=== PATIENT | female | born 1950 | race African-American/Black ===

== ENCOUNTER → 2017-12-17 | Day surgery (SDC) | payer MEDICARE, OTHER ==
[~2017-12-17] MED LIST: FAMOTIDINE20 MG PO; HYDRALAZINE HCL25 MG PO; LINZESS PO; LOSARTAN POTAS100 MG PO; METFORMIN HCL500 MG PO; MIDAZOLAM HCL 2 MG/2 ML VIAL ONE; PLAVIX75 MG PO; PROPOFOL IV EMULSION 10 MG/ML 50 ML VIAL ONE; SERTRALINE HCL100 MG PO; TIZANIDINE HCL4 MG PO; TRAZODONE HCL50 MG PO
[2017-12-17 07:51] LABS: BASOPHILS % 0.6 % (0.0-1.0); EOSINOPHILS # (AUTO) 0.2 (0.0-0.4); EOSINOPHILS % 3.2 % (0.0-6.0); HEMATOCRIT 37.9 % (34.2-44.1); HEMOGLOBIN 11.6 g/dL (12.0-16.0); LYMPHOCYTES # (AUTO) 2.7 (1.0-3.2); LYMPHOCYTES % 43.4 % (18.0-39.1); MEAN CORPUSCULAR HGB CONC 30.6 g/dL (31-35); MEAN CORPUSCULAR VOLUME 94.8 fL (81-99); MONOCYTES # (AUTO) 0.5 (0.2-0.8); MONOCYTES % 8.5 % (4.4-11.3); NEUTROPHILS # (AUTO) 2.7 (2.1-6.9); NEUTROPHILS % 43.7 % (38.7-80.0); PLATELET COUNT 212 x10e3/uL (140-360); RED CELL DISTRIBUTION WIDTH 13.4 % (11.7-14.4)
== END | disposition home or self-care (01) ==
LOC: OR 06:54
PROVIDERS: ATTEND Internal Medicine Gastroenterology
DX: K29.70 Gastritis, unspecified, without bleeding (principal); K21.9 Gastro-esophageal reflux disease without esophagitis; K31.89 Other diseases of stomach and duodenum; K44.9 Diaphragmatic hernia without obstruction or gangrene; E66.9 Obesity, unspecified; E11.9 Type 2 diabetes mellitus without complications; I10 Essential (primary) hypertension; M19.90 Unspecified osteoarthritis, unspecified site; F32.9 Major depressive disorder, single episode, unspecified; F41.9 Anxiety disorder, unspecified; Z79.02 Long term (current) use of antithrombotics/antiplatelets
CPT/HCPCS: 36415; 43235; 82948; 85025; 93005; J2250

== ENCOUNTER → 2018-10-07 | Day surgery (SDC) | payer MEDICARE, OTHER ==
[2018-10-04 14:37] LABS: BASOPHILS % 0.7 % (0.0-1.0); EOSINOPHILS # (AUTO) 0.2 (0.0-0.4); EOSINOPHILS % 2.8 % (0.0-6.0); HEMATOCRIT 35.8 % (34.2-44.1); LYMPHOCYTES # (AUTO) 3.3 (1.0-3.2); LYMPHOCYTES % 53.8 % (18.0-39.1); MEAN CORPUSCULAR HEMOGLOBIN 29.3 pg (28-32); MEAN CORPUSCULAR HGB CONC 30.7 g/dL (31-35); MEAN CORPUSCULAR VOLUME 95.5 fL (81-99); MONOCYTES # (AUTO) 0.6 (0.2-0.8); MONOCYTES % 10.4 % (4.4-11.3); NEUTROPHILS # (AUTO) 1.9 (2.1-6.9); NEUTROPHILS % 32.1 % (38.7-80.0); PLATELET COUNT 193 x10e3/uL (140-360); RED BLOOD COUNT 3.75 x10e6/uL (3.6-5.1); RED CELL DISTRIBUTION WIDTH 13.1 % (11.7-14.4)
[~2018-10-07] MED LIST changes: +ADVAIR 100-501 EACH; +AMLODIPINE BESY10 MG PO; +ATORVASTATIN CA10 MG PO; +ATROVENT HFA12.9 GM; +COMBIVENT RESPIM4 GM IH; +FENTANYL CITRATE/PF 100MCG/2 ML INJ ONE; +FISH OIL 1,0001 EAC2; +LIDOCAINE HCL 2% LOCAL INJ 5 ML SDV VIAL INJ ONE; -MIDAZOLAM HCL 2 MG/2 ML VIAL ONE; +NORCO 10-325 T1 EACH; +VITAMIN B12
--- OUTSIDE RECORDS SUMMARY | 2018-10-07 06:26 | XMS REPORT | Clinical Summary ---
Author Author [facility] Organization [facility] Address Unknown Phone Unavailable Care Team Providers Care Filler Picker Name Role Phone Adelaida Castro MD PCP Allergies Active Allergy Reactions Severity Noted Date Comments Aspirin, Buffered 09/08/2018 Current Medications Prescription Sig. Disp. Refills Start End Date Status Date lidocaine (LIDODERM) 5 % Place 1 patch on the skin 30 patch 0 09/08/20 10/08/20 Active daily for 30 days. Remove 18 18 & Discard patch within 12 hours or as directed by magnesium citrate Take 1 Bottle (296 mL 296 mL 0 09/08/20 09/08/20 solution total) by mouth once for 18 18 1 dose. Active Problems Not on file Encounters Date Type Specialty Care Team Description 09/08/2018 Emergency Emergency Medicine Clive Rodgers MD Acute right- sided low back pain with right-sided sciatica (Primary Dx); Constipation, unspecified constipation type; Flank pain after 10/06/2017 Social History Tobacco Use Types Packs/Day Years Used Date Never Smoker Alcohol Use Drinks/Week oz/Week Comments No Sex Assigned at Date Recorded Not on file Last Filed Vital Signs Vital Sign Reading Time Taken Blood Pressure 139/76 09/08/2018 9:00 PM CDT Pulse 75 09/08/2018 9:00 PM CDT Temperature 37 C (98.6 F) 09/08/2018 9:00 PM CDT Respiratory Rate 16 09/08/2018 9:00 PM CDT Oxygen Saturation 99% 09/08/2018 9:00 PM CDT Inhaled Oxygen - - Concentration Weight 63.5 kg (140 lb) 09/08/2018 5:49 PM CDT Height - - Body Mass Index - - Plan of Treatment Health Maintenance Due Date Last Done Comments BREAST CANCER SCREENING 1999 COLON CANCER SCREENING 1999 SHINGRIX VACCINE (#1) 1999 ZOSTER VACCINE 2009 PNEUMOCOCCAL 2014 POLYSACCHARIDE VACCINE AGE 65 AND OVER PNEUMOCOCCAL-13 2014 INFLUENZA VACCINE 06/30/2018 Procedures Procedure Name Priority Date/Time Associated Diagnosis Comments XR LUMBAR SPINE COMPLETE STAT 09/08/2018 Results for this 4+ VW 8:20 PM CDT procedure are in the results section. CT RENAL STONE PROTOCOL STAT 09/08/2018 Results for this 6:33 PM CDT procedure are in the results section. ESTIMATED GFR STAT 09/08/2018 Results for this 6:30 PM CDT procedure are in the results section. LIPASE LEVEL STAT 09/08/2018 Results for this 6:30 PM CDT procedure are in the results section. COMPREHENSIVE METABOLIC STAT 09/08/2018 Results for this PANEL 6:30 PM CDT procedure are in the results section. URINALYSIS SCREEN AND STAT 09/08/2018 Results for this MICROSCOPY, WITH REFLEX 6:30 PM CDT procedure are in the TO CULTURE results section. PARTIAL THROMBOPLASTIN STAT 09/08/2018 Results for this TIME (PTT) 6:30 PM CDT procedure are in the results section. PROTHROMBIN TIME WITH INR STAT 09/08/2018 Results for this 6:30 PM CDT procedure are in the results section. HC COMPLETE BLD COUNT STAT 09/08/2018 Results for this W/AUTO DIFF 6:30 PM CDT procedure are in the results section. after 10/06/2017 Results * XR Lumbar Spine Complete 4+ Vw (09/08/2018 8:20 PM) Narrative Performed At EXAMINATION: XR LUMBAR SPINE COMPLETE 4VW [facility] CLINICAL HISTORY: Back [id number] conservative txpersistent sx COMPARISON:None IMPRESSION: Vertebral body heights appear maintained without evidence of fracture. Mild right convex lumbar scoliosis with Brown angle measuring 14 degrees from the superior endplate of L2 to the inferior endplate of L4. Mild leftward rotatory component. Moderate to marked intervertebral disc space and at L1-L2, L2-L3, L5-S1, and the left aspect of L3-L4. Mild to moderate multilevel anterior osteophyte formation. Multilevel moderate to marked facet hypertrophy which appears more pronounced on the left in the mid and lower lumbar spine. No spondylolysis identified. Vascular calcifications. Surgical clips in the region of the gastroesophageal junction. [id number] Procedure Note Hm Interface, Radiology Results Incoming - 09/08/2018 8:37 PM CDT EXAMINATION: XR LUMBAR SPINE COMPLETE 4 VW CLINICAL HISTORY: Back pain 6wks conservative tx persistent sx COMPARISON: None IMPRESSION: Vertebral body heights appear maintained without evidence of fracture. Mild right convex lumbar scoliosis with Brown angle measuring 14 degrees from the superior endplate of L2 to the inferior endplate of L4. Mild leftward rotatory component. Moderate to marked intervertebral disc space and at L1-L2, L2-L3, L5-S1, and the left aspect of L3-L4. Mild to moderate multilevel anterior osteophyte formation. Multilevel moderate to marked facet hypertrophy which appears more pronounced on the left in the mid and lower lumbar spine. No spondylolysis identified. Vascular calcifications. Surgical clips in the region of the gastroesophageal junction. [id number] Performing Organization Address City/State/Zipcode Phone Number [facility] [address] [place] [address] * CT Renal Stone Protocol (09/08/2018 6:33 PM) Narrative Performed At EXAMINATION:CT RENAL STONE PROTOCOL [facility] CLINICAL HISTORY:Flank painrecurrent stone disease suspected COMPARISON:None. TECHNIQUE:CT of the abdomen and pelvis without intravenous contrast. Absence of contrast decreases sensitivity for detection of focal lesions and vascular pathology. All CT scan performed using radiation dose reduction techniques. Technical factors are evaluated and adjusted to ensure appropriate moderation of exposure. Automated dose management technology is applied to adjust the radiation dose to minimize expose whileachieving a diagnostic quality image. FINDINGS: LUNG BASES: The lung bases are clear. HEPATOBILIARY:Limited evaluation of the liver is unremarkable. No intrahepatic biliary dilatation is seen. GALLBLADDER: No gallstones are seen. No wall thickening or pericholecystic fluid collection is identified. SPLEEN: Limited nonenhanced evaluation of the spleen is unremarkable.No splenomegaly. PANCREAS: Limited nonenhanced evaluation of the pancreas is unremarkable.No ductal dilation. ADRENALS: The adrenal glands are unremarkable. No adrenal nodules. KIDNEYS:No renal calculus or hydronephrosis is seen. Limited nonenhanced evaluation of the kidneys otherwise unremarkable. PERITONEUM/RETROPERITONEUM: No mesenteric or retroperitoneal pathologic adenopathy is seen. GI TRACT:The small bowel is normal in caliber. Moderate retained fecal debris is interbody colon. The colon is otherwise unremarkable. No wall thickening is identified. There is no evidence of inflammatory process. The appendix not seen. No right low quadrant inflammation is present. . Multiple surgical clips are noted at the gastroesophageal junction. The stomach is unremarkable.. BONES: Moderate multilevel degenerative changes are noted. VASCULATURE: Moderate atherosclerotic disease is seen of the abdominal aorta. PELVIS: BLADDER: The urinary bladder is unremarkable. GENITALIA: The uterus is not seen, suggestive of surgically absent. FLUID: None. IMPRESSION: No CT evidence of renal calculus or obstructive the uropathy. Moderate constipation. No CT evidence of colitis or bowel obstruction. Unremarkable exam otherwise. [id number] Procedure Note Hm Interface, Radiology Results Incoming - 09/08/2018 6:43 PM CDT EXAMINATION: CT RENAL STONE PROTOCOL CLINICAL HISTORY: Flank pain recurrent stone disease suspected COMPARISON: None. TECHNIQUE: CT of the abdomen and pelvis without intravenous contrast. Absence of contrast decreases sensitivity for detection of focal lesions and vascular pathology. All CT scan performed using radiation dose reduction techniques. Technical factors are evaluated and adjusted to ensure appropriate moderation of exposure. Automated dose management technology is applied to adjust the radiation dose to minimize expose while achieving a diagnostic quality image. FINDINGS: LUNG BASES: The lung bases are clear. HEPATOBILIARY: Limited evaluation of the liver is unremarkable. No intrahepatic biliary dilatation is seen. GALLBLADDER: No gallstones are seen. No wall thickening or pericholecystic fluid collection is identified. SPLEEN: Limited nonenhanced evaluation of the spleen is unremarkable. No splenomegaly. PANCREAS: Limited nonenhanced evaluation of the pancreas is unremarkable. No ductal dilation. ADRENALS: The adrenal glands are unremarkable. No adrenal nodules. KIDNEYS: No renal calculus or hydronephrosis is seen. Limited nonenhanced evaluation of the kidneys otherwise unremarkable. PERITONEUM/RETROPERITONEUM: No mesenteric or retroperitoneal pathologic adenopathy is seen. GI TRACT: The small bowel is normal in caliber. Moderate retained fecal debris is interbody colon. The colon is otherwise unremarkable. No wall thickening is identified. There is no evidence of inflammatory process. The appendix not seen. No right low quadrant inflammation is present. . Multiple surgical clips are noted at the gastroesophageal junction. The stomach is unremarkable.. BONES: Moderate multilevel degenerative changes are noted. VASCULATURE: Moderate atherosclerotic disease is seen of the abdominal aorta. PELVIS: BLADDER: The urinary bladder is unremarkable. GENITALIA: The uterus is not seen, suggestive of surgically absent. FLUID: None. IMPRESSION: No CT evidence of renal calculus or obstructive the uropathy. Moderate constipation. No CT evidence of colitis or bowel obstruction. Unremarkable exam otherwise. [id number] Performing Organization Address City/State/Zipcode Phone Number [facility] [address] [place] [address] * Urinalysis screen and microscopy, with reflex to culture (09/08/2018 6:30 PM) Specimen site Clean catch [facility] DEPARTMENT OF PATHOLOGY AND GENOMIC MEDICINE Color, UA Straw [facility] DEPARTMENT OF PATHOLOGY AND GENOMIC MEDICINE Appearance, UA Clear [facility] DEPARTMENT OF PATHOLOGY AND GENOMIC MEDICINE Specific gravity, UA 1.008 1.001 - 1.035 [facility] DEPARTMENT OF PATHOLOGY AND GENOMIC MEDICINE pH, UA 7.0 5.0 - 8.5 [facility] DEPARTMENT OF PATHOLOGY AND GENOMIC MEDICINE Protein, UA Negative Negative [facility] DEPARTMENT OF PATHOLOGY AND GENOMIC MEDICINE Glucose, UA Negative Negative [facility] DEPARTMENT OF PATHOLOGY AND GENOMIC MEDICINE Ketones, UA Negative Negative [facility] DEPARTMENT OF PATHOLOGY AND GENOMIC MEDICINE Bilirubin, UA Negative Negative [facility] DEPARTMENT OF PATHOLOGY AND GENOMIC MEDICINE Blood, UA Negative Negative [facility] DEPARTMENT OF PATHOLOGY AND GENOMIC MEDICINE Nitrite, UA Negative Negative [facility] DEPARTMENT OF PATHOLOGY AND GENOMIC MEDICINE Urobilinogen, UA Negative <2.0 [facility] DEPARTMENT OF PATHOLOGY AND GENOMIC MEDICINE Leukocyte esterase, UA Negative Negative [facility] DEPARTMENT OF PATHOLOGY AND GENOMIC MEDICINE Epithelial cells, UA Few /HPF [facility] DEPARTMENT OF PATHOLOGY AND GENOMIC MEDICINE WBC, UA 0-5 0 - 4 /HPF [facility] DEPARTMENT OF PATHOLOGY AND GENOMIC MEDICINE RBC, UA 0-5 0 - 5 /HPF [facility] DEPARTMENT OF PATHOLOGY AND GENOMIC MEDICINE Bacteria, UA Trace None seen [facility] DEPARTMENT OF PATHOLOGY AND GENOMIC MEDICINE Yeast, UA None seen [facility] DEPARTMENT OF PATHOLOGY AND GENOMIC MEDICINE Yeast with pseudohyphae, None seen [facility] DEPARTMENT OF PATHOLOGY AND GENOMIC MEDICINE Specimen Urine Performing Organization Address City/[facility]/Zipcode Phone Number [place] [address] [place] [address] PATHOLOGY AND GENOMIC MEDICINE * Estimated GFR (09/08/2018 6:30 PM) Estimated GFR >=90 mL/min/1.73 m2 [facility] DEPARTMENT OF Comment: PATHOLOGY AND [employer] GENOMIC MEDICINE rpretation G1 >=90 Normal or high G2 60-89Mildly decreased [id number] Mildly to moderately decreased [id number] Moderately to severely decreased G4 15-29Severely decreased G5 <15Kidney failure The eGFR was calculated using the Chronic Kidney Disease Epidemiology Collaboration (CKD-EPI) equation. Interpretation is based on recommendations of the National Kidney Foundation-Kidney Disease Outcomes Quality Initiative (NKF-KDOQI) published in 2014. Specimen Plasma specimen Performing Organization Address [facility] Phone Number [address] [place] [address] PATHOLOGY AND [place] [facility] * Partial thromboplastin time, activated (09/08/2018 6:30 PM) PTT 30.6 23.0 - 36.0 sec [facility] DEPARTMENT OF Comment: PATHOLOGY AND PTT therapeutic range for GENOMIC [facility] unfractionated heparin is 61.0-112.0 seconds which corresponds to Anti-Xa 0.3-0.7 U/ml. Specimen Blood Performing Organization Address [facility] Phone Number [address] [place] [address] PATHOLOGY AND [place] [facility] * Prothrombin time with INR (09/08/2018 6:30 PM) Prothrombin time 12.1 12.0 - 15.0 sec [facility] DEPARTMENT OF PATHOLOGY AND [place] MEDICINE INR 0.9 [facility] DEPARTMENT OF Comment: PATHOLOGY AND The International Normalized GENOMIC MEDICINE Ratio (INR) is a therapeutic monitoring tool for patients who are stable on oral anticoagulant therapy. An INR of 2.0-3.0 is suggested for deep vein thrombosis/pulmonary embolism. Specimen Blood Performing Organization Address [facility] Phone Number [address] [place] [address] PATHOLOGY AND [place] [facility] * CBC with platelet and differential (09/08/2018 6:30 PM) WBC 8.01 4.50 - 11.00 k/uL [facility] DEPARTMENT OF PATHOLOGY AND GENOMIC MEDICINE RBC 3.95 (L) 4.20 - 5.50 m/uL [facility] DEPARTMENT OF PATHOLOGY AND GENOMIC MEDICINE HGB 11.6 (L) 12.0 - 16.0 g/dL [facility] DEPARTMENT OF PATHOLOGY AND GENOMIC MEDICINE HCT 36.9 (L) 37.0 - 47.0 % [facility] DEPARTMENT OF PATHOLOGY AND GENOMIC MEDICINE MCV 93.4 82.0 - 100.0 fL [facility] DEPARTMENT OF PATHOLOGY AND GENOMIC MEDICINE MCH 29.4 27.0 - 34.0 pg [facility] DEPARTMENT OF PATHOLOGY AND GENOMIC MEDICINE MCHC 31.4 31.0 - 37.0 g/dL [facility] DEPARTMENT OF PATHOLOGY AND GENOMIC MEDICINE RDW - SD 45.8 37.0 - 55.0 fL [facility] DEPARTMENT OF PATHOLOGY AND GENOMIC MEDICINE MPV 11.0 8.8 - 13.2 fL [facility] DEPARTMENT OF PATHOLOGY AND GENOMIC MEDICINE Platelet count 204 150 - 400 k/uL [facility] DEPARTMENT OF PATHOLOGY AND GENOMIC MEDICINE Nucleated RBC 0.00 /100 WBC [facility] DEPARTMENT OF PATHOLOGY AND GENOMIC MEDICINE Neutrophils 39.0 39.0 - 69.0 % [facility] DEPARTMENT OF PATHOLOGY AND GENOMIC MEDICINE Lymphocytes 50.6 (H) 25.0 - 45.0 % [facility] DEPARTMENT OF PATHOLOGY AND GENOMIC MEDICINE Monocytes 7.6 0.0 - 10.0 % [facility] DEPARTMENT OF PATHOLOGY AND GENOMIC MEDICINE Eosinophils 1.9 0.0 - 5.0 % [facility] DEPARTMENT OF PATHOLOGY AND GENOMIC MEDICINE Basophils 0.4 0.0 - 1.0 % [facility] DEPARTMENT OF PATHOLOGY AND GENOMIC MEDICINE Specimen Blood Performing Organization Address City/[facility] Phone Number [address] [place] [address] PATHOLOGY [facility] * Lipase level (09/08/2018 6:30 PM) Lipase 18 13 - 60 U/L [facility] DEPARTMENT OF PATHOLOGY AND GENOMIC MEDICINE Specimen Plasma specimen Performing Organization Address City/[facility]/Zipcode Phone Number [address] [place] [address] PATHOLOGY [facility] * Comprehensive metabolic panel (09/08/2018 6:30 PM) Sodium 138 135 - 148 mEq/L [facility] DEPARTMENT OF PATHOLOGY AND GENOMIC MEDICINE Potassium 4.0 3.5 - 5.0 mEq/L [facility] DEPARTMENT OF PATHOLOGY AND GENOMIC MEDICINE Chloride 103 98 - 112 mEq/L [facility] DEPARTMENT OF PATHOLOGY AND GENOMIC MEDICINE CO2 24 24 - 31 mEq/L [facility] DEPARTMENT OF PATHOLOGY AND GENOMIC MEDICINE Anion gap 11@ANIO 7 - 15 mEq/L [facility] DEPARTMENT OF PATHOLOGY AND GENOMIC MEDICINE BUN 21 8 - 23 mg/dL [facility] DEPARTMENT OF PATHOLOGY AND GENOMIC MEDICINE Creatinine 0.70 0.50 - 0.90 mg/dL [facility] DEPARTMENT OF PATHOLOGY AND GENOMIC MEDICINE Glucose 81 65 - 99 mg/dL [facility] DEPARTMENT OF PATHOLOGY AND GENOMIC MEDICINE Calcium 9.5 8.8 - 10.2 mg/dL [facility] DEPARTMENT OF PATHOLOGY AND GENOMIC MEDICINE Protein 7.6 6.3 - 8.3 g/dL [facility] DEPARTMENT OF Comment: PATHOLOGY AND [place] GENOMIC MEDICINE 4.6-7.0 g/dL 1 week 4.4-7.6 g/dL 7 months-1year 5.1-7.3 g/dL 1-2 years5.6-7 .5 g/dL >3 years6.0-8 .0 g/dL 18-150 6.3-8.3 g/dL Albumin 4.2 3.5 - 5.0 g/dL [facility] DEPARTMENT OF PATHOLOGY AND GENOMIC MEDICINE A/G ratio 1.2 0.7 - 3.8 [facility] DEPARTMENT OF PATHOLOGY AND GENOMIC MEDICINE Alkaline phosphatase 69 35 - 104 U/L [facility] DEPARTMENT OF PATHOLOGY AND GENOMIC MEDICINE AST 21 10 - 35 U/L [facility] DEPARTMENT OF PATHOLOGY AND GENOMIC MEDICINE ALT 17 5 - 50 U/L [facility] DEPARTMENT OF PATHOLOGY AND GENOMIC MEDICINE Total bilirubin 0.3 0.0 - 1.2 mg/dL [facility] DEPARTMENT OF PATHOLOGY AND GENOMIC MEDICINE Specimen Plasma specimen Performing Organization Address City/State/Zipcode Phone Number [facility] [address] [place] [address] PATHOLOGY AND GENOMIC MEDICINE after 10/06/2017 Insurance Payer Benefit Subscriber ID Type Phone Address Plan / Group [facility] MEDICARE [facility] DUAL xxxxxxxxx O COMPLETE MCR
--- OUTSIDE RECORDS SUMMARY | 2018-10-07 06:26 | XMS REPORT | Clinical Summary ---
Author Author [facility] Organization [facility] Address Unknown Phone Unavailable Care Team Providers Care Building Mechanic Name Role Phone Elo Dacosta PCP Allergies Active Allergy Reactions Severity Noted Date Comments Aspirin Other 03/29/2018 Stomach ulcers Current Medications Prescription Sig. Disp. Refills Start End Date Status Date ATROVENT HFA IN None Entered Active CLINDAMYCIN 300 MG CAP take 1 capsule (300 mg) Active by oral route every 6 hours TRIAMCINOLONE ACETONIDE apply a thin film to the 30 gm 0 03/07/20 Active 0.1 % affected skin areas 2 10 OINTMENTIndications: times per day for 1 week Contact dermatitis albuterol (PROVENTIL HFA) Inhale 2 Puffs by mouth 4 20.1 g 0 10/18/20 Active 90 mcg/actuation times daily as needed for 15 inhalerIndications: Wheezing. Asthma, unspecified asthma severity, uncomplicated budesonide-formoterol Inhale 2 Puffs by mouth 2 30.6 g 0 10/18/20 Active (SYMBICORT) 160-4.5 times daily. 15 mcg/actuation inhalerIndications: Pulmonary emphysema, unspecified emphysema type losartan (COZAAR) 25 mg Take 100 mg by mouth Active tablet daily . tiZANidine (ZANAFLEX) 4 Take 4 mg by mouth 3 Active mg tablet times daily. metoclopramide (REGLAN) Take 10 mg by mouth 2 Active 10 mg tablet times daily. linaclotide (LINZESS) 290 Take 290 mcg by mouth Active mcg cap daily. amLODIPine (NORVASC) 10 Take 1 tablet by mouth 90 tablet 3 03/29/20 Active mg tabletIndications: daily For hypertension. 18 Essential hypertension hydrALAZINE (APRESOLINE) Take 1 tablet by mouth 3 270 tablet 3 03/29/20 Active 25 mg tabletIndications: times daily For 18 Essential hypertension hypertension. clopidogrel (PLAVIX) 75 Take 1 tablet by mouth 90 tablet 3 03/29/20 Active mg tabletIndications: daily For circulation. 18 Essential hypertension metFORMIN (GLUCOPHAGE) Take 1 tablet by mouth 2 180 tablet 3 03/29/20 Active 500 mg tabletIndications: times daily (with meals) 18 Type 2 diabetes mellitus For diabetes. with other specified complication, without long-term current use of insulin losartan (COZAAR) 100 mg Take 1 tablet by mouth 90 tablet 3 03/29/20 Active tabletIndications: daily For hypertension. 18 Essential hypertension fluticasone (FLONASE) 50 Use 2 Sprays in each 16 g 3 03/29/20 Active mcg/actuation nasal nostril daily For nasal 18 sprayIndications: congestion as needed. Allergic rhinitis, unspecified seasonality, unspecified trigger ipratropium-albuterol Inhale 2 Puffs by mouth 4 2 Inhaler 6 03/29/20 Active (COMBIVENT RESPIMAT) times daily. 18 20-100 mcg/actuation MistIndications: Pulmonary emphysema, unspecified emphysema type, Uncomplicated asthma, unspecified asthma severity, unspecified whether persistent gabapentin (NEURONTIN) Take 1 capsule by mouth 3 90 capsule 1 05/11/20 Active 100 mg times daily For pain in 18 capsuleIndications: feet. Numbness and tingling omeprazole (PRILOSEC) 20 TAKE ONE CAPSULE BY MOUTH 90 capsule 0 05/18/20 Active mg delayed release DAILY FOR ACID REFLUX 18 capsuleIndications: Gastroesophageal reflux disease, esophagitis presence not specified atorvastatin (LIPITOR) 10 Take 1 tablet by mouth at 90 tablet 0 05/28/20 Active mg tabletIndications: bedtime nightly For 18 Pure hypercholesterolemia cholesterol. sertraline (ZOLOFT) 100 Take 2 tablets by mouth 180 tablet 1 05/28/20 Active mg tabletIndications: daily. 18 Anxiety disorder, unspecified type traZODone (DESYREL) 100 Take 1.5 to 2 tabs by 180 tablet 1 05/28/20 Active mg tabletIndications: mouth at bedtime as 18 Insomnia, unspecified needed for insomnia.. type enalapril (VASOTEC) 10 mg Take 1 tablet by mouth 30 tablet 0 10/18/20 03/29/20 Discontin tabletIndications: daily. 15 18 ued Essential hypertension metFORMIN (GLUCOPHAGE) Take 1 tablet by mouth 2 60 tablet 0 10/18/20 03/29/20 Discontin 500 mg tabletIndications: times daily (with meals). 15 18 ued Type 2 diabetes mellitus with other specified complication atorvastatin (LIPITOR) 10 Take 10 mg by mouth at 03/29/20 Discontin mg tablet bedtime nightly. 18 ued clopidogrel (PLAVIX) 75 Take 75 mg by mouth 03/29/20 Discontin mg tablet daily. 18 ued traZODone (DESYREL) 100 Take 1/2 to 1 full tab by 90 tablet 1 03/23/20 11/17/20 Discontin mg tabletIndications: mouth at bedtime as 17 17 ued Insomnia, unspecified needed for insomnia.. HYDROcodone-acetaminophen Take 1 tablet by mouth 05/11/20 Discontin (NORCO) 10-325 mg tablet every 6 hours as needed. 18 ued sertraline (ZOLOFT) 100 Take 2 tablets by mouth 180 tablet 1 05/01/20 11/17/20 Discontin mg tabletIndications: daily. 17 17 ued Anxiety disorder, unspecified type, Mood disorder mirtazapine (REMERON) 7.5 Take 1 tablet by mouth at 30 tablet 3 05/01/20 11/17/20 Discontin mg tabletIndications: bedtime nightly. 17 17 ued Anxiety disorder, unspecified type sertraline (ZOLOFT) 100 Take 2 tablets by mouth 180 tablet 1 11/17/20 03/05/20 Discontin mg tabletIndications: daily. 17 18 ued Anxiety disorder, unspecified type, Mood disorder traZODone (DESYREL) 100 Take 1/2 to 1 full tab by 90 tablet 1 11/17/20 03/05/20 Discontin mg tabletIndications: mouth at bedtime as 17 18 ued Insomnia, unspecified needed for insomnia.. type sertraline (ZOLOFT) 100 Take 2 tablets by mouth 180 tablet 1 03/05/20 05/28/20 Discontin mg tabletIndications: daily. 18 18 ued Anxiety disorder, unspecified type traZODone (DESYREL) 100 Take 1/2 to 1 full tab by 90 tablet 1 03/05/20 05/28/20 Discontin mg tabletIndications: mouth at bedtime as 18 18 ued Insomnia, unspecified needed for insomnia.. type losartan (COZAAR) 100 mg Take 100 mg by mouth 03/29/20 Discontin tablet daily. 18 ued omeprazole (PRILOSEC) 20 Take 20 mg by mouth 05/11/20 Discontin mg delayed release daily. 18 ued capsule amLODIPine (NORVASC) 10 Take 10 mg by mouth 03/29/20 Discontin mg tablet daily. 18 ued hydrALAZINE (APRESOLINE) Take 25 mg by mouth 3 03/29/20 Discontin 25 mg tablet times daily. 18 ued tropicamide (MYDRIACYL) Instill 1 Drop in each 15 mL 0 03/29/20 09/25/20 0.5 % ophthalmic eye daily as needed for 18 18 solutionIndications: Type up to 1 dose (for poor 2 diabetes mellitus with retina scan image). other specified complication, without long-term current use of insulin amLODIPine (NORVASC) 10 Take 1 tablet by mouth 90 tablet 3 03/29/20 03/29/20 Discontin mg tabletIndications: daily For hypertension. 18 18 ued Essential hypertension hydrALAZINE (APRESOLINE) Take 1 tablet by mouth 3 270 tablet 3 03/29/20 03/29/20 Discontin 25 mg tabletIndications: times daily For 18 18 ued Essential hypertension hypertension. clopidogrel (PLAVIX) 75 Take 1 tablet by mouth 90 tablet 3 03/29/20 03/29/20 Discontin mg tabletIndications: daily For circulation. 18 18 ued Essential hypertension metFORMIN (GLUCOPHAGE) Take 1 tablet by mouth 2 180 tablet 3 03/29/20 03/29/20 Discontin 500 mg tabletIndications: times daily (with meals) 18 18 ued Type 2 diabetes mellitus For diabetes. with other specified complication, without long-term current use of insulin losartan (COZAAR) 100 mg Take 1 tablet by mouth 90 tablet 3 03/29/20 03/29/20 Discontin tabletIndications: daily For hypertension. 18 18 ued Essential hypertension fluticasone (FLONASE) 50 Use 2 Sprays in each 16 g 3 03/29/20 03/29/20 Discontin mcg/actuation nasal nostril daily For nasal 18 18 ued sprayIndications: congestion as needed. Allergic rhinitis, unspecified seasonality, unspecified trigger ipratropium-albuterol Inhale 2 Puffs by mouth 4 2 Inhaler 6 03/29/20 03/29/20 Discontin (COMBIVENT RESPIMAT) times daily. 18 18 ued 20-100 mcg/actuation MistIndications: Pulmonary emphysema, unspecified emphysema type, Uncomplicated asthma, unspecified asthma severity, unspecified whether persistent omeprazole (PRILOSEC) 20 Take 1 capsule by mouth 90 capsule 0 05/11/20 05/18/20 Discontin mg delayed release daily For acid reflux. 18 18 ued capsuleIndications: Gastroesophageal reflux disease, esophagitis presence not specified traZODone (DESYREL) 100 Take 1/2 to 1 full tab by 90 tablet 1 05/28/20 05/28/20 Discontin mg tabletIndications: mouth at bedtime as 18 18 ued Insomnia, unspecified needed for insomnia.. type Active Problems Problem Noted Date Memory disorder 05/11/2018 Numbness and tingling 05/11/2018 Abnormal hepatitis serology 03/31/2018 Dysphagia 03/29/2018 Skull lesion 03/29/2018 Back pain 03/29/2018 Anxiety disorder 2016 Mood disorder 2016 Essential hypertension 10/18/2015 Diabetes mellitus 10/18/2015 Asthma 10/18/2015 Emphysema/COPD 10/18/2015 COPD (chronic obstructive pulmonary disease) Hypercholesteremia Peptic ulcer disease Hepatitis Abnormal CXR 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 B virus Encounters Date Type Specialty Care Team Description 09/22/2018 Telephone Social Work Leonel Anaya RN Pre-clinic Chart Review; Durable Medical Equipment (Quad cane ) 05/28/2018 Office Visit Psychiatry Richard Lehman MD Anxiety disorder, unspecified type; Insomnia, unspecified type 05/28/2018 Orders Only Family Practice Toña Lemon MD Pure hypercholesterolemia (Primary Dx) 05/28/2018 Telephone Family Practice Cherry Bland RN Information Only 05/18/2018 Hospital Toña Lemon MD Encounter 05/18/2018 Refill Family Practice Toña Lemon MD Gastroesophageal reflux disease, esophagitis presence not specified 05/12/2018 Orders Only Family Practice Toña Lemon MD Numbness and tingling 05/11/2018 Office Visit Family Practice Toña Lemon MD Type 2 diabetes mellitus with other specified complication, without long-term current use of insulin (Primary Dx); Essential hypertension; Uncomplicated asthma, unspecified asthma severity, unspecified whether persistent; Pulmonary emphysema, unspecified emphysema type; Abnormal CXR; 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 B virus; Memory disorder; Numbness and tingling; Gastroesophageal reflux disease, esophagitis presence not specified 05/11/2018 Orders Only [facility] Toña Coffman MD Memory disorder; Numbness and tingling 05/11/2018 Clinical Case Social Work Erin Krause Mgmanish 04/21/2018 Telephone Mary Jane Torres RN Other 04/20/2018 Telephone [facility] Practice Cherry Bland, RN Information Only 04/07/2018 Office Visit [facility] Toña Lemon MD Type 2 diabetes mellitus with other specified complication, without long-term current use of insulin (Primary Dx); Essential hypertension; Pulmonary emphysema, unspecified emphysema type; Uncomplicated asthma, unspecified asthma severity, unspecified whether persistent; Abnormal hepatitis serology; Brain lesion; Anxiety disorder, unspecified type; Mood disorder; 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 B virus 04/07/2018 Orders Only [facility] Toña Coffman MD Anxiety disorder, unspecified type; Mood disorder 04/02/2018 Refill Psychiatry Richard Lehman MD Insomnia, unspecified type 03/31/2018 Orders Only [facility] Toña Coffman MD Abnormal hepatitis serology (Primary Dx) 03/30/2018 Ancillary Radiology Toña Lemon MD Essential hypertension; Procedure Skull lesion 03/30/2018 Orders Only [facility] Toña Coffman MD Abnormal CXR (Primary Dx); Pulmonary emphysema, unspecified emphysema type; Healthcare maintenance 03/29/2018 Office Visit [facility] Toña Coffman MD Healthcare maintenance (Primary Dx); Essential hypertension; Type 2 diabetes mellitus with other specified complication, without long-term current use of insulin; Pulmonary emphysema, unspecified emphysema type; Uncomplicated asthma, unspecified asthma severity, unspecified whether persistent; Dysphagia, unspecified type; Skull lesion; Back pain, unspecified back location, unspecified back pain laterality, unspecified chronicity 03/29/2018 Orders Only [facility] Toña Coffman MD Type 2 diabetes mellitus with other specified complication, without long-term current use of insulin 03/29/2018 Orders Only Family Practice Cherry Bland RN Essential hypertension 03/05/2018 Office Visit Psychiatry Richard Lehman MD Anxiety disorder, unspecified type; Insomnia, unspecified type 02/05/2018 Telephone Psychiatry Richard Lehman MD Appointment Related Questions (dr lehman called in and I had to reschedule) 11/17/2017 Office Visit Psychiatry Richard Lehman MD Anxiety disorder, unspecified type; Mood disorder; Insomnia, unspecified type after 10/06/2017 Immunizations Name Dates Previously Given Next Due Hepatitis B 04/07/2018 Pediatric/Adolescent/Adul t Influenza Vaccine 07/31/2015 PNEUMOCOCCAL 23-VALPS 04/07/2018 VACCINE 25 MCG/0.5 ML INJECTION PPV 23 Pneumococcal 07/31/2015 Polysaccaride TDap (Tetanus Toxoid, 04/07/2018 Reduced Diphtheria Toxoid And Acellular Pertussis, Absorbed) Family History Medical History Relation Name Comments Cancer Brother Cirrhosis Brother Diabetes Brother Asthma Daughter Unknown Fam Hx Father Heart Mother Unknown Fam Hx Paternal Grandfather Unknown Fam Hx Paternal Grandmother Cancer Sister Relation Name Status Comments Brother Brother Alive Daughter Alive Daughter Alive Father Other Maternal Grandfather Maternal Grandmother Mother Paternal Grandfather Other Paternal Grandmother Other Sister Sister Alive Sister Alive Son Alive Son Alive Son Alive Social History Tobacco Use Types Packs/Day Years Used Date Never Smoker Smokeless Tobacco: Never Used Tobacco Cessation: Counseling Given: Yes Alcohol Use Drinks/Week oz/Week Comments No 0 Standard 0.0 drinks or equivalent Sex Assigned at Date Recorded Not on file Last Filed Vital Signs Vital Sign Reading Time Taken Blood Pressure 120/76 05/28/2018 3:31 PM CDT Pulse 75 05/28/2018 3:31 PM CDT Temperature 37.3 C (99.2 F) 05/28/2018 3:31 PM CDT Respiratory Rate 18 05/28/2018 3:31 PM CDT Oxygen Saturation - - Inhaled Oxygen - - Concentration Weight 71.7 kg (158 lb) 05/28/2018 3:31 PM CDT Height 167.6 cm (5' 6") 05/28/2018 3:31 PM CDT Body Mass Index 25.5 05/28/2018 3:31 PM CDT Plan of Treatment Date Type Specialty Care Team Description 10/26/2018 Office Visit Psychiatry Richard Lehman MD [address] [place] [address] Health Maintenance Due Date Last Done Comments Breast Cancer Scrn 04/24/2018 04/24/2017 (Previously completed - (Yearly) External), 04/30/2015 DM Foot Exam (Yearly) 03/29/2019 03/29/2018 Colorectal Cancer Scrn 03/30/2019 03/30/2018 Annual (FIT/FOBT) Age 50 to 75 DM HGBA1C (Yearly) 03/30/2019 03/30/2018, 10/18/2015 DM Retinal Exam (Yearly) 05/11/2019 05/11/2018, 04/30/2015 IMM Pneumococcal Age 64 Completed 04/07/2018, 07/31/2015 (Previously and Up completed - External) Procedures Procedure Name Priority Date/Time Associated Diagnosis Comments PULMONARY - 6 MINUTE WALK Routine 05/18/2018 EXERCISE TEST - COMPLEX 1:58 PM CDT PULMONARY FUNCTION TEST Routine 05/18/2018 1:19 PM CDT OPHTHALMOLOGY RETINAL Routine 05/11/2018 Type 2 diabetes mellitus Results for this SCAN 1:36 PM CDT with other specified procedure are in the complication, without results section. long-term current use of insulin AFP, TUMOR MARKER Routine 04/06/2018 Abnormal hepatitis Results for this 4:18 PM CDT serology procedure are in the results section. PT/INR/PTT Routine 04/06/2018 Abnormal hepatitis Results for this 4:18 PM CDT serology procedure are in the results section. HEPATITIS B SURFACE AB Routine 04/06/2018 Abnormal hepatitis Results for this 4:18 PM CDT serology procedure are in the results section. HCV RNA QUANT, PCR Routine 04/06/2018 Abnormal hepatitis Results for this 4:18 PM CDT serology procedure are in the results section. HEP A VIRUS AB IGG Routine 04/06/2018 Abnormal hepatitis Results for this 4:18 PM CDT serology procedure are in the results section. XRAY SKULL LESS THAN 4 Routine 03/30/2018 Skull lesion Results for this VIEWS 10:28 AM CDT procedure are in the results section. XRAY CHEST 2 VIEWS Routine 03/30/2018 Essential hypertension Results for this 10:28 AM CDT procedure are in the results section. OCCULT BLOOD ICT Routine 03/30/2018 Healthcare maintenance Results for this 9:46 AM CDT procedure are in the results section. H. PYLORI STOOL AG Routine 03/30/2018 Healthcare maintenance Results for this 9:46 AM CDT procedure are in the results section. VIT D, 25-HYDROXY Routine 03/30/2018 Healthcare maintenance Results for this 9:40 AM CDT procedure are in the results section. URINE CULTURE Routine 03/30/2018 Healthcare maintenance Results for this 9:40 AM CDT procedure are in the results section. MICROALBUM, URINE Routine 03/30/2018 Healthcare maintenance Results for this 9:40 AM CDT Type 2 diabetes mellitus procedure are in the with other specified results section. complication, without long-term current use of insulin HEMOGLOBIN A1C Routine 03/30/2018 Healthcare maintenance Results for this 9:40 AM CDT Type 2 diabetes mellitus procedure are in the with other specified results section. complication, without long-term current use of insulin CBC/DIFF Routine 03/30/2018 Healthcare maintenance Results for this 9:40 AM CDT procedure are in the results section. BASIC METABOLIC PANEL Routine 03/30/2018 Healthcare maintenance Results for this 9:40 AM CDT Type 2 diabetes mellitus procedure are in the with other specified results section. complication, without long-term current use of insulin LIPID PROFILE Routine 03/30/2018 Healthcare maintenance Results for this 9:40 AM CDT procedure are in the results section. LIVER PROFILE Routine 03/30/2018 Healthcare maintenance Results for this 9:40 AM CDT procedure are in the results section. TSH Routine 03/30/2018 Healthcare maintenance Results for this 9:40 AM CDT procedure are in the results section. UA CHEMISTRIES Routine 03/30/2018 Healthcare maintenance Results for this 9:40 AM CDT procedure are in the results section. HEPATITIS PANEL Routine 03/30/2018 Healthcare maintenance Results for this 9:40 AM CDT procedure are in the results section. HIV-1/HIV-2 Routine 03/30/2018 Healthcare maintenance Results for this DIAGNOSTIC/SYMPTOMATIC 9:40 AM CDT procedure are in the results section. 12 LEAD EKG Routine 03/29/2018 Essential hypertension Results for this 1:30 PM CDT procedure are in the results section. DIABETIC FOOT EXAM Routine 03/29/2018 Type 2 diabetes mellitus Results for this 1:29 PM CDT with other specified procedure are in the complication, without results section. long-term current use of insulin NONINVASV OXYGEN Routine 03/29/2018 Pulmonary emphysema, SATUR;SINGLE 1:27 PM CDT unspecified emphysema type after 10/06/2017 Results * PULMONARY - 6 MINUTE WALK EXERCISE TEST - COMPLEX (05/18/2018 1:58 PM) Performing Organization Address [facility] Phone Number SMS * PULMONARY FUNCTION TEST (05/18/2018 1:19 PM) Performing Organization Address [facility] Phone Number SMS * OPHTHALMOLOGY RETINAL SCAN (05/11/2018 1:36 PM) RETINAL SCAN-FINAL RESULT NORMAL IRIS Right Diabetic None IRIS Retinopathy Right Macular Edema None IRIS Right Other Suspected None IRIS Conditions Right Image Quality Gradeable Image IRIS Left Diabetic Retinopathy None IRIS Left Macular Edema None IRIS Left Other Suspected None IRIS Conditions Left Image Quality Gradeable Image IRIS Narrative Performed At Retinal Study Result for DIOGENES PARNELL PATSY, a 67 y/o, F (: [id number], ) presented to [facility] on 05-11-2018 for a retinal imaging study of the left and right eyes. Based on the findings of the study, the following is recommended for DIOGENES PARNELL Normal Scan: Please advise the patient to return for another scan in 1 year. Interpreting Provider's Comments:No comments provided Right Eye Findings: Normal Result.Negative for Diabetic Retinopathy. Left Eye Findings: Normal Result.Negative for Diabetic Retinopathy. This result was electronically signed by Frank Juan MD, , Taxonomy: [id number] on 05-11-2018 06:36:59 [facility] time. NOTE:Any pathology noted on this diabetic retinal evaluation should be confirmed by an appropriate ophthalmic examination. Performing Organization Address [facility] Phone Number IRIS * HEPATITIS B SURFACE AB (04/06/2018 4:18 PM) HBsAb Negative NEG BT OUTPATIENT DRAW 2 HBsAb Concentration <0.01 BT OUTPATIENT DRAW 2 Negative: <8.00 mIU/mL Grayzone: > or=8.00 mIU/mL to <12.00 mIU/mL Positive: > or=12.00 mIU/mL Specimen Blood Performing Organization Address [facility] Phone Number MISYS BT OUTPATIENT DRAW 2 * HEP A VIRUS AB IGG (04/06/2018 4:18 PM) Hep A Vir Ab IgG Positive (A) NEG BT OUTPATIENT DRAW 2 Performing Organization Address [facility] Phone Number RENATA BT OUTPATIENT DRAW 2 * AFP, TUMOR MARKER (04/06/2018 4:18 PM) AFP Tumor Mrk 4.7 <9.0 ng/mL BT MAIN-STATION 1 Specimen Blood Performing Organization Address [facility] Phone Number RENATA BT MAIN-STATION 1 * HCV RNA QUANT, PCR (04/06/2018 4:18 PM) HCV RNA QUANT, PCR Not detected IU/mL BT MOLECULAR Comment: PATHOLOGY This test utilizes FDA cleared EILEEN AmpliPrep/EILEEN TaqMan HCV test, v2.0 from [employer] which allows detection of viral loads between 15 copies/mL and 100,000,000 of plasma. When the result is less than 15 copies/mL of HCV RNA is obtained, the test will be reported as less than 15 copies/mL. EILEEN AmpliPrep/EILEEN TaqMan HCV test, v2.0 is NOT intended for use as a screening test for the presence of HCV RNA in blood or as a diagnostic test to confirm the presence of HCV infection. This test is intended for use as an aid in the management of patients with HCV infection. Specimen Blood Performing Organization Address [facility] Phone Number RENATA MOLECULAR PATHOLOGY * PT/INR/PTT (04/06/2018 4:18 PM) PT 12.4 11.8 - 15.0 Seconds BT MAIN-STATION 3 INR 0.9 BT MAIN-STATION 3 SUGGESTED THERAPEUTIC RANGES: INR 2.0-3.0 for MODERATE INTENSITY ANTICOAGULATION INR 2.5-3.5 for HIGH INTENSITY ANTICOAGULATION PTT 33.3 23.6 - 36.4 Seconds BT MAIN-STATION 3 Specimen Blood Performing Organization Address [facility] Phone Number RENATA BT MAIN-STATION 3 * XRAY CHEST 2 VIEWS (03/30/2018 10:28 AM) Impressions Performed At IMPRESSION: SMS 1.Minimal bronchial wall thickening which can be seen in the setting of reactive airway disease or viral processes. 2.Minimal nodular opacity left lung base, not seen previous study. Findings may represent focal area of pneumonitis. Radiographic follow-up 4 weeks. 3.Mild prominence pulmonary trunk, which can be seen in the setting of pulmonary hypertension. Dictated By: Luzma Voss MD, 03/30/2018 1:38 PM I have reviewed the study and agree with the findings in this report. Signed By: Chepe Macario MD, 03/30/2018 1:43 PM Narrative Performed At EXAM: XRAY CHEST 2 VIEWS [facility] DATE: 03/30/2018 10:29 AM INDICATION: htn/ asthma COMPARISON: Chest radiograph 10/23/2015 9:07 AM FINDINGS: Devices, Lines, and Tubes: None. Heart and Mediastinum: No cardiomegaly. Pulmonary trunk prominent. Lungs and Pleura: Trace peribronchial cuffing. Minimal nodular opacity left lung base. Bones and Soft Tissues: Stable surgical clips overlying the mid hemiabdomen. Status post cervical spine plate and screw fixation. Procedure Note Interface, Rad/Mammog In - 03/30/2018 1:48 PM CDT EXAM: XRAY CHEST 2 VIEWS DATE: 03/30/2018 10:29 AM INDICATION: htn/ asthma COMPARISON: Chest radiograph 10/23/2015 9:07 AM FINDINGS: Devices, Lines, and Tubes: None. Heart and Mediastinum: No cardiomegaly. Pulmonary trunk prominent. Lungs and Pleura: Trace peribronchial cuffing. Minimal nodular opacity left lung base. Bones and Soft Tissues: Stable surgical clips overlying the mid hemiabdomen. Status post cervical spine plate and screw fixation. IMPRESSION IMPRESSION: 1. Minimal bronchial wall thickening which can be seen in the setting of reactive airway disease or viral processes. 2. Minimal nodular opacity left lung base, not seen previous study. Findings may represent focal area of pneumonitis. Radiographic follow-up 4 weeks. 3. Mild prominence pulmonary trunk, which can be seen in the setting of pulmonary hypertension. Dictated By: Luzma Voss MD, 03/30/2018 1:38 PM I have reviewed the study and agree with the findings in this report. Signed By: Chepe Macario MD, 03/30/2018 1:43 PM Performing Organization Address City/State/Zipcode Phone Number SMS * XRAY SKULL LESS THAN 4 VIEWS (03/30/2018 10:28 AM) Impressions Performed At IMPRESSION: SMS No acute osseous lesion. Signed By: Aron Magallon MD, 03/30/2018 10:42 AM Narrative Performed At Skull 4 views SMS HISTORY:hx of lesion in skull COMPARISON: None DISCUSSION: No fracture or malalignment. No aggressive lesion in the skull. The visualized soft tissues appear unremarkable. Procedure Note Interface, Rad/Mammog In - 03/30/2018 10:47 AM CDT Skull 4 views HISTORY: hx of lesion in skull COMPARISON: None DISCUSSION: No fracture or malalignment. No aggressive lesion in the skull. The visualized soft tissues appear unremarkable. IMPRESSION IMPRESSION: No acute osseous lesion. Signed By: Aron Magallon MD, 03/30/2018 10:42 AM Performing Organization Address City/[facility] Phone Number SMS * OCCULT BLOOD ICT (03/30/2018 9:46 AM) Occult Blood ICT Negative NEG [facility] Specimen Stool Performing Organization Address [facility] Phone Number [facility] * H. PYLORI STOOL AG (03/30/2018 9:46 AM) H pylori Ag Stool Negative LABORATORY Reference range: Negative [facility] [employer] Specimen Stool Performing Organization Address [facility] Phone Number [employer] [facility] [address] [place] [address] [facility] 145 * VIT D, 25-HYDROXY (03/30/2018 9:40 AM) Vit D, 25-Hydroxy 54.8 30 - 100 ng/mL [facility] Comment: IMMUNOLOGY Vitamin D deficiency has been defined by the [place] of Medicine and Endocrine Society guideline as a level of serum 25-OH Vitamin D less than 20 ng/mL. The Endocrine Society further defines Vitamin D insufficiency as a level between 21 and 29 ng/mL and sufficiency as a level between 30 and 100 ng/mL. Performing Organization Address City/[facility] Phone Number [employer] [facility] IMMUNOLOGY * MICROALBUM, URINE (03/30/2018 9:40 AM) Microalbum, Random 3.2 0.0 - 29.0 mg/dL BT [facility] 3 Creatinine, Ur 75.2 20 - 320 mg/dL BT [facility] 3 Urine Microalbumin 42.6 (H) 0 - 29 mg/g UCR [facility] 3 Comment: To minimize intra-individual variation, analysis of three random urine samples collected over the course of a week is recommended. Performing Organization Address City/State/[facility] Phone Number [facility] 3 * HEMOGLOBIN A1C (03/30/2018 9:40 AM) Hemoglobin A1c 5.7 4.3 - 6.1 % [facility] IMMUNOLOGY Est Average Gluc 116.9 mg/dL [facility] IMMUNOLOGY Specimen Blood Performing Organization Address [facility] Phone Number [facility] IMMUNOLOGY * TSH (03/30/2018 9:40 AM) TSH 0.71 0.45 - 5.33 uIU/mL [facility] 4 Specimen Blood Performing Organization Address [facility] Phone Number [facility] 4 * UA CHEMISTRIES (03/30/2018 9:40 AM) Color Yellow [facility] 3 Clarity Cloudy [facility] 3 Spec [place] 1.017 1.001 - 1.035 BT [facility] 3 pH 7.0 5 - 8 BT [facility] 3 Protein Negative NEG BT [facility] 3 Glucose Negative NEG BT [facility] 3 Ketone Negative NEG BT [facility] 3 Bilirubin Negative NEG BT [facility] 3 Nitrate Negative NEG BT [facility] 3 Urobilinogen <1.0 0.2 - 1.0 EU/dL BT [facility] 3 Leukocyte Negative NEG BT [facility] 3 Blood Negative NEG [facility] 3 Epithelial Cell <1 /HPF BT [facility] 3 Specimen Urine Performing Organization Address [facility] Phone Number [facility] BT [facility] 3 * LIVER PROFILE (03/30/2018 9:40 AM) T Protein 7.5 6.0 - 8.3 g/dL BT [facility] 4 Albumin 4.7 3.7 - 5.3 g/dL BT [facility] 4 T Bilirubin 0.5 0.2 - 1.2 mg/dL BT [facility] 4 Alk Phos 95 34 - 104 U/L BT [facility] 4 AST 18 13 - 39 U/L BT [facility] 4 ALT 15 7 - 52 U/L BT [facility] 4 D Bilirubin 0.1 0.0 - 0.2 mg/dL BT [facility] 4 Specimen Blood Performing Organization Address [facility] Phone Number [facility] BT [facility]IN[facility] 4 * LIPID PROFILE (03/30/2018 9:40 AM) Cholesterol 191 mg/dL BT [facility] 4 Comment: REFERENCE RANGE: Desirable: <200 mg/dL Borderline: 200-240 mg/dL High Risk: >240 mg/dL Triglyceride 60 <150 mg/dL BT [facility] 4 Comment: REFERENCE RANGE: Normal: <150 mg/dL Borderline High: 150-199 mg/dL High: 200-499 mg/dL Very High: >tf=818 mg/dL HDL 76 mg/dL BT [facility] 4 Comment: Increased CHD risk: <40 mg/dL Decreased CHD risk: >60 mg/dL LDL 103 mg/dL BT [facility] 4 Comment: REFERENCE RANGE: Optimal: <100 mg/dL Near Optimal: 100-129 mg/dL Borderline High: 130-159 mg/dL High: 160-189 mg/dL Very High: >wm=456 mg/dL Specimen Blood Performing Organization Address [facility] Phone Number [employer] BT [facility] 4 * HIV-1/HIV-2 DIAGNOSTIC/SYMPTOMATIC (03/30/2018 9:40 AM) HIV-1/HIV-2 Negative NEG BT [facility] 3 Specimen Blood Performing Organization Address [facility] Phone Number [employer] BT [facility] 3 * HEPATITIS PANEL (03/30/2018 9:40 AM) HCV IgG Positive (A) NEG BT [facility] 3 HBsAg Negative NEG BT [facility]IN[facility] 3 HAV, IgM Negative NEG BT [facility] 3 HBcAb, IgM Negative NEG BT [facility] 3 Specimen Blood Performing Organization Address [facility] Phone Number [employer] BT [facility]IN[facility] 3 * URINE CULTURE (03/30/2018 9:40 AM) Spec Description Urine [facility] Order Comments None [facility] Culture Skin marie organisms present, BT MICROBIOLOGY suggests contamination; please recollect Report Status Final 04/01/2018 BT MICROBIOLOGY Specimen Urine - URINE Performing Organization Address [facility] Phone Number [employer] [facility] BT MICROBIOLOGY * CBC/DIFF (03/30/2018 9:40 AM) WBC 4.9 4.5 - 11.0 K/uL BT [facility] 2 RBC 4.20 4.20 - 5.40 M/uL BT [facility] 2 Hemoglobin 12.2 12.0 - 16.0 g/dL BT [facility] 2 Hematocrit 39.4 37.0 - 47.0 % BT [facility] 2 MCV 94 (H) 82 - 92 fL BT [facility] 2 MCH 29.0 27.0 - 32.0 pg BT [facility] 2 MCHC 31.0 (L) 32.0 - 36.0 g/dL BT [facility] 2 RDW 46.0 36.4 - 46.3 fL BT [facility] 2 Platelet 184 150 - 400 K/uL BT [facility] 2 Mean Platelet Volume 12.5 (H) 9.4 - 12.4 fL BT [facility] 2 Percent NRBC 0.0 BT [facility] 2 Absolute NRBC 0.00 BT [facility] 2 Neutrophil 46.2 34.0 - 70.0 % BT [facility] 2 Lymphocyte 41.7 20.0 - 50.0 % BT [facility] 2 Monocyte 8.3 5.0 - 12.0 % BT [facility] 2 Eosinophil 2.8 0.7 - 5.0 % BT [facility] 2 Basophil 0.8 0.1 - 1.2 % BT [facility] 2 Pct Immat Gran 0.2 0.0 - 0.5 BT [facility]IN[facility] 2 Neutrophil, Abs 2.28 1.56 - 6.13 K/uL BT [facility]IN[facility] 2 Lymphocyte, Abs 2.06 1.18 - 3.74 K/uL BT [facility]IN[facility] 2 Monocyte, Abs 0.41 (H) 0.24 - 0.36 K/uL BT [facility]IN-[facility] 2 Eosinophil, Abs 0.14 0.04 - 0.36 K/uL BT [facility]IN[facility]STATION 2 Basophil, Abs 0.04 0.01 - 0.08 K/uL BT [facility] 2 Absol Immat Gran 0.01 0.00 - 0.03 K/uL BT [facility] 2 Specimen Blood Performing Organization Address City/State/Zipcode Phone Number [facility] 2 * BASIC METABOLIC PANEL (03/30/2018 9:40 AM) CO2 28 21 - 31 mmol/L BT [facility] 4 Chloride 102 98 - 107 mmol/L BT [facility] 4 Potassium 4.1 3.5 - 5.1 mmol/L BT [facility] 4 Sodium 140 136 - 145 mmol/L BT [facility] 4 Glucose 105 70 - 110 mg/dL BT [facility] 4 Urea Nitrogen 15 7 - 25 mg/dL BT [facility] 4 Creatinine 0.70 0.6 - 1.2 mg/dL BT [facility] 4 Anion Gap 10 BT [facility] 4 Calcium 9.3 8.6 - 10.3 mg/dL BT [facility] 4 GFR, Estimated >60 mL/min/1.73 m2 BT [facility] 4 GFR, Estim, Afr-Am >60 mL/min/1.73 m2 BT [facility] 4 Specimen Blood Performing Organization Address [facility] Phone Number [facility] BT [facility] 4 * 12 LEAD EKG (03/29/2018 1:30 PM) 12 LEAD EKG FOR [facility] Test Date:2018-03-29 Pat Name: DIOGENES PARNELL Department: Room: Gender: F 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 Requested By: Order Number: Victorina brady MD: Geovany Carrillo Measurements Intervals [place] Rate: 75 P:-10 [place]: 145 QRS: 86 QRSD: 80 T:127 QT: 381 QTc:428 Interpretive Statements SINUS RHYTHM Electronically Signed On 03-29-18 15:45:35 CDT by Geovany Carrillo Performing Organization Address [facility] Phone Number SMS * DIABETIC FOOT EXAM (03/29/2018 1:29 PM) Narrative Performed At Toña Lemon MD 03/29/20181:54 PM Diabetic Foot Exam was performed at 03/29/2018 1:29 PM.Right foot sensation is normal, right foot pulses are normal, right foot appearance is normal.Left foot sensation is normal,left foot pulses are normal, left foot appearance is normal. after 10/06/2017
--- OUTSIDE RECORDS SUMMARY | 2018-10-07 06:27 | XMS REPORT | Continuity of Care Document ---
Author Author [facility] Interface Address Unknown Phone Unavailable Problems Problem Status Onset Date Classification Date Reported Comments Source Memory disorder Active 05/11/2018 Problem 08/25/2018 [facility] Numbness and tingling Active 05/11/2018 Problem 08/25/2018 [facility] Abnormal hepatitis serology Active 03/31/2018 Problem 08/25/2018 [facility] Dysphagia Active 03/29/2018 Problem 08/25/2018 [facility] Skull lesion Active 03/29/2018 Problem 08/25/2018 [facility] Back pain Active 03/29/2018 Problem 08/25/2018 [facility] R13.10 DYSPHAGIA, UNSPECIFIED Active 10/14/2017 [facility] R04.2 - HEMOPTYSIS Active 07/03/2017 [facility] Anxiety disorder Active 2016 Problem 08/25/2018 [facility] Mood disorder Active 2016 Problem 08/25/2018 [facility] Essential hypertension Active 10/18/2015 Problem 08/25/2018 [facility] Diabetes mellitus Active 10/18/2015 Problem 08/25/2018 [facility] Active 10/18/2015 Problem 08/25/2018 [facility] Emphysema/COPD Active 10/18/2015 Problem 08/25/2018 [facility] BACK PAIN Active 11/06/2013 [facility] SHOULDER PAIN Active 12/29/2012 [facility] COPD Active Problem 08/25/2018 [facility] Hypercholesteremia Active Problem 08/25/2018 [facility] Peptic ulcer disease Active Problem 08/25/2018 [facility] Hepatitis Active Problem 08/25/2018 [facility] Abnormal CXR Active Problem 08/25/2018 [facility] 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 B virus Active Problem 08/25/2018 [facility] Anxiety Resolved Problem 12/31/2012 [facility] Bipolar Resolved Problem 12/31/2012 [facility] Depression Resolved Problem 12/31/2012 [facility] Diabetes mellitus Active Problem 12/31/2012 [facility] Hypertension Active Problem 12/31/2012 [facility] Anxiety Resolved Problem 10/19/2017 [facility] [place] Bipolar Resolved Problem 10/19/2017 [facility] Depression [facility]olved [facility] 10/19[facility]2017 [facility] Esophagitis [facility]olved Problem 10/19/2017 [facility] Gastric peptic ulcer Resolved Problem 10/19/2017 [facility] Hypertension Active Problem 10/19/2017 [facility] Diverticulitis Resolved Problem 11/08/2013 [facility] DYSPHAGIA, UNSPECIFIED Active [facility] UNSP FB IN RESP TRACT, PART UNSP CAUSING Active [facility] Medications Medication Details Route Status Patient Instructions Ordering Provider Order Date Source Atorvastatin 10 Mg Tablet Lipitor 10 Mg Tablet Take 1 tablet by mouth at bedtime nightly For cholesterol. Oral Active 05/28/2018 [facility] Sertraline 100 Mg Tablet Zoloft 100 Mg Tablet Take 2 tablets by mouth daily. Oral Active 05/28/2018 [facility] Trazodone 100 Mg Tablet Take 1/2 to 1 full tab by mouth at bedtime as needed for insomnia.. Inactive 05/28/2018 [facility] Omeprazole 20 Mg Capsule,Delayed Release TAKE ONE CAPSULE BY MOUTH DAILY FOR ACID REFLUX Active 05/18/2018 [facility] Hydrocodone 10 Mg-Acetaminophen 325 Mg Tablet Take 1 tablet by mouth every 6 hours as needed. Oral No Longer Active 05/11/2018 [facility] Omeprazole 20 Mg Capsule,Delayed Release Take 20 mg by mouth daily. Oral No Longer Active 05/11/2018 [facility] Gabapentin 100 Mg Capsule Neurontin 100 Mg Capsule Take 1 capsule by mouth 3 times daily For pain in feet. Oral Active 05/11/2018 [facility] Atorvastatin 10 Mg Tablet Take 10 mg by mouth at bedtime nightly. Oral No Longer Active 03/29/2018 [facility] Clopidogrel 75 Mg Tablet Plavix 75 Mg Tablet Take 75 mg by mouth daily. Oral No Longer Active 03/29/2018 [facility] Losartan 100 Mg Tablet Take 100 mg by mouth daily. Oral No Longer Active 03/29/2018 [facility] Amlodipine 10 Mg Tablet Norvasc 10 Mg Tablet Take 10 mg by mouth daily. Oral No Longer Active 03/29/2018 [facility] Hydralazine 25 Mg Tablet Take 25 mg by mouth 3 times daily. Oral No Longer Active 03/29/2018 [facility] Tropicamide 0.5 % Eye Drops Instill 1 Drop in each eye daily as needed for up to 1 dose (for poor retina scan image). Active 03/29/2018 [facility] Metformin 500 Mg Tablet Glucophage 500 Mg Tablet Take 1 tablet by mouth 2 times daily (with meals) For diabetes. Oral Inactive 03/29/2018 [facility] Losartan 100 Mg Tablet Cozaar 100 Mg Tablet Take 1 tablet by mouth daily For hypertension. Oral Inactive 03/29/2018 [facility] Fluticasone 50 McG/Actuation Nasal [place],Suspension Use 2 Sprays in each nostril daily For nasal congestion as needed. Inactive 03/29/2018 [facility] Combivent Respimat 20 McG-100 McG/Actuation Solution For Inhalation Inhale 2 Puffs by mouth 4 times daily. Inhalation Inactive 03/29/2018 [facility] Sertraline 100 Mg Tablet Zoloft 100 Mg Tablet Take 2 tablets by mouth daily. Oral No Longer Active 03/05/2018 [facility] Trazodone 100 Mg Tablet Take 1/2 to 1 full tab by mouth at bedtime as needed for insomnia.. No Longer Active 03/05/2018 [facility] Sertraline 100 Mg Tablet Zoloft 100 Mg Tablet Take 2 tablets by mouth daily. Oral No Longer Active 11/17/2017 [facility] Trazodone 100 Mg Tablet Take 1/2 to 1 full tab by mouth at bedtime as needed for insomnia.. No Longer Active 11/17/2017 [facility] Sertraline 100 Mg Tablet Zoloft 100 Mg Tablet Take 2 tablets by mouth daily. Oral No Longer Active 05/01/2017 [facility] Mirtazapine 7.5 Mg Tablet Take 1 tablet by mouth at bedtime nightly. Oral No Longer Active 05/01/2017 [facility] Trazodone 100 Mg Tablet Take 1/2 to 1 full tab by mouth at bedtime as needed for insomnia.. No Longer Active 03/23/2017 [facility] Enalapril Maleate 10 Mg Tablet Vasotec 10 Mg Tablet Take 1 tablet by mouth daily. Oral No Longer Active 10/18/2015 [facility] Metformin 500 Mg Tablet Glucophage 500 Mg Tablet Take 1 tablet by mouth 2 times daily (with meals). Oral No Longer Active 10/18/2015 [facility] Albuterol Sulfate Hfa 90 McG/Actuation Aerosol Inhaler Proventil Hfa 90 McG/Actuation Aerosol Inhaler Inhale 2 Puffs by mouth 4 times daily as needed for Wheezing. Inhalation Active 10/18/2015 [facility] Symbicort 160 McG-4.5 McG/Actuation Hfa Aerosol Inhaler Inhale 2 Puffs by mouth 2 times daily. Inhalation Active 10/18/2015 [facility] ondansetron 4 mg, Route: IVP, Drug form: INJ, ONCE, Dosing Weight 90.909, kg, Priority: STAT, Start date: 11/06/13 17:05:00, Stop date: 11/06/13 17:05:00 Inactive [place] 11/06/2013 [facility] morphine Sulfate 4 mg, Route: IVP, Drug form: INJ, ONCE, Dosing Weight 90.909, kg, Priority: STAT, Start date: 11/06/13 17:05:00, Stop date: 11/06/13 17:05:00 Inactive [place] 11/06/2013 [facility] Celebrex 400 mg oral capsule 400 mg=1 cap, PO, Daily, # 60 cap, 0 Refill(s) Active [place] 11/06/2013 [facility] Vicodin ES 7.5 mg-300 mg oral tablet 1 tab, PO, Q6H, # 24 tab, 0 Refill(s) Active [place] 11/06/2013 [facility] ketorolac 30 mg, 1 mL, Route: IVP, Drug form: INJ, ONCE, Dosing Weight 90.909, kg, Priority: STAT, Start date: 11/06/13 14:35:00, Stop date: 11/06/13 14:35:00(Same as:Toradol) IV bolus must be given >15 seconds. Give IM administration slowly and deeply into the muscle. Not for use > 4 days Inactive [place] 11/06/2013 [facility] Colace 100 mg oral capsule 100 mg, 1 cap, PO, BID, PRN, 20 cap, Constipation, Substitution Allowed, CAP PO Active [place] 12/30/2012 [facility] [place] 10/325 oral tablet 1 tab, PO, Q6H, PRN, 24 tab, for pain, Substitution Allowed, Maintenance PO Active [place] 12/30/2012 [facility] Toradol 30 mg/mL injectable solution 60 mg, Route: IM, ONCE, Dosing Weight 85.909, kg, Start date: 12/30/12 2:01:00, Stop date: 12/30/12 2:01:00 IM No Longer Active [place] 12/30/2012 [facility] Zofran ODT 4 mg, Route: PO, Drug form: TABDIS, ONCE, Dosing Weight 85.909, kg, Priority: STAT, Start date: 12/29/12 23:09:00, Stop date: 12/29/12 23:09:00 PO No Longer Active [place] 12/30/2012 [facility] morphine Sulfate 4 mg, Route: IM, ONCE, Dosing Weight 85.909, kg, Priority: STAT, Start date: 12/29/12 23:09:00, Stop date: 12/29/12 23:09:00 IM No Longer Active [place] 12/30/2012 [facility] Triamcinolone Acetonide 0.1 % Topical Ointment apply a thin film to the affected skin areas 2 times per day for 1 week Topical Active 03/07/2010 [facility] ATROVENT HFA IN None Entered Inhalation Active [facility] Clindamycin Hcl 300 Mg Capsule take 1 capsule (300 mg) by oral route every 6 hours Oral Active [facility] Losartan 25 Mg Tablet Take 100 mg by mouth daily . Oral Active [facility] Tizanidine 4 Mg Tablet Take 4 mg by mouth 3 times daily. Oral Active [facility] Metoclopramide 10 Mg Tablet Take 10 mg by mouth 2 times daily. Oral Active [facility] Linzess 290 McG Capsule Take 290 mcg by mouth daily. Oral Active [facility] Allergies, Adverse Reactions, Alerts Substance Category Reaction Severity Reaction type Status Date Reported Comments Source Aspirin Other Propensity to adverse reactions to drug Active 03/29/2018 [facility] Immunizations Immunization Date Given Site Status Last Updated Comments Source TDap (Tetanus Toxoid, Reduced Diphtheria Toxoid And Acellular Pertussis, Absorbed) 04/07/2018 [facility] PNEUMOCOCCAL 23-VALPS VACCINE 25 MCG/0.5 ML INJECTION 04/07/2018 completed [facility] Hepatitis B Pediatric/Adolescent/Adult 04/07/2018 completed [facility] Influenza Vaccine 07/31/2015 [facility] PPV 23 Pneumococcal Polysaccaride 07/31/2015 [facility] Results Order Name Results Value Reference Range Date Interpretation Comments Source OPHTHALMOLOGY RETINAL SCAN RETINAL SCAN-FINAL RESULT NORMAL 05/11/2018 [facility] OPHTHALMOLOGY RETINAL SCAN Right Diabetic Retinopathy None 05/11/2018 [facility] OPHTHALMOLOGY RETINAL SCAN Right Macular Edema None 05/11/2018 [facility] OPHTHALMOLOGY RETINAL SCAN Right Other Suspected Conditions None 05/11/2018 [facility] OPHTHALMOLOGY RETINAL SCAN Right Image Quality Gradeable Image 05/11/2018 [facility] OPHTHALMOLOGY RETINAL SCAN Left Diabetic Retinopathy None 05/11/2018 [facility] OPHTHALMOLOGY RETINAL SCAN Left Macular Edema None 05/11/2018 [facility] OPHTHALMOLOGY RETINAL SCAN Left Other Suspected Conditions None 05/11/2018 [facility] OPHTHALMOLOGY RETINAL SCAN Left Image Quality Gradeable Image 05/11/2018 [facility] OPHTHALMOLOGY RETINAL SCAN <p>Retinal Study Result for DIOGENES PARNELL</p><p> </p><p>DIOGENES PARNELL a 67 y/o, F (: 1950, )</p><p>presented to [facility] on 05-11-2018 for a retinal imaging study of the left and right eyes.</p><p> </p><p>Based on the findings of the study, the following is recommended for DIOGENES PARNELL</p><p>Normal Scan: Please advise the patient to return for another scan in 1 year.</p><p> </p><p>Interpreting Provider's Comments:No comments provided</p><p> </p><p>Right Eye Findings:</p><p>Normal Result.Negative for Diabetic Retinopathy.</p><p> </p><p>Left Eye Findings:</p><p>Normal Result.Negative for Diabetic Retinopathy.</p><p> </p><p> </p><p>This result was electronically signed by Frakn Juan MD, , Taxonomy: [id number] on 05-11-2018 06:36:59 [facility] time.</p><p> </p><p>NOTE:Any pathology noted on this diabetic retinal evaluation should be confirmed by an appropriate ophthalmic examination.</p> Retinal Study Result for DIOGENES PARNELL PATSY, a 67 y/o, F (: 1950, ) presented to [facility] on 05-11-2018 for a retinal imaging study [...] signed by Frank Juan MD, , Taxonomy: [id number] on 05-11-2018 06:36:59 [facility] time. NOTE:Any pathology noted on this diabetic retinal evaluation should be confirmed by an appropriate ophthalmic examination. 05/11/2018 [facility] HCV RNA QUANT, PCR HCV RNA QUANT, PCR Not detected IU/mL 04/08/2018 This test utilizes FDA cleared EILEEN AmpliPrep/EILEEN TaqMan HCV test, v2.0 from [employer] which allows detection of viral loads between [...] the management of patients with HCV infection. [facility] AFP, TUMOR MARKER AFP Tumor Mrk 4.7 ng/mL <9.0 04/07/2018 [facility] HEP A VIRUS AB IGG Hep A Vir Ab IgG Positive NEG 04/07/2018 [facility] HEP A VIRUS AB IGG Lab Interpretation Abnormal 04/07/2018 [facility] HEPATITIS B SURFACE AB HBsAb Negative NEG 04/07/2018 [facility] HEPATITIS B SURFACE AB HBsAb Concentration <0.01
Negative: <8.00 mIU/mL
Grayzone: > or=8.00 mIU/mL to <12.00 mIU/mL
Positive: > or=12.00 mIU/mL
04/07/2018 [facility] PT/INR/PTT PT 12.4 11.8 - 15.0 04/07/2018 [facility] PT/INR/PTT INR 0.9 SUGGESTED THERAPEUTIC RANGES: INR 2.0-3.0 for MODERATE INTENSITY ANTICOAGULATION INR 2.5-3.5 for HIGH INTENSITY ANTICOAGULATION 04/07/2018 [facility] PT/INR/PTT PTT 33.3 23.6 - 36.4 04/07/2018 [facility] H. PYLORI STOOL AG H pylori Ag Stool Negative Reference range: Negative 04/03/2018 [facility] HEPATITIS PANEL HCV IgG Positive NEG 03/31/2018 [facility] HEPATITIS PANEL HBsAg Negative NEG 03/31/2018 [facility] HEPATITIS PANEL HAV, IgM Negative NEG 03/31/2018 [facility] HEPATITIS PANEL HBcAb, IgM Negative NEG 03/31/2018 [facility] HEPATITIS PANEL Lab Interpretation Abnormal 03/31/2018 [facility] HIV-1/HIV-2 DIAGNOSTIC/SYMPTOMATIC HIV-1/HIV-2 Negative NEG 03/31/2018 [facility] VIT D, 25-HYDROXY Vit D, 25-Hydroxy 54.8 ng/mL 30 - 100 03/31/2018 Vitamin D deficiency has been defined by the [place] [employer] and [employer] guideline as a level of serum 25-OH Vitamin D less than 20 ng/mL. The Endocrine Society further defines Vitamin D insufficiency as a level between 21 and 29 ng/mL and sufficiency as a level between 30 and 100 ng/mL. [facility] TSH TSH 0.71 0.45 - 5.33 03/31/2018 [facility] HEMOGLOBIN A1C Hemoglobin A1c 5.7 % 4.3 - 6.1 03/31/2018 [facility] HEMOGLOBIN A1C Est Average Gluc 116.9 mg/dL 03/31/2018 [facility] BASIC METABOLIC PANEL CO2 28 mmol/L 21 - 31 03/31/2018 [facility] BASIC METABOLIC PANEL Chloride 102 mmol/L 98 - 107 03/31/2018 [facility] BASIC METABOLIC PANEL Potassium 4.1 mmol/L 3.5 - 5.1 03/31/2018 [facility] BASIC METABOLIC PANEL Sodium 140 mmol/L 136 - 145 03/31/2018 [facility] BASIC METABOLIC PANEL Glucose 105 mg/dL 70 - 110 03/31/2018 [facility] BASIC METABOLIC PANEL Urea Nitrogen 15 mg/dL 7 - 25 03/31/2018 [facility] BASIC METABOLIC PANEL Creatinine 0.70 mg/dL 0.6 - 1.2 03/31/2018 [facility] BASIC METABOLIC PANEL Anion Gap 10 03/31/2018 [facility] BASIC METABOLIC PANEL Calcium 9.3 mg/dL 8.6 - 10.3 03/31/2018 [facility] BASIC METABOLIC PANEL GFR, Estimated >60 mL/min/1.73 m2 03/31/2018 [facility] BASIC METABOLIC PANEL GFR, Estim, Afr-Am >60 mL/min/1.73 m2 03/31/2018 [facility] LIPID PROFILE Cholesterol 191 mg/dL 03/31/2018 REFERENCE RANGE: Desirable: <200 mg/dL Borderline: 200-240 mg/dL High Risk: >240 mg/dL [facility] LIPID PROFILE Triglyceride 60 mg/dL <150 03/31/2018 REFERENCE RANGE: Normal: <150 mg/dL Borderline High: 150-199 mg/dL High: 200-499 mg/dL Very High: >uw=560 mg/dL [facility] LIPID PROFILE HDL 76 mg/dL 03/31/2018 Increased CHD risk: <40 mg/dL Decreased CHD risk: >60 mg/dL [facility] LIPID PROFILE LDL 103 mg/dL 03/31/2018 REFERENCE RANGE: Optimal: <100 mg/dL Near Optimal: 100-129 mg/dL Borderline High: 130-159 mg/dL High: 160-189 mg/dL Very High: >wc=981 mg/dL [facility] LIVER PROFILE T Protein 7.5 g/dL 6 - 8.3 03/31/2018 [facility] LIVER PROFILE Albumin 4.7 g/dL 3.7 - 5.3 03/31/2018 [facility] LIVER PROFILE T Bilirubin 0.5 mg/dL 0.2 - 1.2 03/31/2018 [facility] LIVER PROFILE Alk Phos 95 U/L 34 - 104 03/31/2018 [facility] LIVER PROFILE AST 18 U/L 13 - 39 03/31/2018 [facility] LIVER PROFILE ALT 15 U/L 7 - 52 03/31/2018 [facility] LIVER PROFILE D Bilirubin 0.1 mg/dL 0 - 0.2 03/31/2018 [facility] CBC/DIFF WBC 4.9 K/uL 4.5 - 11 03/31/2018 [facility] CBC/DIFF RBC 4.20 4.20 - 5.40 03/31/2018 [facility] CBC/DIFF Hemoglobin 12.2 g/dL 12 - 16 03/31/2018 [facility] CBC/DIFF Hematocrit 39.4 % 37 - 47 03/31/2018 [facility] CBC/DIFF MCV 94 fL 82 - 92 03/31/2018 [facility] CBC/DIFF MCH 29.0 pg 27 - 32 03/31/2018 [facility] CBC/DIFF MCHC 31.0 g/dL 32 - 36 03/31/2018 [facility] CBC/DIFF RDW 46.0 fL 36.4 - 46.3 03/31/2018 [facility] CBC/DIFF Platelet 184 K/uL 150 - 400 03/31/2018 [facility] CBC/DIFF Mean Platelet Volume 12.5 fL 9.4 - 12.4 03/31/2018 [facility] CBC/DIFF Percent NRBC 0.0 03/31/2018 [facility] CBC/DIFF Absolute NRBC 0.00 03/31/2018 [facility] CBC/DIFF Neutrophil 46.2 % 34 - 70 03/31/2018 [facility] CBC/DIFF Lymphocyte 41.7 % 20 - 50 03/31/2018 [facility] CBC/DIFF Monocyte 8.3 % 5 - 12 03/31/2018 [facility] CBC/DIFF Eosinophil 2.8 % 0.7 - 5 03/31/2018 [facility] CBC/DIFF Basophil 0.8 % 0.1 - 1.2 03/31/2018 [facility] CBC/DIFF Pct Immat Gran 0.2 0.0 - 0.5 03/31/2018 [facility] CBC/DIFF Neutrophil, Abs 2.28 K/uL 1.56 - 6.13 03/31/2018 [facility] CBC/DIFF Lymphocyte, Abs 2.06 K/uL 1.18 - 3.74 03/31/2018 [facility] CBC/DIFF Monocyte, Abs 0.41 K/uL 0.24 - 0.36 03/31/2018 [facility] CBC/DIFF Eosinophil, Abs 0.14 K/uL 0.04 - 0.36 03/31/2018 [facility] CBC/DIFF Basophil, Abs 0.04 K/uL 0.01 - 0.08 03/31/2018 [facility] CBC/DIFF Absol Immat Gran 0.01 K/uL 0 - 0.03 03/31/2018 [facility] CBC/DIFF Lab Interpretation Abnormal 03/31/2018 [facility] MICROALBUM, URINE Microalbum, Random 3.2 mg/dL 0 - 29 03/30/2018 [facility] MICROALBUM, URINE Creatinine, Ur 75.2 mg/dL 20 - 320 03/30/2018 [facility] MICROALBUM, URINE Urine Microalbumin 42.6 0 - 29 03/30/2018 To minimize intra-individual variation, analysis of three random urine samples collected over the course of a week is recommended. [facility] MICROALBUM, URINE Lab Interpretation Abnormal 03/30/2018 [facility] UA CHEMISTRIES Color Yellow 03/30/2018 [facility] UA CHEMISTRIES Clarity Cloudy 03/30/2018 [facility] UA CHEMISTRIES Spec [place] 1.017 1.001 - 1.035 03/30/2018 [facility] UA CHEMISTRIES pH 7.0 5 - 8 03/30/2018 [facility] UA CHEMISTRIES Protein Negative NEG 03/30/2018 [facility] UA CHEMISTRIES Glucose Negative NEG 03/30/2018 [facility] UA CHEMISTRIES Ketone Negative NEG 03/30/2018 [facility] UA CHEMISTRIES Bilirubin Negative NEG 03/30/2018 [facility] UA CHEMISTRIES Nitrate Negative NEG 03/30/2018 [facility] UA CHEMISTRIES Urobilinogen <1.0 0.2 - 1 03/30/2018 [facility] UA CHEMISTRIES Leukocyte Negative NEG 03/30/2018 [facility] UA CHEMISTRIES Blood Negative NEG 03/30/2018 [facility] UA CHEMISTRIES Epithelial Cell <1 /HPF 03/30/2018 [facility] OCCULT BLOOD ICT Occult Blood ICT Negative NEG 03/30/2018 [facility] XRAY CHEST 2 VIEWS <p>IMPRESSION: </p><p>1.Minimal bronchial wall thickening which can be seen in the setting</p><p>of reactive airway disease or viral processes.</p><p>2.Minimal nodular opacity left lung base, not seen previous study.</p><p>Findings may represent focal area of pneumonitis. Radiographic follow-up</p><p>4 weeks.</p><p> </p><p>3.Mild prominence pulmonary trunk, which can be seen in the setting of</p><p>pulmonary hypertension.</p><p> </p><p>Dictated By: Luzma Voss MD, 03/30/2018 1:38 PM</p><p> </p><p>I have reviewed the study and agree with the findings in this report.</p><p> </p><p>Signed By: Chepe Macario MD, 03/30/2018 1:43 PM</p><p> </p> IMPRESSION: 1.Minimal bronchial wall thickening which can be [...] By: Chepe Macario MD, 03/30/2018 1:43 PM 03/30/2018 [facility] XRAY CHEST 2 VIEWS <p>EXAM: XRAY CHEST 2 VIEWS</p><p> </p><p>DATE: 03/30/2018 10:29 AM</p><p> </p><p>INDICATION: htn/ asthma</p><p> </p><p>COMPAR ADILENE: Chest radiograph 10/23/2015 9:07 AM</p><p> </p><p>FINDINGS: </p><p> </p><p>Devices, Lines, and Tubes: None.</p><p> </p><p>Heart and Mediastinum: No cardiomegaly. Pulmonary trunk prominent.</p><p> </p><p>Lungs and Pleura: Trace peribronchial cuffing. Minimal nodular opacity</p><p>left lung base.</p><p> </p><p>Bones and Soft Tissues: Stable surgical clips overlying the mid</p><p>hemiabdomen. Status post cervical spine plate and screw fixation. </p><p> </p> EXAM: XRAY CHEST 2 VIEWS DATE: 03/30/2018 10:29 AM INDICATION: htn/ asthma COMPARISON: Chest radiograph 10/23/2015 9:07 AM FINDINGS: Devices, Lines, and Tubes: None. Heart and Mediastinum: No cardiomegaly. Pulmonary trunk prominent. Lungs and Pleura: Trace peribronchial cuffing. Minimal nodular opacity left lung base. Bones and Soft Tissues: Stable surgical clips overlying the mid hemiabdomen. Status post cervical spine plate and screw fixation. 03/30/2018 [facility] XRAY CHEST 2 VIEWS <p styleCode="header">Interface, Rad/Mammog In - 03/30/2018 1:48 PM CDT</p><p><span>EXAM: XRAY CHEST 2 VIEWS</span>

<span>DATE: 03/30/2018 10:29 AM</span>

<span>INDICATION: htn/ asthma</span>

<span>COMPARISON: Chest radiograph 10/23/2015 9:07 AM</span>

<span>FINDINGS: </span>

<span>Devices, Lines, and Tubes: None.</span>

<span>Heart and Mediastinum: No cardiomegaly. Pulmonary trunk prominent.</span>

<span>Lungs and Pleura: Trace peribronchial cuffing. Minimal nodular opacity</span>
<span>left lung base.</span>

<span>Bones and Soft Tissues: Stable surgical clips overlying the mid</span>
<span>hemiabdomen. Status post cervical spine plate and screw fixation. < /span>

<span>IMPRESSION</span>
<span>IMPRESSION: </span>
<span>1. Minimal bronchial wall thickening which can be seen in the setting</span>
<span>of reactive airway disease or viral processes.</span>
<span>2. Minimal nodular opacity left lung base, not seen previous study.</span>
<span>Findings may represent focal area of pneumonitis. Radiographic follow-up</span>
<span>4 weeks.</span>

<span>3. Mild prominence pulmonary trunk, which can be seen in the setting of</span>
<span>pulmonary hypertension.</span>

<span>Dictated By: Luzma Voss MD, 03/30/2018 1:38 PM</span>

<span>I have reviewed the study and agree with the findings in this report.</span>

<span>Signed By: Chepe Macario MD, 03/30/2018 1:43 PM</span>
</p> Interface, Rad/Mammog In - 03/30/2018 1:48 PM [...] By: Chepe Macario MD, 03/30/2018 1:43 PM 03/30/2018 [facility] XRAY CHEST 2 VIEWS IMPRESSION: 1.Minimal bronchial wall thickening which can be [...] By: Chepe Macario MD, 03/30/2018 1:43 PM EXAM: XRAY CHEST 2 VIEWS DATE: 03/30/2018 10:29 AM INDICATION: htn/ asthma COMPARISON: Chest radiograph 10/23/2015 9:07 AM FINDINGS: Devices, Lines, and Tubes: None. Heart and Mediastinum: No cardiomegaly. Pulmonary trunk prominent. Lungs and Pleura: Trace peribronchial cuffing. Minimal nodular opacity left lung base. Bones and Soft Tissues: Stable surgical clips overlying the mid hemiabdomen. Status post cervical spine plate and screw fixation. Interface, Rad/Mammog In - 03/30/2018 1:48 PM [...] By: Chepe Macario MD, 03/30/2018 1:43 PM 03/30/2018 [employer] XRAY SKULL LESS THAN 4 VIEWS <p>IMPRESSION: </p><p>No acute osseous lesion.</p><p> </p><p>Signed By: Aron Magallon MD, 03/30/2018 10:42 AM</p><p> </p> IMPRESSION: No acute osseous lesion. Signed By: Aron Magallon MD, 03/30/2018 10:42 AM 03/30/2018 [employer] XRAY SKULL LESS THAN 4 VIEWS <p>Skull 4 views </p><p> </p><p>HISTORY:hx of lesion in skull </p><p> </p><p>COMPARISON: None</p><p> </p><p>DISCUSSION:</ p><p>No fracture or malalignment.</p><p>No aggressive lesion in the skull.</p><p>The visualized soft tissues appear unremarkable.</p><p> </p><p> </p> Skull 4 views HISTORY:hx of lesion in skull COMPARISON: None DISCUSSION: No fracture or malalignment. No aggressive lesion in the skull. The visualized soft tissues appear unremarkable. 03/30/2018 [facility] XRAY SKULL LESS THAN 4 VIEWS <p styleCode="header">Riki Chairez/Zeinab In - 03/30/2018 10:47 AM CDT</p><p><span>Skull 4 views </span>

<span>HISTORY: hx of lesion in skull </span>

<span>COMPARISON: None</span>
<span> </span>
<span>DISCUSSION:</span>
<span>No fracture or malalignment.</span>
<span>No aggressive lesion in the skull.</span>
<span>The visualized soft tissues appear unremarkable.</span><br/&gt ;

<span>IMPRESSION</span>
<span>IMPRESSION: </span>
<span>No acute osseous lesion.</span>

<span>Signed By: Aron Magallon MD, 03/30/2018 10:42 AM</span>
</p> Riki Chairez/Zeinab In - 03/30/2018 10:47 AM CDT Skull 4 views HISTORY: hx of lesion in skull COMPARISON: None DISCUSSION: No fracture or malalignment. No aggressive lesion in the skull. The visualized soft tissues appear unremarkable. IMPRESSION IMPRESSION: No acute osseous lesion. Signed By: Aron Magallon MD, 03/30/2018 10:42 AM 03/30/2018 [facility] XRAY SKULL LESS THAN 4 VIEWS IMPRESSION: No acute osseous lesion. Signed By: Aron Magallon MD, 03/30/2018 10:42 AM Skull 4 views HISTORY:hx of lesion in skull COMPARISON: None DISCUSSION: No fracture or malalignment. No aggressive lesion in the skull. The visualized soft tissues appear unremarkable. Neto Chairez In - 03/30/2018 10:47 AM CDT Skull 4 views HISTORY: hx of lesion in skull COMPARISON: None DISCUSSION: No fracture or malalignment. No aggressive lesion in the skull. The visualized soft tissues appear unremarkable. IMPRESSION IMPRESSION: No acute osseous lesion. Signed By: Aron Magallon MD, 03/30/2018 10:42 AM 03/30/2018 [facility] URINE CULTURE Spec Description Urine 03/30/2018 [facility] URINE CULTURE Order Comments None 03/30/2018 [facility] URINE CULTURE Culture Skin marie organisms present, suggests contamination; please recollect 03/30/2018 [facility] URINE CULTURE Report Status Final 04/01/2018 03/30/2018 [facility] URINE CULTURE Culture Skin marie organisms present, suggests contamination; please recollect BT MICROBIOLOGY 03/30/2018 MIS[facility] 12 LEAD EKG 12 LEAD EKG FOR [facility] Test Date:2018-03-29 Pat Name: DIOGENES PARNELLDepartment: : Gender: FTechnician: :[id number] Requested By: Order Number:Reading MD: Geovany Carrillo Measurements IntervalsAxis Rate: 75 P:-10 ND: 145QRS:86 QRSD: 80 T:127 QT: 381 QTc:428 Interpretive Statements SINUS RHYTHM Electronically Signed On 03-29-18 15:45:35 CDT by Geovany Carrillo 03/29/2018 [facility] DIABETIC FOOT EXAM <p>Toña Lemon MD 03/29/20181:54 PM</p><p>Diabetic Foot Exam was performed at 03/29/2018 1:29 PM.Right foot </p><p>sensation is normal, right foot pulses are normal, right foot appearance </p><p>is normal.Left foot sensation is normal,left foot pulses are normal,</p><p>left foot appearance is normal. </p><p> </p><p> </p> Toña Lemon MD 03/29/20181:54 PM Diabetic Foot Exam was performed at 03/29/2018 1:29 PM.Right foot sensation is normal, right foot pulses are normal, right foot appearance is normal.Left foot sensation is normal,left foot pulses are normal, left foot appearance is normal. 03/29/2018 [facility] Esophagus BA swallow function video DX Esophagus BA swallow function video DX Patient Name: DIOGENES PARNELL : 1950; Age: 67 years y/o Female MR: [id number] * MODIFIED BARIUM SWALLOW HISTORY: Dysphagia, COMMENT: A modified barium swallow was performed in conjunction with the speech pathologist in the usual manner. The fluoroscopy time was: 1.1 minute. IMPRESSION: Thin barium from a cup: No aspiration or penetration. Normal swallowing mechanism. Thin barium from a straw: No aspiration or penetration. Normal swallowing mechanism. Barium of pudding consistency: No aspiration or penetration. Normal swallowing mechanism. A cracker impregnated with barium: No aspiration or penetration. Normal swallowing mechanism. Please refer to the speech pathologist report. SL: [id number] 10/16/2017 - - Read by: Surinder Jennings MD Dictated Date/time: 10/16/17 14:01 Electronically Signed by: Surinder Jennings MD 10/16/17 14:02 FINAL REPORT [facility] Chest 2 views DX Chest 2 views DX EXAM: XR CHEST 2 VIEWS DATE: 07/03/2017 2:44 PM CDT INDICATION: - R04.2 Hemoptysis, cough. COMPARISON: 11/06/2013 TECHNIQUE: PA and lateral chest radiographs FINDINGS: No lung parenchymal or pleural abnormalities are seen. Yin and pulmonary vasculature are normal. Cardiomediastinal silhouette is normal in appearance. No acute bony abnormality is identified. In the interim, the patient is undergone multilevel ACDF procedure of the cervical spine with surgical hardware in place. There is a stable exostosis off of the right acromion process. Multilevel spondylosis is seen in the thoracic spine. Surgical clips are seen in the upper abdomen. IMPRESSION: No acute cardiopulmonary abnormality. 07/03/2017 - - Read by: Marcio Simmons MD Dictated Date/time: 07/03/17 15:35 Electronically Signed by: Marcio Simmons MD 07/03/17 15:37 FINAL REPORT [facility] CHEMISTRY AGAP 10.9 meq/L 10.0 - 20.0 11/06/2013 Normal [facility] CHEMISTRY A/G Ratio 1.0 0.7 - 1.6 11/06/2013 Normal [facility] CHEMISTRY Globulin 3.8 g/dL 2.0 - 4.0 11/06/2013 Normal [facility] CHEMISTRY B/C Ratio 20 6 - 25 11/06/2013 Normal [facility] CHEMISTRY eGFR 90 mL/min/1.73m2 11/06/2013 2Result Comment: The eGFR is calculated using the CKD-EPI formula. In most young, healthy individuals the eGFR will be >90 mL/min/1.73m2. The eGFR declines with age. An eGFR of 60-89 may be normal in some populations, particularly the elderly, for whom the CKD-EPI formula has not been extensively validated. Use of the eGFR is not recommended in the following populations: Individuals with unstable creatinine concentrations, including patients and those with serious co-morbid conditions. Patients with extremes in muscle mass or diet. The data above are obtained from the National Kidney Disease Education Program (NKDEP) which additionally recommends that when the eGFR is used in patients with extremes of body mass index for purposes of drug dosing, the eGFR should be multiplied by the estimated BMI. [facility] CHEMISTRY Creatinine Lvl 0.8 mg/dL 0.5 - 1.4 11/06/2013 Normal [facility] CHEMISTRY BUN 16 mg/dL 7 - 22 11/06/2013 Normal [facility] CHEMISTRY Glucose Lvl 93 mg/dL 70 - 99 11/06/2013 Normal 3Interpretive Data: Adult reference range values reflect the clinical guidelines of the [place] [employer]. [facility] CHEMISTRY Bili Total 0.2 mg/dL 0.2 - 1.3 11/06/2013 Normal [facility] CHEMISTRY ASPARTATE TRANSAMINASE 17 unit/L 0 - 37 11/06/2013 Normal [facility] CHEMISTRY Albumin Lvl 3.7 g/dL 3.5 - 5.0 11/06/2013 Normal [facility] CHEMISTRY Alk Phos 83 unit/L 39 - 136 11/06/2013 Normal [facility] CHEMISTRY ALANINE AMINOTRANSFERASE 22 unit/L 0 - 65 11/06/2013 Normal [facility] CHEMISTRY CO2 27 meq/L 24 - 32 11/06/2013 Normal [facility] CHEMISTRY Total Protein 7.5 g/dL 6.4 - 8.4 11/06/2013 Normal [facility] CHEMISTRY Calcium Lvl 9.3 mg/dL 8.5 - 10.5 11/06/2013 Normal [facility] CHEMISTRY Chloride Lvl 106 meq/L 95 - 109 11/06/2013 Normal [facility] CHEMISTRY Sodium Lvl 140 meq/L 135 - 145 11/06/2013 Normal [facility] CHEMISTRY Potassium Lvl 3.9 meq/L 3.5 - 5.1 11/06/2013 Normal [facility] HEMATOLOGY aPTT 21.9 s 22.9 - 35.8 11/06/2013 LOW 8Interpretive Data: Heparin Therapeutic Range: 57 - 92 Seconds [facility] HEMATOLOGY INR 0.95 0.85 - 1.17 11/06/2013 Normal 7Interpretive Data: RECOMMENDED RANGES FOR PROTIME INR: 2.0-3.0 for most medical and surgical thromboembolic states. 2.5-3.5 for artificial heart valves and recurrent embolism. INR SHOULD BE USED ONLY FOR PATIENTS ON STABLE ANTICOAGULANT THERAPY. [facility] PROTIME 12.6 s 12.0 - 14.7 11/06/2013 Normal [facility] U Benzodia Scr Positive *ABN* (11/06/2013 15:21:00) Negative 11/06/2013 ABN [facility] U Arianne Scr Negative *NA* (11/06/2013 15:21:00) Negative 11/06/2013 [facility] U Amph Scr Negative *NA* (11/06/2013 15:21:00) Negative 11/06/2013 [facility] UDS Note See Note 4 (11/06/2013 15:21:00) 11/06/2013 Normal 4Interpretive Data: Drugs reported as positive have not been confirmed by a second method and should be used for medical purposes only. To order confirmation, contact laboratory. note: Below are cut-off concentrations for all urine drugs of abuse performed in the laboratory. Some drugs listed in the table may not be included in this panel. Description Cut-off concentration Amphetamine 1000 ng/mL Barbiturates 200 ng/mL Benzodiazepines 300 ng/mL Cocaine metabolites 300 ng/mL Opiates 300 ng/mL Phencyclidine 25 ng/mL Propoxyphene 300 ng/mL Marijuana metabolites 50 ng/mL Methadone 300 ng/mL Urine alcohol 20 mg/dL [facility] U Phencyc Scr Negative *NA* (11/06/2013 15:21:00) Negative 11/06/2013 [facility] U Opiate Scr Negative *NA* (11/06/2013 15:21:00) Negative 11/06/2013 [facility] U Cannab Scr Negative *NA* (11/06/2013 15:21:00) Negative 11/06/2013 [facility] U Cocaine Scr Negative *NA* (11/06/2013 15:21:00) Negative 11/06/2013 [facility] Urobilinogen <=1.0 mg/dL 0.1 - 1.0 11/06/2013 [facility] Blood Negative (11/06/2013 15:21:00) Negative 11/06/2013 Normal [facility] Nitrite Negative (11/06/2013 15:21:00) Negative 11/06/2013 Normal [facility] Leuk Est Negative (11/06/2013 15:21:00) Negative 11/06/2013 Normal [facility] Sq Epi Occasional /LPF Few 11/06/2013 [facility] WBC null 0 - 5 11/06/2013 Normal [facility] Turbidity Slight *ABN* (11/06/2013 15:21:00) Clear 11/06/2013 ABN [facility] pH 6.0 5.0 - 8.0 11/06/2013 Normal [facility] Spec Grav 1.013 <=1.030 11/06/2013 Normal [facility] Protein Negative mg/dL Negative 11/06/2013 Normal [facility] Bili Negative *NA* (11/06/2013 15:21:00) Negative 11/06/2013 [facility] Glucose Negative mg/dL Negative 11/06/2013 [facility] Ketones Negative mg/dL Negative 11/06/2013 [facility] RBC 1 /HPF 0 - 2 11/06/2013 Normal [facility] Hyal Cast 4 /LPF 0 - 2 11/06/2013 [facility] Color Yellow *NA* (11/06/2013 15:21:00) Yellow 11/06/2013 [facility] Bacteria Occasional /HPF None Seen 11/06/2013 [facility] CHEMISTRY Ethanol Lvl null 11/06/2013 6Interpretive Data: Negative Range: <3 mg/dL Toxic Range: >250 mg/dL [facility] CHEMISTRY Etoh (%) null 11/06/2013 5Interpretive Data: Negative Range: <0.003% Toxic Range: >0.25% [facility] HEMATOLOGY MCV 89.2 fL 81.0 - 99.0 11/06/2013 Normal [facility] HEMATOLOGY Hct 33.3 % 36.0 - 48.0 11/06/2013 [facility] HEMATOLOGY Hgb 10.6 g/dL 12.0 - 16.0 11/06/2013 [facility] HEMATOLOGY RBC X 10x6 3.73 M/CMM 4.20 - 5.40 11/06/2013 [facility] HEMATOLOGY WBC X 10x3 11.2 K/CMM 3.7 - 10.4 11/06/2013 [facility] HEMATOLOGY MPV 10.1 fL 7.4 - 10.4 11/06/2013 Normal [facility] HEMATOLOGY Platelet 246 K/CMM 133 - 450 11/06/2013 [facility] HEMATOLOGY RDW 13.6 % 11.5 - 14.5 11/06/2013 Normal [facility] MCHC 31.9 g/dL 32.0 - 36.0 11/06/2013 [facility] MCH 28.4 pg 27.0 - 31.0 11/06/2013 Normal [facility] HEMATOLOGY Segs 41.1 % 45.0 - 75.0 11/06/2013 [facility] HEMATOLOGY Basophils # 0.0 K/CMM 0.0 - 0.2 11/06/2013 Normal [facility] HEMATOLOGY Eosinophils # 0.2 K/CMM 0.0 - 0.5 11/06/2013 [facility] HEMATOLOGY Monocytes # 1.0 K/CMM 0.0 - 0.8 11/06/2013 [facility] HEMATOLOGY Lymphocytes # 5.3 K/CMM 1.0 - 5.5 11/06/2013 Normal [facility] HEMATOLOGY Basophils 0.4 % 0.0 - 1.0 11/06/2013 [facility] HEMATOLOGY Segs-Bands # 4.6 K/CMM 1.5 - 8.1 11/06/2013 [facility] HEMATOLOGY Monocytes 9.4 % 2.0 - 12.0 11/06/2013 [facility] HEMATOLOGY Eosinophils 1.6 % 0.0 - 4.0 11/06/2013 [facility] HEMATOLOGY Lymphocytes 47.5 % 20.0 - 40.0 11/06/2013 [facility] BEDSIDE GLUCOSE TESTING Glucose POC 126 mg/dL 70 - 99 11/06/2013 [facility] 1Interpretive Data: Upper Reportable Limit: 200 mg/dL. [facility] Chest 1view Chest 1view Chest, one view. HISTORY: Pleuritic pain. COMPARISON: 09/03/2007. FINDINGS: The lungs are clear. No pleural effusion or pneumothorax. Heart size normal. No fracture is seen. Osseous excrescence of the right acromion is better characterized on shoulder radiography. SL: 11/06/2013 - - Read by: Aron Sweeney Dictated Date/time: 11/06/13 16:42 Electronically Signed by: Aron Sweeney MD 11/06/13 16:43 FINAL REPORT [facility] Spine lumbar 2 or 3 views Spine lumbar 2 or 3 views LUMBAR SPINE, 2 VIEWS. INDICATION: Back pain. There is mild dextroscoliosis and generalized osteoporosis. No compression fracture is evident. There are small marginal osteophytes at all levels. Intervertebral disc spaces are maintained. There is facet arthropathy at the lumbosacral junction. The visualized sacroiliac joints not remarkable. Surgical clips project in the epigastric region, and aortic atherosclerosis is noted. IMPRESSION: No acute abnormality. Spondylosis. SL: 11/06/2013 - - Read by: Lorenzo Wilkes Dictated Date/time: 11/06/13 16:37 Electronically Signed by: Lorenzo Wilkes MD 11/06/13 16:39 FINAL REPORT [facility] Shoulder series Shoulder series Right shoulder, 4 views. HISTORY: Pain. COMPARISON: None available. FINDINGS: There is an osseous excrescence which projects from the superior aspect of the acromion measuring 1.2 x 1.7 cm. This may represent a large unusual arthritic or post traumatic hypertrophic spur, but a bone tumor with osseous matrix is not excluded. Recommend follow-up nonemergent outpatient contrast-enhanced MRI of the shoulder for further evaluation. No fracture or dislocation. Acromioclavicular and glenohumeral joint spaces are preserved. SL: 11/06/2013 - - Read by: Aron Sweeney Dictated Date/time: 11/06/13 16:40 Electronically Signed by: Aron Sweeney MD 11/06/13 16:42 FINAL REPORT [facility] Brain wo contrast CT Brain wo contrast CT CT HEAD WITHOUT CONTRAST HX: Head trauma FINDINGS: Views of the brain show no evidence of intracranial hemorrhage, acute stroke, mass effect, or shift of midline structures. The ventricles and sulci are within normal limits of size. No abnormal extra-axial fluid collections are noted. IMPRESSION: Negative CT of the brain without contrast. SL: 12 11/06/2013 - - Read by: Abhishek Rosenthal Dictated Date/time: 11/06/13 15:24 Electronically Signed by: Abhishek Rosenthal MD 11/06/13 15:24 FINAL REPORT [facility] Vital Signs Vital Sign Value Date Comments Source Systolic (mm Hg) 120 05/28/2018 [facility] Diastolic (mm Hg) 76 05/28/2018 [facility] Heart Rate 75 05/28/2018 [facility] Temperature Oral (F) 37.33 Renae 05/28/2018 [facility] Respitory Rate 18 05/28/2018 [facility] Height 167.6 cm 05/28/2018 [facility] Weight 71.668 05/28/2018 [facility] BMI Calculated 25.50 05/28/2018 [facility] Respitory Rate 16 11/07/2013 [facility] Heart Rate 64 11/07/2013 [facility] Temperature Oral (F) 98.6 F 11/07/2013 [facility] Systolic (mm Hg) 108 11/07/2013 [facility] Diastolic (mm Hg) 59 11/07/2013 [facility] Temperature Oral (F) 98.4 F 11/06/2013 [facility] Respitory Rate 12 11/06/2013 [facility] Diastolic (mm Hg) 67 11/06/2013 [facility] Systolic (mm Hg) 129 11/06/2013 [facility] Diastolic (mm Hg) 70 11/06/2013 [facility] Systolic (mm Hg) 155 11/06/2013 [facility] Temperature Oral (F) 98.7 F 11/06/2013 [facility] Respitory Rate 18 11/06/2013 [facility] Height 165.1 cm 11/06/2013 [facility] Weight 90.909 11/06/2013 [facility] Heart Rate 92 11/06/2013 [facility] Weight 85.909 12/30/2012 [facility] Height 157.48 cm 12/30/2012 [facility] Encounters Location Location Details Encounter Type Encounter Number Reason For Visit Attending Provider ADM Date DC Date Status Source [facility] Emergency [id number] MARCIO LADD 12/29/2012 12/29/2012 Active [facility] Emergency [id number] EFREN POTTER 11/06/2013 11/06/2013 Active [facility] - [facility] Diag Services [id number] Vivek Márquez 07/03/2017 07/04/[address] [facility] Pharmacy Visit [id number] 09/09/2017 [facility] [id number] Ismael Riojas 10/16/2017 10/17/2017 [facility] Psychiatry [place] Office Visit [id number] Anxiety disorder, unspecified type Mood disorder Insomnia, unspecified type Richard Lehman MD 11/17/2017 11/17/2017 [facility] Mental Health Services [place] Telephone [id number] Richard Lehman MD 02/05/2018 [facility] Psychiatry [place] Office Visit [id number] Anxiety disorder, unspecified type Insomnia, unspecified type Richard Lehman MD 03/05/2018 03/05/2018 [facility] [place] Orders Only [id number] Type 2 diabetes mellitus with other specified complication, without long-term current use of insulin Toña Lemon MD 03/29/2018 [facility] [place] Orders Only [id number] Essential hypertension Cherry Bland RN 03/29/2018 [facility] [place] Office Visit [id number] Healthcare maintenance Essential hypertension Type 2 diabetes mellitus with other specified complication, without long-term current use of insulin Pulmonary emphysema, unspecified emphysema type Uncomplicated asthma, unspecified asthma severity, unspecified whether persistent Dysphagia, unspecified type Skull lesion Back pain, unspecified back location, unspecified back pain laterality, unspecified chronicity Allergic rhinitis, unspecified seasonality, unspecified trigger Toña Lemon MD 03/29/2018 03/29/2018 [facility] [place] Orders Only [id number] Pulmonary emphysema, unspecified emphysema type Healthcare maintenance Abnormal CXR Toña Lemon MD 03/30/2018 [facility] Radiology [place] Ancillary Procedure [id number] Essential hypertension Skull lesion Toña Lemon MD 03/30/2018 03/30/2018 [facility] [place] Orders Only [id number] Abnormal hepatitis serology Toña Lemon MD 03/31/2018 [facility] Psychiatry [place] Refill [id number] Insomnia, unspecified type Richard Lehman MD 04/02/2018 [facility] [place] Orders Only [id number] Anxiety disorder, unspecified type Mood disorder Toña Lemon MD 04/07/2018 [facility] [place] Office Visit [id number] Type 2 diabetes mellitus with other specified complication, without long-term current use of insulin Essential hypertension Pulmonary emphysema, unspecified emphysema type Uncomplicated asthma, unspecified asthma severity, unspecified whether persistent Abnormal hepatitis serology Brain lesion Anxiety disorder, unspecified type Mood disorder 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 B virus Toña Lemon MD 04/07/2018 04/07/2018 [facility] [place] Telephone [id number] Cherry Bland RN 04/20/2018 [facility] Nursing [place] Telephone [id number] Mary Jane Torres RN 04/21/2018 [facility] [place] Orders Only [id number] Memory disorder Numbness and tingling Toña Lemon MD 05/11/2018 [facility] [place] Clinical Case Mgt [id number] Erin Krause 05/11/2018 [facility] [place] Office Visit [id number] Type 2 diabetes mellitus with other specified complication, without long-term current use of insulin Essential hypertension Uncomplicated asthma, unspecified asthma severity, unspecified whether persistent Pulmonary emphysema, unspecified emphysema type Abnormal CXR 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 B virus Memory disorder Numbness and tingling Gastroesophageal reflux disease, esophagitis presence not specified Toña Lemon MD 05/11/2018 05/11/2018 [place] [facility] Orders Only [id number] Numbness and tingling Toña Lemon MD 05/12/2018 [facility] Refill [id number] Gastroesophageal reflux disease, esophagitis presence not specified Toña Lemon MD 05/18/2018 [facility] PULMONARY SERVICES Hospital Encounter [id number] Toña Lemon MD 05/18/2018 05/19/2018 [facility] Orders Only [id number] Pure hypercholesterolemia Toña Lemon MD 05/28/2018 [facility] Telephone [id number] Cherry Bland RN 05/28/2018 [facility] Psychiat[facility] [place] Office Visit [id number] Anxiety disorder, unspecified type Insomnia, unspecified type Richard Lehman MD 05/28/2018 05/28/2018 [facility] Procedures Procedure Code Date Perfomer Comments Source PULMONARY - 6 MINUTE WALK EXERCISE TEST - COMPLEX 69738 05/18/2018 [facility] PULMONARY FUNCTION TEST 85187 05/18/2018 [facility] OPHTHALMOLOGY RETINAL SCAN 321858 05/11/2018 [facility] HEP A VIRUS AB IGG 60025 04/06/2018 [facility] HCV RNA QUANT, PCR 54718 04/06/2018 [facility] [place] [address] 04/06/2018 [facility] PT/INR/PTT 60935 04/06/2018 [facility] AFP, TUMOR MARKER 70411 04/06/2018 [facility] XRAY CHEST 2 VIEWS 12952 03/30/2018 [facility] XRAY SKULL LESS THAN 4 VIEWS 38427 03/30/2018 [facility] H. PYLORI STOOL AG 93453 03/30/2018 [facility] OCCULT BLOOD ICT 94866 03/30/2018 [facility] HIV-1/HIV-2 DIAGNOSTIC/SYMPTOMATIC 07993 03/30/2018 [facility] HEPATITIS PANEL 92419 03/30/2018 [facility] UA CHEMISTRIES 19150 03/30/2018 [facility] TSH 12016 03/30/2018 [facility] LIVER PROFILE 85967 03/30/2018 [facility] LIPID PROFILE 75471 03/30/2018 [facility] BASIC METABOLIC PANEL 33449 03/30/2018 [facility] CBC/DIFF 92365 03/30/2018 [facility] HEMOGLOBIN A1C 44589 03/30/2018 [facility] MICROALBUM, URINE 04559 03/30/2018 [facility] URINE CULTURE 94572 03/30/2018 [facility] VIT D, 25-HYDROXY 66494 03/30/2018 [facility] 12 LEAD EKG 84991 03/29/2018 [facility] DIABETIC FOOT EXAM 2028F 03/29/2018 [facility] NONINVASV OXYGEN SATUR;SINGLE 58859 03/29/2018 [facility] Total hysterectomy with removal of both tubes and ovaries [id number] [facility] Vagotomy [id number] [facility] Total hysterectomy with removal of both tubes and ovaries [id number] [facility] [id number] [facility] Total hysterectomy with removal of both tubes and ovaries [id number] [facility] [id number] [facility]
--- OUTSIDE RECORDS SUMMARY | 2018-10-07 06:27 | XMS REPORT | Clinical Summary ---
Author Author [facility] Organization [facility] Address Unknown Phone Unavailable Care Team Providers Care Circulation Representative Name Role Phone Toña Lemon MD PCP Allergies Active Allergy Reactions Severity [...] mcg by mouth Active mcg cap daily. tropicamide (MYDRIACYL) Instill 1 Drop in each 15 mL 0 03/29/20 09/25/20 Active 0.5 % ophthalmic eye daily as needed [...] 25 mg tablet times daily. 18 ued amLODIPine (NORVASC) 10 Take 1 tablet by [...] Encounters Date Type Specialty Care Team Description 05/28/2018 Office Visit Psychiatry Richard Lehman MD Anxiety disorder, unspecified type; Insomnia, unspecified type 05/28/2018 Orders Only Family Practice Toña Lemon MD Pure hypercholesterolemia (Primary Dx) 05/28/2018 Telephone Family Practice Cherry Bland RN Information Only 05/18/2018 Hospital Toña Lemon MD Encounter 05/18/2018 Refill Family Practice Toña Lemon MD Gastroesophageal reflux disease, esophagitis presence not specified 05/12/2018 Orders Only Family Toña Coffman MD Numbness and tingling 05/11/2018 Office Visit [...] esophagitis presence not specified 05/11/2018 Orders Only [facility] Toña Coffman MD Memory disorder; Numbness and tingling 05/11/2018 Clinical Case Social Work KrauseErin leary Mgmanish 04/21/2018 Telephone Mary Jane Torres RN Other 04/20/2018 Telephone [facility] Practice Cherry Bland RN Information Only 04/07/[address] [facility] Toña Lemon MD Type 2 diabetes mellitus with other specified complication, without long-term current use of insulin (Primary Dx); Essential hypertension; Pulmonary emphysema, unspecified emphysema type; Uncomplicated asthma, unspecified asthma severity, unspecified whether persistent; Abnormal hepatitis serology; Brain lesion; Anxiety disorder, unspecified type; Mood disorder; 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 B virus 04/07/2018 Orders Only [facility] Toña Coffman MD Anxiety disorder, unspecified type; Mood disorder 04/02/2018 Refill Psychiatry Richard Lehman MD Insomnia, unspecified type 03/31/2018 Orders Only [facility] Toña Coffman MD Abnormal hepatitis serology (Primary Dx) 03/30/2018 Ancillary Radiology Toña Lemon MD Essential hypertension; Procedure Skull lesion 03/30/2018 Orders Only [facility] Toña Coffman MD Abnormal CXR (Primary Dx); Pulmonary emphysema, unspecified emphysema type; Healthcare maintenance 03/29/2018 Office Visit [facility] Toña Coffman MD Healthcare maintenance (Primary Dx); Essential hypertension; Type 2 diabetes mellitus with other specified complication, without long-term current use of insulin; Pulmonary emphysema, unspecified emphysema type; Uncomplicated asthma, unspecified asthma severity, unspecified whether persistent; Dysphagia, unspecified type; Skull lesion; Back pain, unspecified back location, unspecified back pain laterality, unspecified chronicity 03/29/2018 Orders Only [facility] Toña Coffman MD Type 2 diabetes mellitus with other specified complication, without long-term current use of insulin 03/29/2018 Orders Only [facility] Practice Cherry Bland RN Essential hypertension 03/05/2018 Office Visit Psychiatry Richard Lehman MD Anxiety disorder, unspecified type; Insomnia, unspecified type 02/05/2018 Telephone Psychiatry Richard Lehman MD Appointment Related Questions (dr lehman called in and I had to reschedule) 11/17/2017 Office Visit Psychiatry Richard Lehman MD Anxiety disorder, unspecified type; Mood disorder; Insomnia, unspecified type 09/09/2017 Pharmacy Visit after 08/10/2017 Immunizations Name Dates Previously Given Next Due [...] Treatment Date Type Specialty Care Team Description 08/19/2018 Office Visit Pulmonology Sachin Rey MD Referral [id number] [place] [address] [phone] 09/10/2018 Office Visit Family Practice Minor Holbrook MD Strep throat [address] [place] [address] [phone] 10/26/2018 Office Visit Psychiatry Richard Lehman MD [address] [place] [address] [phone] Health Maintenance Due Date Last Done Comments [...] 1:27 PM CDT unspecified emphysema type after 08/10/2017 Results * PULMONARY - 6 MINUTE WALK EXERCISE TEST - COMPLEX (05/18/2018 1:58 PM) Performing Organization Address City/State/Zipcode Phone Number SMS * PULMONARY FUNCTION TEST (05/18/2018 1:19 PM) Performing Organization Address City/[facility] Phone Number SMS * OPHTHALMOLOGY RETINAL SCAN [...] Narrative Performed At Retinal Study Result for PARNELLDIOGENES ZARATEBLDIOGENES ZARATE a 67 y/o, F (: 1950, ) presented to [facility] [place]Note 2] on 05-11-2018 for a retinal imaging study [...] signed by Frank Juan MD, , Taxonomy: [id number] on 05-11-2018 06:36:59 [facility] time. NOTE:Any pathology noted on this diabetic retinal evaluation should be confirmed by an appropriate ophthalmic examination. Performing Organization Address City/[facility] Phone Number IRIS * HEPATITIS B SURFACE AB (04/06/2018 4:18 PM) HBsAb Negative NEG BT OUTPATIENT DRAW 2 HBsAb Concentration <0.01 BT OUTPATIENT DRAW 2 Negative: <8.00 mIU/mL Grayzone: > or=8.00 mIU/mL to <12.00 mIU/mL Positive: > or=12.00 mIU/mL Specimen Blood Performing Organization Address [facility] Phone Number MISYS BT OUTPATIENT DRAW 2 * HEP A VIRUS AB IGG (04/06/2018 4:18 PM) Hep A Vir Ab IgG Positive (A) NEG BT OUTPATIENT DRAW 2 Performing Organization Address [facility] Phone Number MISYS BT OUTPATIENT DRAW 2 * AFP, TUMOR MARKER (04/06/2018 4:18 PM) AFP Tumor Mrk 4.7 <9.0 ng/mL BT MAIN-STATION 1 Specimen Blood Performing Organization Address [facility] Phone Number MISYS BT MAIN-STATION 1 * HCV RNA QUANT, PCR (04/06/2018 4:18 PM) HCV RNA QUANT, PCR Not detected IU/mL BT MOLECULAR Comment: PATHOLOGY This test utilizes FDA cleared EILEEN AmpliPrep/EILEEN TaqMan HCV test, v2.0 from Luke Pickie which allows detection of viral loads between [...] HCV infection. Specimen Blood Performing Organization Address [facility] Phone Number MISYS BT MOLECULAR PATHOLOGY * PT/INR/PTT (04/06/2018 4:18 PM) PT 12.4 11.8 - 15.0 Seconds BT MAIN-STATION 3 INR 0.9 BT MAIN-STATION 3 SUGGESTED THERAPEUTIC RANGES: INR 2.0-3.0 for MODERATE INTENSITY ANTICOAGULATION INR 2.5-3.5 for HIGH INTENSITY ANTICOAGULATION PTT 33.3 23.6 - 36.4 Seconds BT MAIN-STATION 3 Specimen Blood Performing Organization Address City/State/Zipcode Phone Number MISYS BT MAIN-STATION 3 * XRAY CHEST 2 [...] Performed At EXAM: XRAY CHEST 2 VIEWS [facility] DATE: 03/30/2018 10:29 AM INDICATION: htn/ asthma [...] MD, 03/30/2018 1:43 PM Performing Organization Address [facility] Phone Number SMS * XRAY SKULL LESS [...] MD, 03/30/2018 10:42 AM Performing Organization Address [facility] Phone Number SMS * OCCULT BLOOD ICT (03/30/2018 9:46 AM) Occult Blood ICT Negative NEG [facility] Specimen Stool Performing Organization Address [facility] Phone Number [employer] * H. PYLORI STOOL AG (03/30/2018 9:46 AM) H pylori Ag Stool Negative LABORATORY Reference range: Negative [employer] Specimen Stool Performing Organization Address [facility] Phone Number [employer] [facility] [place] [address] [facility] 145 * VIT D, 25-HYDROXY (03/30/2018 9:40 AM) Vit D, 25-Hydroxy 54.8 30 - 100 ng/mL BT DIAGNOSTIC Comment: IMMUNOLOGY Vitamin D deficiency has been defined by the [place] of Medicine and Endocrine Society guideline as a level of serum 25-OH Vitamin D less than 20 ng/mL. The Endocrine Society further defines Vitamin D insufficiency as a level between 21 and 29 ng/mL and sufficiency as a level between 30 and 100 ng/mL. Performing Organization Address [facility] Phone Number [employer] BT DIAGNOSTIC IMMUNOLOGY * MICROALBUM, URINE (03/30/2018 [...] a week is recommended. Performing Organization Address City/[facility] Phone Number MISYS BT MAIN-STATION 3 * HEMOGLOBIN A1C (03/30/2018 9:40 AM) Hemoglobin A1c 5.7 4.3 - 6.1 % BT DIAGNOSTIC IMMUNOLOGY Est Average Gluc 116.9 mg/dL BT DIAGNOSTIC IMMUNOLOGY Specimen Blood Performing Organization Address City/[facility] Phone Number MISYS BT DIAGNOSTIC IMMUNOLOGY * TSH (03/30/2018 9:40 AM) TSH 0.71 0.45 - 5.33 uIU/mL BT MAIN-STATION 4 Specimen Blood Performing Organization Address [facility] Phone Number MISYS BT MAIN-STATION 4 * UA CHEMISTRIES (03/30/2018 9:40 AM) Color Yellow BT MAIN-STATION 3 Clarity Cloudy BT MAIN-STATION 3 Spec Equality 1.017 1.001 - 1.035 BT MAIN-STATION 3 [...] MAIN-STATION 3 Specimen Urine Performing Organization Address City/[facility] Phone Number MISYS BT MAIN-STATION 3 * [...] MAIN-STATION 4 Specimen Blood Performing Organization Address [facility] Phone Number MISRACHEL MAIN-STATION 4 * LIPID PROFILE (03/30/2018 9:40 AM) Cholesterol 191 mg/dL BT MAIN-STATION 4 Comment: REFERENCE RANGE: Desirable: <200 mg/dL Borderline: 200-240 mg/dL High Risk: >240 mg/dL Triglyceride 60 <150 mg/dL BT MAIN-STATION 4 Comment: REFERENCE RANGE: Normal: <150 mg/dL Borderline High: 150-199 mg/dL High: 200-499 mg/dL Very High: >md=326 mg/dL HDL 76 mg/dL BT MAIN-STATION 4 Comment: Increased CHD risk: <40 mg/dL Decreased CHD risk: >60 mg/dL LDL 103 mg/dL BT MAIN-STATION 4 Comment: REFERENCE RANGE: Optimal: <100 mg/dL Near Optimal: 100-129 mg/dL Borderline High: 130-159 mg/dL High: 160-189 mg/dL Very High: >lb=119 mg/dL Specimen Blood Performing Organization Address [facility] Phone Number MISYS MAIN-STATION 4 * HIV-1/HIV-2 DIAGNOSTIC/SYMPTOMATIC (03/30/2018 9:40 AM) HIV-1/HIV-2 Negative NEG BT MAIN-STATION 3 Specimen Blood Performing Organization Address [facility] Phone Number MISYS MAIN-STATION 3 * HEPATITIS PANEL (03/30/2018 9:40 AM) HCV IgG Positive (A) NEG BT MAIN-STATION 3 HBsAg Negative NEG BT MAIN-STATION 3 HAV, IgM Negative NEG BT MAIN-STATION 3 HBcAb, IgM Negative NEG BT MAIN-STATION 3 Specimen Blood Performing Organization Address [facility] Phone Number MISYS MAIN-STATION 3 * URINE CULTURE (03/30/2018 9:40 AM) Spec Description Urine [facility] Order Comments None [facility] Culture Skin marie organisms present, BT MICROBIOLOGY suggests contamination; please recollect Report Status Final 04/01/2018 BT MICROBIOLOGY Specimen Urine - URINE Performing Organization Address [facility] Phone Number RENATA [facility] BT MICROBIOLOGY * CBC/DIFF (03/30/2018 [...] MAIN-STATION 4 Specimen Blood Performing Organization Address City/[facility] Phone Number MISYS BT MAIN-STATION 4 * 12 LEAD EKG (03/29/2018 1:30 PM) 12 LEAD EKG FOR [facility] Test Date:2018-03-29 Pat Name: DIOGENES PARNELL Department: Room: Gender: F Nurse Care Manager: :1950-1 0 Requested By: Order Number: Victorina brady MD: Geovany Carrillo Measurements Intervals [place] Rate: 75 P:-10 HI: 145 QRS: 86 QRSD: 80 T:127 QT: 381 QTc:428 Interpretive Statements SINUS RHYTHM Electronically Signed On 03-29-18 15:45:35 CDT by Geovany Carrillo Performing Organization Address [facility] Phone Number SMS * DIABETIC FOOT EXAM (03/29/2018 1:29 PM) Narrative Performed At Toña Lemon MD 03/29/20181:54 PM Diabetic Foot Exam was performed at 03/29/2018 1:29 PM.Right foot sensation is normal, right foot pulses are normal, right foot appearance is normal.Left foot sensation is normal,left foot pulses are normal, left foot appearance is normal. after 08/10/2017
--- OUTSIDE RECORDS SUMMARY | 2018-10-07 06:28 | XMS REPORT ---
Author Author [facility] Address Unknown Phone Unavailable Care Team Providers Care Hyster Driver Name Role Phone SCOTT LLOYD Unavailable Unavailable Payers Payer Name Policy Type Policy Number Effective Date Expiration Date Problems This patient has no known problems. Allergies, Adverse Reactions, Alerts Allergy Name Allergy Type Status Severity Reaction(s) Onset Date Inactive Date Treating Clinician Comments aspirin DA Active SV 2017-05-09 00:00:00 Medications This patient has no known medications. Encounters Start Date/Time End Date/Time Encounter Type Admission Type Attending Clinicians Care Facility Care Department Encounter ID 2018-10-26 00:00:00 2018-10-26 00:00:00 Outpatient [facility] [id number] 2018-09-10 00:00:00 2018-09-10 00:00:00 Outpatient [facility] [id number] 2018-08-20 00:00:00 2018-08-20 00:00:00 Outpatient [facility] [id number] 2018-08-19 00:00:00 2018-08-19 00:00:00 Outpatient [facility] [id number] 2018-08-13 00:00:00 2018-08-13 00:00:00 Outpatient [facility] [id number] 2018-08-09 00:00:00 2018-08-09 00:00:00 Outpatient [facility] [id number] 2018-06-25 00:00:00 2018-06-25 00:00:00 Outpatient [facility] [id number] 2018-06-24 00:00:00 2018-06-24 00:00:00 Outpatient [facility] [id number] 2018-05-28 15:27:26 2018-05-28 15:27:26 Outpatient [facility] [id number] 2018-05-18 13:14:32 2018-05-18 13:14:32 Outpatient [facility] [id number] 2018-05-11 13:22:13 2018-05-11 13:22:13 Outpatient [facility] [id number] 2018-05-11 13:01:41 2018-05-11 13:01:41 Outpatient [facility] [id number] 2018-05-11 00:00:00 2018-05-11 00:00:00 Outpatient [facility] [id number] 2018-04-30 00:00:00 2018-04-30 00:00:00 Outpatient [facility] [id number] 2018-04-22 00:00:00 2018-04-22 00:00:00 Outpatient [facility] [id number] 2018-04-21 00:00:00 2018-04-21 00:00:00 Outpatient [facility] [id number] 2018-04-07 11:11:37 2018-04-07 11:11:37 Outpatient [facility] [id number] 2018-04-06 16:22:42 2018-04-06 16:22:42 Outpatient [facility] [id number] 2018-04-05 00:00:00 2018-04-05 00:00:00 Outpatient [facility] [id number] 2018-03-30 10:14:58 2018-03-30 10:14:58 Outpatient [facility] [id number] 2018-03-30 09:43:09 2018-03-30 09:43:09 Outpatient [facility] [id number] 2018-03-29 12:20:23 2018-03-29 12:20:23 Outpatient [facility] [id number] 2018-03-05 14:49:41 2018-03-05 14:49:41 Outpatient [facility] [id number] 2018-02-05 00:00:00 2018-02-05 00:00:00 Outpatient [facility] [id number] 2017-11-17 10:07:25 2017-11-17 10:07:25 Outpatient [facility] [id number] 2017-11-13 00:00:00 2017-11-13 00:00:00 Outpatient [facility] [id number] 2017-07-24 00:00:00 2017-07-24 00:00:00 Outpatient [facility] [id number] 2017-05-01 14:40:56 2017-05-01 14:40:56 Outpatient [facility] [id number] Results Test Description Test Time Test Comments Text Results Atomic Results Result Comments CT CHEST WO [place] [address] Patient Name: DIOGENES PARNELL MR #: [id number] : 1950 Age/Sex: 66/F Req #: [id number] Adm Physician: Ordered by: SCOTT LLOYD MD Report #: [id number] Location: CT Room/Bed: Procedure: [id number] CT/CT CHEST WO Exam Date: 09/16/17 Exam Time: 1358 REPORT STATUS: Signed EXAM: CT Chest WITHOUT contrast 09/16/2017 4:00 PM INDICATION: Hemoptysis. Chronic smoking. COMPARISON: None TECHNIQUE: Chest was scanned utilizing a multidetector helical scanner from the lung apex through the level of the adrenal glands without administration of IV contrast. Absence of intravenous contrast decreases sensitivity for detection of lymphadenopathy and vascular pathology. Coronal and sagittal reformations were obtained. Routine protocol was performed. IV CONTRAST: None RADIATION DOSE: Total DLP: 884.55 mGy*cm Estimated effective dose: (DLP x 0.014 x size factor) mSv COMPLICATIONS: None FINDINGS: LINES/ TUBES: None. LUNGS AND AIRWAYS: 2 mm noncalcified nodule abutting the right major fissure on image 55 series 8 most suggestive of an intrapulmonary lymph node. Mild bibasilar subsegmental atelectasis. Minimal bilateral emphysematous changes. Linear atelectasis versus scarring in the right middle lobe with mild volume loss and elevation of the right hemidiaphragm.. Airways are normal. PLEURA: The pleural spaces are clear. HEART AND MEDIASTINUM: The thyroid gland is normal. No mediastinal, hilar or axillary lymphadenopathy. The heart is normal in size.. There is no pericardial effusion. Atherosclerotic calcifications of the thoracic aorta. The ascending thoracic aorta is mildly ectatic measuring 4.1 x 3.9 cm in maximal axial dimensions on image 44 series 7. Multivessel coronary artery calcifications. UPPER ABDOMEN: Limited non-contrast views of the upper abdomen show multiple surgical clips about the esophagogastric junction. The adrenal glands are normal. BONES: Lower cervical fusion hardware partially visualized. Mild multilevel spondylosis of the thoracic spine. Multilevel spondylosis of the thoracic spine. SOFT TISSUES: Unremarkable. IMPRESSION: Minimal bilateral emphysematous changes. Signed by: Dr. Antwon Morris M.D. on 09/16/2017 3:24 PM Dictated By: LOIDA MORRIS MD, MD 1524 Transcribed By: ROSLYN on 09/16/17 1524 COPY TO: SCOTT LLOYD MD CT SOFT TISSUE NECK WO [place] [address] Patient Name: DIOGENES PARNELL MR #: [id number] : 1950 Age/Sex: 66/F Req #: [id number] Adm Physician: Ordered by: SCOTT LLOYD MD Report #: [id number] Location: CT Room/Bed: Procedure: [id number] CT/CT SOFT TISSUE NECK WO Exam Date: 09/16/17 Exam Time: 4468 REPORT STATUS: Signed History: Can't speak, smoker for 42 years. Comparison studies: Same day CT chest Technique: Axial images were obtained from the skull base to the thoracic inlet. Coronal and sagittal images reconstructed from the axial data. Intravenous contrast: None Findings: Evaluation of the neck is limited due to the absence of intravenous contrast. In spite of this limitation, Soft tissues: No abnormalities. Lymph nodes: No radiographically significant adenopathy. Vessels: Cannot evaluate patency. Atherosclerotic calcifications of the carotid bulbs and carotid siphons. Glands (thyroid, parotid and submandibular): Normal in size and symmetric. No masses. Orbits: No acute abnormalities. Bilateral cataract surgery changes. Paranasal sinuses: Clear. Temporal bones: No abnormalities. Skull base and facial bones: No acute abnormality Cervical spine: Anterior cervical fusion with plate and screw from C4 through C7. At C3-C4, bilateral uncinate process hypertrophy results in moderate right foraminal narrowing with patent canal and left foramina. At C4-5, bilateral uncinate process hypertrophy and diffuse disc osteophyte complex results in mild canal stenosis and mild bilateral foraminal narrowing. At C5-6, diffuse disc osteophyte complex and bilateral uncinate process hypertrophy results in mild canal stenosis and mild bilateral foraminal narrowing. At C6-7, bilateral uncinate process hypertrophy and diffuse disc osteophyte complex results in mild canal stenosis and mild bilateral foraminal narrowing. The patient has no dentition. IMPRESSION: 1. No sizable neck mass or acute neck abnormality. 2. Degenerative and surgical changes of the cervical spine as described above. Signed by: DR Ever Brantley M.D. on 09/17/2017 7:40 AM Dictated By: EVER PEREZ MD 9 Transcribed By: ROSLYN on 09/17/17739 COPY TO: SCOTT LLOYD MD
--- OUTSIDE RECORDS SUMMARY | 2018-10-07 06:28 | XMS REPORT | Summary of Care ---
Author Author [facility] Outpatient Imaging [facility] Address Unknown Phone Unavailable Encounter HQ Encntr_[email or web address](FIN) [phone] Date(s): 07/03/17 - 07/03/17 [facility] [address] [facility], [address] [place] [phone] Discharge Disposition: Home or Self Care Attending Physician: Vivek Márquez MD Vital Signs No data available for this section Problem List Condition Effective Dates Status Health Status Informant Anxiety(Confirmed) Resolved Bipolar(Confirmed) Resolved Depression(Confirmed Resolved ) Diabetes Active mellitus(Confirmed) Esophagitis(Confirme Resolved d) Gastric peptic Resolved ulcer(Confirmed) Hypertension(Confirm Active ed) Allergies, Adverse Reactions, Alerts Substance Reaction Severity Status NKDA Active Medications No data available for this section Results No data available for this section Immunizations No data available for this section Procedures Procedure Date Related Diagnosis Body Site Total hysterectomy with removal of both tubes and ovaries Vagotomy Social History Social History Type Response Assessment and Plan No data available for this section
--- OUTSIDE RECORDS SUMMARY | 2018-10-07 06:28 | XMS REPORT | Summary of Care ---
Author Author [facility] Organization [facility] Address Unknown Phone Unavailable Encounter HQ Elielr_[email or web address](FIN) [id number] Date(s): 10/16/17 - 10/16/17 [facility] [address] [place] [address]- Discharge Disposition: Home or Self Care Attending Physician: Ismael Riojas MD Referring Physician: Ismael Riojas MD Vital Signs No data available for [...]
--- OUTSIDE RECORDS SUMMARY | 2018-10-07 06:28 | XMS REPORT | CCD ---
Author Author Auto Generated Organization [facility] Address Unknown Phone Unavailable Care Team Providers Care Heavy Duty Mechanic Name Role Phone Chandrika Lora CP Allergies, Adverse Reactions, Alerts Substance Reaction Status NKDA Active Problem List Condition Effective Dates Status Anxiety Resolved Bipolar Resolved Depression Resolved Diabetes mellitus Active Diverticulitis Resolved Esophagitis Resolved Gastric peptic ulcer Resolved Hypertension Active Medications Medication Instructions Start Date End Date Status ondansetron 4 mg, Route: IVP, Drug form: INJ, 11/06/2013 11/06/2013 Completed ONCE, Dosing Weight 90.909, kg, Priority: STAT, Start date: 11/06/13 17:05:00, Stop date: 11/06/13 17:05:00 morphine Sulfate 4 mg, Route: IVP, Drug form: INJ, 11/06/2013 11/06/2013 Completed ONCE, Dosing Weight 90.909, kg, Priority: STAT, Start date: 11/06/13 17:05:00, Stop date: 11/06/13 17:05:00 Celebrex 400 mg oral 400 mg=1 cap, PO, Daily, # 60 cap, 11/06/2013 Ordered capsule 0 Refill(s) Vicodin ES 7.5 1 tab, PO, Q6H, # 24 tab, 0 11/06/2013 Ordered mg-300 mg oral Refill(s) tablet ketorolac 30 mg, 1 mL, Route: IVP, Drug form: 11/06/2013 11/06/2013 Completed INJ, ONCE, Dosing Weight 90.909, kg, Priority: STAT, Start date: 11/06/13 14:35:00, Stop date: 11/06/13 14:35:00(Same as:Toradol) IV bolus must be given >15 seconds. Give IM administration slowly and deeply into the muscle. Not for use > 4 days Vital Signs Most recent to oldest [Reference Range]: 1 2 3 Height 165.1 cm (11/06/2013 14:12:00) Temperature Oral [96.4-99.1 DegF] 98.6 DegF (11/06/2013 18:00:00) 98.4 DegF (11/06/2013 16:12:00) 98.7 DegF (11/06/2013 14:34:00) Systolic Blood Pressure [90-140 mmHg] 108 mmHg (11/06/2013 18:00:00) 129 mmHg (11/06/2013 16:12:00) 155 mmHg *HI* (11/06/2013 14:34:00) Diastolic Blood Pressure [60-90 mmHg] 59 mmHg *LOW* (11/06/2013 18:00:00) 67 mmHg (11/06/2013 16:12:00) 70 mmHg (11/06/2013 14:34:00) Respiratory Rate [14-20 BRMIN] 16 BRMIN (11/06/2013 18:00:00) 12 BRMIN *LOW* (11/06/2013 16:12:00) 18 BRMIN (11/06/2013 14:34:00) Peripheral Pulse Rate [60-100 bpm] 64 bpm (11/06/2013 18:00:00) 92 bpm (11/06/2013 14:12:00) Weight 90.909 kg (11/06/2013 14:12:00) Results BEDSIDE GLUCOSE TESTING Most recent to [Reference Range]: 1 Glucose POC [70-99 mg/dL] 126 mg/dL 1 *HI* (11/06/2013 14:25:00) 1Interpretive Data: Upper Reportable Limit: 200 mg/dL. URINALYSIS Most recent to oldest [Reference Range]: 1 UA Turbidity [Clear] Slight *ABN* (11/06/2013 15:21:00) UA Color [Yellow] Yellow *NA* (11/06/2013 15:21:00) UA pH [5.0-8.0] 6.0 (11/06/2013 15:21:00) UA Spec Grav [<=1.030] 1.013 (11/06/2013 15:21:00) UA Glucose [Negative mg/dL] Negative mg/dL *NA* (11/06/2013 15:21:00) UA Blood [Negative] Negative (11/06/2013 15:21:00) UA Ketones [Negative mg/dL] Negative mg/dL *NA* (11/06/2013 15:21:00) UA Protein [Negative mg/dL] Negative mg/dL (11/06/2013 15:21:00) UA Urobilinogen [0.1-1.0 mg/dL] <=1.0 mg/dL *NA* (11/06/2013 15:21:00) UA Bili [Negative] Negative *NA* (11/06/2013 15:21:00) UA Leuk Est [Negative] Negative (11/06/2013 15:21:00) UA Nitrite [Negative] Negative (11/06/2013 15:21:00) UA WBC [0-5 /HPF] <1 /HPF (11/06/2013 15:21:00) UA RBC [0-2 /HPF] 1 /HPF (11/06/2013 15:21:00) UA Bacteria [None Seen /HPF] Occasional /HPF *NA* (11/06/2013 15:21:00) UA Sq Epi [Few /LPF] Occasional /LPF *NA* (11/06/2013 15:21:00) UA Hyal Cast [0-2 /LPF] 4 /LPF *HI* (11/06/2013 15:21:00) CHEMISTRY Most recent to oldest [Reference Range]: 1 Sodium Lvl [135-145 mEq/L] 140 mEq/L (11/06/2013 16:10:00) Potassium Lvl [3.5-5.1 mEq/L] 3.9 mEq/L (11/06/2013 16:10:00) Chloride Lvl [95-109 mEq/L] 106 mEq/L (11/06/2013 16:10:00) CO2 [24-32 mEq/L] 27 mEq/L (11/06/2013 16:10:00) AGAP [10.0-20.0 mEq/L] 10.9 mEq/L (11/06/2013 16:10:00) Creatinine Lvl [0.5-1.4 mg/dL] 0.8 mg/dL (11/06/2013 16:10:00) eGFR 90 mL/min/1.73m2 2 *NA* (11/06/2013 16:10:00) BUN [7-22 mg/dL] 16 mg/dL (11/06/2013 16:10:00) B/C Ratio [6-25] 20 (11/06/2013 16:10:00) Glucose Lvl [70-99 mg/dL] 93 mg/dL 3 (11/06/2013 16:10:00) Total Protein [6.4-8.4 g/dL] 7.5 g/dL (11/06/2013 16:10:00) Albumin Lvl [3.5-5.0 g/dL] 3.7 g/dL (11/06/2013 16:10:00) Globulin [2.0-4.0 g/dL] 3.8 g/dL (11/06/2013 16:10:00) A/G Ratio [0.7-1.6] 1.0 (11/06/2013 16:10:00) Calcium Lvl [8.5-10.5 mg/dL] 9.3 mg/dL (11/06/2013 16:10:00) ALT [0-65 unit/L] 22 unit/L (11/06/2013 16:10:00) AST [0-37 unit/L] 17 unit/L (11/06/2013 16:10:00) Alk Phos [39-136 unit/L] 83 unit/L (11/06/2013 16:10:00) Bili Total [0.2-1.3 mg/dL] 0.2 mg/dL (11/06/2013 16:10:00) U Amph Scr [Negative] Negative *NA* (11/06/2013 15:21:00) U Arianne Scr [Negative] Negative *NA* (11/06/2013 15:21:00) U Benzodia Scr [Negative] Positive *ABN* (11/06/2013 15:21:00) U Cocaine Scr [Negative] Negative *NA* (11/06/2013 15:21:00) U Opiate Scr [Negative] Negative *NA* (11/06/2013 15:21:00) U Phencyc Scr [Negative] Negative *NA* (11/06/2013 15:21:00) U Cannab Scr [Negative] Negative *NA* (11/06/2013 15:21:00) UDS Note See Note 4 (11/06/2013 15:21:00) Etoh (%) <.003 % 5 *NA* (11/06/2013 15:10:00) Ethanol Lvl <3 mg/dL 6 *NA* (11/06/2013 15:10:00) 2Result Comment: The eGFR is calculated using [...] from the National Kidney Disease Education Program ( NKDEP) which additionally recommends that when the eGFR is used in patients with extremes of body mass index for purposes of drug dosing, the eGFR should be mul tiplied by the estimated BMI. 3Interpretive Data: Adult reference range values reflect the clinical guidelines of the [place] [employer]. 4Interpretive Data: Drugs reported as positive have [...] Methadone 300 ng/mL Urine alcohol 20 mg/dL 5Interpretive Data: Negative Range: <0.003% Toxic Range: >0.25% 6Interpretive Data: Negative Range: <3 mg/dL Toxic Range: >250 mg/dL HEMATOLOGY Most recent to oldest [Reference Range]: 1 WBC [3.7-10.4 K/CMM] 11.2 K/CMM *HI* (11/06/2013 15:10:00) RBC [4.20-5.40 M/CMM] 3.73 M/CMM *LOW* (11/06/2013 15:10:) Hgb [12.0-16.0 g/dL] 10.6 g/dL *LOW* (11/06/2013:10:) Hct [36.0-48.0 %] 33.3 % *LOW* (11/06/2013 15:10:) MCV [81.0-99.0 fL] 89.2 fL (11/06/2013:) MCH [27.0-31.0 pg] 28.4 pg (11/06/2013:10:) MCHC [32.0-36.0 g/dL] 31.9 g/dL *LOW* (11/06/2013:10:) RDW [11.5-14.5 %] 13.6 % (11/06/2013 15:10:00) Platelet [133-450 K/CMM] 246 K/CMM (11/06/2013 15:10:) MPV [7.4-10.4 fL] 10.1 fL (11/06/2013:10:00) Segs [45.0-75.0 %] 41.1 % *LOW* (11/06/2013:10:) Lymphocytes [20.0-40.0 %] 47.5 % *HI* (11/06/2013:10) Monocytes [2.0-12.0 %] 9.4 % (11/06/2013 15:10:) Eosinophils [0.0-4.0 %] 1.6 % (11/06/2013:10:) Basophils [0.0-1.0 %] 0.4 % (11/06/2013:10:) Segs-Bands # [1.5-8.1 K/CMM] 4.6 K/CMM (11/06/2013:10:00) Lymphocytes # [1.0-5.5 K/CMM] 5.3 K/CMM (11/06/2013 15:10:00) Monocytes # [0.0-0.8 K/CMM] 1.0 K/CMM *HI* (11/06/2013 15:10:00) Eosinophils # [0.0-0.5 K/CMM] 0.2 K/CMM (11/06/2013 15:10:00) Basophils # [0.0-0.2 K/CMM] 0.0 K/CMM (11/06/2013 15:10:00) PT [12.0-14.7 seconds] 12.6 seconds (11/06/2013 16:10:00) INR [0.85-1.17] 0.95 7 (11/06/2013 16:10:00) PTT [22.9-35.8 seconds] 21.9 seconds 8 *LOW* (11/06/2013 16:10:00) 7Interpretive Data: RECOMMENDED RANGES FOR PROTIME INR: 2.0-3.0 for most medical and surgical thromboembolic states. 2.5-3.5 for artificial heart valves and recurrent embolism. INR SHOULD BE USED ONLY FOR PATIENTS ON STABLE ANTICOAGULANT THERAPY. 8Interpretive Data: Heparin Therapeutic Range: 57 - 92 Seconds
--- OUTSIDE RECORDS SUMMARY | 2018-10-07 06:28 | XMS REPORT | Summary of Care ---
Author Author TIARRA [place], VIVEK Organization Unknown Address Unknown Phone Unavailable Care Team Providers Care Manager Search Name Role Phone VIVEK MÁRQUEZ M.D. Unavailable Unavailable NELA PAVON M.D. Unavailable Unavailable Vivek Márquez MD Unavailable Unavailable Unavailable Unavailable Functional Status Name Dates Details Functional status health issues are not documented Status: Name Dates Details Cognitive status health issues are not documented Status: Problems Name Dates Details IBS (irritable bowel syndrome) (564.1, K58.9) Status: Active Back pain (724.5, M54.9) Status: Active Hemoptysis (786.30, R04.2) Status: Active Headache, migraine (346.90, G43.909) Status: Active Chronic GERD (530.81, K21.9) Status: Active Dysphonia (784.42, R49.0) Status: Active Aspiration into airway (934.9, T17.908A) Status: Active Stroke (434.91, I63.9) Status: Active Allergic rhinitis (477.9, J30.9) Status: Active Dysphagia (787.20, R13.10) Status: Active 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, 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) Status: Active Hyperlipidemia (272.4, E78.5) Status: Active ASVD (arteriosclerotic vascular disease) (440.9, I70.90) Status: Active Constipation (564.00, K59.00) Status: Active Depression (311, F32.9) Status: Active Diabetes mellitus type 2, controlled (250.00, E11.9) Status: Active Osteoporosis, unspecified osteoporosis type, unspecified pathological fracture presence (733.00, M81.0) Status: Active Chest wall pain (786.52, R07.89) Status: Active Edema (782.3, R60.9) Status: Active Chronic pain (338.29, G89.29) Status: Active History of hypertension (V12.59, Z86.79) Status: Active Medications Name Dates Details Clopidogrel Bisulfate 75 MG Oral Tablet TAKE ONE TABLET BY MOUTH DAILY Quantity: 90 VIVEK MÁRQUEZ M.D. * Start : 11-Mar-2018 Active TraZODone HCl - 100 MG Oral Tablet TAKE 1 TABLET BEDTIME * Quantity: 180 Refills: 1 * Start : 25-May-2017 Active Hydrocodone-Acetaminophen 10-325 MG Oral Tablet TAKE 1 TABLET EVERY 4 TO 6 HOURS NEEDED FOR PAIN. * Refills: 0 * Start : 25-May-2017 Active TiZANidine HCl - 4 MG Oral Capsule take 1 capsule TID * Refills: 0 * Start : 25-May-2017 Active Atorvastatin Calcium 10 MG Oral Tablet hs * Quantity: 90 Refills: 1 * Start : 25-May-2017 Active Losartan Potassium 100 MG Oral Tablet TAKE ONE TABLET BY MOUTH ONCE DAILY * Quantity: 90 Refills: 0 VIVEK MÁRQUEZ M.D. * Start : 25-May-2017 Active MetFORMIN HCl - 500 MG Oral Tablet TAKE ONE TABLET BY MOUTH TWICE A DAY * Quantity: 180 Refills: 1 VIVEK MÁRQUEZ M.D. * Start : 25-May-2017 Active Sertraline HCl - 100 MG Oral Tablet TAKE 2 TABLETS DAILY * Refills: 0 * Start : 25-May-2017 Active 30 Tablet Bottle Famotidine 20 MG Oral Tablet TAKE 1 TABLET TWICE DAILY * Refills: 0 * Start : 25-May-2017 Active Linzess 145 MCG Oral Capsule Take one daily * Quantity: 20 Refills: 0 VIVEK MÁRQUEZ M.D. * Start : 25-May-2017 Active AmLODIPine Besylate 10 MG Oral Tablet TAKE 1 TABLET BY MOUTH EVERY DAY DIRECTED * Quantity: 90 Refills: 1 VIVEK MÁRQUEZ M.D. * Start : 25-May-2017 Active HydrALAZINE HCl - 25 MG Oral Tablet Aone three times a day * Quantity: 270 Refills: 1 VIVEK MÁRQUEZ M.D. * Start : 25-Jun-2017 Active Calcium 600+D TABS TAKE 1 TABLET TWICE DAILY * Refills: 0 Active Fish Oil 1000 MG Oral Capsule TAKE 1 CAPSULE TWICE DAILY * Refills: 0 Active Omeprazole 40 MG Oral Capsule Delayed Release TAKE 1 CAPSULE DAILY * Refills: 0 Active Dymista 137-50 MCG/ACT Nasal Suspension 1 spray in each nostril BID TDD:2 * Quantity: 1 Refills: 6 SAVANAH [place], NELA * Start : 23-Sep-2017 Active 23 GM Bottle Allergies and Adverse Reactions Name Dates Details Aspir-81 TBEC (Allergy) Status: Active Past Medical History Name Dates Details History of asthma (V12.69, Z87.09) Status: Resolved History of depressed bipolar disorder (296.56, F31.70) Status: Resolved History of diabetes mellitus (V12.29, Z86.39) Status: Resolved History of hypertension (V12.59, Z86.79) Status: Resolved Procedures Procedure Dates Details History of Neck surgery Completed Immunization Name Dates Details Immunizations not documented Family History Name Dates Details Family history of diabetes mellitus (V18.0, Z83.3) Status: Active Family history of hypertension (V17.49, Z82.49) Status: Active Name Dates Details Family history of diabetes mellitus (V18.0, Z83.3) Status: Active Social History Name Dates Details - Status: Name Dates Details Former smoker Vital Signs Date Test Result Details No Known Vitals to report Results Date Description Value Details Results not documented Plan of Care Name Dates Details Planned Observations Planned Goals not documented Interventions Provided Medication Changes* MetFORMIN HCl - 500 MG Oral Tablet - Renew Labs/Procedures/Imaging* [[facility]] CMP W/EGFR; To Be Done: 25 Feb 2018 * XRAY Chest 2 views [id number]; To Be Done: 25 Feb 2018 Plan* Repeat CXR and CMP but explain there are no findings and past were negative * Await report of GI * Refill metformin Instructions Name Dates Details Instructions not documented Encounters Appointment; VIVEK MÁRQUEZ M.D. Encounter Diagnosis: Problem not documented On: 25-May-2017 14:30 Appointment; VIVEK MÁRQUEZ M.D. Encounter Diagnosis: Problem not documented On: 17-Jun-2017 8:30 Appointment; VIVEK MÁRQUEZ M.D. Encounter Diagnosis: Problem not documented On: 30-Jun-2017 13:30 Appointment; VIVEK MÁRQUEZ M.D. Encounter Diagnosis: Problem not documented On: 03-Jul-2017 13:30 Appointment; VIVEK MÁRQUEZ M.D. Encounter Diagnosis: Problem not documented On: 02-Sep-2017 9:45 Appointment; NELA PAVON M.D. Encounter Diagnosis: Problem not documented On: 21-Sep-2017 9:15 Appointment; DONNA DOWD M.D. Encounter Diagnosis: Problem not documented On: 02-Oct-2017 13:45 Appointment; NELA PAVON M.D. Encounter Diagnosis: Problem not documented On: 14-Oct-2017 11:30 Appointment; FRANC CALHOUN M.D. Encounter Diagnosis: Problem not documented On: 12-Nov-2017 14:00 Appointment; VIVEK MÁRQUEZ M.D. Encounter Diagnosis: Problem not documented On: 08-Dec-2017 15:00 Appointment; VIVEK MÁRQUEZ M.D. Encounter Diagnosis: Problem not documented On: 12-Feb-2018 14:45 Appointment; VIVEK MÁRQUEZ M.D. Encounter Diagnosis: Problem not documented On: 25-Feb-2018 18:30
--- OUTSIDE RECORDS SUMMARY | 2018-10-07 06:28 | XMS REPORT | Clinical Summary ---
Author Author [facility] Organization [facility] Address Unknown Phone Unavailable Care Team Providers Care Vegetable Worker Name Role Phone Toña Lemon MD PCP [...] esophagitis presence not specified 05/11/2018 Orders Only [facility] Toña Coffman MD Memory disorder; Numbness and tingling 05/11/2018 Clinical Case Social Work KrauseErin leary Mgmanish 04/21/2018 Telephone Mary Jane Torres RN Other 04/20/2018 Telephone [facility] Practice Cherry Bland RN Information Only 04/07/2018 Office Visit [facility] Toña Lemon MD Type 2 diabetes mellitus with other specified complication, without long-term current use of insulin (Primary Dx); Essential hypertension; Pulmonary emphysema, unspecified emphysema type; Uncomplicated asthma, unspecified asthma severity, unspecified whether persistent; Abnormal hepatitis serology; Brain lesion; Anxiety disorder, unspecified type; Mood disorder; 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 B virus 04/07/2018 Orders Only [facility] Toña Coffman MD Anxiety disorder, unspecified type; Mood disorder 04/02/2018 Refill Psychiatry Richard Lehman MD Insomnia, unspecified type 03/31/2018 Orders Only [facility] Toña Coffman MD Abnormal hepatitis serology (Primary Dx) 03/30/2018 Ancillary Radiology Toña Lemon MD Essential hypertension; Procedure Skull lesion 03/30/2018 Orders Only [facility] Toña Coffman MD Abnormal CXR (Primary Dx); Pulmonary emphysema, unspecified emphysema type; Healthcare maintenance 03/29/2018 Office Visit [facility] Toña Coffman MD Healthcare maintenance (Primary Dx); Essential hypertension; Type 2 diabetes mellitus with other specified complication, without long-term current use of insulin; Pulmonary emphysema, unspecified emphysema type; Uncomplicated asthma, unspecified asthma severity, unspecified whether persistent; Dysphagia, unspecified type; Skull lesion; Back pain, unspecified back location, unspecified back pain laterality, unspecified chronicity 03/29/2018 Orders Only [facility] Toña Coffman MD Type 2 diabetes mellitus with other specified complication, without long-term current use of insulin 03/29/2018 Orders Only [facility] Practice Cherry Bland RN Essential hypertension 03/05/2018 Office Visit Psychiatry Richard Lehman MD Anxiety disorder, unspecified type; Insomnia, unspecified type 02/05/2018 Telephone Psychiatry Richard Lehman MD Appointment Related Questions (dr lehman called in and I had to reschedule) 11/17/2017 Office Visit Psychiatry Richard Lehman MD Anxiety disorder, unspecified type; Mood disorder; Insomnia, unspecified type 09/09/2017 Pharmacy Visit after 08/24/2017 Immunizations Name Dates Previously Given Next Due [...] Treatment Date Type Specialty Care Team Description 09/10/2018 Office Visit Family Practice Minor Holbrook MD Strep throat [address] [place] [address] [place] [address] [phone] 10/26/2018 Office Visit Psychiatry Richard Lehman MD [address] [place] [address] [phone] Health Maintenance Due Date Last Done Comments [...] 1:27 PM CDT unspecified emphysema type after 08/24/2017 Results * PULMONARY - 6 MINUTE WALK EXERCISE TEST - COMPLEX (05/18/2018 1:58 PM) Performing Organization Address [facility] Phone Number SMS * PULMONARY FUNCTION TEST (05/18/2018 1:19 PM) Performing Organization Address [facility] Phone Number SMS * OPHTHALMOLOGY RETINAL SCAN [...] Performed At Retinal Study Result for PARNELLDIOGENES SCOTT ROLONBLDIOGENES ZARATE a 67 y/o, F (: [id number], ) presented to [facility] on 05-11-2018 for a retinal imaging study [...] signed by Frank Juan MD, , Taxonomy: [id number] on 05-11-2018 06:36:[address] [facility] time. NOTE:Any pathology noted on this diabetic retinal evaluation should be confirmed by an appropriate ophthalmic examination. Performing Organization Address [facility] Phone Number IRIS * HEPATITIS B SURFACE AB (04/06/2018 4:18 PM) HBsAb Negative NEG BT OUTPATIENT DRAW 2 HBsAb Concentration <0.01 BT OUTPATIENT DRAW 2 Negative: <8.00 mIU/mL Grayzone: > or=8.00 mIU/mL to <12.00 mIU/mL Positive: > or=12.00 mIU/mL Specimen Blood Performing Organization Address [facility] Phone Number MISYS BT OUTPATIENT DRAW 2 * HEP A VIRUS AB IGG (04/06/2018 4:18 PM) Hep A Vir Ab IgG Positive (A) NEG BT OUTPATIENT DRAW 2 Performing Organization Address [facility] Phone Number MISYS BT OUTPATIENT DRAW 2 * AFP, TUMOR MARKER (04/06/2018 4:18 PM) AFP Tumor Mrk 4.7 <9.0 ng/mL BT MAIN-STATION 1 Specimen Blood Performing Organization Address [facility] Phone Number MISYS BT MAIN-STATION 1 * HCV RNA QUANT, PCR (04/06/2018 4:18 PM) HCV RNA QUANT, PCR Not detected IU/mL BT MOLECULAR Comment: PATHOLOGY This test utilizes FDA cleared EILEEN AmpliPrep/EILEEN TaqMan HCV test, v2.0 from [employer] which allows detection of viral loads between [...] HCV infection. Specimen Blood Performing Organization Address [facility] Phone Number MISYS BT MOLECULAR PATHOLOGY * PT/INR/PTT (04/06/2018 4:18 PM) PT 12.4 11.8 - 15.0 Seconds BT MAIN-STATION 3 INR 0.9 BT MAIN-STATION 3 SUGGESTED THERAPEUTIC RANGES: INR 2.0-3.0 for MODERATE INTENSITY ANTICOAGULATION INR 2.5-3.5 for HIGH INTENSITY ANTICOAGULATION PTT 33.3 23.6 - 36.4 Seconds BT MAIN-STATION 3 Specimen Blood Performing Organization Address [facility] Phone Number MISYS BT MAIN-STATION 3 * [...] Performed At EXAM: XRAY CHEST 2 VIEWS [facility] DATE: 03/30/2018 10:29 AM INDICATION: htn/ asthma [...] MD, 03/30/2018 10:42 AM Performing Organization Address City/State/Zipcode Phone Number SMS * OCCULT BLOOD ICT (03/30/2018 9:46 AM) Occult Blood ICT Negative NEG [facility] Specimen Stool Performing Organization Address [facility] Phone Number [facility] * H. PYLORI STOOL AG (03/30/2018 9:46 AM) H pylori Ag Stool Negative LABORATORY Reference range: Negative [facility] Specimen Stool Performing Organization Address City/State/Zipcode Phone Number [facility] OF [address], [place] [phone] [address] * VIT D, 25-HYDROXY (03/30/2018 9:40 AM) Vit D, 25-Hydroxy 54.8 30 - 100 ng/mL BT DIAGNOSTIC Comment: IMMUNOLOGY Vitamin D deficiency has been defined by the [place] [employer] and Endocrine Society guideline as a level of serum 25-OH Vitamin D less than 20 ng/mL. The Endocrine Society further defines Vitamin D insufficiency as a level between 21 and 29 ng/mL and sufficiency as a level between 30 and 100 ng/mL. Performing Organization Address City/State/Zipcode Phone Number [facility] BT DIAGNOSTIC IMMUNOLOGY * MICROALBUM, URINE (03/30/2018 [...] a week is recommended. Performing Organization Address [place]/[facility] Phone Number MISYS BT MAIN-STATION 3 * HEMOGLOBIN A1C (03/30/2018 9:40 AM) Hemoglobin A1c 5.7 4.3 - 6.1 % BT DIAGNOSTIC IMMUNOLOGY Est Average Gluc 116.9 mg/dL BT DIAGNOSTIC IMMUNOLOGY Specimen Blood Performing Organization Address [facility] Phone Number MISYS BT DIAGNOSTIC IMMUNOLOGY * TSH (03/30/2018 9:40 AM) TSH 0.71 0.45 - 5.33 uIU/mL BT MAIN-STATION 4 Specimen Blood Performing Organization Address [facility] Phone Number MISYS BT MAIN-STATION 4 * UA CHEMISTRIES (03/30/2018 9:40 AM) Color Yellow BT MAIN-STATION 3 Clarity Cloudy BT MAIN-STATION 3 Spec [place] 1.017 1.001 - 1.035 BT MAIN-STATION 3 [...] MAIN-STATION 3 Specimen Urine Performing Organization Address [facility] Phone Number MISYS BT MAIN-STATION 3 * [...] MAIN-STATION 4 Specimen Blood Performing Organization Address [facility]/Zipcode Phone Number [facility] MAIN-STATION 4 * LIPID PROFILE (03/30/2018 9:40 AM) Cholesterol 191 mg/dL BT MAIN-STATION 4 Comment: REFERENCE RANGE: Desirable: <200 mg/dL Borderline: 200-240 mg/dL High Risk: >240 mg/dL Triglyceride 60 <150 mg/dL BT MAIN-STATION 4 Comment: REFERENCE RANGE: Normal: <150 mg/dL Borderline High: 150-199 mg/dL High: 200-499 mg/dL Very High: >iv=108 mg/dL HDL 76 mg/dL BT MAIN-STATION 4 Comment: Increased CHD risk: <40 mg/dL Decreased CHD risk: >60 mg/dL LDL 103 mg/dL BT MAIN-STATION 4 Comment: REFERENCE RANGE: Optimal: <100 mg/dL Near Optimal: 100-129 mg/dL Borderline High: 130-159 mg/dL High: 160-189 mg/dL Very High: >md=511 mg/dL Specimen Blood Performing Organization Address [facility] Phone Number [facility] MAIN-STATION 4 * HIV-1/HIV-2 DIAGNOSTIC/SYMPTOMATIC (03/30/2018 9:40 AM) HIV-1/HIV-2 Negative NEG BT MAIN-STATION 3 Specimen Blood Performing Organization Address [facility] Phone Number [facility] MAIN-STATION 3 * HEPATITIS PANEL (03/30/2018 9:40 AM) HCV IgG Positive (A) NEG BT MAIN-STATION 3 HBsAg Negative NEG BT MAIN-STATION 3 HAV, IgM Negative NEG BT MAIN-STATION 3 HBcAb, IgM Negative NEG BT MAIN-STATION 3 Specimen Blood Performing Organization Address [facility] Phone Number [facility] MAIN-STATION 3 * URINE CULTURE (03/30/2018 9:40 AM) Spec Description Urine [facility] Order Comments None [facility] Culture Skin marie organisms present, BT MICROBIOLOGY suggests contamination; please recollect Report Status Final 04/01/2018 BT MICROBIOLOGY Specimen Urine - URINE Performing Organization Address [facility] Phone Number [facility] BT MICROBIOLOGY * CBC/DIFF (03/30/2018 [...] MAIN-STATION 4 Specimen Blood Performing Organization Address [facility] Phone Number MISYS BT MAIN-STATION 4 * 12 LEAD EKG (03/29/2018 1:30 PM) 12 LEAD EKG FOR [facility] Test Date:2018-03-29 Pat Name: DIOGENES PARNELL Department: Room: Gender: F Customer Contact Sales Associate: :[phone] Requested By: Order Number: Victorina brady MD: Geovany Carrillo Measurements Intervals [place] Rate: 75 P:-10 [place]: 145 QRS: 86 QRSD: 80 T:127 QT: 381 QTc:428 Interpretive Statements SINUS RHYTHM Electronically Signed On 03-29-18 15:45:35 CDT by Geovany Carrillo Performing Organization Address [facility] Phone Number SMS * DIABETIC FOOT EXAM (03/29/2018 1:29 PM) Narrative Performed At Toña Lemon MD 03/29/20181:54 PM Diabetic Foot Exam was performed at 03/29/2018 1:29 PM.Right foot sensation is normal, right foot pulses are normal, right foot appearance is normal.Left foot sensation is normal,left foot pulses are normal, left foot appearance is normal. after 08/24/2017
--- OUTSIDE RECORDS SUMMARY | 2018-10-07 06:28 | XMS REPORT | CCD ---
Author Author Auto Generated Organization [facility] Address Unknown Phone Unavailable Care Team Providers Care Clinical Training Specialist Name Role Phone Marcio Hart CP Allergies, Adverse Reactions, Alerts Substance Reaction Status NKDA Active Problem List Condition Effective Dates Status Anxiety Resolved Bipolar Resolved Depression Resolved Diabetes mellitus Active Hypertension Active Medications Medication Instructions Start Date End Date Status Toradol 30 mg/mL 60 mg, Route: IM, ONCE, Dosing 12/30/2012 12/30/2012 Completed injectable solution Weight 85.909, kg, Start date: 12/30/12 2:01:00, Stop date: 12/30/12 2:01:00 Zofran ODT 4 mg, Route: PO, Drug form: TABDIS, 12/29/2012 12/29/2012 Completed ONCE, Dosing Weight 85.909, kg, Priority: STAT, Start date: 12/29/12 23:09:00, Stop date: 12/29/12 23:09:00 morphine Sulfate 4 mg, Route: IM, ONCE, Dosing 12/29/2012 12/29/2012 Completed Weight 85.909, kg, Priority: STAT, Start date: 12/29/12 23:09:00, Stop date: 12/29/12 23:09:00 Colace 100 mg oral 100 mg, 1 cap, PO, BID, PRN, 20 12/30/2012 Ordered capsule cap, Constipation, Substitution Allowed, CAP [place] 10/325 oral 1 tab, PO, Q6H, PRN, 24 tab, for 12/30/2012 Ordered tablet pain, Substitution Allowed, Maintenance Vital Signs Most recent to oldest [Reference Range]: 1 Height 157.48 cm (12/29/2012 20:46:00) Weight 85.909 kg (12/29/2012 20:46:00) Procedures Procedures Date Related Diagnosis Total hysterectomy with removal of both tubes and ovaries Vagotomy
[2018-10-07 09:40] VITALS: BP 128/56
== END | disposition home or self-care (01) ==
LOC: OR 06:23
PROVIDERS: ATTEND Internal Medicine Gastroenterology
DX: Z12.11 Encounter for screening for malignant neoplasm of colon (principal); D12.3 Benign neoplasm of transverse colon; K57.30 Diverticulosis of large intestine without perforation or abscess without bleeding; K58.9 Irritable bowel syndrome, unspecified; K64.8 Other hemorrhoids; Z71.3 Dietary counseling and surveillance; E66.3 Overweight; I10 Essential (primary) hypertension; E11.9 Type 2 diabetes mellitus without complications; J44.9 Chronic obstructive pulmonary disease, unspecified; B19.20 Unspecified viral hepatitis C without hepatic coma; M06.9 Rheumatoid arthritis, unspecified; F31.9 Bipolar disorder, unspecified; F41.9 Anxiety disorder, unspecified; Z88.6 Allergy status to analgesic agent; Z01.810 Encounter for preprocedural cardiovascular examination; Z01.812 Encounter for preprocedural laboratory examination; Z79.02 Long term (current) use of antithrombotics/antiplatelets; Z79.84 Long term (current) use of oral hypoglycemic drugs; Z68.27 Body mass index [BMI] 27.0-27.9, adult; Z86.73 Personal history of transient ischemic attack (TIA), and cerebral infarction without residual deficits; Z87.891 Personal history of nicotine dependence
CPT/HCPCS: 36415 ×2; 45385; 82948; 85025; 93005; J2001; 45378

== ENCOUNTER 2019-02-09 14:44 | Inpatient (IN) | payer MEDICARE, OTHER ==
[~2019-02-09] VITALS: Ht 157.5 cm; Wt 66.7 kg
[~2019-02-09 14:44] MED LIST changes: -FENTANYL CITRATE/PF 100MCG/2 ML INJ ONE; -LIDOCAINE HCL 2% LOCAL INJ 5 ML SDV VIAL INJ ONE; -PROPOFOL IV EMULSION 10 MG/ML 50 ML VIAL ONE
--- OUTSIDE RECORDS SUMMARY | 2019-02-09 14:47 | XMS REPORT | Clinical Summary ---
Author Author [facility] Address Unknown Phone Unavailable Care Team Providers Care Cook Morning Name Role Phone Adelaida Castro MD PCP Allergies Comments Active Allergy Reactions Severity Noted Date Aspirin, Buffered 09/08/2018 Medications End Date Status Medication Sig Dispensed Refills Start Date 10/08/2018 lidocaine (LIDODERM) 5 % Place 1 patch 30 patch 0 on the skin 8 daily for 30 days. Remove & Discard patch within 12 hours or as directed by 09/08/2018 magnesium citrate Take 1 Bottle 296 mL 0 solution (296 mL 8 total) by mouth once for 1 dose. Active Problems Not on file Encounters Care Team Description Date Type Specialty Clive Rodgers MD Acute right-sided low back pain with right-sided sciatica (Primary Dx); Constipation, unspecified constipation type; Flank pain 09/08/2018 Emergency Emergency Medicine after 02/08/2018 Social History Date Tobacco Use Types Packs/Day Years Used Never Smoker Alcohol Use Drinks/Week oz/Week Comments No Sex Assigned at Date Recorded Not on file Industry Job Start Date Occupation Not on file Not on file Not on file Travel End Travel History Travel Start No recent travel history available. Last Filed Vital Signs Time Taken Vital Sign Reading 09/08/2018 9:00 PM CDT Blood Pressure 139/76 09/08/2018 9:00 PM CDT Pulse 75 09/08/2018 9:00 PM CDT Temperature 37 C (98.6 F) 09/08/2018 9:00 PM CDT Respiratory Rate 16 09/08/2018 9:00 PM CDT Oxygen Saturation 99% - Inhaled Oxygen - Concentration 09/08/2018 5:49 PM CDT Weight 63.5 kg (140 lb) - Height - - Body Mass Index - Plan of Treatment Health Maintenance Due Date Last Done Comments BREAST CANCER SCREENING 1999 COLON CANCER SCREENING 1999 SHINGLES VACCINES (#1) 1999 65+ PNEUMOCOCCAL VACCINE 2014 (1 of 2 - PCV13) PNEUMOCOCCAL 2014 POLYSACCHARIDE VACCINE AGE 65 AND OVER INFLUENZA VACCINE 06/30/2018 Procedures Comments Procedure Name Priority Date/Time Associated Diagnosis XR LUMBAR SPINE COMPLETE STAT 09/08/2018 4+ VW 8:[address] RENAL STONE PROTOCOL STAT 09/08/2018 6:33 PM CDT ESTIMATED GFR STAT 09/08/2018 6:30 PM CDT LIPASE LEVEL STAT 09/08/2018 6:30 PM CDT COMPREHENSIVE METABOLIC STAT 09/08/2018 PANEL 6:30 PM CDT URINALYSIS SCREEN AND STAT 09/08/2018 MICROSCOPY, WITH REFLEX 6:30 PM CDT TO CULTURE PARTIAL THROMBOPLASTIN STAT 09/08/2018 TIME (PTT) 6:30 PM CDT PROTHROMBIN TIME WITH INR STAT 09/08/2018 6:30 PM CDT HC COMPLETE BLD COUNT STAT 09/08/2018 W/AUTO DIFF 6:30 PM CDT after 02/08/2018 Results * XR Lumbar Spine Complete 4+ Vw (09/08/2018 8:20 PM CDT) Narrative Performed At EXAMINATION: XR LUMBAR SPINE COMPLETE 4VW [facility] CLINICAL HISTORY: Back [id number] conservative txpersistent sx COMPARISON:None IMPRESSION: Vertebral body [...] in the region of the gastroesophageal junction. [id number] Procedure Note Hm Interface, Radiology Results Incoming [...] in the region of the gastroesophageal junction. [id number] Performing Organization Address City/State/Zipcode Phone Number [facility] [address] [place] [address] * CT Renal Stone Protocol (09/08/2018 6:33 PM CDT) Narrative Performed At EXAMINATION:CT RENAL STONE PROTOCOL [facility] CLINICAL HISTORY:Flank painrecurrent stone disease suspected COMPARISON:None. [...] colitis or bowel obstruction. Unremarkable exam otherwise. [id number] Procedure Note Hm Interface, Radiology Results Incoming [...] colitis or bowel obstruction. Unremarkable exam otherwise. [id number] Performing Organization Address City/State/Zipcode Phone Number [facility] [address] [place] [address] * Urinalysis screen and microscopy, with reflex to culture (09/08/2018 6:30 PM CDT) Specimen site Clean catch [facility] DEPARTMENT OF PATHOLOGY AND GENOMIC MEDICINE Color, UA Straw [facility] DEPARTMENT OF PATHOLOGY AND GENOMIC MEDICINE Appearance, UA Clear [facility] DEPARTMENT OF PATHOLOGY AND GENOMIC MEDICINE Specific gravity, UA 1.008 1.001 - 1.035 [facility] DEPARTMENT OF PATHOLOGY AND GENOMIC MEDICINE pH, UA 7.0 5.0 - 8.5 [facility] DEPARTMENT OF PATHOLOGY AND GENOMIC MEDICINE Protein, UA Negative Negative [facility] DEPARTMENT OF PATHOLOGY AND GENOMIC MEDICINE Glucose, UA Negative Negative [facility] DEPARTMENT OF PATHOLOGY AND GENOMIC MEDICINE Ketones, UA Negative Negative [facility] DEPARTMENT OF PATHOLOGY AND GENOMIC MEDICINE Bilirubin, UA Negative Negative [facility] DEPARTMENT OF PATHOLOGY AND GENOMIC MEDICINE Blood, UA Negative Negative [facility] DEPARTMENT OF PATHOLOGY AND GENOMIC MEDICINE Nitrite, UA Negative Negative [facility] DEPARTMENT OF PATHOLOGY AND GENOMIC MEDICINE Urobilinogen, UA Negative <2.0 [facility] DEPARTMENT OF PATHOLOGY AND GENOMIC MEDICINE Leukocyte esterase, UA Negative Negative [facility] DEPARTMENT OF PATHOLOGY AND GENOMIC MEDICINE Epithelial cells, UA Few /HPF [facility] DEPARTMENT OF PATHOLOGY AND GENOMIC MEDICINE WBC, UA 0-5 0 - 4 /HPF [facility] DEPARTMENT OF PATHOLOGY AND GENOMIC MEDICINE RBC, UA 0-5 0 - 5 /HPF [facility] DEPARTMENT OF PATHOLOGY AND GENOMIC MEDICINE Bacteria, UA Trace None seen [facility] DEPARTMENT OF PATHOLOGY AND GENOMIC MEDICINE Yeast, UA None seen [facility] DEPARTMENT OF PATHOLOGY AND GENOMIC MEDICINE Yeast with pseudohyphae, None seen [facility] DEPARTMENT OF PATHOLOGY AND GENOMIC MEDICINE Specimen Urine Performing Organization Address City/State/Zipcode Phone Number [place] [address] [place] [address] PATHOLOGY AND GENOMIC MEDICINE * Estimated GFR (09/08/2018 6:30 PM CDT) Estimated GFR >=90 mL/min/1.73 m2 [facility] DEPARTMENT OF Comment: PATHOLOGY AND [employer] GENOMIC MEDICINE rpretation G1 >=90 Normal or high G2 60-89Mildly decreased [id number] Mildly to moderately decreased [id number] Moderately to severely decreased G4 15-29Severely decreased G5 <15Kidney failure The eGFR was calculated using the Chronic Kidney Disease Epidemiology Collaboration (CKD-EPI) equation. Interpretation is based on recommendations of the National Kidney Foundation-Kidney Disease Outcomes Quality Initiative (NKF-KDOQI) published in 2014. Specimen Plasma specimen Performing Organization Address [facility] Phone Number [address] [place] [address] PATHOLOGY AND [facility] * Partial thromboplastin time, activated (09/08/2018 6:30 PM CDT) PTT 30.6 23.0 - 36.0 sec [facility] DEPARTMENT OF Comment: PATHOLOGY AND PTT therapeutic range for [facility] unfractionated heparin is 61.0-112.0 seconds which corresponds to Anti-Xa 0.3-0.7 U/ml. Specimen Blood Performing Organization Address [facility] Phone Number [address] [place] [address] PATHOLOGY AND [facility] * Prothrombin time with INR (09/08/2018 6:30 PM CDT) Prothrombin time 12.1 12.0 - 15.0 sec [facility] DEPARTMENT OF PATHOLOGY AND GENOMIC MEDICINE INR 0.9 [facility] DEPARTMENT OF Comment: PATHOLOGY AND The International Normalized [facility] Ratio (INR) is a therapeutic monitoring tool for patients who are stable on oral anticoagulant therapy. An INR of 2.0-3.0 is suggested for deep vein thrombosis/pulmonary embolism. Specimen Blood Performing Organization Address [facility] Phone Number [address] [place] [address] PATHOLOGY AND [facility] * CBC with platelet and differential (09/08/2018 6:30 PM CDT) WBC 8.01 4.50 - 11.00 k/uL [facility] DEPARTMENT OF PATHOLOGY AND GENOMIC MEDICINE RBC 3.95 (L) 4.20 - 5.50 m/uL [facility] DEPARTMENT OF PATHOLOGY AND GENOMIC MEDICINE HGB 11.6 (L) 12.0 - 16.0 g/dL [facility] DEPARTMENT OF PATHOLOGY AND GENOMIC MEDICINE HCT 36.9 (L) 37.0 - 47.0 % [facility] DEPARTMENT OF PATHOLOGY AND GENOMIC MEDICINE MCV 93.4 82.0 - 100.0 fL [facility] DEPARTMENT OF PATHOLOGY AND GENOMIC MEDICINE MCH 29.4 27.0 - 34.0 pg [facility] DEPARTMENT OF PATHOLOGY AND GENOMIC MEDICINE MCHC 31.4 31.0 - 37.0 g/dL [facility] DEPARTMENT OF PATHOLOGY AND GENOMIC MEDICINE RDW - SD 45.8 37.0 - 55.0 fL [facility] DEPARTMENT OF PATHOLOGY AND GENOMIC MEDICINE MPV 11.0 8.8 - 13.2 fL [facility] DEPARTMENT OF PATHOLOGY AND GENOMIC MEDICINE Platelet count 204 150 - 400 k/uL [facility] DEPARTMENT OF PATHOLOGY AND GENOMIC MEDICINE Nucleated RBC 0.00 /100 WBC [facility] DEPARTMENT OF PATHOLOGY AND GENOMIC MEDICINE Neutrophils 39.0 39.0 - 69.0 % [facility] DEPARTMENT OF PATHOLOGY AND GENOMIC MEDICINE Lymphocytes 50.6 (H) 25.0 - 45.0 % [facility] DEPARTMENT OF PATHOLOGY AND GENOMIC MEDICINE Monocytes 7.6 0.0 - 10.0 % [facility] DEPARTMENT OF PATHOLOGY AND GENOMIC MEDICINE Eosinophils 1.9 0.0 - 5.0 % [facility] DEPARTMENT OF PATHOLOGY AND GENOMIC MEDICINE Basophils 0.4 0.0 - 1.0 % [facility] DEPARTMENT OF PATHOLOGY AND GENOMIC MEDICINE Specimen Blood Performing Organization Address [facility] Phone Number [address] [place] [address] [facility] * Lipase level (09/08/2018 6:30 PM CDT) Lipase 18 13 - 60 U/L [facility] DEPARTMENT OF PATHOLOGY AND GENOMIC MEDICINE Specimen Plasma specimen Performing Organization Address [facility] Phone Number [address] [place] [address] [facility] * Comprehensive metabolic panel (09/08/2018 6:30 PM CDT) Sodium 138 135 - 148 mEq/L [facility] DEPARTMENT OF PATHOLOGY AND GENOMIC MEDICINE Potassium 4.0 3.5 - 5.0 mEq/L [facility] DEPARTMENT OF PATHOLOGY AND GENOMIC MEDICINE Chloride 103 98 - 112 mEq/L [facility] DEPARTMENT OF PATHOLOGY AND GENOMIC MEDICINE CO2 24 24 - 31 mEq/L [facility] DEPARTMENT OF PATHOLOGY AND GENOMIC MEDICINE Anion gap 11@ANIO 7 - 15 mEq/L [facility] DEPARTMENT OF PATHOLOGY AND GENOMIC MEDICINE BUN 21 8 - 23 mg/dL [facility] DEPARTMENT OF PATHOLOGY AND GENOMIC MEDICINE Creatinine 0.70 0.50 - 0.90 mg/dL [facility] DEPARTMENT OF PATHOLOGY AND GENOMIC MEDICINE Glucose 81 65 - 99 mg/dL [facility] DEPARTMENT OF PATHOLOGY AND GENOMIC MEDICINE Calcium 9.5 8.8 - 10.2 mg/dL [facility] DEPARTMENT OF PATHOLOGY AND GENOMIC MEDICINE Protein 7.6 6.3 - 8.3 g/dL [facility] DEPARTMENT OF Comment: PATHOLOGY AND GENOMIC MEDICINE 4.6-7.0 g/dL 1 week 4.4-7.6 g/dL 7 months-1year 5.1-7.3 g/dL 1-2 years5.6-7 .5 g/dL >3 years6.0-8 .0 g/dL 18-150 6.3-8.3 g/dL Albumin 4.2 3.5 - 5.0 g/dL [facility] DEPARTMENT OF PATHOLOGY AND GENOMIC MEDICINE A/G ratio 1.2 0.7 - 3.8 [facility] DEPARTMENT OF PATHOLOGY AND GENOMIC MEDICINE Alkaline phosphatase 69 35 - 104 U/L [facility] DEPARTMENT OF PATHOLOGY AND GENOMIC MEDICINE AST 21 10 - 35 U/L [facility] DEPARTMENT OF PATHOLOGY AND GENOMIC MEDICINE ALT 17 5 - 50 U/L [facility] DEPARTMENT OF PATHOLOGY AND GENOMIC MEDICINE Total bilirubin 0.3 0.0 - 1.2 mg/dL [facility] DEPARTMENT OF PATHOLOGY AND GENOMIC MEDICINE Specimen Plasma specimen Performing Organization Address City/State/Zipcode Phone Number [facility] DEPARTMENT [address] [place] [address] PATHOLOGY AND GENOMIC MEDICINE after 02/08/2018 Insurance Payer Benefit Subscriber ID Type Phone Address Plan / Group [facility] MEDICARE [facility] DUAL xxxxxxxxx HMO COMPLETE MCR Advance Directives Patient has advance care planning documents on file. For more information, bailey hammer contact: Leon Zarco [address] [place] [address]
--- OUTSIDE RECORDS SUMMARY | 2019-02-09 14:47 | XMS REPORT | Clinical Summary ---
Author Author [facility] Organization [facility] Address Unknown Phone Unavailable Care Team Providers Care Global Product Manager Name Role Phone Elo Dacosta PCP Allergies Comments Active Allergy Reactions Severity Noted Date Stomach ulcers Aspirin Other 03/29/2018 Medications End Date Status Medication Sig Dispensed Refills Start Date Active ATROVENT HFA IN None Entered 0 Active CLINDAMYCIN 300 MG CAP take 1 0 capsule (300 mg) by oral route every 6 hours Active TRIAMCINOLONE ACETONIDE apply a thin 30 gm 0 0.1 % film to the 0 OINTMENTIndications: affected skin Contact dermatitis areas 2 times per day for 1 week Active albuterol (PROVENTIL HFA) Inhale 2 20.1 g 0 90 mcg/actuation Puffs by 5 inhalerIndications: mouth 4 times Asthma, unspecified daily as asthma severity, needed for uncomplicated Wheezing. Active budesonide-formoterol Inhale 2 30.6 g 0 (SYMBICORT) 160-4.5 Puffs by 5 mcg/actuation mouth 2 times inhalerIndications: daily. Pulmonary emphysema, unspecified emphysema type Active losartan (COZAAR) 25 mg Take 100 mg 0 tablet by mouth daily . Active tiZANidine (ZANAFLEX) 4 Take 4 mg by 0 mg tablet mouth 3 times daily. Active metoclopramide (REGLAN) Take 10 mg by 0 10 mg tablet mouth 2 times daily. Active linaclotide (LINZESS) 290 Take 290 mcg 0 mcg cap by mouth daily. Active amLODIPine (NORVASC) 10 Take 1 tablet 90 tablet 3 mg tabletIndications: by mouth 8 Essential hypertension daily For hypertension. Active hydrALAZINE (APRESOLINE) Take 1 tablet 270 tablet 3 25 mg tabletIndications: by mouth 3 8 Essential hypertension times daily For hypertension. Active clopidogrel (PLAVIX) 75 Take 1 tablet 90 tablet 3 mg tabletIndications: by mouth 8 Essential hypertension daily For circulation. Active metFORMIN (GLUCOPHAGE) Take 1 tablet 180 tablet 3 500 mg tabletIndications: by mouth 2 8 Type 2 diabetes mellitus times daily with other specified (with meals) complication, without For diabetes. long-term current use of insulin Active losartan (COZAAR) 100 mg Take 1 tablet 90 tablet 3 tabletIndications: by mouth 8 Essential hypertension daily For hypertension. Active fluticasone (FLONASE) 50 Use 2 Sprays 16 g 3 mcg/actuation nasal in each 8 sprayIndications: nostril daily Allergic rhinitis, For nasal unspecified seasonality, congestion as unspecified trigger needed. Active ipratropium-albuterol Inhale 2 2 Inhaler 6 (COMBIVENT RESPIMAT) Puffs by 8 20-100 mcg/actuation mouth 4 times MistIndications: daily. Pulmonary emphysema, unspecified emphysema type, Uncomplicated asthma, unspecified asthma severity, unspecified whether persistent Active gabapentin (NEURONTIN) Take 1 90 capsule 1 100 mg capsule by 8 capsuleIndications: mouth 3 times Numbness and tingling daily For pain in feet. Active omeprazole (PRILOSEC) 20 TAKE ONE 90 capsule 0 mg delayed release CAPSULE BY 8 capsuleIndications: MOUTH DAILY Gastroesophageal reflux FOR ACID disease, esophagitis REFLUX presence not specified Active sertraline (ZOLOFT) 100 Take 2 180 tablet 1 mg tabletIndications: tablets by 8 Anxiety disorder, mouth daily. unspecified type Active traZODone (DESYREL) 100 Take 1.5 to 2 180 tablet 1 mg tabletIndications: tabs by mouth 8 Insomnia, unspecified at bedtime as type needed for insomnia.. Active atorvastatin (LIPITOR) 10 TAKE ONE 90 tablet 0 mg tabletIndications: TABLET BY 9 Pure hypercholesterolemia MOUTH EVERY NIGHT AT BEDTIME FOR CHOLESTEROL 03/29/2018 Discontinued enalapril (VASOTEC) 10 mg Take 1 tablet 30 tablet 0 tabletIndications: by mouth 5 Essential hypertension daily. 03/29/2018 Discontinued metFORMIN (GLUCOPHAGE) Take 1 tablet 60 tablet 0 500 mg tabletIndications: by mouth 2 5 Type 2 diabetes mellitus times daily with other specified (with meals). complication 03/29/2018 Discontinued atorvastatin (LIPITOR) 10 Take 10 mg by 0 mg tablet mouth at bedtime nightly. 03/29/2018 Discontinued clopidogrel (PLAVIX) 75 Take 75 mg by 0 mg tablet mouth daily. 05/11/2018 Discontinued HYDROcodone-acetaminophen Take 1 tablet 0 (NORCO) 10-325 mg tablet by mouth every 6 hours as needed. 03/05/2018 Discontinued sertraline (ZOLOFT) 100 Take 2 180 tablet 1 mg tabletIndications: tablets by 7 Anxiety disorder, mouth daily. unspecified type, Mood disorder 03/05/2018 Discontinued traZODone (DESYREL) 100 Take 1/2 to 1 90 tablet 1 mg tabletIndications: full tab by 7 Insomnia, unspecified mouth at type bedtime as needed for insomnia.. 05/28/2018 Discontinued sertraline (ZOLOFT) 100 Take 2 180 tablet 1 mg tabletIndications: tablets by 8 Anxiety disorder, mouth daily. unspecified type 05/28/2018 Discontinued traZODone (DESYREL) 100 Take 1/2 to 1 90 tablet 1 mg tabletIndications: full tab by 8 Insomnia, unspecified mouth at type bedtime as needed for insomnia.. 03/29/2018 Discontinued losartan (COZAAR) 100 mg Take 100 mg 0 tablet by mouth daily. 05/11/2018 Discontinued omeprazole (PRILOSEC) 20 Take 20 mg by 0 mg delayed release mouth daily. capsule 03/29/2018 Discontinued amLODIPine (NORVASC) 10 Take 10 mg by 0 mg tablet mouth daily. 03/29/2018 Discontinued hydrALAZINE (APRESOLINE) Take 25 mg by 0 25 mg tablet mouth 3 times daily. 2018 tropicamide (MYDRIACYL) Instill 1 15 mL 0 0.5 % ophthalmic Drop in each 8 solutionIndications: Type eye daily as 2 diabetes mellitus with needed for up other specified to 1 dose complication, without (for poor long-term current use of retina scan insulin image). 03/29/2018 Discontinued amLODIPine (NORVASC) 10 Take 1 tablet 90 tablet 3 mg tabletIndications: by mouth 8 Essential hypertension daily For hypertension. 03/29/2018 Discontinued hydrALAZINE (APRESOLINE) Take 1 tablet 270 tablet 3 25 mg tabletIndications: by mouth 3 8 Essential hypertension times daily For hypertension. 03/29/2018 Discontinued clopidogrel (PLAVIX) 75 Take 1 tablet 90 tablet 3 mg tabletIndications: by mouth 8 Essential hypertension daily For circulation. 03/29/2018 Discontinued metFORMIN (GLUCOPHAGE) Take 1 tablet 180 tablet 3 500 mg tabletIndications: by mouth 2 8 Type 2 diabetes mellitus times daily with other specified (with meals) complication, without For diabetes. long-term current use of insulin 03/29/2018 Discontinued losartan (COZAAR) 100 mg Take 1 tablet 90 tablet 3 tabletIndications: by mouth 8 Essential hypertension daily For hypertension. 03/29/2018 Discontinued fluticasone (FLONASE) 50 Use 2 Sprays 16 g 3 mcg/actuation nasal in each 8 sprayIndications: nostril daily Allergic rhinitis, For nasal unspecified seasonality, congestion as unspecified trigger needed. 03/29/2018 Discontinued ipratropium-albuterol Inhale 2 2 Inhaler 6 (COMBIVENT RESPIMAT) Puffs by 8 20-100 mcg/actuation mouth 4 times MistIndications: daily. Pulmonary emphysema, unspecified emphysema type, Uncomplicated asthma, unspecified asthma severity, unspecified whether persistent 05/18/2018 Discontinued omeprazole (PRILOSEC) 20 Take 1 90 capsule 0 mg delayed release capsule by 8 capsuleIndications: mouth daily Gastroesophageal reflux For acid disease, esophagitis reflux. presence not specified 10/08/2018 Discontinued atorvastatin (LIPITOR) 10 Take 1 tablet 90 tablet 0 mg tabletIndications: by mouth at 8 Pure hypercholesterolemia bedtime nightly For cholesterol. 05/28/2018 Discontinued traZODone (DESYREL) 100 Take 1/2 to 1 90 tablet 1 mg tabletIndications: full tab by 8 Insomnia, unspecified mouth at type bedtime as needed for insomnia.. 02/01/2019 Discontinued atorvastatin (LIPITOR) 10 TAKE ONE 90 tablet 0 10/11/201 mg tabletIndications: TABLET BY 8 Pure hypercholesterolemia MOUTH EVERY NIGHT AT BEDTIME FOR CHOLESTEROL Active Problems Problem Noted Date Memory disorder 05/11/2018 Numbness and tingling 05/11/2018 Abnormal hepatitis serology 03/31/2018 Dysphagia 03/29/2018 Skull lesion 03/29/2018 Back pain 03/29/2018 Anxiety disorder 2016 Mood disorder 2016 Essential hypertension 10/18/2015 Diabetes mellitus 10/18/2015 Asthma 10/18/2015 Emphysema/COPD 10/18/2015 COPD (chronic obstructive pulmonary disease) Hypercholesteremia Peptic ulcer disease Hepatitis Abnormal CXR 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 B virus Encounters Care Team Description Date Type Specialty Elo Dacosta DO Pure hypercholesterolemia 02/01/2019 Refill Family Practice Leonel Anaya RN Pre-clinic Chart Review; Other (Title XIX for quad cane ) 11/16/2018 Telephone Social Work Leonel Anaya RN Pre-clinic Chart Review; Durable Medical Equipment (Verification of request for Quad Cane ) 10/25/2018 Telephone Social Work Toña Lemon MD Pure hypercholesterolemia 10/08/2018 Refill Family Practice Leonel Anaya RN Pre-clinic Chart Review; Durable Medical Equipment (Quad cane ) 09/22/2018 Telephone Social Work Richard Lehman MD Anxiety disorder, unspecified type; Insomnia, unspecified type 05/28/2018 Office Visit Psychiatry Toña Lemon MD Pure hypercholesterolemia (Primary Dx) 05/28/2018 Orders Only Family Practice Cherry Bland RN Information Only 05/28/2018 Telephone Family Practice Toña Lemon MD 05/18/2018 Hospital Encounter Toña Lemon MD Gastroesophageal reflux disease, esophagitis presence not specified 05/18/2018 Refill Family Practice Toña Lemon MD Numbness and tingling 05/12/2018 Orders Only Family Practice Toña Lemon MD Type 2 diabetes mellitus with other specified complication, without long-term current use of insulin (Primary Dx); Essential hypertension; Uncomplicated asthma, unspecified asthma severity, unspecified whether persistent; Pulmonary emphysema, unspecified emphysema type; Abnormal CXR; 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 B virus; Memory disorder; Numbness and tingling; Gastroesophageal reflux disease, esophagitis presence not specified 05/11/2018 Office Visit [facility] Toña Lemon MD Memory disorder; Numbness and tingling 05/11/[address] [facility] Erin Krause 05/11/2018 Clinical Case Social Work Mgt Mary Jane Torres RN Other 04/21/2018 Telephone Cherry Bland RN Information Only 04/20/[address] [facility] Toña Lemon MD Type 2 diabetes mellitus with other specified complication, without long-term current use of insulin (Primary Dx); Essential hypertension; Pulmonary emphysema, unspecified emphysema type; Uncomplicated asthma, unspecified asthma severity, unspecified whether persistent; Abnormal hepatitis serology; Brain lesion; Anxiety disorder, unspecified type; Mood disorder; 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 B virus 04/07/[address] [facility] Toña Lemon MD Anxiety disorder, unspecified type; Mood disorder 04/07/[address] [facility] Richard Lehman MD Insomnia, unspecified type 04/02/2018 Refill Psychiatry Toña Lemon MD Abnormal hepatitis serology (Primary Dx) 03/31/2018 Orders Only [facility] Practice Toña Lemon MD Essential hypertension; Skull lesion 03/30/2018 Ancillary Radiology Procedure Toña Lemon MD Abnormal CXR (Primary Dx); Pulmonary emphysema, unspecified emphysema type; Healthcare maintenance 03/30/2018 Orders Only [facility] Practice Toña Lemon MD Healthcare maintenance (Primary Dx); Essential hypertension; Type 2 diabetes mellitus with other specified complication, without long-term current use of insulin; Pulmonary emphysema, unspecified emphysema type; Uncomplicated asthma, unspecified asthma severity, unspecified whether persistent; Dysphagia, unspecified type; Skull lesion; Back pain, unspecified back location, unspecified back pain laterality, unspecified chronicity; Allergic rhinitis, unspecified seasonality, unspecified trigger 03/29/[address] [facility] Toña Lemon MD Type 2 diabetes mellitus with other specified complication, without long-term current use of insulin 03/29/2018 Orders Only [facility] Practice Cherry Bland RN Essential hypertension 03/29/[address] [facility] Richard Lehman MD Anxiety disorder, unspecified type; Insomnia, unspecified type 03/05/2018 Office Visit Psychiatry after 02/08/2018 Immunizations Name Dates Previously Given Next Due Hepatitis B Pedi/Adol 04/07/2018 Influenza Vaccine 07/31/2015 PNEUMOCOCCAL 23-VALPS 04/07/2018 VACCINE 25 MCG/0.5 ML INJECTION PPV 23 Pneumococcal 07/31/2015 Polysaccaride Tdap (Tetanus Toxoid, 04/07/2018 Reduced Diphtheria Toxoid And [...] Alive Son Alive Son Alive Social History Date Tobacco Use Types Packs/Day Years Used Never Smoker Smokeless Tobacco: Never Used Tobacco [...] Vital Signs Time Taken Vital Sign Reading 05/28/2018 3:31 PM CDT Blood Pressure 120/76 05/28/2018 3:31 PM CDT Pulse 75 05/28/2018 3:31 PM CDT Temperature 37.3 C (99.2 F) 05/28/2018 3:31 PM CDT Respiratory Rate 18 - Oxygen Saturation - - Inhaled Oxygen - Concentration 05/28/2018 3:31 PM CDT Weight 71.7 kg (158 lb) 05/28/2018 3:31 PM CDT Height 167.6 cm (5' 6") 05/28/2018 3:31 PM CDT Body Mass Index 25.5 Plan of Treatment Health Maintenance Due Date [...] (Previously and Up completed - External) Procedures Comments Procedure Name Priority Date/Time Associated Diagnosis PULMONARY - 6 MINUTE WALK Routine 05/18/2018 EXERCISE TEST - COMPLEX 1:58 PM CDT PULMONARY FUNCTION TEST Routine 05/18/2018 1:19 PM CDT OPHTHALMOLOGY RETINAL Routine 05/11/2018 Type 2 diabetes mellitus SCAN 1:36 PM CDT with other specified complication, without long-term current use of insulin AFP, TUMOR MARKER Routine 04/06/2018 Abnormal hepatitis 4:18 PM CDT serology PT/INR/PTT Routine 04/06/2018 Abnormal hepatitis 4:18 PM CDT serology HEPATITIS B SURFACE AB Routine 04/06/2018 Abnormal hepatitis 4:18 PM CDT serology HCV RNA QUANT, PCR Routine 04/06/2018 Abnormal hepatitis 4:18 PM CDT serology HEP A VIRUS AB IGG Routine 04/06/2018 Abnormal hepatitis 4:18 PM CDT serology XRAY SKULL LESS THAN 4 Routine 03/30/2018 Skull lesion VIEWS 10:28 AM CDT XRAY CHEST 2 VIEWS Routine 03/30/2018 Essential hypertension 10:28 AM CDT OCCULT BLOOD ICT Routine 03/30/2018 Healthcare maintenance 9:46 AM CDT H. PYLORI STOOL AG Routine 03/30/2018 Healthcare maintenance 9:46 AM CDT VIT D, 25-HYDROXY Routine 03/30/2018 Healthcare maintenance 9:40 AM CDT URINE CULTURE Routine 03/30/2018 Healthcare maintenance 9:40 AM CDT MICROALBUM, URINE Routine 03/30/2018 Healthcare maintenance 9:40 AM CDT Type 2 diabetes mellitus with other specified complication, without long-term current use of insulin HEMOGLOBIN A1C Routine 03/30/2018 Healthcare maintenance 9:40 AM CDT Type 2 diabetes mellitus with other specified complication, without long-term current use of insulin CBC/DIFF Routine 03/30/2018 Healthcare maintenance 9:40 AM CDT BASIC METABOLIC PANEL Routine 03/30/2018 Healthcare maintenance 9:40 AM CDT Type 2 diabetes mellitus with other specified complication, without long-term current use of insulin LIPID PROFILE Routine 03/30/2018 Healthcare maintenance 9:40 AM CDT LIVER PROFILE Routine 03/30/2018 Healthcare maintenance 9:40 AM CDT TSH Routine 03/30/2018 Healthcare maintenance 9:40 AM CDT UA CHEMISTRIES Routine 03/30/2018 Healthcare maintenance 9:40 AM CDT HEPATITIS PANEL Routine 03/30/2018 Healthcare maintenance 9:40 AM CDT HIV-1/HIV-2 Routine 03/30/2018 Healthcare maintenance DIAGNOSTIC/SYMPTOMATIC 9:40 AM CDT 12 LEAD EKG Routine 03/29/2018 Essential hypertension 1:30 PM CDT DIABETIC FOOT EXAM Routine 03/29/2018 Type 2 diabetes mellitus 1:29 PM CDT with other specified complication, without long-term current use of insulin NONINVASV OXYGEN Routine 03/29/2018 Pulmonary emphysema, SATUR;SINGLE 1:27 PM CDT unspecified emphysema type after 02/08/2018 Results * PULMONARY - 6 MINUTE WALK EXERCISE TEST - COMPLEX (05/18/2018 1:58 PM CDT) Performing Organization Address City/State/Zipcode Phone Number SMS * PULMONARY FUNCTION TEST (05/18/2018 1:19 PM CDT) Performing Organization Address City/State/Zipcode Phone Number SMS * OPHTHALMOLOGY RETINAL SCAN (05/11/2018 1:36 PM CDT) RETINAL NORMAL IRIS SCAN-FINAL RESULT Right Diabetic None IRIS Retinopathy Right Macular None IRIS Edema Right Other None IRIS Suspected Conditions Right Image Gradeable Image IRIS Quality Left Diabetic None IRIS Retinopathy Left Macular None IRIS Edema Left Other None IRIS Suspected Conditions Left Image Gradeable Image IRIS Quality Narrative Performed At Retinal Study Result for DIOGENES PARNELL PATSY, a 67 y/o, F (: 10, ) presented to [facility] on 05-11-2018 for a retinal imaging [...] signed by Frank Juan MD, , Taxonomy: [id number] on 05-11-2018 06:36:59 [facility] time. NOTE:Any pathology noted on this diabetic retinal evaluation should be confirmed by an appropriate ophthalmic examination. Performing Organization Address [facility] Phone Number IRIS * HEPATITIS B SURFACE AB (04/06/2018 4:18 PM CDT) HBsAb Negative NEG BT OUTPATIENT DRAW 2 HBsAb <0.01 BT OUTPATIENT Concentration Negative: <8.00 mIU/mL DRAW 2 Grayzone: > or=8.00 mIU/mL to <12.00 mIU/mL Positive: > or=12.00 mIU/mL Specimen Blood Performing Organization Address [facility] Phone Number MISYS BT OUTPATIENT DRAW 2 * HEP A VIRUS AB IGG (04/06/2018 4:18 PM CDT) Hep A Vir Ab Positive (A) NEG BT OUTPATIENT IgG DRAW 2 Performing Organization Address [facility] Phone Number MISYS BT OUTPATIENT DRAW 2 * AFP, TUMOR MARKER (04/06/2018 4:18 PM CDT) AFP Tumor Mrk 4.7 <9.0 ng/mL BT MAIN-STATION 1 Specimen Blood Performing Organization Address [facility] Phone Number MISYS BT MAIN-STATION 1 * HCV RNA QUANT, PCR (04/06/2018 4:18 PM CDT) HCV RNA QUANT, Not detected IU/mL BT MOLECULAR PCR Comment: PATHOLOGY This test utilizes FDA cleared EILEEN AmpliPrep/EILEEN TaqMan HCV test, v2.0 from [employer] which allows detection of viral loads between [...] HCV infection. Specimen Blood Performing Organization Address [facility] Phone Number MISYS BT MOLECULAR PATHOLOGY * PT/INR/PTT (04/06/2018 4:18 PM CDT) PT 12.4 11.8 - 15.0 Seconds BT MAIN-STATION 3 INR 0.9 BT MAIN-STATION SUGGESTED THERAPEUTIC RANGES: 3 INR 2.0-3.0 for MODERATE INTENSITY ANTICOAGULATION INR 2.5-3.5 for HIGH INTENSITY ANTICOAGULATION PTT 33.3 23.6 - 36.4 Seconds BT MAIN-STATION 3 Specimen Blood Performing Organization Address [facility] Phone Number MISYS BT MAIN-STATION 3 * XRAY CHEST 2 VIEWS (03/30/2018 10:28 AM CDT) Impressions Performed At IMPRESSION: SMS 1.Minimal bronchial [...] Performed At EXAM: XRAY CHEST 2 VIEWS SMS DATE: 03/30/2018 10:29 AM INDICATION: htn/ asthma [...] SKULL LESS THAN 4 VIEWS (03/30/2018 10:28 AM CDT) Impressions Performed At IMPRESSION: SMS No acute osseous lesion. Signed By: Aron Magallon MD, 03/30/2018 10:42 AM Narrative Performed At Skull 4 views SMS HISTORY:hx of lesion in skull COMPARISON: None DISCUSSION: No fracture or malalignment. No aggressive lesion in the skull. The visualized soft tissues appear unremarkable. Procedure Note [facility] - 03/30/2018 10:47 AM CDT Skull 4 views HISTORY: hx of lesion in skull COMPARISON: None DISCUSSION: No fracture or malalignment. No aggressive lesion in the skull. The visualized soft tissues appear unremarkable. IMPRESSION IMPRESSION: No acute osseous lesion. Signed By: Aron Magallon MD, 03/30/2018 10:42 AM Performing Organization Address City/[facility] Phone Number SMS * OCCULT BLOOD ICT (03/30/2018 9:46 AM CDT) Occult Blood Negative NEG [facility] ICT Specimen Stool Performing Organization Address [facility] Phone Number MISYS [facility] * H. PYLORI STOOL AG (03/30/2018 9:46 AM CDT) H pylori Ag Negative LABORATORY Stool Reference range: Negative [facility] Biottery Specimen Stool Performing Organization Address [facility] Phone Number [employer] [facility] [place] [address] AURELIO 145 * VIT D, 25-HYDROXY (03/30/2018 9:40 AM CDT) Vit D, 54.8 30 - 100 ng/mL BT DIAGNOSTIC 25-Hydroxy Comment: IMMUNOLOGY Vitamin D deficiency has been defined by the [place] of Medicine and Endocrine Society guideline as a level of serum 25-OH Vitamin D less than 20 ng/mL. The Endocrine Society further defines Vitamin D insufficiency as a level between 21 and 29 ng/mL and sufficiency as a level between 30 and 100 ng/mL. Performing Organization Address [facility] Phone Number [employer] BT DIAGNOSTIC IMMUNOLOGY * MICROALBUM, URINE (03/30/2018 9:40 AM CDT) Microalbum, 3.2 0.0 - 29.0 mg/dL BT MAIN-STATION Random 3 Creatinine, Ur 75.2 20 - 320 mg/dL BT MAIN-STATION 3 Urine 42.6 (H) 0 - 29 mg/g UCR BT MAIN-STATION Microalbumin Comment: 3 To minimize intra-individual variation, analysis of three random urine samples collected over the course of a week is recommended. Performing Organization Address [facility] Phone Number [employer] BT MAIN-STATION 3 * HEMOGLOBIN A1C (03/30/2018 9:40 AM CDT) Hemoglobin A1c 5.7 4.3 - 6.1 % BT DIAGNOSTIC IMMUNOLOGY Est Average 116.9 mg/dL BT DIAGNOSTIC Gluc IMMUNOLOGY Specimen Blood Performing Organization Address [facility] Phone Number MISYS BT DIAGNOSTIC IMMUNOLOGY * TSH (03/30/2018 9:40 AM CDT) TSH 0.71 0.45 - 5.33 uIU/mL BT MAIN-STATION 4 Specimen Blood Performing Organization Address [facility] Phone Number [facility] 4 * UA CHEMISTRIES (03/30/2018 9:40 AM CDT) Color Yellow BT MAIN-STATION 3 Clarity Cloudy BT MAIN-STATION 3 Spec [place] 1.017 1.001 - 1.035 BT MAIN-STATION 3 [...] MAIN-STATION 3 Specimen Urine Performing Organization Address [facility] Phone Number [facility] 3 * LIVER PROFILE (03/30/2018 9:40 AM CDT) T Protein 7.5 6.0 - 8.3 g/dL [...] MAIN-STATION 4 Specimen Blood Performing Organization Address [facility] Phone Number [facility] 4 * LIPID PROFILE (03/30/2018 9:40 AM CDT) Cholesterol 191 mg/dL BT MAIN-STATION Comment: 4 REFERENCE RANGE: Desirable: <200 mg/dL Borderline: 200-240 mg/dL High Risk: >240 mg/dL Triglyceride 60 <150 mg/dL BT MAIN-STATION Comment: 4 REFERENCE RANGE: Normal: <150 mg/dL Borderline High: 150-199 mg/dL High: 200-499 mg/dL Very High: >xf=898 mg/dL HDL 76 mg/dL BT MAIN-STATION Comment: 4 Increased CHD risk: <40 mg/dL Decreased CHD risk: >60 mg/dL LDL 103 mg/dL BT MAIN-STATION Comment: 4 REFERENCE RANGE: Optimal: <100 mg/dL Near Optimal: 100-129 mg/dL Borderline High: 130-159 mg/dL High: 160-189 mg/dL Very High: >hj=169 mg/dL Specimen Blood Performing Organization Address [facility] Phone Number [facility] BT [facility] 4 * HIV-1/HIV-2 DIAGNOSTIC/SYMPTOMATIC (03/30/2018 9:40 AM CDT) HIV-1/HIV-2 Negative NEG BT MAIN-STATION 3 Specimen Blood Performing Organization Address [facility] Phone Number [employer] MAIN-STATION 3 * HEPATITIS PANEL (03/30/2018 9:40 AM CDT) HCV IgG Positive (A) NEG BT MAIN-STATION 3 HBsAg Negative NEG BT MAIN-STATION 3 HAV, IgM Negative NEG BT MAIN-STATION 3 HBcAb, IgM Negative NEG BT MAIN-STATION 3 Specimen Blood Performing Organization Address [facility] [place] Phone Number [facility] * URINE CULTURE (03/30/2018 9:40 AM CDT) Spec Urine [facility] Description Order Comments None [facility] Culture Skin marie organisms present, BT MICROBIOLOGY suggests contamination; please recollect Report Status Final 04/01/2018 BT MICROBIOLOGY Specimen Urine - URINE Performing Organization Address [facility] [place] Phone Number [employer] [facility] BT MICROBIOLOGY * CBC/DIFF (03/30/2018 9:40 AM CDT) WBC 4.9 4.5 - 11.0 K/uL BT [...] 400 K/uL BT MAIN-STATION 2 Mean Platelet 12.5 (H) 9.4 - 12.4 fL BT MAIN-STATION Volume 2 Percent NRBC 0.0 BT MAIN-STATION 2 [...] 0.08 K/uL BT MAIN-STATION 2 Absol Immat 0.01 0.00 - 0.03 K/uL BT MAIN-STATION Gran 2 Specimen Blood Performing Organization Address City/State/Zipcode Phone Number [facility] BT MAIN-STATION 2 * BASIC METABOLIC PANEL (03/30/2018 9:40 AM CDT) [facility] Signature CO2 28 21 - 31 mmol/L BT [...] mL/min/1.73 m2 BT MAIN-STATION 4 GFR, Estim, >60 mL/min/1.73 m2 BT MAIN-STATION Afr-Am 4 Specimen Blood Performing Organization Address City/State/[facility] Phone Number [facility] BT MAIN-ST[facility] 4 * 12 LEAD EKG (03/29/2018 1:30 PM CDT) 12 LEAD EKG FOR [facility] Test Date:2018-03-29 Pat Name: DIOGENES PARNELL Department: Room: Gender: F 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 Requested By: Order Number: Victorina brady MD: Geovany Carrillo Measurements Intervals [place] Rate: 75 P:-10 W[place]: 145 QRS: 86 QRSD: 80 T:127 QT: 381 QTc:428 Interpretive Statements SINUS RHYTHM Electronically Signed On 03-29-18 15:45:35 CDT by Geovany Carrillo Performing Organization Address City/[facility] Cent[facility]ode Phone Number SMS * DIABETIC FOOT EXAM (03/29/2018 1:29 PM CDT) Narrative Performed At Toña Lemon MD 03/29/20181:54 PM Diabetic Foot Exam was performed at 03/29/2018 1:29 PM.Right foot sensation is normal, right foot pulses are normal, right foot appearance is normal.Left foot sensation is normal,left foot pulses are normal, left foot appearance is normal. after 02/08/2018 Insurance Type Payer Benefit Subscriber ID Effective Phone Address Plan / Dates Group [facility] xxxxxxxxx 2017-P [phone] [address] MEDICARE resent [id number] [place] [address] [facility] xxxxxxxxx 2017-P [phone] [address] COMMUNITY resent [id number] PLAN [facility] [address] [facility] xxxxxxxxx 2017-P [phone] [address]ARE BEHAVIOR resent [id number] [place] CHOICE [address] [facility] xxxxxxxxx 2017-P [phone] [address] COMMUNITY resent [id number] [place] [address]
--- OUTSIDE RECORDS SUMMARY | 2019-02-09 14:48 | XMS REPORT | Continuity of Care Document ---
Author Author [facility] Interface Address Unknown Phone Unavailable Problems Problem Status Onset Date Classification Date Reported Comments Source Memory disorder Active 05/11/2018 Problem 08/25/2018 Merged With [facility] Numbness and tingling Active 05/11/2018 Problem 08/25/2018 Merged With [facility] Abnormal hepatitis serology Active 03/31/2018 Problem 08/25/2018 Merged With [facility] Dysphagia Active 03/29/2018 Problem 08/25/2018 Merged With [facility] Skull lesion Active 03/29/2018 Problem 08/25/2018 Merged With [facility] Back pain Active 03/29/2018 Problem 08/25/2018 Merged With [facility] R13.10 DYSPHAGIA, UNSPECIFIED Active 10/14/2017 [facility] R04.2 - HEMOPTYSIS Active 07/03/2017 [facility] Anxiety disorder Active 2016 Problem 08/25/2018 Merged With [facility] Mood disorder Active 2016 Problem 08/25/2018 Merged With [facility] Essential hypertension Active 10/18/2015 Problem 08/25/2018 Merged With [facility] Diabetes mellitus Active 10/18/2015 Problem 08/25/2018 [facility] 10/18/2015 Problem 08/25/2018 Merged [facility] Emphysema/COPD Active 10/18/2015 Problem 08/25/2018 Merged With [facility] BACK PAIN Active 11/06/2013 [facility] SHOULDER PAIN Active 12/29/2012 [facility] COPD Active Problem 08/25/2018 Merged With [facility] Hypercholesteremia Active Problem 08/25/2018 Merged With [facility] Peptic ulcer disease Active Problem 08/25/2018 [facility]ed [facility] Hepatitis Active Problem 08/25/2018 [facility]ed [facility] Abnormal CXR Active Problem 08/25/2018 Merged With [facility] 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 B virus Active Problem 08/25/2018 Merged [facility] Anxiety Resolved Problem 12/31/2012 [facility] Bipolar Resolved Problem 12/31/2012 [facility] Depression Resolved Problem 12/31/2012 [facility] Diabetes mellitus Active Problem 12/31/2012 [facility] Hypertension Active Problem 12/31/2012 [facility] Anxiety Resolved Problem 10/19/2017 EMILY Solimanore,[facility] Bipolar Resolved Problem 10[facility]19/[facility] Depression [facility] Es[facility]itis [facility]/19[facility] Gastric peptic ulcer Resolved Problem 10/19/[facility] Hypertension [facility] 10[facility]19[facility] Diverticulitis Resolved Problem 11/08/2013 [facility] DYSPHAGIA, UNSPECIFIED Active [facility] UNSP FB IN RESP TRACT, PART UNSP CAUSING Active [facility] Medications Medication Details Route Status Patient Instructions Ordering Provider Order Date Source Atorvastatin 10 Mg Tablet Lipitor 10 Mg Tablet Take 1 tablet by mouth at bedtime nightly For cholesterol. Oral Active 05/28/2018 Merged With [facility] Sertraline 100 Mg Tablet Zoloft 100 Mg Tablet Take 2 tablets by mouth daily. Oral Active 05/28/2018 Merged With [facility] Trazodone 100 Mg Tablet Take 1/2 to 1 full tab by mouth at bedtime as needed for insomnia.. Inactive 05/28/2018 Merged With [facility] Omeprazole 20 Mg Capsule,Delayed Release TAKE ONE CAPSULE BY MOUTH DAILY FOR ACID REFLUX Active 05/18/2018 Merged With [facility] Hydrocodone 10 Mg-Acetaminophen 325 Mg Tablet Take 1 tablet by mouth every 6 hours as needed. Oral No Longer Active 05/11/2018 Merged With [facility] Omeprazole 20 Mg Capsule,Delayed Release Take 20 mg by mouth daily. Oral No Longer Active 05/11/2018 Merged [facility] Gabapentin 100 Mg Capsule Neurontin 100 Mg Capsule Take 1 capsule by mouth 3 times daily For pain in feet. Oral Active 05/11/2018 Merged [facility] Atorvastatin 10 Mg Tablet Take 10 mg by mouth at bedtime nightly. Oral No Longer Active 03/29/2018 Merged [facility] Clopidogrel 75 Mg Tablet Plavix 75 Mg Tablet Take 75 mg by mouth daily. Oral No Longer Active 03/29/2018 Merged [facility] Losartan 100 Mg Tablet Take 100 mg by mouth daily. Oral No Longer Active 03/29/2018 Merged [facility] Amlodipine 10 Mg Tablet Norvasc 10 Mg Tablet Take 10 mg by mouth daily. Oral No Longer Active 03/29/2018 Merged [facility] Hydralazine 25 Mg Tablet Take 25 mg by mouth 3 times daily. Oral No Longer Active 03/29/2018 Merged [facility] Tropicamide 0.5 % Eye Drops Instill 1 Drop in each eye daily as needed for up to 1 dose (for poor retina scan image). Active 03/29/2018 Merged With [facility] Metformin 500 Mg Tablet Glucophage 500 Mg Tablet Take 1 tablet by mouth 2 times daily (with meals) For diabetes. Oral Inactive 03/29/2018 Merged [facility] Losartan 100 Mg Tablet Cozaar 100 Mg Tablet Take 1 tablet by mouth daily For hypertension. Oral Inactive 03/29/2018 Merged [facility] Fluticasone 50 McG/Actuation Nasal Beauty,Suspension Use 2 Sprays in each nostril daily For nasal congestion as needed. Inactive 03/29/2018 Merged With [facility] Combivent Respimat 20 McG-100 McG/Actuation Solution For Inhalation Inhale 2 Puffs by mouth 4 times daily. Inhalation Inactive 03/29/2018 Merged With [facility] Sertraline 100 Mg Tablet Zoloft 100 Mg Tablet Take 2 tablets by mouth daily. Oral No Longer Active 03/05/2018 Merged [facility] Trazodone 100 Mg Tablet Take 1/2 to 1 full tab by mouth at bedtime as needed for insomnia.. No Longer Active 03/05/2018 Merged [facility] Sertraline 100 Mg Tablet Zoloft 100 Mg Tablet Take 2 tablets by mouth daily. Oral No Longer Active 11/17/2017 [facility] Trazodone 100 Mg Tablet Take 1/2 to 1 full tab by mouth at bedtime as needed for insomnia.. No Longer Active 11/17/2017 [facility]erged [facility] Sertraline 100 Mg Tablet Zoloft 100 Mg Tablet Take 2 tablets by mouth daily. Oral No Longer Active 05/01/2017 [facility] Mirtazapine 7.5 Mg Tablet Take 1 tablet by mouth at bedtime nightly. Oral No Longer Active 05/01/2017 Merged [facility] Trazodone 100 Mg Tablet Take 1/2 to 1 full tab by mouth at bedtime as needed for insomnia.. No Longer Active 03/23/2017 [facility]erged [facility] Enalapril Maleate 10 Mg Tablet Vasotec 10 Mg Tablet Take 1 tablet by mouth daily. Oral No Longer Active 10/18/2015 Merged [facility] Metformin 500 Mg Tablet Glucophage 500 Mg Tablet Take 1 tablet by mouth 2 times daily (with meals). Oral No Longer Active 10/18/2015 Merged With [facility] Albuterol Sulfate Hfa 90 McG/Actuation Aerosol Inhaler Proventil Hfa 90 McG/Actuation Aerosol Inhaler Inhale 2 Puffs by mouth 4 times daily as needed for Wheezing. Inhalation Active 10/18/2015 Merged [facility] Symbicort 160 McG-4.5 McG/Actuation Hfa Aerosol Inhaler Inhale 2 Puffs by mouth 2 times daily. Inhalation Active 10/18/2015 Merged [facility] ondansetron 4 mg, Route: IVP, Drug form: INJ, ONCE, Dosing Weight 90.909, kg, Priority: STAT, Start date: 11/06/13 17:05:00, Stop date: 11/06/13 17:05:00 Inactive [facility] 11/06/2013 [facility] morphine Sulfate 4 mg, Route: IVP, Drug form: INJ, ONCE, Dosing Weight 90.909, kg, Priority: STAT, Start date: 11/06/13 17:05:00, Stop date: 11/06/13 17:05:00 Inactive [facility] 11/06/2013 [facility] Celebrex 400 mg oral capsule 400 mg=1 cap, PO, Daily, # 60 cap, 0 Refill(s) Active [facility] 11/06/2013 [facility] Vicodin ES 7.5 mg-300 mg oral tablet 1 tab, PO, Q6H, # 24 tab, 0 Refill(s) Active [facility] 11/06/2013 [facility] ketorolac 30 mg, 1 mL, Route: IVP, Drug form: INJ, ONCE, Dosing Weight 90.909, kg, Priority: STAT, Start date: 11/06/13 14:35:00, Stop date: 11/06/13 14:35:00(Same as:Toradol) IV bolus must be given >15 seconds. Give IM administration slowly and deeply into the muscle. Not for use > 4 days Inactive [facility] 11/06/2013 [facility] Colace 100 mg oral capsule 100 mg, 1 cap, PO, BID, PRN, 20 cap, Constipation, Substitution Allowed, CAP PO Active [facility] 12/30/2012 [facility] [place] 10/325 oral tablet 1 tab, PO, Q6H, PRN, 24 tab, for pain, Substitution Allowed, Maintenance PO Active [facility] 12/30/2012 [facility] Toradol 30 mg/mL injectable solution 60 mg, Route: IM, ONCE, Dosing Weight 85.909, kg, Start date: 12/30/12 2:01:00, Stop date: 12/30/12 2:01:00 IM No Longer Active [facility] 12/30/2012 [facility] Zofran ODT 4 mg, Route: PO, [...] day for 1 week Topical Active 03/07/2010 Merged With [facility] ATROVENT HFA IN None Entered Inhalation Active Merged With [facility] Clindamycin Hcl 300 Mg Capsule take 1 capsule (300 mg) by oral route every 6 hours Oral Active Merged With [facility] Losartan 25 Mg Tablet Take 100 mg by mouth daily . Oral Active Merged With [facility] Tizanidine 4 Mg Tablet Take 4 mg by mouth 3 times daily. Oral Active Merged With [facility] Metoclopramide 10 Mg Tablet Take 10 mg by mouth 2 times daily. Oral Active Merged With [facility] Linzess 290 McG Capsule Take 290 mcg by mouth daily. Oral Active Merged With [facility] Allergies, Adverse Reactions, Alerts Substance Category Reaction Severity Reaction type Status Date Reported Comments Source Aspirin Other Propensity to adverse reactions to drug Active 03/29/2018 Merged With [facility] Immunizations Immunization Date Given Site Status Last Updated Comments Source TDap (Tetanus Toxoid, Reduced Diphtheria Toxoid And Acellular Pertussis, Absorbed) 04/07/2018 [facility] PNEUMOCOCCAL 23-VALPS VACCINE 25 MCG/0.5 ML INJECTION 04/07/2018 completed Merged With [facility] Hepatitis B Pediatric/Adolescent/Adult 04/07/2018 completed Merged With [facility] Influenza Vaccine 07/31/2015 [facility] PPV 23 Pneumococcal Polysaccaride 07/31/2015 [facility] Results Order Name Results Value Reference Range Date Interpretation Comments Source OPHTHALMOLOGY RETINAL SCAN RETINAL SCAN-FINAL RESULT NORMAL 05/11/2018 Merged With [facility] OPHTHALMOLOGY RETINAL SCAN Right Diabetic Retinopathy None 05/11/2018 Merged With [facility] OPHTHALMOLOGY RETINAL SCAN Right Macular Edema None 05/11/2018 Merged With [facility] OPHTHALMOLOGY RETINAL SCAN Right Other Suspected Conditions None 05/11/2018 Merged [facility] OPHTHALMOLOGY RETINAL SCAN Right Image Quality Gradeable Image 05/11/2018 Merged [facility] OPHTHALMOLOGY RETINAL SCAN Left Diabetic Retinopathy None 05/11/2018 Merged [facility] OPHTHALMOLOGY RETINAL SCAN Left Macular Edema None 05/11/2018 Merged [facility] OPHTHALMOLOGY RETINAL SCAN Left Other Suspected Conditions None 05/11/2018 Merged [facility] OPHTHALMOLOGY RETINAL SCAN Left Image Quality Gradeable Image 05/11/2018 Merged With [facility] OPHTHALMOLOGY RETINAL SCAN <p>Retinal Study Result for DIOGENES PARNELL</p><p> </p><p>DIOGENES PARNELL a 67 y/o, F (: 1950, )</p><p>presented to [facility] on 05-11-2018 for a retinal [...] </p><p> </p><p>This result was electronically signed by Frank Juan MD, , Taxonomy: [id number] on 05-11-2018 06:36:59 [facility] time.</p><p> </p><p>NOTE:Any pathology noted on this diabetic retinal evaluation should be confirmed by an appropriate ophthalmic examination.</p> Retinal Study Result for DIOGENES PARNELL PATSY, a 67 y/o, F (: 1950, ) presented to [facility] on 05-11-2018 for a retinal [...] signed by Frank Juan MD, , Taxonomy: [id number] on 05-11-2018 06:36:59 [facility] time. NOTE:Any pathology noted on this diabetic retinal evaluation should be confirmed by an appropriate ophthalmic examination. 05/11/2018 Merged With [facility] HCV RNA QUANT, PCR HCV RNA QUANT, PCR Not detected IU/mL 04/08/2018 This test utilizes FDA cleared EILEEN AmpliPrep/EILEEN TaqMan HCV test, v2.0 from [employer] which allows detection of viral loads between [...] the management of patients with HCV infection. Merged With [facility] AFP, TUMOR MARKER AFP Tumor Mrk 4.7 ng/mL <9.0 04/07/2018 Merged With [facility] HEP A VIRUS AB IGG Hep A Vir Ab IgG Positive NEG 04/07/2018 Merged With [facility] HEP A VIRUS AB IGG Lab Interpretation Abnormal 04/07/2018 Merged With [facility] HEPATITIS B SURFACE AB HBsAb Negative NEG 04/07/2018 Merged With [facility] HEPATITIS B SURFACE AB HBsAb Concentration <0.01
Negative: <8.00 mIU/mL
Grayzone: > or=8.00 mIU/mL to <12.00 mIU/mL
Positive: > or=12.00 mIU/mL
04/07/2018 Merged With [facility] PT/INR/PTT PT 12.4 11.8 - 15.0 04/07/2018 Merged With [facility] PT/INR/PTT INR 0.9 SUGGESTED THERAPEUTIC RANGES: INR 2.0-3.0 for MODERATE INTENSITY ANTICOAGULATION INR 2.5-3.5 for HIGH INTENSITY ANTICOAGULATION 04/07/2018 Merged With [facility] PT/INR/PTT PTT 33.3 23.6 - 36.4 04/07/2018 Merged With [facility] H. PYLORI STOOL AG H pylori Ag Stool Negative Reference range: Negative 04/03/2018 Merged With [facility] HEPATITIS PANEL HCV IgG Positive NEG 03/31/2018 Merged With [facility] HEPATITIS PANEL HBsAg Negative NEG 03/31/2018 Merged With [facility] HEPATITIS PANEL HAV, IgM Negative NEG 03/31/2018 Merged [facility] HEPATITIS PANEL HBcAb, IgM Negative NEG 03/31/2018 Merged [facility] HEPATITIS PANEL Lab Interpretation Abnormal 03/31/2018 Merged [facility] HIV-1/HIV-2 DIAGNOSTIC/SYMPTOMATIC HIV-1/HIV-2 Negative NEG 03/31/2018 Merged [facility] VIT D, 25-HYDROXY Vit D, 25-Hydroxy 54.8 ng/mL 30 - 100 03/31/2018 Vitamin D deficiency has been defined by the [place] of [employer] and Endocrine Society guideline as a level of serum 25-OH Vitamin D less than 20 ng/mL. The Endocrine Society further defines Vitamin D insufficiency as a level between 21 and 29 ng/mL and sufficiency as a level between 30 and 100 ng/mL. Merged With [facility] TSH TSH 0.71 0.45 - 5.33 03/31/2018 Merged With [facility] HEMOGLOBIN A1C Hemoglobin A1c 5.7 % 4.3 - 6.1 03/31/2018 Merged With [facility] HEMOGLOBIN A1C Est Average Gluc 116.9 mg/dL 03/31/2018 Merged With [facility] BASIC METABOLIC PANEL CO2 28 mmol/L 21 - 31 03/31/2018 Merged With [facility] BASIC METABOLIC PANEL Chloride 102 mmol/L 98 - 107 03/31/2018 Merged With [facility] BASIC METABOLIC PANEL Potassium 4.1 mmol/L 3.5 - 5.1 03/31/2018 Merged With [facility] BASIC METABOLIC PANEL Sodium 140 mmol/L 136 - 145 03/31/2018 Merged With [facility] BASIC METABOLIC PANEL Glucose 105 mg/dL 70 - 110 03/31/2018 Merged With [facility] BASIC METABOLIC PANEL Urea Nitrogen 15 mg/dL 7 - 25 03/31/2018 Merged With [facility] BASIC METABOLIC PANEL Creatinine 0.70 mg/dL 0.6 - 1.2 03/31/2018 Merged With [facility] BASIC METABOLIC PANEL Anion Gap 10 03/31/2018 Merged With [facility] BASIC METABOLIC PANEL Calcium 9.3 mg/dL 8.6 - 10.3 03/31/2018 Merged With [facility] BASIC METABOLIC PANEL GFR, Estimated >60 mL/min/1.73 m2 03/31/2018 Merged With [facility] BASIC METABOLIC PANEL GFR, Estim, Afr-Am >60 mL/min/1.73 m2 03/31/2018 Merged With [facility] LIPID PROFILE Cholesterol 191 mg/dL 03/31/2018 REFERENCE RANGE: Desirable: <200 mg/dL Borderline: 200-240 mg/dL High Risk: >240 mg/dL Merged With [facility] LIPID PROFILE Triglyceride 60 mg/dL <150 03/31/2018 REFERENCE RANGE: Normal: <150 mg/dL Borderline High: 150-199 mg/dL High: 200-499 mg/dL Very High: >mb=144 mg/dL Merged With [facility] LIPID PROFILE HDL 76 mg/dL 03/31/2018 Increased CHD risk: <40 mg/dL Decreased CHD risk: >60 mg/dL Merged With [facility] LIPID PROFILE LDL 103 mg/dL 03/31/2018 REFERENCE RANGE: Optimal: <100 mg/dL Near Optimal: 100-129 mg/dL Borderline High: 130-159 mg/dL High: 160-189 mg/dL Very High: >uj=659 mg/dL Merged With [facility] LIVER PROFILE T Protein 7.5 g/dL 6 - 8.3 03/31/2018 Merged With [facility] LIVER PROFILE Albumin 4.7 g/dL 3.7 - 5.3 03/31/2018 Merged With [facility] LIVER PROFILE T Bilirubin 0.5 mg/dL 0.2 - 1.2 03/31/2018 Merged With [facility] LIVER PROFILE Alk Phos 95 U/L 34 - 104 03/31/2018 Merged With [facility] LIVER PROFILE AST 18 U/L 13 - 39 03/31/2018 Merged With [facility] LIVER PROFILE ALT 15 U/L 7 - 52 03/31/2018 Merged With [facility] LIVER PROFILE D Bilirubin 0.1 mg/dL 0 - 0.2 03/31/2018 Merged With [facility] CBC/DIFF WBC 4.9 K/uL 4.5 - 11 03/31/2018 Merged With [facility] CBC/DIFF RBC 4.20 4.20 - 5.40 03/31/2018 Merged With [facility] CBC/DIFF Hemoglobin 12.2 g/dL 12 - 16 03/31/2018 Merged With [facility] CBC/DIFF Hematocrit 39.4 % 37 - 47 03/31/2018 Merged With [facility] CBC/DIFF MCV 94 fL 82 - 92 03/31/2018 Merged With [facility] CBC/DIFF MCH 29.0 pg 27 - 32 03/31/2018 Merged With [facility] CBC/DIFF MCHC 31.0 g/dL 32 - 36 03/31/2018 Merged With [facility] CBC/DIFF RDW 46.0 fL 36.4 - 46.3 03/31/2018 Merged With [facility] CBC/DIFF Platelet 184 K/uL 150 - 400 03/31/2018 Merged With [facility] CBC/DIFF Mean Platelet Volume 12.5 fL 9.4 - 12.4 03/31/2018 Merged With [facility] CBC/DIFF Percent NRBC 0.0 03/31/2018 Merged With [facility] CBC/DIFF Absolute NRBC 0.00 03/31/2018 Merged With [facility] CBC/DIFF Neutrophil 46.2 % 34 - 70 03/31/2018 Merged With [facility] CBC/DIFF Lymphocyte 41.7 % 20 - 50 03/31/2018 Merged With [facility] CBC/DIFF Monocyte 8.3 % 5 - 12 03/31/2018 Merged With [facility] CBC/DIFF Eosinophil 2.8 % 0.7 - 5 03/31/2018 Merged With [facility] CBC/DIFF Basophil 0.8 % 0.1 - 1.2 03/31/2018 Merged With [facility] CBC/DIFF Pct Immat Gran 0.2 0.0 - 0.5 03/31/2018 Merged With [facility] CBC/DIFF Neutrophil, Abs 2.28 K/uL 1.56 - 6.13 03/31/2018 Merged With [facility] CBC/DIFF Lymphocyte, Abs 2.06 K/uL 1.18 - 3.74 03/31/2018 Merged With [facility] CBC/DIFF Monocyte, Abs 0.41 K/uL 0.24 - 0.36 03/31/2018 Merged With [facility] CBC/DIFF Eosinophil, Abs 0.14 K/uL 0.04 - 0.36 03/31/2018 Merged With [facility] CBC/DIFF Basophil, Abs 0.04 K/uL 0.01 - 0.08 03/31/2018 Merged With [facility] CBC/DIFF Absol Immat Gran 0.01 K/uL 0 - 0.03 03/31/2018 Merged With [facility] CBC/DIFF Lab Interpretation Abnormal 03/31/2018 Merged With [facility] MICROALBUM, URINE Microalbum, Random 3.2 mg/dL 0 - 29 03/30/2018 Merged With [facility] MICROALBUM, URINE Creatinine, Ur 75.2 mg/dL 20 - 320 03/30/2018 Merged With [facility] MICROALBUM, URINE Urine Microalbumin 42.6 0 - 29 03/30/2018 To minimize intra-individual variation, analysis of three random urine samples collected over the course of a week is recommended. Merged With [facility] MICROALBUM, URINE Lab Interpretation Abnormal 03/30/2018 Merged With [facility] UA CHEMISTRIES Color Yellow 03/30/2018 Merged With [facility] UA CHEMISTRIES Clarity Cloudy 03/30/2018 Merged With [facility] UA CHEMISTRIES Spec [place] 1.017 1.001 - 1.035 03/30/2018 Merged With [facility] UA CHEMISTRIES pH 7.0 5 - 8 03/30/2018 Merged With [facility] UA CHEMISTRIES Protein Negative NEG 03/30/2018 Merged With [facility] UA CHEMISTRIES Glucose Negative NEG 03/30/2018 Merged With [facility] UA CHEMISTRIES Ketone Negative NEG 03/30/2018 Merged With [facility] UA CHEMISTRIES Bilirubin Negative NEG 03/30/2018 Merged With [facility] UA CHEMISTRIES Nitrate Negative NEG 03/30/2018 Merged With [facility] UA CHEMISTRIES Urobilinogen <1.0 0.2 - 1 03/30/2018 Merged With [facility] UA CHEMISTRIES Leukocyte Negative NEG 03/30/2018 Merged With [facility] UA CHEMISTRIES Blood Negative NEG 03/30/2018 Merged With [facility] UA CHEMISTRIES Epithelial Cell <1 /HPF 03/30/2018 Merged With [facility] OCCULT BLOOD ICT Occult Blood ICT Negative NEG 03/30/2018 Merged With [facility] XRAY CHEST 2 VIEWS IMPRESSION: 1.Minimal [...] Chepe Macario MD, 03/30/2018 1:43 PM 03/30/2018 Merged With [facility] XRAY SKULL LESS THAN 4 VIEWS IMPRESSION: No acute osseous lesion. Signed By: Aron Magallon MD, 03/30/2018 10:42 AM Skull 4 views HISTORY:hx of lesion in skull COMPARISON: None DISCUSSION: No fracture or malalignment. No aggressive lesion in the skull. The visualized soft tissues appear unremarkable. Interface, Rad/Mammog In - 03/30/2018 10:47 AM CDT Skull 4 views HISTORY: hx of lesion in skull COMPARISON: None DISCUSSION: No fracture or malalignment. No aggressive lesion in the skull. The visualized soft tissues appear unremarkable. IMPRESSION IMPRESSION: No acute osseous lesion. Signed By: Aron Magallon MD, 03/30/2018 10:42 AM 03/30/2018 Merged With [facility] URINE CULTURE Culture Skin marie organisms present, suggests contamination; please recollect BT MICROBIOLOGY 03/30/2018 MISYS 12 LEAD EKG 12 LEAD EKG FOR [facility] Test Date:2018-03-29 Pat Name: DIOGENES PARNELLDepartment: : Gender: FTechnician: :[id number] Requested By: Order Number:Freddie KING[place]: Geovany Carrillo Measurements IntervalsAxis Rate: 75 P:-10 TX: 145QRS:86 QRSD: 80 T:127 QT: 381 QTc:428 Interpretive Statements SINUS RHYTHM Electronically Signed On 03-29-18 15:45:35 CDT by Geovany Carrillo 03/29/2018 Merged With [facility] DIABETIC FOOT EXAM <p>Blicharski, Toña, MD 03/29/20181:54 PM</p><p>Diabetic Foot Exam was performed [...] normal, left foot appearance is normal. 03/29/2018 Merged With [facility] Esophagus BA swallow function video DX Esophagus BA swallow function video DX Patient Name: DIOGENES PARNELL : 1950; Age: 67 years y/o Female MR: [id number] * MODIFIED BARIUM SWALLOW HISTORY: Dysphagia, COMMENT: [...] refer to the speech pathologist report. SL: [id number] 10/16/2017 - - Read by: Surinder Jennings MD Dictated Date/time: 10/16/17 14:01 Electronically Signed by: Surinder Jennings MD 10/16/17 14:02 FINAL REPORT [facility] Chest 2 views DX Chest 2 [...] Marcio Simmons MD 07/03/17 15:37 FINAL REPORT [facility] CHEMISTRY AGAP 10.9 meq/L 10.0 - 20.0 11/06/2013 Normal [facility] CHEMISTRY A/G Ratio 1.0 0.7 - 1.6 11/06/2013 Normal [facility] CHEMISTRY Globulin 3.8 g/dL 2.0 - 4.0 11/06/2013 Normal [facility] CHEMISTRY B/C Ratio 20 6 - 25 11/06/2013 Normal [facility] CHEMISTRY eGFR 90 mL/min/1.73m2 11/06/2013 2Result [...] should be multiplied by the estimated BMI. [facility] CHEMISTRY Creatinine Lvl 0.8 mg/dL 0.5 - 1.4 11/06/2013 Normal [facility] CHEMISTRY BUN 16 mg/dL 7 - 22 11/06/2013 Normal [facility] CHEMISTRY Glucose Lvl 93 mg/dL 70 - 99 11/06/2013 Normal 3Interpretive Data: Adult reference range values reflect the clinical guidelines of the [place] Diabetes Association. [facility] CHEMISTRY Bili Total 0.2 mg/dL 0.2 - 1.3 11/06/2013 Normal [facility] CHEMISTRY ASPARTATE TRANSAMINASE 17 unit/L 0 - 37 11/06/2013 Normal [facility] CHEMISTRY Albumin Lvl 3.7 g/dL 3.5 - 5.0 11/06/2013 Normal [facility] CHEMISTRY Alk Phos 83 unit/L 39 - 136 11/06/2013 Normal [facility] CHEMISTRY ALANINE AMINOTRANSFERASE 22 unit/L 0 - 65 11/06/2013 Normal [facility] CHEMISTRY CO2 27 meq/L 24 - 32 11/06/2013 Normal [facility] CHEMISTRY Total Protein 7.5 g/dL 6.4 - 8.4 11/06/2013 Normal [facility] CHEMISTRY Calcium Lvl 9.3 mg/dL 8.5 - 10.5 11/06/2013 Normal [facility] CHEMISTRY Chloride Lvl 106 meq/L 95 - 109 11/06/2013 Normal [facility] CHEMISTRY Sodium Lvl 140 meq/L 135 - 145 11/06/2013 Normal [facility] CHEMISTRY Potassium Lvl 3.9 meq/L 3.5 - 5.1 11/06/2013 Normal [facility] HEMATOLOGY aPTT 21.9 s 22.9 - 35.8 11/06/2013 LOW 8Interpretive Data: Heparin Therapeutic Range: 57 - 92 Seconds [facility] HEMATOLOGY INR 0.95 0.85 - 1.17 11/06/2013 Normal 7Interpretive Data: RECOMMENDED RANGES FOR PROTIME INR: 2.0-3.0 for most medical and surgical thromboembolic states. 2.5-3.5 for artificial heart valves and recurrent embolism. INR SHOULD BE USED ONLY FOR PATIENTS ON STABLE ANTICOAGULANT THERAPY. [facility] HEMATOLOGY PROTIME 12.6 s 12.0 - 14.7 11/06/2013 Normal [facility] CHEMISTRY U Benzodia Scr Positive *ABN* (11/06/2013 15:21:00) Negative 11/06/2013 ABN [facility] CHEMISTRY U Arianne Scr Negative *NA* (11/06/2013 15:21:00) Negative 11/06/2013 [facility] CHEMISTRY U Amph Scr Negative *NA* (11/06/2013 15:21:00) Negative 11/06/2013 [facility] CHEMISTRY UDS Note See Note 4 (11/06/2013 15:21:00) [...] Methadone 300 ng/mL Urine alcohol 20 mg/dL [facility] CHEMISTRY U Phencyc Scr Negative *NA* (11/06/2013 15:21:00) Negative 11/06/2013 [facility] CHEMISTRY U Opiate Scr Negative *NA* (11/06/2013 15:21:00) Negative 11/06/2013 [facility] U Cannab Scr Negative *NA* (11/06/2013 15:21:00) Negative 11/06/2013 [facility] CHEMISTRY U Cocaine Scr Negative *NA* (11/06/2013 15:21:00) Negative 11/06/2013 [facility] URINALYSIS UA Urobilinogen <=1.0 mg/dL 0.1 - 1.0 11/06/2013 [facility] URINALYSIS UA Blood Negative (11/06/2013 15:21:00) Negative 11/06/2013 Normal [facility] URINALYSIS UA Nitrite Negative (11/06/2013 15:21:00) Negative 11/06/2013 Normal [facility] URINALYSIS UA Leuk Est Negative (11/06/2013 15:21:00) Negative 11/06/2013 Normal [facility] URINALYSIS UA Sq Epi Occasional /LPF Few 11/06/2013 [facility] URINALYSIS UA WBC null 0 - 5 11/06/2013 Normal [facility] URINALYSIS UA Turbidity Slight *ABN* (11/06/2013 15:21:00) Clear 11/06/2013 ABN [facility] URINALYSIS UA pH 6.0 5.0 - 8.0 11/06/2013 Normal [facility] URINALYSIS UA Spec Grav 1.013 <=1.030 11/06/2013 Normal [facility] URINALYSIS UA Protein Negative mg/dL Negative 11/06/2013 Normal [facility] URINALYSIS UA Bili Negative *NA* (11/06/2013 15:21:00) Negative 11/06/2013 [facility] URINALYSIS UA Glucose Negative mg/dL Negative 11/06/2013 [facility] URINALYSIS UA Ketones Negative mg/dL Negative 11/06/2013 [facility] URINALYSIS UA RBC 1 /HPF 0 - 2 11/06/2013 Normal [facility] URINALYSIS UA Hyal Cast 4 /LPF 0 - 2 11/06/2013 [facility] URINALYSIS UA Color Yellow *NA* (11/06/2013 15:21:00) Yellow 11/06/2013 [facility] URINALYSIS UA Bacteria Occasional /HPF None Seen 11/06/2013 [facility] CHEMISTRY Ethanol Lvl null 11/06/2013 6Interpretive Data: Negative Range: <3 mg/dL Toxic Range: >250 mg/dL [facility] CHEMISTRY Etoh (%) null 11/06/2013 5Interpretive Data: Negative Range: <0.003% Toxic Range: >0.25% [facility] HEMATOLOGY MCV 89.2 fL 81.0 - 99.0 11/06/2013 Normal [facility] HEMATOLOGY Hct 33.3 % 36.0 - 48.0 11/06/2013 LOW [facility] HEMATOLOGY Hgb 10.6 g/dL 12.0 - 16.0 11/06/2013 LOW [facility] HEMATOLOGY RBC X 10x6 3.73 M/CMM 4.20 - 5.40 11/06/2013 LOW [facility] HEMATOLOGY WBC X 10x3 11.2 K/CMM 3.7 - 10.4 11/06/2013 [facility] HEMATOLOGY MPV 10.1 fL 7.4 - 10.4 11/06/2013 Normal [facility] HEMATOLOGY Platelet 246 K/CMM 133 - 450 11/06/2013 Normal [facility] HEMATOLOGY RDW 13.6 % 11.5 - 14.5 11/06/2013 Normal [facility] HEMATOLOGY MCHC 31.9 g/dL 32.0 - 36.0 11/06/2013 LOW [facility] HEMATOLOGY MCH 28.4 pg 27.0 - 31.0 11/06/2013 Normal [facility] HEMATOLOGY Segs 41.1 % 45.0 - 75.0 11/06/2013 LOW [facility] HEMATOLOGY Basophils # 0.0 K/CMM 0.0 - 0.2 11/06/2013 Normal [facility] HEMATOLOGY Eosinophils # 0.2 K/CMM 0.0 - 0.5 11/06/2013 Normal [facility] HEMATOLOGY Monocytes # 1.0 K/CMM 0.0 - 0.8 11/06/2013 HI [facility] HEMATOLOGY Lymphocytes # 5.3 K/CMM 1.0 - 5.5 11/06/2013 Normal [facility] HEMATOLOGY Basophils 0.4 % 0.0 - 1.0 11/06/2013 Normal [facility] HEMATOLOGY Segs-Bands # 4.6 K/CMM 1.5 - 8.1 11/06/2013 Normal [facility] Monocytes 9.4 % 2.0 - 12.0 11/06/2013 Normal [facility] HEMATOLOGY Eosinophils 1.6 % 0.0 - 4.0 11/06/2013 Normal [facility] Lymphocytes 47.5 % 20.0 - 40.0 11/06/2013 [facility] BEDSIDE GLUCOSE TESTING Glucose POC 126 mg/dL 70 - 99 11/06/2013 [place] 1Interpretive Data: Upper Reportable Limit: 200 mg/dL. [facility] Spine lumbar 2 or 3 views [...] Lorenzo Wilkes MD 11/06/13 16:39 FINAL REPORT [facility] Chest 1view Chest 1view Chest, one [...] Aron Sweeney MD 11/06/13 16:43 FINAL REPORT [facility] Shoulder series Shoulder series Right shoulder, [...] Aron Sweeney MD 11/06/13 16:42 FINAL REPORT [facility] Brain wo contrast CT Brain wo contrast CT CT HEAD WITHOUT CONTRAST HX: Head trauma FINDINGS: Views of the brain show no evidence of intracranial hemorrhage, acute stroke, mass effect, or shift of midline structures. The ventricles and sulci are within normal limits of size. No abnormal extra-axial fluid collections are noted. IMPRESSION: Negative CT of the brain without contrast. SL: 11/06/2013 - - Read by: Abhishek Rosenthal Dictated Date/time: 11/06/13 15:24 Electronically Signed by: Abhishek Rosenthal MD 11/06/13 15:24 FINAL REPORT [facility] Vital Signs Vital Sign Value Date Comments Source Systolic (mm Hg) 120 05/28/2018 Merged With [facility] Diastolic (mm Hg) 76 05/28/2018 Merged With [facility] Heart Rate 75 05/28/2018 Merged With [facility] Temperature Oral (F) 37.33 Renae 05/28/2018 Merged With [facility] Respitory Rate 18 05/28/2018 Merged With [facility] Height 167.6 cm 05/28/2018 Merged With [facility] Weight 71.668 05/28/2018 Merged With [facility] BMI Calculated 25.50 05/28/2018 Merged With [facility] Respitory Rate 16 11/07/2013 [facility] Heart Rate 64 11/07/2013 [facility] Temperature Oral (F) 98.6 F 11/07/2013 [facility] Systolic (mm Hg) 108 11/07/2013 [facility] Diastolic (mm Hg) 59 11/07/2013 [facility] Temperature Oral (F) 98.4 F 11/06/2013 [facility] Respitory Rate 12 11/06/2013 [facility] Diastolic (mm Hg) 67 11/06/2013 [facility] Systolic (mm Hg) 129 11/06/2013 [facility] Diastolic (mm Hg) 70 11/06/2013 [facility] Systolic (mm Hg) 155 11/06/2013 [facility] Temperature Oral (F) 98.7 F 11/06/2013 [facility] Respitory Rate 18 11/06/2013 [facility] Height 165.1 cm 11/06/2013 [facility] Weight 90.909 11/06/2013 [facility] Heart Rate 92 11/06/2013 [facility] Weight 85.909 12/30/2012 [facility] Height 157.48 cm 12/30/2012 [facility] Encounters Location Location Details Encounter Type Encounter Number Reason For Visit Attending Provider ADM Date DC Date Status Source [facility] Emergency [id number] MARCIO LADD 12/29/2012 12/29/2012 Active [facility] Emergency [id number] EFREN POTTER 11/06/2013 11/06/2013 Active [facility] Outpatient [facility] Di[facility] [id number] Vivek Márquez 07/03/2017 07/04/2017 [facility] Visit [id number] 09/09/2017 [facility] Outpatient [id number] Ismael Riojas 10/16/2017 10/17/2017 [facility] [place] Office Visit [id number] Anxiety disorder, unspecified type Mood disorder Insomnia, unspecified type Richard Lehman MD 11/17/2017 11/17/2017 Merged With [facility] Telephone [id number] Richard Lehman MD 02/05/2018 Merged With [facility] [place] Office Visit [id number] Anxiety disorder, unspecified type Insomnia, unspecified type Richard Lehman MD 03/05/2018 03/05/2018 [facility] [place] Orders Only [id number] Type 2 diabetes mellitus with other specified complication, without long-term current use of insulin Toña Lemon MD 03/29/2018 [facility] [place] Orders Only [id number] Essential hypertension Cherry Bland RN 03/29/2018 [facility] [place] Office Visit [id number] Healthcare maintenance Essential hypertension Type 2 diabetes mellitus with other specified complication, without long-term current use of insulin Pulmonary emphysema, unspecified emphysema type Uncomplicated asthma, unspecified asthma severity, unspecified whether persistent Dysphagia, unspecified type Skull lesion Back pain, unspecified back location, unspecified back pain laterality, unspecified chronicity Allergic rhinitis, unspecified seasonality, unspecified trigger Toña Lemon MD 03/29/2018 03/29/2018 [facility] [place] Orders Only [id number] Pulmonary emphysema, unspecified emphysema type Healthcare maintenance Abnormal CXR Toña Lemon MD 03/30/2018 M[facility]ed With [facility] Radiology [place] Ancillary Procedure [id number] Essential hypertension Skull lesion Toña Lemon MD 03/30/2018 03/30/2018 [facility] [place] Orders Only [id number] Abnormal hepatitis serology Toña Lemon MD 03/31/2018 Merged With [facility] [place] Refill [id number] Insomnia, unspecified type Richard Lehman MD 04/02/2018 [facility] [place] Orders Only [id number] Anxiety disorder, unspecified type Mood disorder Toña Lemon MD 04/07/2018 [facility] [place] Office Visit [id number] Type 2 diabetes mellitus with other specified complication, without long-term current use of insulin Essential hypertension Pulmonary emphysema, unspecified emphysema type Uncomplicated asthma, unspecified asthma severity, unspecified whether persistent Abnormal hepatitis serology Brain lesion Anxiety disorder, unspecified type Mood disorder 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 B virus Toña Lemon MD 04/07/2018 04/07/2018 [facility] [place] Telephone [id number] Cherry Bland RN 04/20/2018 Merged With [facility] [place] Telephone [id number] Mary Jane Torres RN 04/21/2018 [facility] [place] Orders Only [id number] Memory disorder Numbness and tingling Toña Lemon MD 05/11/2018 Merged With [facility] [employer] [place] Clinical Case Mgt [id number] Erin Krause 05/11/2018 [facility] [place] Office Visit [id number] Type 2 diabetes mellitus with other specified complication, without long-term current use of insulin Essential hypertension Uncomplicated asthma, unspecified asthma severity, unspecified whether persistent Pulmonary emphysema, unspecified emphysema type Abnormal CXR 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 B virus Memory disorder Numbness and tingling Gastroesophageal reflux disease, esophagitis presence not specified Toña Lemon MD 05/11/2018 05/11/2018 [facility] [place] Orders Only [id number] Numbness and tingling Toña Lemon MD 05/12/2018 Merged With [facility] [place] Refill [id number] Gastroesophageal reflux disease, esophagitis presence not specified Toña Lemon MD 05/18/2018 [facility] PULMONARY SERVICES Hospital Encounter [id number] Toña Lemon MD 05/18/2018 05/19/2018 Merged With [facility] [place] Orders Only [id number] Pure hypercholesterolemia Toña Lemon MD 05/28/2018 Merged With [facility] [place] Telephone [id number] Cherry Bland RN 05/28/2018 Merged With [facility] Psychiatry [place] Office Visit [id number] Anxiety disorder, unspecified type Insomnia, unspecified type Richard Lehman MD 05/28/2018 05/28/2018 Merged With [facility] Procedures Procedure Code Date Perfomer Comments Source PULMONARY - 6 MINUTE WALK EXERCISE TEST - COMPLEX 88620 05/18/2018 [facility] PULMONARY FUNCTION TEST 56430 05/18/2018 [facility] OPHTHALMOLOGY RETINAL SCAN 012635 05/11/2018 [facility] HEP A VIRUS AB IGG 02628 04/06/2018 [facility] HCV RNA QUANT, PCR 08148 04/06/2018 [facility] [place] [address] 04/06/2018 [facility] PT/INR/PTT 46472 04/06/2018 [facility] AFP, TUMOR MARKER 29053 04/06/2018 [facility] XRAY CHEST 2 VIEWS 12823 03/30/2018 [facility] XRAY SKULL LESS THAN 4 VIEWS 40522 03/30/2018 [facility] H. PYLORI STOOL AG 93315 03/30/2018 [facility] OCCULT BLOOD ICT 85793 03/30/2018 [facility] HIV-1/HIV-2 DIAGNOSTIC/SYMPTOMATIC 52942 03/30/2018 [facility] HEPATITIS PANEL 12143 03/30/2018 [facility] UA CHEMISTRIES 89471 03/30/2018 [facility] TSH 13283 03/30/2018 [facility] LIVER PROFILE 42097 03/30/2018 [facility] LIPID PROFILE 29020 03/30/2018 [facility] BASIC METABOLIC PANEL 25707 03/30/2018 [facility] CBC/DIFF 30752 03/30/2018 [facility] HEMOGLOBIN A1C 15888 03/30/2018 [facility] MICROALBUM, URINE 50320 03/30/2018 [facility] URINE CULTURE 50744 03/30/2018 [facility] VIT D, 25-HYDROXY 52555 03/30/2018 [facility] 12 LEAD EKG 75948 03/29/2018 [facility] DIABETIC FOOT EXAM 03/29/2018 [facility] NONINVASV OXYGEN SATUR;SINGLE 56458 03/29/2018 [facility] Total hysterectomy with removal of both tubes and ovaries [id number] [facility] Vagotomy [id number] [facility] Total hysterectomy with removal of both tubes and ovaries [id number] [facility] Vagotomy [id number] [facility] Total hysterectomy with removal of both tubes and ovaries [id number] [facility] Vagotomy [id number] [facility]
[2019-02-09 16:15] LABS: BASOPHILS % 0.4 % (0.0-1.0); EOSINOPHILS # (AUTO) 0.2 (0.0-0.4); EOSINOPHILS % 2.1 % (0.0-6.0); HEMATOCRIT 33.9 % (34.2-44.1); HEMOGLOBIN 10.5 g/dL (12.0-16.0); LYMPHOCYTES # (AUTO) 4.1 (1.0-3.2); MEAN CORPUSCULAR HEMOGLOBIN 28.8 pg (28-32); MEAN CORPUSCULAR VOLUME 92.9 fL (81-99); MONOCYTES # (AUTO) 0.7 (0.2-0.8); NEUTROPHILS % 37.4 % (38.7-80.0); PLATELET COUNT 182 x10e3/uL (140-360); RED BLOOD COUNT 3.65 x10e6/uL (3.6-5.1)
[2019-02-09 16:18] LABS: BILIRUBIN,URINE NEGATIVE (NEGATIVE); CLARITY,URINE SL CLOUDY (CLEAR); COLOR,URINE YELLOW (YELLOW); KETONES,URINE NEGATIVE (NEGATIVE); LEUKOCYTE ESTERASE ,URINE 1+ (NEGATIVE); NITRITE,URINE NEGATIVE (NEGATIVE); PROTEIN,URINE DIPSTICK TRACE (NEGATIVE); URINE UROBILINOGEN 0.2 mg/dL (0.2 - 1)
--- NOTE | 2019-02-09 16:24 | Diagnostic Imaging Report ---
EXAM: CHEST SINGLE (PORTABLE) DATE: 02/09/2019 2:56 PM INDICATION: Shortness of breath COMPARISON: Chest x-ray, 06/07/2017 FINDINGS: Lines and tubes: None Heart size normal. No focal pulmonary opacity, pleural effusion or pneumothorax. Upper abdomen unremarkable. No acute bony abnormality. There are degenerative changes in the thoracic spine. Cervical spine fusion hardware again partially visualized. IMPRESSION: No evidence for acute disease. Signed by: Dr. Lee Oden M.D. on 02/09/2019 4:21 PM
[2019-02-09 16:26] LABS: INR 0.86; PARTIAL THROMBOPLASTIN TIME 30.8 seconds (23.8-35.5); PROTHROMBIN TIME 12.2 seconds (11.9-14.5)
[2019-02-09 16:28] LABS: BACTERIA,URINE MANY /HPF; EPITHELIAL CELLS,URINE MODERATE /LPF; TRANSITIONAL EPI CELLS,URINE MODERATE
[2019-02-09 16:36] LABS: ALANINE AMINOTRANSFERASE 15 IU/L (0-55); ALBUMIN 3.7 g/dL (3.5-5.0); ALBUMIN/GLOBULIN RATIO 1.3 (0.8-2.0); ALKALINE PHOSPHATASE 81 IU/L (40-150); ANION GAP 8.6 mmol/L (8-16); BLOOD UREA NITROGEN 19 mg/dL (7-26); BUN/CREATININE RATIO 26 (6-25); CALCIUM 9.2 mg/dL (8.4-10.2); CARBON DIOXIDE 28 mmol/L (22-29); CHLORIDE 101 mmol/L (98-107); CREATINE KINASE 76 IU/L (29-168); CREATININE, SERUM 0.73 mg/dL (0.57-1.11); EST GLOMERULAR FILTRATION RATE > 60 ML/MIN (60-); GLUCOSE 72 mg/dL (74-118); POTASSIUM 3.6 mmol/L (3.5-5.1); SODIUM 134 mmol/L (136-145)
[2019-02-09] MEDS ORDERED: ONDANSETRON HCL INJ 2MG/ML 2ML 2 MG/ML VIAL IV PRN (19:15)
[2019-02-09] MEDS ORDERED: SODIUM CHLORIDE FLUSH 10 ML SYR INJ PRN (19:15)
[2019-02-09] MEDS ORDERED: NITROGLYCERIN 0.4 MG SUBL SL PRN (19:15)
[2019-02-09] MEDS: FAMOTIDINE 20 MG TAB PO SCH (19:54)
--- OUTSIDE RECORDS SUMMARY | 2019-02-09 20:47 | XMS REPORT | Clinical Summary ---
Author Author [facility] Address Unknown Phone Unavailable Care Team Providers Care Pamphlet Distributor Name Role Phone Adelaida Castro MD PCP [...] COMPLETE 4VW [facility] CLINICAL HISTORY: Back [id number] conservative txpersistent sx COMPARISON:None IMPRESSION: Vertebral body [...] in the region of the gastroesophageal junction. [id number] Procedure Note Hm Interface, Radiology Results Incoming [...] in the region of the gastroesophageal junction. [id number] Performing Organization Address City/State/Zipcode Phone Number [facility] [address] [place] [address] * CT Renal Stone Protocol (09/08/2018 6:33 PM CDT) Narrative Performed At EXAMINATION:CT RENAL STONE PROTOCOL [facility] CLINICAL HISTORY:Flank painrecurrent stone disease suspected [...] colitis or bowel obstruction. Unremarkable exam otherwise. [id number] Procedure Note Hm Interface, Radiology Results Incoming [...] colitis or bowel obstruction. Unremarkable exam otherwise. [id number] Performing Organization Address City/State/Zipcode Phone Number [facility] [address] [place] [address] * Urinalysis screen and microscopy, with reflex to culture (09/08/2018 6:30 PM CDT) Specimen site Clean catch [facility] DEPARTMENT OF PATHOLOGY AND GENOMIC MEDICINE Color, UA Straw [facility] DEPARTMENT OF PATHOLOGY AND GENOMIC MEDICINE Appearance, UA Clear [facility] DEPARTMENT OF PATHOLOGY AND GENOMIC MEDICINE Specific gravity, UA 1.008 1.001 - 1.035 [facility] DEPARTMENT OF PATHOLOGY AND GENOMIC MEDICINE pH, UA 7.0 5.0 - 8.5 [facility] DEPARTMENT OF PATHOLOGY AND GENOMIC MEDICINE Protein, UA Negative Negative [facility] DEPARTMENT OF PATHOLOGY AND GENOMIC MEDICINE Glucose, UA Negative Negative [facility] DEPARTMENT OF PATHOLOGY AND GENOMIC MEDICINE Ketones, UA Negative Negative [facility] DEPARTMENT OF PATHOLOGY AND GENOMIC MEDICINE Bilirubin, UA Negative Negative [facility] DEPARTMENT OF PATHOLOGY AND GENOMIC MEDICINE Blood, UA Negative Negative [facility] DEPARTMENT OF PATHOLOGY AND GENOMIC MEDICINE Nitrite, UA Negative Negative [facility] DEPARTMENT OF PATHOLOGY AND GENOMIC MEDICINE Urobilinogen, UA Negative <2.0 [facility] DEPARTMENT OF PATHOLOGY AND GENOMIC MEDICINE Leukocyte esterase, UA Negative Negative [facility] DEPARTMENT OF PATHOLOGY AND GENOMIC MEDICINE Epithelial cells, UA Few /HPF [facility] DEPARTMENT OF PATHOLOGY AND GENOMIC MEDICINE WBC, UA 0-5 0 - 4 /HPF [facility] DEPARTMENT OF PATHOLOGY AND GENOMIC MEDICINE RBC, UA 0-5 0 - 5 /HPF [facility] DEPARTMENT OF PATHOLOGY AND GENOMIC MEDICINE Bacteria, UA Trace None seen [facility] DEPARTMENT OF PATHOLOGY AND GENOMIC MEDICINE Yeast, UA None seen [facility] DEPARTMENT OF PATHOLOGY AND GENOMIC MEDICINE Yeast with pseudohyphae, None seen [facility] DEPARTMENT OF PATHOLOGY AND GENOMIC MEDICINE Specimen Urine Performing Organization Address City/State/Zipcode Phone Number [place] [address] [place] [address] PATHOLOGY AND GENOMIC MEDICINE * Estimated GFR (09/08/2018 6:30 PM CDT) Estimated GFR >=90 mL/min/1.[address] [facility] DEPARTMENT OF Comment: PATHOLOGY AND CatergoryUnitsInte GENOMIC MEDICINE rpretation G1 >=90 Normal or high G2 60-89Mildly decreased [id number] Mildly to moderately decreased [id number] Moderately to severely decreased G4 15-29Severely decreased G5 <15Kidney failure The eGFR was calculated using the Chronic Kidney Disease Epidemiology Collaboration (CKD-EPI) equation. Interpretation is based on recommendations of the National Kidney Foundation-Kidney Disease Outcomes Quality Initiative (NKF-KDOQI) published in 2014. Specimen Plasma specimen Performing Organization Address [facility] Phone Number [address] [place] [address] PATHOLOGY AND [facility] * Partial thromboplastin time, activated (09/08/2018 6:30 PM CDT) PTT 30.6 23.0 - 36.[address] [facility] DEPARTMENT OF Comment: PATHOLOGY AND PTT therapeutic range for [facility] unfractionated heparin is 61.0-112.0 seconds which corresponds to Anti-Xa 0.3-0.7 U/ml. Specimen Blood Performing Organization Address [facility] Phone Number [address] [place] [address] PATHOLOGY AND [facility] * Prothrombin time with INR (09/08/2018 6:30 PM CDT) Prothrombin time 12.1 12.0 - 15.[address] [facility] DEPARTMENT OF PATHOLOGY AND GENOMIC MEDICINE INR 0.9 [facility] DEPARTMENT OF Comment: PATHOLOGY AND The International Normalized [facility] Ratio (INR) is a therapeutic monitoring tool for patients who are stable on oral anticoagulant therapy. An INR of 2.0-3.0 is suggested for deep vein thrombosis/pulmonary embolism. Specimen Blood Performing Organization Address [facility] Phone Number [address] [place] [address] PATHOLOGY AND [facility] * CBC with platelet and differential (09/08/2018 6:30 PM CDT) WBC 8.01 4.50 - 11.00 k/uL [facility] DEPARTMENT OF PATHOLOGY AND GENOMIC MEDICINE RBC 3.95 (L) 4.20 - 5.50 m/uL [facility] DEPARTMENT OF PATHOLOGY AND GENOMIC MEDICINE HGB 11.6 (L) 12.0 - 16.0 g/dL [facility] DEPARTMENT OF PATHOLOGY AND GENOMIC MEDICINE HCT 36.9 (L) 37.0 - 47.0 % [facility] DEPARTMENT OF PATHOLOGY AND GENOMIC MEDICINE MCV 93.4 82.0 - 100.[address] [facility] DEPARTMENT OF PATHOLOGY AND GENOMIC MEDICINE MCH 29.4 27.0 - 34.[address] [facility] DEPARTMENT OF PATHOLOGY AND GENOMIC MEDICINE MCHC 31.4 31.0 - 37.0 g/dL [facility] DEPARTMENT OF PATHOLOGY AND GENOMIC MEDICINE RDW - SD 45.8 37.0 - 55.[address] [facility] DEPARTMENT OF PATHOLOGY AND GENOMIC MEDICINE MPV 11.0 8.8 - 13.[address] [facility] DEPARTMENT OF PATHOLOGY AND GENOMIC MEDICINE Platelet count 204 150 - 400 k/uL [facility] DEPARTMENT OF PATHOLOGY AND GENOMIC MEDICINE Nucleated RBC 0.00 /[address] [facility] DEPARTMENT OF PATHOLOGY AND GENOMIC MEDICINE Neutrophils 39.0 39.0 - 69.0 % [facility] DEPARTMENT OF PATHOLOGY AND GENOMIC MEDICINE Lymphocytes 50.6 (H) 25.0 - 45.0 % [facility] DEPARTMENT OF PATHOLOGY AND GENOMIC MEDICINE Monocytes 7.6 0.0 - 10.0 % [facility] DEPARTMENT OF PATHOLOGY AND GENOMIC MEDICINE Eosinophils 1.9 0.0 - 5.0 % [facility] DEPARTMENT OF PATHOLOGY AND GENOMIC MEDICINE Basophils 0.4 0.0 - 1.0 % [facility] DEPARTMENT OF PATHOLOGY AND GENOMIC MEDICINE Specimen Blood Performing Organization Address [facility] Phone Number [address] [place] [address] PATHOLOGY [facility] * Lipase level (09/08/2018 6:30 PM CDT) Lipase 18 13 - 60 U/L [facility] DEPARTMENT OF PATHOLOGY AND GENOMIC MEDICINE Specimen Plasma specimen Performing Organization Address [facility] Phone Number [address] [place] [address] PATHOLOGY [facility] * Comprehensive metabolic panel (09/08/2018 6:30 PM CDT) Sodium 138 135 - 148 mEq/L [facility] DEPARTMENT OF PATHOLOGY AND GENOMIC MEDICINE Potassium 4.0 3.5 - 5.0 mEq/L [facility] DEPARTMENT OF PATHOLOGY AND GENOMIC MEDICINE Chloride 103 98 - 112 mEq/L [facility] DEPARTMENT OF PATHOLOGY AND GENOMIC MEDICINE CO2 24 24 - 31 mEq/L [facility] DEPARTMENT OF PATHOLOGY AND GENOMIC MEDICINE Anion gap 11@ANIO 7 - 15 mEq/L [facility] DEPARTMENT OF PATHOLOGY AND GENOMIC MEDICINE BUN 21 8 - 23 mg/dL [facility] DEPARTMENT OF PATHOLOGY AND GENOMIC MEDICINE Creatinine 0.70 0.50 - 0.90 mg/dL [facility] DEPARTMENT OF PATHOLOGY AND GENOMIC MEDICINE Glucose 81 65 - 99 mg/dL [facility] DEPARTMENT OF PATHOLOGY AND GENOMIC MEDICINE Calcium 9.5 8.8 - 10.2 mg/dL [facility] DEPARTMENT OF PATHOLOGY AND GENOMIC MEDICINE Protein 7.6 6.3 - 8.3 g/dL [facility] DEPARTMENT OF Comment: PATHOLOGY AND GENOMIC MEDICINE 4.6-7.0 g/dL 1 week 4.4-7.6 g/dL 7 months-1year 5.1-7.3 g/dL 1-2 years5.6-7 .5 g/dL >3 years6.0-8 .0 g/dL 18-150 6.3-8.3 g/dL Albumin 4.2 3.5 - 5.0 g/dL [facility] DEPARTMENT OF PATHOLOGY AND GENOMIC MEDICINE A/G ratio 1.2 0.7 - 3.8 [facility] DEPARTMENT OF PATHOLOGY AND GENOMIC MEDICINE Alkaline phosphatase 69 35 - 104 U/L [facility] DEPARTMENT OF PATHOLOGY AND GENOMIC MEDICINE AST 21 10 - 35 U/L [facility] DEPARTMENT OF PATHOLOGY AND GENOMIC MEDICINE ALT 17 5 - 50 U/L [facility] DEPARTMENT OF PATHOLOGY AND GENOMIC MEDICINE Total bilirubin 0.3 0.0 - 1.2 mg/dL [facility] DEPARTMENT OF PATHOLOGY AND GENOMIC MEDICINE Specimen Plasma specimen Performing Organization Address City/State/Zipcode Phone Number [facility] DEPARTMENT [address] [place] [address] PATHOLOGY AND GENOMIC MEDICINE after 02/08/2018 Insurance Payer Benefit Subscriber ID Type Phone Address Plan / Group [facility] MEDICARE [facility] DUAL xxxxxxxxx HMO COMPLETE MCR Advance Directives Patient has advance care planning documents on file. For more information, bailey hammer contact: Leon Zarco [address] [place] [address]
[2019-02-09 21:07] VITALS: BP 167/72
[2019-02-09 21:57] VITALS: BP 167/72
[2019-02-10] VITALS (9 sets, daily range): BP systolic 11–143; BP diastolic 56–78
[2019-02-10] MEDS ORDERED: AMITIZA24 MCG PO (00:55)
[2019-02-10] MEDS ORDERED: IRBESARTAN150 MG PO (00:55)
[2019-02-10] MEDS ORDERED: TUMS300 MG PO (00:55)
[2019-02-10] MEDS ORDERED: ONE DAILY MULT1 EAC1 PO (00:55)
[2019-02-10] MEDS ORDERED: [UNRECOGNIZED DRUG - MIXTURE] PO (00:55)
[2019-02-10 01:17] LABS: CREATINE KINASE MB 1.2 ng/mL (0-5.0)
[2019-02-10] MEDS: FAMOTIDINE 20 MG TAB PO SCH ×2 (07:15→20:11)
--- NOTE | 2019-02-10 07:30 | NUR ---
PT RESTING IN BED AA0X3. FAMILY IS AT BEDSIDE. PT IS IN NO S.S OF DISTRESS. PT IS CONNECTED TO TELE THAT IS READING SR AT THIS TIME. PT HAS A RIGHT EJ SL THAT IS PATENT AND INTACT. PT IS AWARE OF PLAN OF CARE FOR TODAY (WAIT ON ADMITTING MD TO ROUND, PENDING ECHO, PENDING CAROTID DOPPLER). PT HAS QUESTIONS ABOUT HOME MEDICATIONS. STATES SHE TOOK HOME MEDICATIONS LAST NIGHT. INSTRUCTED PT THAT WHEN ADMITTING MD ROUND THEY USUALLY LOOK OVER MEDICATIONS AND RESTART THEM THEY BELIEVE ARE NECESSARY. PT VERBALIZES UNDERSTANDING. WILL CONTINUE CARE AT THIS TIME, SIDE RAILSX2, BED WHEELS LOCKED, CALL LIGHT IS WITHIN EASY REACH, INSTRUCTED TO CALL BEFORE GETTING UP AND IF NEEDING ANY ASSISTANCE.
[2019-02-10 08:07] LABS: BASOPHILS % 0.7 % (0.0-1.0); EOSINOPHILS # (AUTO) 0.1 (0.0-0.4); EOSINOPHILS % 2.4 % (0.0-6.0); HEMATOCRIT 34.3 % (34.2-44.1); HEMOGLOBIN 10.6 g/dL (12.0-16.0); LYMPHOCYTES # (AUTO) 3.3 (1.0-3.2); MEAN CORPUSCULAR HEMOGLOBIN 29.1 pg (28-32); MEAN CORPUSCULAR HGB CONC 30.9 g/dL (31-35); MEAN CORPUSCULAR VOLUME 94.2 fL (81-99); MONOCYTES # (AUTO) 0.6 (0.2-0.8); MONOCYTES % 9.9 % (4.4-11.3); NEUTROPHILS # (AUTO) 1.8 (2.1-6.9); NEUTROPHILS % 30.8 % (38.7-80.0); PLATELET COUNT 162 x10e3/uL (140-360); RED BLOOD COUNT 3.64 x10e6/uL (3.6-5.1)
[2019-02-10 08:27] LABS: ANION GAP 10.7 mmol/L (8-16); BLOOD UREA NITROGEN 14 mg/dL (7-26); BUN/CREATININE RATIO 20 (6-25); CALCIUM 8.9 mg/dL (8.4-10.2); CARBON DIOXIDE 25 mmol/L (22-29); CHLORIDE 103 mmol/L (98-107); CHOL/HDL RATIO 1.9 (3.0-3.6); CHOLESTEROL 120 MD/DL (0-199); CREATININE, SERUM 0.69 mg/dL (0.57-1.11); EST GLOMERULAR FILTRATION RATE > 60 ML/MIN (60-); GLUCOSE 109 mg/dL (74-118); HDL CHOLESTEROL 63 MG/DL (40-60); LDL CHOLESTEROL 51 MG/DL (60-130); POTASSIUM 3.7 mmol/L (3.5-5.1); SODIUM 135 mmol/L (136-145); TRIGLYCERIDES 32 MG/DL (0-149)
[2019-02-10 08:46] LABS: CREATINE KINASE MB 1.5 ng/mL (0-5.0)
[2019-02-10] MEDS ORDERED: DEXTROSE 50% SYRINGE 50 ML IV PRN (09:00)
[2019-02-10] MEDS ORDERED: AMLODIPINE BESYLATE 10 MG TAB PO SCH (09:00)
[2019-02-10] MEDS ORDERED: ASPIRIN 81 MG ENTERIC COATED PO SCH (09:00)
[2019-02-10] MEDS ORDERED: IPRATROPIUM/ALBUTEROL SULFATE 4 GM INH INH PRN (09:00)
[2019-02-10] MEDS: CEFTRIAXONE SOD 1 GM/NS 50 ML 50 ML IV SCH (09:36)
[2019-02-10] MEDS: LUBIPROSTONE 24 MCG CAP PO SCH ×2 (09:37→16:56)
[2019-02-10] MEDS: IRBESARTAN 150 MG TAB PO SCH (09:37)
[2019-02-10] MEDS: CLOPIDOGREL BISULFATE 75 MG TAB PO SCH (09:38)
[2019-02-10] MEDS: SERTRALINE HCL 100 MG TAB PO SCH (09:38)
[2019-02-10] MEDS: TIZANIDINE HCL 4 MG TAB PO SCH ×3 (09:38→21:35)
[2019-02-10] MEDS: HYDROCODONE/APAP 10MG-325MG TAB PO PRN ×2 (10:01→22:08)
[2019-02-10 10:11] LABS: % IRON SATURATION 30 % (15-50); IRON 88 ug/dL (50-170); TOTAL IRON BINDING CAPACITY 298 ug/dL (261-478); TRANSFERRIN 213 mg/dL (180-382)
[2019-02-10] MEDS: INSULIN LISPRO 100 UNIT/1 ML 3ML VIAL SQ SCH ×3 (11:30→21:00)
--- NOTE | 2019-02-10 14:17 | Diagnostic Imaging Report ---
MRI BRAIN WO HISTORY: Syncope COMPARISON: Report from head CT dated 05/23/2017 (images not available) TECHNIQUE: Sagittal T2, axial T2, axial T1, axial T2/FLAIR, axial gradient echo (or susceptibility weighted), coronal T2/FLAIR, and axial diffusion weighted MR images of the brain were obtained without contrast. DISCUSSION: Scalp/bone marrow: Unremarkable. Brain sulci: Mildly prominent. Ventricles: Compensatory dilatation. Extra-axial spaces: Subtle 1 cm T2/FLAIR hyperintense dural lesion along the anterior left cerebellum may be a small meningioma; there is no significant mass effect. No additional masses or fluid collections. Parenchyma: Scattered T2/FLAIR hyperintense foci throughout the supratentorial white matter are likely chronic microvascular ischemic changes. Otherwise, no mass, hemorrhage, or acute vascular insults. Vessels: Normal flow voids in major arteries and veins. Sellar/Suprasellar region: Partially empty sella. Craniocervical junction: No abnormalities. Incidental findings: Both ocular lenses are thinned. IMPRESSION: 1. No acute intracranial abnormalities. 2. Mild supratentorial chronic microvascular ischemic change. 3. Mild generalized cerebral volume loss. 4. Subtle 1 cm T2/FLAIR hyperintense dural lesion along the anterior left cerebellum may be a small meningioma. No significant mass effect. Signed by: Dr. Robbin Vasquez M.D. on 02/10/2019 2:13 PM
[2019-02-10 16:46] LABS: CREATINE KINASE MB 0.9 ng/mL (0-5.0)
--- NOTE | 2019-02-10 17:05 | History and Physical ---
CONTINUATION: The CT scan of brain was not done, but we will obtain. We will check the patient's lab workup, TSH, and iron profile. Insulin sliding scale coverage. Resume some home medication. The patient is on telemetry at this time. MD ADRIEL Liu/DIVINA /[id number]
--- NOTE | 2019-02-10 17:05 | History and Physical ---
PRIMARY CARE PHYSICIAN: Dr. Adelaida Castro. IT RECRUITER: Dr. Chico Mccoy. CHIEF COMPLAINT: Sinus bradycardia and complete syncopal episode. HISTORY OF PRESENT ILLNESS: A 68 years old female, who has a complete syncopal episode not relating to position or any activity. The patient had this problem approximately five years ago, where she had a left carotid endarterectomy subsequently. The patient came in with heart rate in the 55 to 60. The patient is otherwise stable now. No chest pain. No shortness of breath. No dizziness now, but previously the patient did have some dizziness and blurry vision nonspecific to event. The patient is stable. PAST MEDICAL HISTORY: Left carotid disease status post left carotid endarterectomy five years ago, history of vagotomy, multiple abdominal surgery, complete hysterectomy, tonsillectomy. Osteoarthritis, chronic pain. SOCIAL HISTORY: The patient does not smoke or use alcohol. No recreational drugs. ALLERGIES: ASPIRIN. MEDICATIONS: Home medication, the patient on Norvasc, Lipitor, Plavix, Pepcid, hydralazine, Cisne, nebulizer treatment, irbesartan, Amitiza, metformin, multivitamins, sertraline, tizanidine, trazodone. REVIEW OF SYSTEMS: No chest pain. No shortness of breath. PHYSICAL EXAMINATION: VITAL SIGNS: Temperature is 98, blood pressure 128/58, pulse rate 59, respiration 20. GENERAL: The patient is not in acute distress. She is awake. HEENT: Normocephalic, atraumatic. Anicteric. NECK: Supple grossly. PULMONARY: Diminished breath sounds without any wheezing or rales. CARDIOVASCULAR: Bradycardia. No gross gallop or rub. ABDOMEN: Soft with positive bowel sounds. Multiple abdominal surgery. EXTREMITIES: No cyanosis or edema. NEUROLOGIC: No gross focal deficit. LABORATORY DATA: WBC is 8.1, hemoglobin 10.5, hematocrit 33.9, platelets 182. Chemistry, sodium 135, potassium 3.7, chloride 103, bicarb 25, BUN is 14, creatinine 0.7, glucose 109. LDL is 51. IMPRESSION: 1. Complete syncopal episode. 2. Urinary tract infection with urine of many bacteria, WBC 20, 1+ leukocyte esterase. 3. History of left carotid endarterectomy. 4. Sinus bradycardia. 5. Recurrent blurry vision, dizziness, nonspecific to event. PLAN: Consultation with Dr. Chico Mccoy. Carotid Doppler, echocardiogram. CT scan of the brain. MD ADRIEL Liu/IDVINA /[id number]
--- NOTE | 2019-02-10 18:20 | NUR ---
RECEIVED A CALL FROM [employer] ON FLOOR WHO WAS WITH PT AT THE TIME. [employer] REPORTS PT PASSED OUT WHILE WASHING HANDS IN RR. [employer] WAS ABLE TO GET PT TO SIT ON TOILE. NO FALL OCCURRED. UPON ARRIVAL TO THE ROOM. PT HAS ABOUT 3 EPISODES OF SYNCOPE BACK TO BACK. EASILY GAINING CONSCIOUS . ASSISTED PT TO WHEEL CHAIR INTO BED. VS TAKEN WHEN IN BED AND READ 133/62 WITH A HR OF 78. TEMPO OF 96.4 F AND A SAT OF 98% ON RA. BS TAKEN AND READ 168 NOTIFIED MD SANCHEZ, NOTIFIED OF WHAT HAPPENED ASKED IF PT HAD ANY PAUSE EPISODES ON TELE, CALLED [employer] ASSEMBLER CATERINA DID NOT NOT NOTE ANY PAUSES. PT HAS BEEN RUNNING SR ALL DAY. STATES THIS IS NOT CARDIAC RELATED NOTIFIED MD COWAN OF WHAT HAPPENED AND MY CONVERSATION WITH MD SANCHEZ. ORDERED STAT EKG AND CONSULT WITH MD MANZANO
--- NOTE | 2019-02-10 18:25 | NUR ---
TECH STAYED WITH PT WHILE DOCTORS WERE NOTIFIED. WHILE ON THE PHONE WITH MD COWAN, NATALI NOTIFIED ME PT IS HAVING ANOTHER EPISODE OF SYNCOPE WHILE LAYING IN BED RAPID RESPONSE CALLED MD LABOY SAW PT AND AGREED WITH PLAN OF CARE MD COWAN HAD JUST GIVEN ME (EKG AND NEUROLOGY CONSULT) V/S WERE AGAIN TAKEN ARE ARE WITHIN NORMAL LIMITS PLACED PT ON 02 NC 2L REGARDLESS BY RESPIRATORY. PT WAS ASSESSED, MD LABOY SPOKE WITH PT AND FAMILY AND STATED THAT NEUROLOGY WILL BE SEEING PT TO FURTHER ASSESS WHATS CAUSING THE EPISODES OF SYNCOPE NO FURTHER ORDERS GIVEN. MD LABOY SPOKE WITH MD MANZANO PERSONALLY ON THE PHONE. MD LABOY STATES MD MANZANO WILL BE HERE TOMORROW TO SEE PT EKG COMPLETE AND PT RHYTHM IS SR SIGNED BY MD LABOY HIMSELF
--- NOTE | 2019-02-10 19:03 | NUR ---
PT IS RESTING IN BED COMFORTABLY. FAMILY STATES SHE WILL STAY WITH PT ALL NIGHT . INSTRUCTED TO CALL IF NEEDED REPORT GIVEN TO [facility] AT THIS TIME
--- NOTE | 2019-02-10 19:15 | NUR ---
REPORT TAKEN FROM AM RN.WALKING ROUNDS DONE.ASSESSMENT DONE.AMBULATE.VOIDED.PT IS EXHAUSTED ON EXERTION.PROVIDED BED SIDE COMMODE AND EDUCATE THE PT.FAMILY MEMBER AT BED SIDE.BED LOCKED AND IN LOWEST POSITION.PHONE AND CALL LIGHT WITHIN REACH.INSTRUCTED TO CALL FOR ASSISTANCE NEEDED. FAMILY MEMBER AT BED SIDE.
--- NOTE | 2019-02-10 19:56 | Consultation ---
DATE OF CONSULTATION: 02/10/2019 Cardiac Consultation REASON FOR CONSULTATION: Syncope. HISTORY: This is one of several admissions. This is a 68-year-old lady, who is now with hypertension, bipolar disorder, peripheral arterial vascular disease, diabetes mellitus, COPD, and left carotid endarterectomy. The patient was not feeling well for a couple of days with nausea, vomiting, and diarrhea. She was sitting on the potty and she passed out. Prior passing out, she had lightheadedness and vomiting. She came to the emergency room, her blood pressure was on lowest side and more importantly she was bradycardic until now. Cardiac consultation is obtained. Serial cardiac enzymes are normal. Her BNP is normal. The patient was admitted and cardiac consultation is obtained. The patient had another episode of syncope 2 years ago. There is no seizure activity. The patient takes her medication as described. REVIEW OF SYSTEMS: A 14-point review of systems was done and will be summarized for clarity. GENERAL: No fever. No chills. HEENT: Congestion, hay fever, and cough at times. PULMONARY: No cough. No hemoptysis. No pleuritic chest pain. CARDIAC: No angina. Easy fatigability and shortness of breath on exertion. The patient's activities are quite limited. GI: Repeated bloating, indigestion, and acutely she is having diarrhea with nausea and vomiting. No hematemesis. No melena. : Stress incontinence. Increased frequency of urination. MUSCULOSKELETAL: Aches and pain all over, barely she can do any activity. She cannot move her legs. She needs assistance with lot of activity. NEUROLOGICAL: The patient denied having any local deficits. There is history of headache and weakness. PSYCHIATRIC: The patient now has bipolar disorder. Others, the patient is debilitated. Cannot do anything and she needs help and she does have chronic problem and anxiety. HOME MEDICATIONS: Long list including, Norvasc 10 mg a day, Lipitor 10 mg a day, Plavix 75 mg a day, hydralazine 25 mg t.i.d., Avapro 150 mg a day, metformin 500 mg twice a day, Zoloft, tizanidine, trazodone, calcium carbonate, ALLERGIES: PEPCID, "I HAVE ULCERS." PAST MEDICAL HISTORY: 1. Peripheral arterial vascular disease, status post left carotid endarterectomy. 2. Possible prior CVAs. 3. Diabetes mellitus. 4. Hypertension. 5. GERD. 6. Chronic pain syndrome. 7. Anxiety. 8. Bipolar disorder. 9. Migraine. 10. Repeated syncope. 11. Appendectomy. 12. Hysterectomy. 13. The patient denied having any prior cardiac intervention, although on reviewing her record in 2017, there is history of carotid stent, but the patient denied having that. 14. Cervical spine fusion surgery. SOCIAL HISTORY: The patient is ex-smoker, stopped many years ago. She is not alcohol drinker. She does not use any drugs. FAMILY HISTORY: There is a family history of diabetes mellitus, hypertension, and CVAs. PHYSICAL EXAMINATION: VITAL SIGNS: Height of 5 feet 2 inches, weight of 147 pounds. Blood pressure 110/60, heart rate of 60, respiratory rate of 18, and afebrile. HEENT: Pupils are reactive. NECK: There is scar on left neck. No elevation of jugular venous pulsation. No thyromegaly. No lymphadenopathy. CHEST: Clear to auscultation and percussion. HEART: PMI in fifth left intercoastal space. Normal first and second heart sounds. ABDOMEN: Soft with good bowel sounds. No organomegaly. No abdominal bruits. EXTREMITIES: No cyanosis, no clubbing, no edema. NEUROLOGIC: Awake, alert, and oriented. No motor deficit. LABORATORY DATA: Sodium of 135, potassium is 3.7, BUN of 14, creatinine of 0.7. Hemoglobin of 10.6, hematocrit 34%. Triglycerides of 52, cholesterol of 120, HDL of 63, LDL of 51. EKG showing sinus bradycardia. Chest x-ray showed normal-sized heart. Cervical fusion is noted. IMPRESSION AND PLAN: 1. Syncope. 2. Peripheral arterial vascular disease, status post left carotid endarterectomy. 3. Hypertension. 4. Diabetes mellitus. 5. Chronic pain syndrome. 6. Past history of cerebrovascular accident. 7. Bipolar disorder. 8. Anxiety. 9. Aches and pain. 10. Bradycardia documented. The patient we will recommend to keep her on telemetry to decrease her antihypertensive medication, to review her echo, carotid Doppler, the patient was supposed to have MRI. We will keep her on telemetry. We will check thyroid function tests. This visit was very long for more than 80 minutes with discussion and lot of questioning and all risks were addressed. MD JESSI Carroll/DIVINA /[id number]
[2019-02-10] MEDS: TRAZODONE HCL 50 MG TAB PO SCH (21:30)
[2019-02-10] MEDS: ATORVASTATIN 10 MG TAB PO SCH (22:09)
[2019-02-11] VITALS (10 sets, daily range): BP systolic 109–222; BP diastolic 51–109
--- NOTE | 2019-02-11 01:49 | NUR ---
PT IS RESTING IN THE BED.STABLE CONDITION.
--- NOTE | 2019-02-11 04:00 | NUR ---
PATIENT AND FAMILY REFUSED TO CHECK V/S.
[2019-02-11 05:40] LABS: BASOPHILS % 0.4 % (0.0-1.0); EOSINOPHILS # (AUTO) 0.2 (0.0-0.4); EOSINOPHILS % 3.3 % (0.0-6.0); HEMATOCRIT 35.6 % (34.2-44.1); LYMPHOCYTES # (AUTO) 4.1 (1.0-3.2); LYMPHOCYTES % 61.2 % (18.0-39.1); MEAN CORPUSCULAR HEMOGLOBIN 28.7 pg (28-32); MEAN CORPUSCULAR HGB CONC 30.9 g/dL (31-35); MONOCYTES # (AUTO) 0.6 (0.2-0.8); MONOCYTES % 9.5 % (4.4-11.3); NEUTROPHILS # (AUTO) 1.7 (2.1-6.9); NEUTROPHILS % 25.5 % (38.7-80.0); PLATELET COUNT 177 x10e3/uL (140-360); RED BLOOD COUNT 3.83 x10e6/uL (3.6-5.1); RED CELL DISTRIBUTION WIDTH 13.1 % (11.7-14.4)
[2019-02-11 05:59] LABS: ANION GAP 10.2 mmol/L (8-16); BLOOD UREA NITROGEN 11 mg/dL (7-26); BUN/CREATININE RATIO 16 (6-25); CARBON DIOXIDE 27 mmol/L (22-29); CHLORIDE 107 mmol/L (98-107); EST GLOMERULAR FILTRATION RATE > 60 ML/MIN (60-); GLUCOSE 87 mg/dL (74-118); POTASSIUM 4.2 mmol/L (3.5-5.1); SODIUM 140 mmol/L (136-145)
--- NOTE | 2019-02-11 06:50 | NUR ---
RESTED WELL DURING NIGHT.REPORT GIVEN TO THE ONCOMING RN.WALKING ROUNDS DONE.STABLE CONDITION.
--- NOTE | 2019-02-11 07:00 | NUR ---
bedside rounds complete, pt stable denies pain at this time, updated on poc voiced understanding, call light in reach will continue to monitor
[2019-02-11] MEDS: INSULIN LISPRO 100 UNIT/1 ML 3ML VIAL SQ SCH ×4 (07:30→21:56)
[2019-02-11] MEDS: HYDROCODONE/APAP 10MG-325MG TAB PO PRN ×2 (10:57→21:56)
[2019-02-11] MEDS: IRBESARTAN 150 MG TAB PO SCH (10:59)
[2019-02-11] MEDS: CEFTRIAXONE SOD 1 GM/NS 50 ML 50 ML IV SCH (10:59)
[2019-02-11] MEDS: TIZANIDINE HCL 4 MG TAB PO SCH (10:59)
[2019-02-11] MEDS: LUBIPROSTONE 24 MCG CAP PO SCH ×2 (10:59→17:00)
[2019-02-11] MEDS: CLOPIDOGREL BISULFATE 75 MG TAB PO SCH (10:59)
[2019-02-11] MEDS: SERTRALINE HCL 100 MG TAB PO SCH (10:59)
[2019-02-11] MEDS: FAMOTIDINE 20 MG TAB PO SCH ×2 (10:59→21:54)
[2019-02-11] MEDS ORDERED: TIZANIDINE HCL 4 MG TAB PO PRN (14:15)
--- NOTE | 2019-02-11 18:25 | NUR ---
called to rm, pt sitting in chair, family informed nurse pt passed out, pt awake, pt placed back to bed, bp 188/84, pt had another syncope episode lasting approximately 20 secs then awakens,bp now 207/93, will notify dr hernandez
--- NOTE | 2019-02-11 18:35 | NUR ---
spoke with dr hernandez re: pt syncope episode, bp 214/91,65, tele sr, new orders noted
--- NOTE | 2019-02-11 18:43 | NUR ---
pt having multiple syncope episode, rapid response called, team arrived, dr hodges spoke with dr lopez new orders placed, dr mcmahon and dr hernandez notified ,family aware and at bedside, vs 222/109,70, 100%, see rapid response sheet for further orders.
[2019-02-11] MEDS ORDERED: HYDRALAZINE HCL 20 MG/ML VIAL ONE (18:54)
[2019-02-11] MEDS: AMLODIPINE BESYLATE 5 MG TAB PO SCH (19:02)
[2019-02-11] MEDS ORDERED: HYDRALAZINE HCL 20 MG/ML VIAL IV PRN (19:15)
[2019-02-11] MEDS ORDERED: HYDRALAZINE HCL 20 MG/ML VIAL IV ONE (19:30)
--- NOTE | 2019-02-11 19:30 | NUR ---
Patient laying in bed with HOB slightly elevated. No sob noted. no acute distress noted. Patient reports on no pain at this time, 0/10. Reminded patient to utilize call light when assistance is needed. Bed at low position and locked. Patient in stable condition and will continue to monitor.
[2019-02-11] MEDS: ATORVASTATIN 10 MG TAB PO SCH (21:54)
[2019-02-11] MEDS: TRAZODONE HCL 50 MG TAB PO SCH (21:54)
[2019-02-11] MEDS: DONEPEZIL HCL 5 MG TAB PO SCH (21:54)
--- NOTE | 2019-02-11 23:56 | NUR ---
Received report from nurse. Patient from room 114 to room 199.
[2019-02-12] VITALS (9 sets, daily range): BP systolic 102–148; BP diastolic 65–76
--- NOTE | 2019-02-12 01:00 | NUR ---
Report given to nurse.
[2019-02-12] MEDS: HYDROCODONE/APAP 10MG-325MG TAB PO PRN ×3 (01:17→21:31)
--- NOTE | 2019-02-12 02:35 | NUR ---
Report received from DEDRA Gorman. Patient alert/orinetedx3. Denied pain and no SOB. Respiration even and unlabored. Head to toe assessment completed. No skin issued noted.Family at the bedside. Bed in lower position,locked. call lanier within reach. Will continue to monitor.
--- NOTE | 2019-02-12 04:48 | NUR ---
At 2356, report given to RN in IMCU and patient transferred.
--- NOTE | 2019-02-12 07:12 | NUR ---
Report given to AM nurse,walking round done.
[2019-02-12] MEDS: INSULIN LISPRO 100 UNIT/1 ML 3ML VIAL SQ SCH ×4 (07:30→21:00)
[2019-02-12] MEDS: CLOPIDOGREL BISULFATE 75 MG TAB PO SCH (11:01)
[2019-02-12] MEDS: FAMOTIDINE 20 MG TAB PO SCH ×2 (11:38→19:15)
[2019-02-12] MEDS: CEFTRIAXONE SOD 1 GM/NS 50 ML 50 ML IV SCH ×2 (11:39→12:01)
[2019-02-12] MEDS ORDERED: SODIUM CHLORIDE 0.9% 250ML 250 ML ONE (11:44)
[2019-02-12] MEDS: LUBIPROSTONE 24 MCG CAP PO SCH ×2 (12:17→17:24)
[2019-02-12] MEDS: AMLODIPINE BESYLATE 5 MG TAB PO SCH ×2 (12:17→17:24)
[2019-02-12] MEDS: IRBESARTAN 150 MG TAB PO SCH (12:17)
--- NOTE | 2019-02-12 18:51 | Electroencephalogram ---
DATE OF STUDY: 02/12/2019 REQUESTING PHYSICIAN: Nubia Tamez MD HISTORY: This 68-year-old woman with history of multiple syncopal events is having an EEG for evaluation of epileptiform activity. The patient is not taking any medications which might affect the EEG. TECHNIQUE: This is a STAT, portable EEG, recorded digitally, using the International 10/20 electrode placement system, and done in the inpatient setting with the patient awake and asleep. The EEG is adequate for interpretation. DESCRIPTION: Well-organized, well-sustained, 9-10 Hz activity is best seen symmetrically over the posterior head regions. No focal or epileptiform activity is recorded. Sleep is recorded with well-organized sleep spindles and vertex waves. Photic stimulation does produce a driving response. Hyperventilation is not performed. INTERPRETATION: This EEG is normal with the patient awake and asleep. No epileptiform discharges are seen. Clinical correlation is recommended. Nubia Tamez MD CP/MODL /[id number] MTDD
--- NOTE | 2019-02-12 19:41 | NUR ---
Received change of shift report from AM nurse. Rounds completed.
[2019-02-12] MEDS: ATORVASTATIN 10 MG TAB PO SCH (21:00)
[2019-02-12] MEDS: TRAZODONE HCL 50 MG TAB PO SCH (21:00)
[2019-02-12] MEDS: DONEPEZIL HCL 5 MG TAB PO SCH (21:00)
--- NOTE | 2019-02-13 | NUR ---
Patient AAOx3. Up to bedside commode to void. Voided 300cc of yellow urine. Patient denies pain at this time. Patient stable on her feet. Patient received a bath given by family. Patient stated I feel great.
--- NOTE | 2019-02-13 00:02 | Consultation ---
DATE OF CONSULTATION: 02/12/2019 Neurology Consult Note HISTORY OF PRESENT ILLNESS: Ms. Aguilar is a 68-year-old [id number]-[id number] woman with an extensive past medical history, admitted to [facility] on February 10, 2019, following multiple syncopal events. Ms. Aguilar describes the events as follows: Immediately prior to the event, the patient experiences shortness of breath, tunneling of vision, dizziness which is further described as lightheadedness, nausea, and generalized weakness. Immediately following the abrupt onset of these symptoms, the patient will lose consciousness. Ms. Aguilar reports the duration of unconsciousness as unknown. However, according to multiple hospital staff members who have witnessed these events, the period of unconsciousness lasts only seconds. Ms. Aguilar does not report generalized tonic-clonic activity, tongue biting, or bladder or bowel incontinence associated with the events. When she regained consciousness, the patient is usually oriented to self, those around her, and environment. Ms. Aguilar does not report experiencing a headache or diffuse myalgias following regaining consciousness. Furthermore, the patient does not report chest pain or tightness, palpitations, numbness, tingling, or an epigastric rising sensation immediately prior to or after loss of consciousness. Ms. Aguilar has experienced multiple syncopal events over the past few days. The patient does not report a history of febrile seizures. She has no known personal history of seizures. There is no known family history of seizures. The patient does not report prior head trauma. She does not endorse prior meningitis or encephalitis. Ms. Aguilar experienced multiple syncopal events approximately two years ago. At that time, she was found to have 100% blockage of the cardiac artery. REVIEW OF SYSTEMS: Shortness of breath, nausea, chronic constipation, tunneling of vision, generalized weakness, syncope. Otherwise, a 12-point review of systems is negative. 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 PAST SURGICAL HISTORY: Multiple gastrointestinal procedures, hysterectomy, left carotid endarterectomy, cervical spine surgery with hardware placement, tonsillectomy, appendectomy, bilateral cataract removal. PAST HOSPITALIZATIONS: Surgeries/procedures as listed, multiple other hospitalizations, including two hospitalizations at psychiatric facilities. FAMILY MEDICAL HISTORY: The patient's paternal and maternal grandparents are . Their medical histories are unknown. The patient's father is from suicide. Her mother is from coronary artery disease. Ms. Aguilar had five siblings, two brothers, and three sisters. One brother is from alcoholic cirrhosis. The second brother is alive, but has alcoholic cirrhosis as well. One sister is from gastrointestinal cancer. The other two sisters are alive, but their medical histories are unknown. Ms. Aguilar has five children, three sons and two daughters, all of whom are alive. One son has diabetes mellitus. The other son is obese and has peripheral neuropathy. The medical history of the third son is unknown. Ms. Aguilar is estranged from this son. One daughter has gallstones. The second daughter has hypertension, peripheral neuropathy, and is obese. SOCIAL HISTORY: The patient is . She lives alone in an apartment. Ms. Aguilar is retired. The patient does report a prior history of tobacco use, but quit smoking cigarettes 8 to 9 years ago. The patient does report a prior history of alcohol use, but quit drinking alcohol 25 plus years ago. There is no reported current or prior recreational drug use. HOME MEDICATIONS: Reviewed. Please see list of home medications available in the electronic medical record. HOSPITAL MEDICATIONS: Reviewed. Please see the list of hospital medications available in the electronic medical record. ALLERGIES: ASPIRIN. NO KNOWN FOOD ALLERGIES. THE PATIENT DOES REPORT AN ALLERGY TO LATEX. NO KNOWN ALLERGIES TO IODINE OR OTHER CONTRAST MATERIALS. PHYSICAL EXAMINATION: VITAL SIGNS: Height 62 inches, weight 147 pounds, BMI 26.9 kg/m2. Blood pressure 136/65 mmHg, pulse 70 beats per minute, respiratory rate 19 breaths per minute, oxygen saturation 100% on BiPAP. GENERAL: The patient is awake and alert, does not appear distressed. HEENT: Normocephalic, atraumatic. Pupils are equal, round, and reactive to light. Moist mucous membranes. NECK: Supple. No appreciable thyromegaly. No appreciable carotid bruits. CARDIOVASCULAR: S1, S2, regular rate and rhythm. No murmurs, rubs, or gallops. RESPIRATORY: Clear to auscultation bilaterally. No wheezes, rhonchi, or rales. EXTREMITIES: The skin is warm and dry. No clubbing, cyanosis, or edema. The posterior tibial and dorsalis pedis pulses are 1+ and symmetric. SKIN: No rashes or lesions. NEUROLOGIC: Memory/attention: The patient is awake and alert, oriented to person, place, time, and situation. Cranial nerves: Cranial nerve I - not tested. Cranial nerve II, III, IV, and - pupils are equal and round, react sluggishly to light (from 4 mm to 2 mm). Extraocular movements intact. No nystagmus. Cranial nerve V - sensation to light touch is intact in the bilateral V1 through V3 distributions. Strength in the temporalis and masseter muscles is within normal limits. Cranial nerve VII - the face is symmetric as are all facial movements. Strength is within normal limits. Cranial nerve VIII - hearing is intact to finger rub bilaterally. Cranial nerve IX, X - the soft palate elevates equally and symmetrically. Cranial nerve XI - normal strength of the bilateral sternocleidomastoid and trapezius muscles. Cranial nerve XII - the tongue protrudes midline and moves symmetrically from [id number]. Strength: Bulk is diminished throughout. Strength is 5/5 in the bilateral deltoids, biceps, triceps, wrist flexors and extensors, finger flexors and extensors, intrinsic hand muscles, hip flexors, knee flexors and extensors, ankle dorsiflexion and plantar flexion, and intrinsic foot muscles. Tone is normal. DTRs: Deep tendon reflexes are 2+ and symmetric at the triceps, biceps, brachioradialis, and patellas. Deep tendon reflexes are 1+ and symmetric at the Achilles. Plantar responses are flexor bilaterally. Sensation: Sensation is intact to light touch in both arms and both legs. Cerebellar: Pwcylk-xwhw-kyvdlf and heel-day movements are intact without dysmetria or other impairment. Gait: Deferred. Speech: Spontaneous speech is normal without appreciable dysarthria or aphasia. Repetition is intact. Involuntary movements: None. Pronator drift: None. LABORATORY DATA: The most recent basic metabolic panel is unremarkable. Vitamin B12 is 910, TSH 1.426, folate 15.9. Total cholesterol 120, triglycerides 32, LDL cholesterol 51, HDL cholesterol 63. A liver function panel collected on February 09, 2019, is unremarkable. B-natriuretic peptide 86.0. Cardiac enzymes are negative x4. The CBC with differential and platelets revealed white blood cell count of 6.73 with a right shift with 25.5% neutrophils, 61.2% lymphocytes, 9.5% monocytes, 3.3% eosinophils, and 0.4% basophils. The hemoglobin and hematocrit are 11.0 and 35.6, respectively. The platelet count is 177. A coagulation profile is unremarkable. D-dimer quantitative 0.24. A urinalysis collected on February 09, 2019, revealed slightly cloudy urine with trace protein, 1+ leukocyte esterase, 11 to 20 white blood cells, and many urine bacteria. A urine culture collected on February 09, 2019, grew mixed marie. DIAGNOSTIC STUDIES: 1. Electrocardiogram, 02/11/2019: Sinus rhythm at 64 beats per minute with premature atrial complexes. 2. Echocardiogram, 02/10/2019: Ejection fraction 65%. Trace mitral and tricuspid regurgitation. 3. Bilateral carotid artery ultrasound with Doppler, 02/10/2019: There is no atherosclerosis in either carotid artery system. There are findings consistent with the left carotid endarterectomy. Flow was antegrade in the bilateral vertebral arteries. 4. Chest x-ray, 02/09/2019: No evidence for acute disease. 5. MRI of the brain without contrast, 02/10/2019: On my review, there is no evidence of recent large territorial ischemia, hemorrhage, mass, or mass effect. There is mild diffuse cerebral atrophy with compensatory dilatation of the ventricles, more than expected for the patient's age. There are scattered nonspecific T2/FLAIR hyperintense foci throughout the supratentorial white matter compatible with mild chronic small vessel ischemic disease. There is a subtle 1 cm T2/FLAIR hyperintense dural lesion along the anterior left cerebellum, which may represent a small meningioma. There is no significant mass effect. 6. EEG, 02/12/2019: Normal study. ASSESSMENT AND PLAN: Ms. Aguilar is a 68-year-old [id number]-[id number] woman with an extensive past medical history admitted to [facility] on February 10, 2019, with multiple syncopal events as described in the history of present illness. The patient's neurological examination is nonfocal. Her laboratory data and other diagnostic studies have been reviewed and are documented above. There are no findings on the patient's neuroimaging nor on the electroencephalogram to suggest an underlying predisposition towards seizures (i.e. epilepsy). Furthermore, there is nothing in the patient's history nor on her neurological examination suggestive of an underlying neurological disorder. Therefore, it is very unlikely her syncopal events are neurological in origin. No further diagnostic studies or treatment are recommended at this time from a Neurology perspective. If there continues to be concern for an underlying seizure disorder, consider prolonged EEG monitoring as an outpatient. Please call again with any questions or concerns. Time spent: 70 minutes. Nubai Tamez MD CP/DIVINA /[id number] MTDD
[2019-02-13 00:19] VITALS: BP 130/62
[2019-02-13 04:11] VITALS: BP 142/75
--- NOTE | 2019-02-13 04:32 | NUR ---
Patient resting quitly at this time. Continue monitor.
--- NOTE | 2019-02-13 06:59 | NUR ---
Report given to incoming nurse.
[2019-02-13] MEDS: INSULIN LISPRO 100 UNIT/1 ML 3ML VIAL SQ SCH (07:30)
[2019-02-13] MEDS: FAMOTIDINE 20 MG TAB PO SCH (07:58)
[2019-02-13 08:00] VITALS: BP 121/87
[2019-02-13] MEDS: LUBIPROSTONE 24 MCG CAP PO SCH (08:15)
[2019-02-13] MEDS: IRBESARTAN 150 MG TAB PO SCH (08:15)
[2019-02-13] MEDS: CEFTRIAXONE SOD 1 GM/NS 50 ML 50 ML IV SCH (08:15)
[2019-02-13] MEDS: HYDROCODONE/APAP 10MG-325MG TAB PO PRN (08:15)
[2019-02-13] MEDS: AMLODIPINE BESYLATE 5 MG TAB PO SCH (08:15)
[2019-02-13] MEDS: CLOPIDOGREL BISULFATE 75 MG TAB PO SCH (08:15)
[2019-02-13] MEDS ORDERED: SERTRALINE HCL 100 MG TAB PO SCH (09:00)
--- NOTE | 2019-02-13 11:01 | NUR ---
PATIENT DISCHARGED AT THIS TIME EDUCATION AND F/U INSTRUCTIONS GIVEN IV DCD. NO QUESTIONS VERBALIZED AT TIME OF DC
--- NOTE | 2019-02-13 12:21 | Discharge Summary ---
PRIMARY CARE PHYSICIAN: Dr. Adelaida Castro. CONSULTANTS: 1. Dr. Chico Mccoy. 2. Dr. Nubia Tamez. FINAL DIAGNOSES: 1. Recurrent multiple syncopal episodes, both at home and while hospitalization. 2. Hypertensive urgency. 3. Episodic bradycardia. 4. Extensive both neurological and cardiac workup with the following results. MRI of the brain showed no acute intracranial abnormalities. Subtle 1 cm hyperintense dural lesion along the anterior left cerebellum, may be a small meningioma, but no significant mass effect. This is an old lesion per patient. EEG done on February 12, 2019, with negative seizure report. Carotid Doppler is negative for any significant stenosis. Echocardiogram showed ejection fraction of 65%. There is no significant abnormality. SUMMARY: The patient is a 68-year-old female with multiple medical problems including bipolar disorder, hypertension, dyslipidemia, diabetes type 2, complicated with peripheral neuropathy, coronary artery disease, chronic obstructive pulmonary disease, osteoarthritis, history of peptic ulcer disease, prior history of migraine, history of left carotid artery stenosis with left carotid endarterectomy. She also had multiple GI procedures, hysterectomy, cervical spine surgery, hardware placement, tonsillectomy, appendectomy, and bilateral cataract removal. Presented to the emergency room with a complete syncopal episode at home. At that time, when the patient presented to the emergency room, her EKG showed her heart rate was 54, but since then the heart rate has been stabilized at 65 to 70, normal sinus rhythm. The patient is not on any beta-eddie or any rate control medication. The patient while workup here in the hospital, she had multiple recurrent passing-out episodes, where rapid response was called. When she completely passed out, she was not able to be awake, even with sternal rub. The patient was completely out when she had the syncopal episode in the hospital here. But when she woke up, she is completely coherent and there was no confusion. There was no generalized convulsion. The patient had no tongue biting or any signs of seizure activity, however. Dr. Tamez did see the patient and did a very complete neurological evaluation and history. So far, Dr. Tamez did not find any evidence of sign or symptom or any clinical findings to suggest that the patient had any seizure or epilepsy. She suggests that if recurrent, the patient may need EEG monitoring as an outpatient. With respect to Cardiology, Dr. Chico Mccoy, also did a complete evaluation of the patient telemetry when she had the syncopal episode. There were no changes in EKG or monitoring where it was a normal sinus rhythm. There is no sign of arrhythmia. Workup completely unremarkable with respect to the patient's syncopal episode. Her medication was adjusted with muscle relaxer to take as needed; Zoloft daily. Overnight, the patient had not had any other episodes of passing out. At this time, discussed with discussed about the results and also the planning for followup with her neurologist. They both agreed that the patient will go home and follow up for any further workup if needed. There is a possibility of pseudoseizure and explained to the patient and the daughter and they both agree for close monitoring for any other episodes. At this time the patient is stable. We will send the patient home. Continue with home medication with some suggestion of adjustment. The patient will follow her neurologist as an outpatient for further evaluation and possible prolonged monitoring if needed. The patient is otherwise stable medically, discharged today. MD ADRIEL Liu/DIVINA /[id number]
== END 2019-02-13 10:50 | disposition home or self-care (01) | DRG 312 ==
LOC: ER 14:44 → ERHOLD 19:14 → MED/SURG 21:07 → OBSVTOIN 02-10 09:02 → IMCU 02-12 00:29
PROVIDERS: ADMIT Internal Medicine; ATTEND Internal Medicine
DX: R55 Syncope and collapse (principal); N39.0 Urinary tract infection, site not specified; R00.1 Bradycardia, unspecified; I16.0 Hypertensive urgency; F31.9 Bipolar disorder, unspecified; E78.5 Hyperlipidemia, unspecified; E11.42 Type 2 diabetes mellitus with diabetic polyneuropathy; Z79.4 Long term (current) use of insulin; I25.10 Atherosclerotic heart disease of native coronary artery without angina pectoris; Z87.11 Personal history of peptic ulcer disease; J44.9 Chronic obstructive pulmonary disease, unspecified; M19.90 Unspecified osteoarthritis, unspecified site; G43.909 Migraine, unspecified, not intractable, without status migrainosus; Z86.73 Personal history of transient ischemic attack (TIA), and cerebral infarction without residual deficits; F03.90 Unspecified dementia, unspecified severity, without behavioral disturbance, psychotic disturbance, mood disturbance, and anxiety; F41.9 Anxiety disorder, unspecified; D32.0 Benign neoplasm of cerebral meninges; I65.22 Occlusion and stenosis of left carotid artery
CPT/HCPCS: 36415; 70551; 71045; 80048; 80053; 80061; 81001; 82550; 82553; 82607; 82746; 82948; 83540; 83880; 84443; 84466; 84484; 85025; 85379; 85610; 85730; 87086; 93005; 93306; 93880; 94660; 95812; 97139; 99284; G0378; J0360; J0696; J7050

== ENCOUNTER 2019-05-11 11:29 | Emergency (ER) | payer MEDICARE, OTHER ==
[~2019-05-11] VITALS: Ht 157.5 cm; Wt 65.8 kg
[~2019-05-11 11:29] MED LIST changes: +AMITIZA24 MCG PO; +IRBESARTAN150 MG PO; +ONE DAILY MULT1 EAC1 PO; +TUMS300 MG PO; +[UNRECOGNIZED DRUG - MIXTURE] PO
--- OUTSIDE RECORDS SUMMARY | 2019-05-11 11:32 | XMS REPORT | Clinical Summary ---
Author Author [facility] Address Unknown Phone Unavailable Care Team Providers Care Avionics Systems Technician Name Role Phone Adelaida Castro MD PCP [...] Flank pain 09/08/2018 Emergency Emergency Medicine after 05/10/2018 Social History Date Tobacco Use Types Packs/Day [...] Last Done Comments BREAST CANCER SCREENING 1999 COLONOSCOPY SCREENING 1999 SHINGLES VACCINES (#1) 1999 65+ PNEUMOCOCCAL VACCINE 2014 (1 of 2 - PCV13) INFLUENZA VACCINE 06/30/2019 Procedures Comments Procedure Name Priority Date/Time Associated [...] 09/08/2018 W/AUTO DIFF 6:30 PM CDT after 05/10/2018 Results * XR Lumbar Spine Complete 4+ Vw (09/08/2018 8:20 PM CDT) Specimen Narrative Performed At EXAMINATION: XR LUMBAR SPINE COMPLETE 4VW [facility] CLINICAL HISTORY: Back [id number] conservative txpersistent sx COMPARISON:None IMPRESSION: Vertebral body [...] in the region of the gastroesophageal junction. [id number] Procedure Note Hm Interface, Radiology Results Incoming [...] in the region of the gastroesophageal junction. [id number] Performing Organization Address City/State/Zipcode Phone Number [facility] [address] [place] [address] * CT Renal Stone Protocol (09/08/2018 6:33 PM CDT) Specimen Narrative Performed At EXAMINATION:CT RENAL STONE PROTOCOL [facility] CLINICAL HISTORY:Flank painrecurrent stone disease suspected [...] colitis or bowel obstruction. Unremarkable exam otherwise. [id number] Procedure Note Hm Interface, Radiology Results Incoming [...] colitis or bowel obstruction. Unremarkable exam otherwise. [id number] Performing Organization Address City/[facility]/Zipcode Phone Number [facility] [address] [place] [address] * Urinalysis screen and microscopy, with reflex to culture (09/08/2018 6:30 PM CDT) Pathologist [facility] Specimen site Clean catch [facility] DEPARTMENT OF PATHOLOGY AND GENOMIC MEDICINE Color, UA Straw [facility] DEPARTMENT OF PATHOLOGY AND GENOMIC MEDICINE Appearance, UA Clear [facility] DEPARTMENT OF PATHOLOGY AND GENOMIC MEDICINE Specific 1.008 1.001 - 1.035 [facility] gravity, DEPARTMENT OF PATHOLOGY AND GENOMIC MEDICINE pH, UA 7.0 5.0 - 8.5 [facility] DEPARTMENT OF PATHOLOGY AND GENOMIC MEDICINE Protein, UA Negative Negative [facility] DEPARTMENT OF PATHOLOGY AND GENOMIC MEDICINE Glucose, UA Negative Negative [facility] DEPARTMENT OF PATHOLOGY AND GENOMIC MEDICINE Ketones, UA Negative Negative [facility] DEPARTMENT OF PATHOLOGY AND GENOMIC MEDICINE Bilirubin, UA Negative Negative [facility] DEPARTMENT OF PATHOLOGY AND GENOMIC MEDICINE Blood, UA Negative Negative [facility] DEPARTMENT OF PATHOLOGY AND GENOMIC MEDICINE Nitrite, UA Negative Negative [facility] DEPARTMENT OF PATHOLOGY AND GENOMIC MEDICINE Urobilinogen, Negative <2.0 [facility] DEPARTMENT OF PATHOLOGY AND GENOMIC MEDICINE Leukocyte Negative Negative [facility] esterase, DEPARTMENT OF PATHOLOGY AND GENOMIC MEDICINE Epithelial Few /HPF [facility] cells, DEPARTMENT OF PATHOLOGY AND GENOMIC MEDICINE WBC, UA 0-5 0 - 4 /HPF [facility] DEPARTMENT OF PATHOLOGY AND GENOMIC MEDICINE RBC, UA 0-5 0 - 5 /HPF [facility] DEPARTMENT OF PATHOLOGY AND GENOMIC MEDICINE Bacteria, UA Trace None seen [facility] DEPARTMENT OF PATHOLOGY AND GENOMIC MEDICINE Yeast, UA None seen [facility] DEPARTMENT OF PATHOLOGY AND GENOMIC MEDICINE Yeast with None seen [facility] pseudohyphae, DEPARTMENT OF PATHOLOGY AND GENOMIC MEDICINE Specimen Urine Performing Organization Address City/[facility]/Zipcode Phone Number [place] [address] [place] [address] PATHOLOGY AND GENOMIC MEDICINE * Estimated GFR (09/08/2018 6:30 PM CDT) [facility] Estimated GFR >=90 mL/min/1.73 m2 [facility] Comment: DEPARTMENT OF [employer]ory[employer]its[employer] PATHOLOGY AND rpretation GENOMIC G1 MEDICINE >=90 Normal or high G2 60-89Mildly decreased [id number] Mildly to moderately decreased [id number] Moderately to severely decreased G4 15-29Severely decreased G5 <15Kidney failure The eGFR was calculated using the Chronic Kidney Disease Epidemiology Collaboration (CKD-EPI) equation. Interpretation is based on recommendations of the National Kidney Foundation-Kidney Disease Outcomes Quality Initiative (NKF-KDOQI) published in 2014. Specimen Plasma specimen Performing Organization Address [facility] Phone Number [address] [place] [address] PATHOLOGY AND [facility] * Partial thromboplastin time, activated (09/08/2018 6:30 PM CDT) [facility] PTT 30.6 23.0 - 36.0 sec [facility] Comment: DEPARTMENT OF PTT therapeutic range for PATHOLOGY AND unfractionated heparin is GENOMIC 61.0-112.0 seconds which MEDICINE corresponds to Anti-Xa 0.3-0.7 U/ml. Specimen Blood Performing Organization Address [facility] Phone Number [address] [place] [address] PATHOLOGY AND [facility] * Prothrombin time with INR (09/08/2018 6:30 PM CDT) [facility] Prothrombin 12.1 12.0 - 15.0 sec [facility] time DEPARTMENT OF PATHOLOGY AND babberly MEDICINE INR 0.9 [facility] Comment: DEPARTMENT OF The International Normalized PATHOLOGY AND Ratio (INR) is a therapeutic GENOMIC monitoring tool for patients MEDICINE who are stable on oral anticoagulant therapy. An INR of 2.0-3.0 is suggested for deep vein thrombosis/pulmonary embolism. Specimen Blood Performing Organization Address [facility] Phone Number [facility] DEPARTMENT [address] [place] [address] PATHOLOGY AND GENOMIC MEDICINE * CBC with platelet and differential (09/08/2018 6:30 PM CDT) [facility] WBC 8.01 4.50 - 11.00 k/uL [facility] DEPARTMENT OF PATHOLOGY AND GENOMIC MEDICINE RBC 3.95 (L) 4.20 - 5.50 m/uL [facility] DEPARTMENT OF PATHOLOGY AND GENOMIC MEDICINE HGB 11.6 (L) 12.0 - 16.0 g/dL [facility] DEPARTMENT OF PATHOLOGY AND GENOMIC MEDICINE HCT 36.9 (L) 37.0 - 47.0 % [facility] DEPARTMENT OF PATHOLOGY AND GENOMIC MEDICINE MCV 93.4 82.0 - 100.0 fL [facility] DEPARTMENT OF PATHOLOGY AND GENOMIC MEDICINE MCH 29.4 27.0 - 34.0 pg [facility] DEPARTMENT OF PATHOLOGY AND GENOMIC MEDICINE MCHC 31.4 31.0 - 37.0 g/dL [facility] DEPARTMENT OF PATHOLOGY AND GENOMIC MEDICINE RDW - SD 45.8 37.0 - 55.0 fL [facility] DEPARTMENT OF PATHOLOGY AND GENOMIC MEDICINE MPV 11.0 8.8 - 13.2 fL [facility] DEPARTMENT OF PATHOLOGY AND GENOMIC MEDICINE Platelet count 204 150 - 400 k/uL [facility] DEPARTMENT OF PATHOLOGY AND GENOMIC MEDICINE Nucleated RBC 0.00 /100 WBC [facility] DEPARTMENT OF PATHOLOGY AND GENOMIC MEDICINE Neutrophils 39.0 39.0 - 69.0 % [facility] DEPARTMENT OF PATHOLOGY AND GENOMIC MEDICINE Lymphocytes 50.6 (H) 25.0 - 45.0 % [facility] DEPARTMENT OF PATHOLOGY AND GENOMIC MEDICINE Monocytes 7.6 0.0 - 10.0 % [facility] DEPARTMENT OF PATHOLOGY AND GENOMIC MEDICINE Eosinophils 1.9 0.0 - 5.0 % [facility] DEPARTMENT OF PATHOLOGY AND GENOMIC MEDICINE Basophils 0.4 0.0 - 1.0 % [facility] DEPARTMENT OF PATHOLOGY AND GENOMIC MEDICINE Specimen Blood Performing Organization Address [facility] Phone Number [address] [place] [address] PATHOLOGY [facility] * Lipase level (09/08/2018 6:30 PM CDT) Lipase 18 13 - 60 U/L [facility] DEPARTMENT OF PATHOLOGY AND GENOMIC MEDICINE Specimen Plasma specimen Performing Organization Address [facility] Phone Number [address] [place] [address] PATHOLOGY [facility] * Comprehensive metabolic panel (09/08/2018 6:30 PM CDT) Sodium 138 135 - 148 mEq/L [facility] DEPARTMENT OF PATHOLOGY AND GENOMIC MEDICINE Potassium 4.0 3.5 - 5.0 mEq/L [facility] DEPARTMENT OF PATHOLOGY AND GENOMIC MEDICINE Chloride 103 98 - 112 mEq/L [facility] DEPARTMENT OF PATHOLOGY AND GENOMIC MEDICINE CO2 24 24 - 31 mEq/L [facility] DEPARTMENT OF PATHOLOGY AND GENOMIC MEDICINE Anion gap 11@ANIO 7 - 15 mEq/L [facility] DEPARTMENT OF PATHOLOGY AND GENOMIC MEDICINE BUN 21 8 - 23 mg/dL [facility] DEPARTMENT OF PATHOLOGY AND GENOMIC MEDICINE Creatinine 0.70 0.50 - 0.90 mg/dL [facility] DEPARTMENT OF PATHOLOGY AND GENOMIC MEDICINE Glucose 81 65 - 99 mg/dL [facility] DEPARTMENT OF PATHOLOGY AND GENOMIC MEDICINE Calcium 9.5 8.8 - 10.2 mg/dL [facility] DEPARTMENT OF PATHOLOGY AND GENOMIC MEDICINE Protein 7.6 6.3 - 8.3 g/dL [facility] Comment: DEPARTMENT OF PATHOLOGY AND 4.6-7.0 g/dL GENOMIC MEDICINE week 4.4-7.6 g/dL 7 months-1year 5.1-7.3 g/dL 1-2 years5.6-7 .5 g/dL >3 years6.0-8 .0 g/dL 18-150 6.3-8.3 g/dL Albumin 4.2 3.5 - 5.0 g/dL [facility] DEPARTMENT OF PATHOLOGY AND GENOMIC MEDICINE A/G ratio 1.2 0.7 - 3.8 [facility] DEPARTMENT OF PATHOLOGY AND GENOMIC MEDICINE Alkaline 69 35 - 104 U/L [facility] phosphatase DEPARTMENT OF PATHOLOGY AND GENOMIC MEDICINE AST 21 10 - 35 U/L [facility] DEPARTMENT OF PATHOLOGY AND GENOMIC MEDICINE ALT 17 5 - 50 U/L [facility] DEPARTMENT OF PATHOLOGY AND GENOMIC MEDICINE Total bilirubin 0.3 0.0 - 1.2 mg/dL [facility] DEPARTMENT OF PATHOLOGY AND GENOMIC MEDICINE Specimen Plasma specimen Performing Organization Address City/State/Zipcode Phone Number [facility] [place] [address] [place] [address] PATHOLOGY AND GENOMIC MEDICINE after 05/10/2018 Insurance Type Payer Benefit Subscriber ID Effective Phone Address Plan / Dates Group O [facility] MEDICARE [facility] DUAL xxxxxxxxx 2017-P COMPLETE resent [facility] Advance Directives Patient has advance care planning documents on file. For more information, bailey hammer contact: Leon Zarco [address] [facility] [place] [address]
--- OUTSIDE RECORDS SUMMARY | 2019-05-11 11:33 | XMS REPORT | Continuity of Care Document ---
Author Author [facility] Interface Address Unknown Phone Unavailable Problems Problem Status Onset Date Classification Date Reported Comments Source Memory disorder Active 05/11/2018 02/21/2019 [facility] Numbness and tingling Active 05/11/2018 02/21/2019 [facility] Abnormal hepatitis serology Active 03/31/2018 02/21/2019 [facility] Dysphagia Active 03/29/2018 02/21/2019 [facility] Skull lesion Active 03/29/2018 Problem 08/25/2018 [facility] Back pain Active 03/29/2018 02/21/2019 [facility] Skull lesion Active 03/29/2018 02/21/2019 [facility] R13.10 DYSPHAGIA, UNSPECIFIED Active 10/14/2017 [facility] R04.2 - HEMOPTYSIS Active 07/03/2017 [facility] Anxiety disorder Active 2016 02/21/2019 [facility] Mood disorder Active 2016 02/21/2019 [facility] Essential hypertension Active 10/18/2015 02/21/2019 [facility] Diabetes mellitus Active 10/18/2015 02/21/2019 [facility], EMILY Jones,[facility] Asthma Active 10/18/2015 02/21/2019 [facility] Emphysema/COPD Active 10/18/2015 02/21/2019 [facility] BACK PAIN Active 11/06/2013 [facility] SHOULDER PAIN Active 12/29/2012 [facility] COPD Active 02/21/2019 [facility] Hypercholesteremia Active 02/21/2019 [facility] Peptic ulcer disease Active 02/21/2019 [facility] Hepatitis Active 02/21/2019 [facility] Abnormal CXR Active 02/21/2019 [facility] 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 B virus Active 02/21/2019 [facility] Pure hypercholesterolemia Active 02/21/2019 [facility] Anxiety disorder, unspecified type Active 02/21/2019 [facility] Insomnia, unspecified type Active 02/21/2019 [facility] Gastroesophageal reflux disease, esophagitis presence not specified Active 02/21/2019 [facility] Type 2 diabetes mellitus with other specified complication, without long-term current use of insulin Active 02/21/2019 [facility] Uncomplicated asthma, unspecified asthma severity, unspecified whether persistent Active 02/21/2019 [facility] Pulmonary emphysema, unspecified emphysema type Active 02/21/2019 [facility] Brain lesion Active 02/21/2019 [facility] Healthcare maintenance Active 02/21/2019 [facility] Dysphagia, unspecified type Active 02/21/2019 [facility] Back pain, unspecified back location, unspecified back pain laterality, unspecified chronicity Active 02/21/2019 [facility] Allergic rhinitis, unspecified seasonality, unspecified trigger Active 02/21/2019 [facility] Anxiety Resolved Problem 12/31/2012 [facility] Bipolar Resolved Problem 12/31/2012 [facility] Depression Resolved Problem 12/31/2012 [facility] Diabetes mellitus Active Problem 12/31/2012 [facility] Hypertension Active Problem 12/31/2012 [facility] Anxiety Resolved Problem 10/19/2017 [facility] [place] Bipolar Resolved Problem 10/19/2017 [facility] [place] Depression Resolved Problem 10/19/2017 [facility] [place] Esophagitis Resolved Problem 10/19/2017 [facility] [place] Gastric peptic ulcer Resolved Problem 10/19/2017 [facility] [place] Hypertension Active Problem 10/19/2017 [facility] [place] Diverticulitis Resolved Problem 11/08/2013 [facility] DYSPHAGIA, UNSPECIFIED Active [facility] UNSP FB IN RESP TRACT, PART UNSP CAUSING Active [facility] Medications Medication Details Route Status Patient Instructions Ordering Provider Order Date Source atorvastatin (LIPITOR) 10 mg tablet TAKE ONE TABLET BY MOUTH EVERY NIGHT AT BEDTIME FOR CHOLESTEROL Active 02/02/2019 [facility] atorvastatin (LIPITOR) 10 mg tablet TAKE ONE TABLET BY MOUTH EVERY NIGHT AT BEDTIME FOR CHOLESTEROL No Longer Active 10/11/2018 [facility] Atorvastatin 10 Mg Tablet Lipitor 10 Mg Tablet Take 1 tablet by mouth at bedtime nightly For cholesterol. Oral Active 05/28/2018 [facility] Sertraline 100 Mg Tablet Zoloft 100 Mg Tablet Take 2 tablets by mouth daily. Oral Active 05/28/2018 [facility] Trazodone 100 Mg Tablet Take 1/2 to 1 full tab by mouth at bedtime as needed for insomnia.. Inactive 05/28/2018 [facility] atorvastatin (LIPITOR) 10 mg tablet Take 1 tablet by mouth at bedtime nightly For cholesterol. Oral No Longer Active 05/28/2018 [facility] sertraline (ZOLOFT) 100 mg tablet Take 2 tablets by mouth daily. Oral Active 05/28/2018 [facility] traZODone (DESYREL) 100 mg tablet Take 1/2 to 1 full tab by mouth at bedtime as needed for insomnia.. Inactive 05/28/2018 [facility] Omeprazole 20 Mg Capsule,Delayed Release TAKE ONE CAPSULE BY MOUTH DAILY FOR ACID REFLUX Active 05/18/2018 [facility] omeprazole (PRILOSEC) 20 mg delayed release capsule TAKE ONE CAPSULE BY MOUTH DAILY FOR ACID REFLUX Active 05/18/2018 [facility] Hydrocodone 10 Mg-Acetaminophen 325 Mg Tablet Take 1 tablet by mouth every 6 hours as needed. Oral No Longer Active 05/11/2018 [facility] Omeprazole 20 Mg Capsule,Delayed Release Take 20 mg by mouth daily. Oral No Longer Active 05/11/2018 [facility] Gabapentin 100 Mg Capsule Neurontin 100 Mg Capsule Take 1 capsule by mouth 3 times daily For pain in feet. Oral Active 05/11/2018 [facility] HYDROcodone-acetaminophen (NORCO) 10-325 mg tablet Take 1 tablet by mouth every 6 hours as needed. Oral No Longer Active 05/11/2018 [facility] omeprazole (PRILOSEC) 20 mg delayed release capsule Take 20 mg by mouth daily. Oral No Longer Active 05/11/2018 [facility] gabapentin (NEURONTIN) 100 mg capsule Take 1 capsule by mouth 3 times daily For pain in feet. Oral Active 05/11/2018 [facility] Atorvastatin 10 Mg Tablet Take 10 mg by mouth at bedtime nightly. Oral No Longer Active 03/29/2018 [facility] Clopidogrel 75 Mg Tablet Plavix 75 Mg Tablet Take 75 mg by mouth daily. Oral No Longer Active 03/29/2018 [facility] Losartan 100 Mg Tablet Take 100 mg by mouth daily. Oral No Longer Active 03/29/2018 [facility] Amlodipine 10 Mg Tablet Norvasc 10 Mg Tablet Take 10 mg by mouth daily. Oral No Longer Active 03/29/2018 [facility] Hydralazine 25 Mg Tablet Take 25 mg by mouth 3 times daily. Oral No Longer Active 03/29/2018 [facility] Tropicamide 0.5 % Eye Drops Instill 1 Drop in each eye daily as needed for up to 1 dose (for poor retina scan image). Active 03/29/2018 [facility] Metformin 500 Mg Tablet Glucophage 500 Mg Tablet Take 1 tablet by mouth 2 times daily (with meals) For diabetes. Oral Inactive 03/29/2018 [facility] Losartan 100 Mg Tablet Cozaar 100 Mg Tablet Take 1 tablet by mouth daily For hypertension. Oral Inactive 03/29/2018 [facility] Fluticasone 50 McG/Actuation Nasal [place],Suspension Use 2 Sprays in each nostril daily For nasal congestion as needed. Inactive 03/29/2018 [facility] Combivent Respimat 20 McG-100 McG/Actuation Solution For Inhalation Inhale 2 Puffs by mouth 4 times daily. Inhalation Inactive 03/29/2018 [facility] atorvastatin (LIPITOR) 10 mg tablet Take 10 mg by mouth at bedtime nightly. Oral No Longer Active 03/29/2018 [facility] clopidogrel (PLAVIX) 75 mg tablet Take 75 mg by mouth daily. Oral No Longer Active 03/29/2018 [facility] losartan (COZAAR) 100 mg tablet Take 100 mg by mouth daily. Oral No Longer Active 03/29/2018 [facility] amLODIPine (NORVASC) 10 mg tablet Take 10 mg by mouth daily. Oral No Longer Active 03/29/2018 [facility] hydrALAZINE (APRESOLINE) 25 mg tablet Take 25 mg by mouth 3 times daily. Oral No Longer Active 03/29/2018 [facility] tropicamide (MYDRIACYL) 0.5 % ophthalmic solution Instill 1 Drop in each eye daily as needed for up to 1 dose (for poor retina scan image). No Longer Active 03/29/2018 [facility] metFORMIN (GLUCOPHAGE) 500 mg tablet Take 1 tablet by mouth 2 times daily (with meals) For diabetes. Oral Inactive 03/29/2018 [facility] losartan (COZAAR) 100 mg tablet Take 1 tablet by mouth daily For hypertension. Oral Inactive 03/29/2018 [facility] fluticasone (FLONASE) 50 mcg/actuation nasal spray Use 2 Sprays in each nostril daily For nasal congestion as needed. Inactive 03/29/2018 [facility] ipratropium-albuterol (COMBIVENT RESPIMAT) 20-100 mcg/actuation Mist Inhale 2 Puffs by mouth 4 times daily. Inhalation Inactive 03/29/2018 [facility] Sertraline 100 Mg Tablet Zoloft 100 Mg Tablet Take 2 tablets by mouth daily. Oral No Longer Active 03/05/2018 [facility] Trazodone 100 Mg Tablet Take 1/2 to 1 full tab by mouth at bedtime as needed for insomnia.. No Longer Active 03/05/2018 [facility] sertraline (ZOLOFT) 100 mg tablet Take 2 tablets by mouth daily. Oral No Longer Active 03/05/2018 [facility] traZODone (DESYREL) 100 mg tablet Take 1/2 to 1 full tab by mouth at bedtime as needed for insomnia.. No Longer Active 03/05/2018 [facility] Sertraline 100 Mg Tablet Zoloft 100 Mg Tablet Take 2 tablets by mouth daily. Oral No Longer Active 11/17/2017 [facility] Trazodone 100 Mg Tablet Take 1/2 to 1 full tab by mouth at bedtime as needed for insomnia.. No Longer Active 11/17/2017 [facility] sertraline (ZOLOFT) 100 mg tablet Take 2 tablets by mouth daily. Oral No Longer Active 11/17/2017 [facility] traZODone (DESYREL) 100 mg tablet Take 1/2 to 1 full tab by mouth at bedtime as needed for insomnia.. No Longer Active 11/17/2017 [facility] Sertraline 100 Mg Tablet Zoloft 100 Mg Tablet Take 2 tablets by mouth daily. Oral No Longer Active 05/01/2017 [facility] Mirtazapine 7.5 Mg Tablet Take 1 tablet by mouth at bedtime nightly. Oral No Longer Active 05/01/2017 [facility] Trazodone 100 Mg Tablet Take 1/2 to 1 full tab by mouth at bedtime as needed for insomnia.. No Longer Active 03/23/2017 [facility] Enalapril Maleate 10 Mg Tablet Vasotec 10 Mg Tablet Take 1 tablet by mouth daily. Oral No Longer Active 10/18/2015 [facility] Metformin 500 Mg Tablet Glucophage 500 Mg Tablet Take 1 tablet by mouth 2 times daily (with meals). Oral No Longer Active 10/18/2015 [facility] Albuterol Sulfate Hfa 90 McG/Actuation Aerosol Inhaler Proventil Hfa 90 McG/Actuation Aerosol Inhaler Inhale 2 Puffs by mouth 4 times daily as needed for Wheezing. Inhalation Active 10/18/2015 [facility] Symbicort 160 McG-4.5 McG/Actuation Hfa Aerosol Inhaler Inhale 2 Puffs by mouth 2 times daily. Inhalation Active 10/18/2015 [facility] enalapril (VASOTEC) 10 mg tablet Take 1 tablet by mouth daily. Oral No Longer Active 10/18/2015 [facility] metFORMIN (GLUCOPHAGE) 500 mg tablet Take 1 tablet by mouth 2 times daily (with meals). Oral No Longer Active 10/18/2015 [facility] albuterol (PROVENTIL HFA) 90 mcg/actuation inhaler Inhale 2 Puffs by mouth 4 times daily as needed for Wheezing. Inhalation Active 10/18/2015 [facility] budesonide-formoterol (SYMBICORT) 160-4.5 mcg/actuation inhaler Inhale 2 Puffs by mouth 2 times daily. Inhalation Active 10/18/2015 [facility] ondansetron 4 mg, Route: IVP, Drug form: INJ, ONCE, Dosing Weight 90.909, kg, Priority: STAT, Start date: 11/06/13 17:05:00, Stop date: 11/06/13 17:05:00 Inactive [place] 11/06/2013 [facility] morphine Sulfate 4 mg, Route: IVP, Drug form: INJ, ONCE, Dosing Weight 90.909, kg, Priority: STAT, Start date: 11/06/13 17:05:00, Stop date: 11/06/13 17:05:00 Inactive [place] 11/06/2013 [facility] Celebrex 400 mg oral capsule 400 mg=1 cap, PO, Daily, # 60 cap, 0 Refill(s) Active [place] 11/06/2013 [facility] Vicodin ES 7.5 mg-300 mg oral tablet 1 tab, PO, Q6H, # 24 tab, 0 Refill(s) Active [place] 11/06/2013 [facility] ketorolac 30 mg, 1 mL, Route: IVP, Drug form: INJ, ONCE, Dosing Weight 90.909, kg, Priority: STAT, Start date: 11/06/13 14:35:00, Stop date: 11/06/13 14:35:00(Same as:Toradol) IV bolus must be given >15 seconds. Give IM administration slowly and deeply into the muscle. Not for use > 4 days Inactive [place] 11/06/2013 [facility] Colace 100 mg oral capsule 100 mg, 1 cap, PO, BID, PRN, 20 cap, Constipation, Substitution Allowed, CAP PO Active [place] 12/30/2012 [facility] [place] 10/325 oral tablet 1 tab, PO, Q6H, PRN, 24 tab, for pain, Substitution Allowed, Maintenance PO Active [place] 12/30/2012 [facility] Toradol 30 mg/mL injectable solution 60 mg, Route: IM, ONCE, Dosing Weight 85.909, kg, Start date: 12/30/12 2:01:00, Stop date: 12/30/12 2:01:00 IM No Longer Active [place] 12/30/2012 [facility] Zofran ODT 4 mg, Route: PO, Drug form: TABDIS, ONCE, Dosing Weight 85.909, kg, Priority: STAT, Start date: 12/29/12 23:09:00, Stop date: 12/29/12 23:09:00 PO No Longer Active [place] 12/30/2012 [facility] morphine Sulfate 4 mg, Route: IM, ONCE, Dosing Weight 85.909, kg, Priority: STAT, Start date: 12/29/12 23:09:00, Stop date: 12/29/12 23:09:00 IM No Longer Active [place] 12/30/2012 [facility] Triamcinolone Acetonide 0.1 % Topical Ointment apply a thin film to the affected skin areas 2 times per day for 1 week Topical Active 03/07/2010 [facility] TRIAMCINOLONE ACETONIDE 0.1 % OINTMENT apply a thin film to the affected skin areas 2 times per day for 1 week Topical Active 03/07/2010 [facility] ATROVENT HFA IN None Entered Inhalation Active [facility] Clindamycin Hcl 300 Mg Capsule take 1 capsule (300 mg) by oral route every 6 hours Oral Active [facility] Losartan 25 Mg Tablet Take 100 mg by mouth daily . Oral Active [facility] Tizanidine 4 Mg Tablet Take 4 mg by mouth 3 times daily. Oral Active [facility] Metoclopramide 10 Mg Tablet Take 10 mg by mouth 2 times daily. Oral Active [facility] Linzess 290 McG Capsule Take 290 mcg by mouth daily. Oral Active [facility] CLINDAMYCIN 300 MG CAP take 1 capsule (300 mg) by oral route every 6 hours Oral Active [facility] losartan (COZAAR) 25 mg tablet Take 100 mg by mouth daily . Oral Active [facility] tiZANidine (ZANAFLEX) 4 mg tablet Take 4 mg by mouth 3 times daily. Oral Active [facility] metoclopramide (REGLAN) 10 mg tablet Take 10 mg by mouth 2 times daily. Oral Active [facility] linaclotide (LINZESS) 290 mcg cap Take 290 mcg by mouth daily. Oral Active [facility] Allergies, Adverse Reactions, Alerts Substance Category Reaction Severity Reaction type Status Date Reported Comments Source Aspirin Other Propensity to adverse reactions to drug Active 03/29/2018 [facility] Immunizations Immunization Date Given Site Status Last Updated Comments Source TDap (Tetanus Toxoid, Reduced Diphtheria Toxoid And Acellular Pertussis, Absorbed) 04/07/2018 [facility] PNEUMOCOCCAL 23-VALPS VACCINE 25 MCG/0.5 ML INJECTION 04/07/2018 completed [facility] Hepatitis B Pediatric/Adolescent/Adult 04/07/2018 [facility] Tdap (Tetanus Toxoid, Reduced Diphtheria Toxoid And Acellular Pertussis, Absorbed) 04/07/2018 [facility] Hepatitis B Pedi/Adol 04/07/2018 [facility] Influenza Vaccine 07/31/2015 [facility] PPV 23 Pneumococcal Polysaccaride 07/31/2015 [facility] Results Order Name Results Value Reference Range Date Interpretation Comments Source OPHTHALMOLOGY RETINAL SCAN RETINAL SCAN-FINAL RESULT NORMAL 05/11/2018 [facility] OPHTHALMOLOGY RETINAL SCAN Right Diabetic Retinopathy None 05/11/2018 [facility] OPHTHALMOLOGY RETINAL SCAN Right Macular Edema None 05/11/2018 [facility] OPHTHALMOLOGY RETINAL SCAN Right Other Suspected Conditions None 05/11/2018 [facility] OPHTHALMOLOGY RETINAL SCAN Right Image Quality Gradeable Image 05/11/2018 [facility] OPHTHALMOLOGY RETINAL SCAN Left Diabetic Retinopathy None 05/11/2018 [facility] OPHTHALMOLOGY RETINAL SCAN Left Macular Edema None 05/11/2018 [facility] OPHTHALMOLOGY RETINAL SCAN Left Other Suspected Conditions None 05/11/2018 [facility] OPHTHALMOLOGY RETINAL SCAN Left Image Quality Gradeable Image 05/11/2018 [facility] OPHTHALMOLOGY RETINAL SCAN <p>Retinal Study Result for DIOGENES PARNELL</p><p> </p><p>DIOGENES PARNELL gibran 67 y/o, F (: 1950, )</p><p>presented to [facility] on 05-11-2018 for a retinal imaging study [...] signed by Frank Juan MD, , Taxonomy: [id number] on 05-11-2018 06:36:59 UT time.</p><p> </p><p>NOTE:Any pathology noted on this diabetic retinal evaluation should be confirmed by an appropriate ophthalmic examination.</p> Retinal Study Result for DIOGENES PARNELL PATSY, gibran 67 y/o, F (: [birth year], ) presented to [facility] on 05-11-2018 for a retinal imaging study [...] signed by Frank Juan MD, , Taxonomy: [id number] on 05-11-2018 06:36:59 UT time. NOTE:Any pathology noted on this diabetic retinal evaluation should be confirmed by an appropriate ophthalmic examination. 05/11/2018 [facility] HCV RNA QUANT, PCR HCV RNA QUANT, PCR Not detected IU/mL 04/08/2018 This test utilizes FDA cleared EILEEN AmpliPrep/EILEEN TaqMan HCV test, v2.0 from [employer] which allows detection of viral loads between [...] the management of patients with HCV infection. [facility] AFP, TUMOR MARKER AFP Tumor Mrk 4.7 ng/mL <9.0 04/07/2018 [facility] HEP A VIRUS AB IGG Hep A Vir Ab IgG Positive NEG 04/07/2018 [facility] HEP A VIRUS AB IGG Lab Interpretation Abnormal 04/07/2018 [facility] HEPATITIS B SURFACE AB HBsAb Negative NEG 04/07/2018 [facility] HEPATITIS B SURFACE AB HBsAb Concentration <0.01
Negative: <8.00 mIU/mL
Grayzone: > or=8.00 mIU/mL to <12.00 mIU/mL
Positive: > or=12.00 mIU/mL
04/07/2018 [facility] PT/INR/PTT PT 12.4 11.8 - 15.0 04/07/2018 [facility] PT/INR/PTT INR 0.9 SUGGESTED THERAPEUTIC RANGES: INR 2.0-3.0 for MODERATE INTENSITY ANTICOAGULATION INR 2.5-3.5 for HIGH INTENSITY ANTICOAGULATION 04/07/2018 [facility] PT/INR/PTT PTT 33.3 23.6 - 36.4 04/07/2018 [facility] H. PYLORI STOOL AG H pylori Ag Stool Negative Reference range: Negative 04/03/2018 [facility] HEPATITIS PANEL HCV IgG Positive NEG 03/31/2018 [facility] HEPATITIS PANEL HBsAg Negative NEG 03/31/2018 [facility] HEPATITIS PANEL HAV, IgM Negative NEG 03/31/2018 [facility] HEPATITIS PANEL HBcAb, IgM Negative NEG 03/31/2018 [facility] HEPATITIS PANEL Lab Interpretation Abnormal 03/31/2018 [facility] HIV-1/HIV-2 DIAGNOSTIC/SYMPTOMATIC HIV-1/HIV-2 Negative NEG 03/31/2018 [facility] VIT D, 25-HYDROXY Vit D, 25-Hydroxy 54.8 ng/mL 30 - 100 03/31/2018 Vitamin D deficiency has been defined by the [place] [employer] and [employer] Society guideline as a level of serum 25-OH Vitamin D less than 20 ng/mL. The Endocrine Society further defines Vitamin D insufficiency as a level between 21 and 29 ng/mL and sufficiency as a level between 30 and 100 ng/mL. [facility] TSH TSH 0.71 0.45 - 5.33 03/31/2018 [facility] HEMOGLOBIN A1C Hemoglobin A1c 5.7 % 4.3 - 6.1 03/31/2018 [facility] HEMOGLOBIN A1C Est Average Gluc 116.9 mg/dL 03/31/2018 [facility] BASIC METABOLIC PANEL CO2 28 mmol/L 21 - 31 03/31/2018 [facility] BASIC METABOLIC PANEL Chloride 102 mmol/L 98 - 107 03/31/2018 [facility] BASIC METABOLIC PANEL Potassium 4.1 mmol/L 3.5 - 5.1 03/31/2018 [facility] BASIC METABOLIC PANEL Sodium 140 mmol/L 136 - 145 03/31/2018 [facility] BASIC METABOLIC PANEL Glucose 105 mg/dL 70 - 110 03/31/2018 [facility] BASIC METABOLIC PANEL Urea Nitrogen 15 mg/dL 7 - 25 03/31/2018 [facility] BASIC METABOLIC PANEL Creatinine 0.70 mg/dL 0.6 - 1.2 03/31/2018 [facility] BASIC METABOLIC PANEL Anion Gap 10 03/31/2018 [facility] BASIC METABOLIC PANEL Calcium 9.3 mg/dL 8.6 - 10.3 03/31/2018 [facility] BASIC METABOLIC PANEL GFR, Estimated >60 mL/min/1.73 m2 03/31/2018 [facility] BASIC METABOLIC PANEL GFR, Estim, Afr-Am >60 mL/min/1.73 m2 03/31/2018 [facility] LIPID PROFILE Cholesterol 191 mg/dL 03/31/2018 REFERENCE RANGE: Desirable: <200 mg/dL Borderline: 200-240 mg/dL High Risk: >240 mg/dL [facility] LIPID PROFILE Triglyceride 60 mg/dL <150 03/31/2018 REFERENCE RANGE: Normal: <150 mg/dL Borderline High: 150-199 mg/dL High: 200-499 mg/dL Very High: >ek=903 mg/dL [facility] LIPID PROFILE HDL 76 mg/dL 03/31/2018 Increased CHD risk: <40 mg/dL Decreased CHD risk: >60 mg/dL [facility] LIPID PROFILE LDL 103 mg/dL 03/31/2018 REFERENCE RANGE: Optimal: <100 mg/dL Near Optimal: 100-129 mg/dL Borderline High: 130-159 mg/dL High: 160-189 mg/dL Very High: >md=335 mg/dL [facility] LIVER PROFILE T Protein 7.5 g/dL 6 - 8.3 03/31/2018 [facility] LIVER PROFILE Albumin 4.7 g/dL 3.7 - 5.3 03/31/2018 [facility] LIVER PROFILE T Bilirubin 0.5 mg/dL 0.2 - 1.2 03/31/2018 [facility] LIVER PROFILE Alk Phos 95 U/L 34 - 104 03/31/2018 [facility] LIVER PROFILE AST 18 U/L 13 - 39 03/31/2018 [facility] LIVER PROFILE ALT 15 U/L 7 - 52 03/31/2018 [facility] LIVER PROFILE D Bilirubin 0.1 mg/dL 0 - 0.2 03/31/2018 [facility] CBC/DIFF WBC 4.9 K/uL 4.5 - 11 03/31/2018 [facility] CBC/DIFF RBC 4.20 4.20 - 5.40 03/31/2018 [facility] CBC/DIFF Hemoglobin 12.2 g/dL 12 - 16 03/31/2018 [facility] CBC/DIFF Hematocrit 39.4 % 37 - 47 03/31/2018 [facility] CBC/DIFF MCV 94 fL 82 - 92 03/31/2018 [facility] CBC/DIFF MCH 29.0 pg 27 - 32 03/31/2018 [facility] CBC/DIFF MCHC 31.0 g/dL 32 - 36 03/31/2018 [facility] CBC/DIFF RDW 46.0 fL 36.4 - 46.3 03/31/2018 [facility] CBC/DIFF Platelet 184 K/uL 150 - 400 03/31/2018 [facility] CBC/DIFF Mean Platelet Volume 12.5 fL 9.4 - 12.4 03/31/2018 [facility] CBC/DIFF Percent NRBC 0.0 03/31/2018 [facility] CBC/DIFF Absolute NRBC 0.00 03/31/2018 [facility] CBC/DIFF Neutrophil 46.2 % 34 - 70 03/31/2018 [facility] CBC/DIFF Lymphocyte 41.7 % 20 - 50 03/31/2018 [facility] CBC/DIFF Monocyte 8.3 % 5 - 12 03/31/2018 [facility] CBC/DIFF Eosinophil 2.8 % 0.7 - 5 03/31/2018 [facility] CBC/DIFF Basophil 0.8 % 0.1 - 1.2 03/31/2018 [facility] CBC/DIFF Pct Immat Gran 0.2 0.0 - 0.5 03/31/2018 [facility] CBC/DIFF Neutrophil, Abs 2.28 K/uL 1.56 - 6.13 03/31/2018 [facility] CBC/DIFF Lymphocyte, Abs 2.06 K/uL 1.18 - 3.74 03/31/2018 [facility] CBC/DIFF Monocyte, Abs 0.41 K/uL 0.24 - 0.36 03/31/2018 [facility] CBC/DIFF Eosinophil, Abs 0.14 K/uL 0.04 - 0.36 03/31/2018 [facility] CBC/DIFF Basophil, Abs 0.04 K/uL 0.01 - 0.08 03/31/2018 [facility] CBC/DIFF Absol Immat Gran 0.01 K/uL 0 - 0.03 03/31/2018 [facility] CBC/DIFF Lab Interpretation Abnormal 03/31/2018 [facility] MICROALBUM, URINE Microalbum, Random 3.2 mg/dL 0 - 29 03/30/2018 [facility] MICROALBUM, URINE Creatinine, Ur 75.2 mg/dL 20 - 320 03/30/2018 [facility] MICROALBUM, URINE Urine Microalbumin 42.6 0 - 29 03/30/2018 To minimize intra-individual variation, analysis of three random urine samples collected over the course of a week is recommended. [facility] MICROALBUM, URINE Lab Interpretation Abnormal 03/30/2018 [facility] UA CHEMISTRIES Color Yellow 03/30/2018 [facility] UA CHEMISTRIES Clarity Cloudy 03/30/2018 [facility] UA CHEMISTRIES Spec [place] 1.017 1.001 - 1.035 03/30/2018 [facility] UA CHEMISTRIES pH 7.0 5 - 8 03/30/2018 [facility] UA CHEMISTRIES Protein Negative NEG 03/30/2018 [facility] UA CHEMISTRIES Glucose Negative NEG 03/30/2018 [facility] UA CHEMISTRIES Ketone Negative NEG 03/30/2018 [facility] UA CHEMISTRIES Bilirubin Negative NEG 03/30/2018 [facility] UA CHEMISTRIES Nitrate Negative NEG 03/30/2018 [facility] UA CHEMISTRIES Urobilinogen <1.0 0.2 - 1 03/30/2018 [facility] UA CHEMISTRIES Leukocyte Negative NEG 03/30/2018 [facility] UA CHEMISTRIES Blood Negative NEG 03/30/2018 [facility] UA CHEMISTRIES Epithelial Cell <1 /HPF 03/30/2018 [facility] OCCULT BLOOD ICT Occult Blood ICT Negative NEG 03/30/2018 [facility] XRAY CHEST 2 VIEWS IMPRESSION: 1.Minimal bronchial [...] Chepe Macario MD, 03/30/2018 1:43 PM 03/30/2018 [facility] XRAY SKULL LESS THAN 4 VIEWS IMPRESSION: [...] Aron Magallon MD, 03/30/2018 10:42 AM 03/30/2018 [facility] URINE CULTURE Culture Skin marie organisms present, suggests contamination; please recollect MICROBIOLOGY 03/30/2018 [facility] URINE CULTURE Culture Skin marie organisms present, suggests contamination; please recollect MICROBIOLOGY 03/30/2018 [facility] 12 LEAD EKG 12 LEAD EKG FOR [facility] Test Date:2018-03-29 Pat Name: DIOGENES PARNELLDepartment: : Gender: FTechnician: :[id number] Requested By: Order Number:Reading MD: Geovany Carrillo Measurements IntervalsAxis Rate: 75 P:-10 MD: 145QRS:86 QRSD: 80 T:127 QT: 381 QTc:428 Interpretive Statements SINUS RHYTHM Electronically Signed On 03-29-18 15:45:35 CDT by Geovany Carrillo 03/29/2018 [facility] DIABETIC FOOT EXAM <p>Toña Lemon MD 03/29/20181:54 [...] normal, left foot appearance is normal. 03/29/2018 [facility] Esophagus BA swallow function video DX Esophagus BA swallow function video DX Patient Name: DIOGENES PARNELL : 1950; Age: 67 years y/o Female MR: [id number] * MODIFIED BARIUM SWALLOW HISTORY: Dysphagia, COMMENT: [...] refer to the speech pathologist report. SL: [id number] 10/16/2017 - - Read by: Surinder Jennings MD Dictated Date/time: 10/16/17 14:01 Electronically Signed by: Surinder Jennings MD 10/16/17 14:02 FINAL REPORT [facility] Chest 2 views DX Chest 2 views [...] Marcio Simmons MD 07/03/17 15:37 FINAL REPORT [facility] CHEMISTRY AGAP 10.9 meq/L 10.0 - 20.0 11/06/2013 Normal [facility] CHEMISTRY A/G Ratio 1.0 0.7 - 1.6 11/06/2013 Normal [facility] CHEMISTRY Globulin 3.8 g/dL 2.0 - 4.0 11/06/2013 Normal [facility] CHEMISTRY B/C Ratio 20 6 - 25 11/06/2013 Normal [facility] CHEMISTRY eGFR 90 mL/min/1.73m2 11/06/2013 2Result Comment: [...] should be multiplied by the estimated BMI. [facility] CHEMISTRY Creatinine Lvl 0.8 mg/dL 0.5 - 1.4 11/06/2013 Normal [facility] CHEMISTRY BUN 16 mg/dL 7 - 22 11/06/2013 Normal [facility] CHEMISTRY Glucose Lvl 93 mg/dL 70 - 99 11/06/2013 Normal 3Interpretive Data: Adult reference range values reflect the clinical guidelines of the [place] [employer]. [facility] CHEMISTRY Bili Total 0.2 mg/dL 0.2 - 1.3 11/06/2013 Normal [facility] CHEMISTRY ASPARTATE TRANSAMINASE 17 unit/L 0 - 37 11/06/2013 Normal [facility] CHEMISTRY Albumin Lvl 3.7 g/dL 3.5 - 5.0 11/06/2013 Normal [facility] CHEMISTRY Alk Phos 83 unit/L 39 - 136 11/06/2013 Normal [facility] CHEMISTRY ALANINE AMINOTRANSFERASE 22 unit/L 0 - 65 11/06/2013 Normal [facility] CHEMISTRY CO2 27 meq/L 24 - 32 11/06/2013 Normal [facility] CHEMISTRY Total Protein 7.5 g/dL 6.4 - 8.4 11/06/2013 Normal [facility] CHEMISTRY Calcium Lvl 9.3 mg/dL 8.5 - 10.5 11/06/2013 Normal [facility] CHEMISTRY Chloride Lvl 106 meq/L 95 - 109 11/06/2013 Normal [facility] CHEMISTRY Sodium Lvl 140 meq/L 135 - 145 11/06/2013 Normal [facility] CHEMISTRY Potassium Lvl 3.9 meq/L 3.5 - 5.1 11/06/2013 Normal [facility] HEMATOLOGY aPTT 21.9 s 22.9 - 35.8 11/06/2013 LOW 8Interpretive Data: Heparin Therapeutic Range: 57 - 92 Seconds [facility] HEMATOLOGY INR 0.95 0.85 - 1.17 11/06/2013 Normal 7Interpretive Data: RECOMMENDED RANGES FOR PROTIME INR: 2.0-3.0 for most medical and surgical thromboembolic states. 2.5-3.5 for artificial heart valves and recurrent embolism. INR SHOULD BE USED ONLY FOR PATIENTS ON STABLE ANTICOAGULANT THERAPY. [facility] HEMATOLOGY PROTIME 12.6 s 12.0 - 14.7 11/06/2013 Normal [facility] U Benzodia Scr Positive *ABN* (11/06/2013 15:21:00) Negative 11/06/2013 ABN [facility] U Arianne Scr Negative *NA* (11/06/2013 15:21:00) Negative 11/06/2013 [facility] U Amph Scr Negative *NA* (11/06/2013 15:21:00) Negative 11/06/2013 [facility] UDS Note See Note 4 (11/06/2013 [...] Methadone 300 ng/mL Urine alcohol 20 mg/dL [facility] CHEMISTRY U Phencyc Scr Negative *NA* (11/06/2013 15:21:00) Negative 11/06/2013 [facility] U Opiate Scr Negative *NA* (11/06/2013 15:21:00) Negative 11/06/2013 [facility] CHEMISTRY U Cannab Scr Negative *NA* (11/06/2013 15:21:00) Negative 11/06/2013 [facility] CHEMISTRY U Cocaine Scr Negative *NA* (11/06/2013 [...] UA Bacteria Occasional /HPF None Seen 11/06/2013 [facility] CHEMISTRY Ethanol Lvl null 11/06/2013 6Interpretive Data: Negative Range: <3 mg/dL Toxic Range: >250 mg/dL [facility] CHEMISTRY Etoh (%) null 11/06/2013 5Interpretive Data: Negative Range: <0.003% Toxic Range: >0.25% [facility] HEMATOLOGY MCV 89.2 fL 81.0 - 99.0 11/06/2013 Normal [facility] HEMATOLOGY Hct 33.3 % 36.0 - 48.0 11/06/2013 LOW [facility] HEMATOLOGY Hgb 10.6 g/dL 12.0 - 16.0 11/06/2013 [facility] HEMATOLOGY RBC X 10x6 3.73 M/CMM 4.20 - 5.40 11/06/2013 [facility] HEMATOLOGY WBC X 10x3 11.2 K/CMM 3.7 - 10.4 11/06/2013 [facility] HEMATOLOGY MPV 10.1 fL 7.4 - 10.4 11/06/2013 Normal [facility] HEMATOLOGY Platelet 246 K/CMM 133 - 450 11/06/2013 Normal [facility] HEMATOLOGY RDW 13.6 % 11.5 - 14.5 11/06/2013 Normal [facility] HEMATOLOGY MCHC 31.9 g/dL 32.0 - 36.0 11/06/2013 [facility] HEMATOLOGY MCH 28.4 pg 27.0 - 31.0 11/06/2013 Normal [facility] HEMATOLOGY Segs 41.1 % 45.0 - 75.0 11/06/2013 [facility] HEMATOLOGY Basophils # 0.0 K/CMM 0.0 - 0.2 11/06/2013 Normal [facility] HEMATOLOGY Eosinophils # 0.2 K/CMM 0.0 - 0.5 11/06/2013 Normal [facility] HEMATOLOGY Monocytes # 1.0 K/CMM 0.0 - 0.8 11/06/2013 [facility] HEMATOLOGY Lymphocytes # 5.3 K/CMM 1.0 - 5.5 11/06/2013 Normal [facility] HEMATOLOGY Basophils 0.4 % 0.0 - 1.0 11/06/2013 Normal [facility] HEMATOLOGY Segs-Bands # 4.6 K/CMM 1.5 - 8.1 11/06/2013 Normal [facility] HEMATOLOGY Monocytes 9.4 % 2.0 - 12.0 11/06/2013 [facility] HEMATOLOGY Eosinophils 1.6 % 0.0 - 4.0 11/06/2013 Normal [facility] HEMATOLOGY Lymphocytes 47.5 % 20.0 - 40.0 11/06/2013 [facility] BEDSIDE GLUCOSE TESTING Glucose POC 126 mg/dL 70 - 99 11/06/2013 [place] 1Interpretive Data: Upper Reportable Limit: 200 mg/dL. [facility] Spine lumbar 2 or 3 views Spine [...] Lorenzo Wilkes MD 11/06/13 16:39 FINAL REPORT [facility] Chest 1view Chest 1view Chest, one view. HISTORY: Pleuritic pain. COMPARISON: 09/03/2007. FINDINGS: The lungs are clear. No pleural effusion or pneumothorax. Heart size normal. No fracture is seen. Osseous excrescence of the right acromion is better characterized on shoulder radiography. SL: 11/06/2013 - - Read by: Aron Sweeney Dictated Date/time: 11/06/13 16:42 Electronically Signed by: Aron Sweeney MD 11/06/13 16:43 FINAL REPORT [facility] Shoulder series Shoulder series Right shoulder, 4 [...] Aron Sweeney MD 11/06/13 16:42 FINAL REPORT [facility] Brain wo contrast CT Brain wo contrast [...] Abhishek Rosenthal MD 11/06/13 15:24 FINAL REPORT [facility] Vital Signs Vital Sign Value Date Comments Source Systolic (mm Hg) 120 05/28/2018 [facility] Diastolic (mm Hg) 76 05/28/2018 [facility] Heart Rate 75 05/28/2018 [facility] Temperature Oral (F) 37.33 Renae 05/28/2018 [facility] Respitory Rate 18 05/28/2018 [facility] Height 167.6 cm 05/28/2018 [facility] Weight 71.668 05/28/2018 [facility] BMI Calculated 25.50 05/28/2018 [facility] Respitory Rate 16 11/07/2013 [facility] Heart Rate 64 11/07/2013 [facility] Temperature Oral (F) 98.6 F 11/07/2013 [facility] Systolic (mm Hg) 108 11/07/2013 [facility] Diastolic (mm Hg) 59 11/07/2013 [facility] Temperature Oral (F) 98.4 F 11/06/2013 [facility] Respitory Rate 12 11/06/2013 [facility] Diastolic (mm Hg) 67 11/06/2013 [facility] Systolic (mm Hg) 129 11/06/2013 [facility] Diastolic (mm Hg) 70 11/06/2013 [facility] Systolic (mm Hg) 155 11/06/2013 [facility] Temperature Oral (F) 98.7 F 11/06/2013 [facility] Respitory Rate 18 11/06/2013 [facility] Height 165.1 cm 11/06/2013 [facility] Weight 90.909 11/06/2013 [facility] Heart Rate 92 11/06/2013 [facility] Weight 85.909 12/30/2012 [facility] Height 157.48 cm 12/30/2012 [facility] Encounters Location Location Details Encounter Type Encounter Number Reason For Visit Attending Provider ADM Date DC Date Status Source [facility] Emergency [id number] MARCIO LADD 12/29/2012 12/29/[address] [facility] Emergency [id number] EFREN POTTER 11/06/2013 11/06/2013 Active [facility] [place] [facility] [id number] Vivek Márquez 07/03/2017 07/04/2017 EMILY [facility]acy Visit [id number] 09/09/2017 [facility] Outpatient [id number] Ismael Riojas 10/16/2017 10/17/2017 [facility] Psychiatry [place] Office Visit [id number] Anxiety disorder, unspecified type Mood disorder Insomnia, unspecified type Richard Lehman MD 11/17/2017 11/17/2017 [facility] Mental Health Services [place] Telephone [id number] Richard Lehman MD 02/05/2018 [facility] Psychiatry [place] Office Visit [id number] Richard Lehman MD 03/05/2018 03/05/2018 [facility] [place] Orders Only [id number] Toña Lemon MD 03/29/2018 [facility] Family Practice [place] Orders Only [id number] Cherry Bland RN 03/29/2018 [facility] Family [facility] [place] Office Visit [id number] Toña Lemon MD 03/29/2018 03/29/2018 [facility] [place] Orders Only [id number] Toña Lemon MD 03/30/2018 [facility] Radiology [place] Ancillary Procedure [id number] Toña Lemon MD 03/30/2018 03/30/2018 [facility] [place] Orders Only [id number] Toña Lemon MD 03/31/2018 [facility] Psychiat[facility] [place] Refill [id number] Richard Lehman MD 04/02/2018 [facility] [place] Orders Only [id number] Toña Lemon MD 04/07/2018 [facility] [place] Office Visit [id number] Toña Lemon MD 04/07/2018 04/07/2018 [facility] [place] Telephone [id number] Cherry Bland RN 04/20/2018 [facility] Nursing [place] Telephone [id number] Mary Jane Torres RN 04/21/2018 [facility] [place] Orders Only [id number] Toña Lemon MD 05/11/2018 [facility] Hospital Admissions Clerk [place] Clinical Case Mgt [id number] Erin Krause 05/11/2018 [facility] [place] Office Visit [id number] Toña Lemon MD 05/11/2018 05/11/2018 [facility] [place] Orders Only [id number] Toña Lemon MD 05/12/2018 [facility] [place] Refill [id number] Toña Lemon MD 05/18/2018 [facility] PULMONARY SERVICES Hospital Encounter [id number] Toña Lemon MD 05/18/2018 05/19/2018 [facility] [place] Orders Only [id number] Toña Lemon MD 05/28/2018 [facility] [place] Telephone [id number] Cherry Bland RN 05/28/2018 [facility] Psychiatry [place] Office Visit [id number] Richard Lehman MD 05/28/2018 05/28/2018 [facility] [place] Telephone [id number] Leonel Anaya RN 09/22/2018 [facility] [place] Refill [id number] Toña Lemon MD 10/08/2018 [facility] [place] Telephone [id number] Leonel Anaya RN 10/25/2018 [facility] [place] Telephone [id number] Leonel Anaya RN 11/16/[address] [facility] [place] Refill [id number] Elo Dacosta DO 02/01/2019 [facility] Procedures Procedure Code Date Perfomer Comments Source PULMONARY - 6 MINUTE WALK EXERCISE TEST - COMPLEX [id number] 05/18/2018 [facility] PULMONARY FUNCTION TEST [id number] 05/18/2018 [facility] OPHTHALMOLOGY RETINAL SCAN [id number] 05/11/2018 [facility] OPHTHALMOLOGY RETINAL SCAN [id number] 05/11/2018 [facility] HEP A VIRUS AB IGG 14738 04/07/2018 [facility] HCV RNA QUANT, PCR [id number] 04/07/2018 [facility] [place] [address] 04/07/2018 [facility] PT/INR/PTT 89577 04/07/2018 [facility] AFP, TUMOR MARKER 85110 04/07/2018 [facility] XRAY CHEST 2 VIEWS 26908 03/30/2018 [facility] XRAY SKULL LESS THAN 4 VIEWS 82883 03/30/2018 [facility] H. PYLORI STOOL AG 65077 03/30/2018 [facility] OCCULT BLOOD ICT 83490 03/30/2018 [facility] HIV-1/HIV-2 DIAGNOSTIC/SYMPTOMATIC 67467 03/30/2018 [facility] HEPATITIS PANEL [id number] 03/30/2018 [facility] UA CHEMISTRIES 18060 03/30/2018 [facility] TSH 38648 03/30/2018 [facility] LIVER PROFILE [id number] 03/30/2018 [facility] LIPID PROFILE [id number] 03/30/2018 [facility] BASIC METABOLIC PANEL 42909 03/30/2018 [facility] CBC/DIFF 96965 03/30/2018 [facility] HEMOGLOBIN A1C 84616 03/30/2018 [facility] MICROALBUM, URINE 78622 03/30/2018 [facility] URINE CULTURE 32372 03/30/2018 [facility] VIT D, 25-HYDROXY 34202 03/30/2018 [facility] 12 LEAD EKG 71808 03/29/2018 [facility] DIABETIC FOOT EXAM 8F 03/29/2018 [facility] NONINVASV OXYGEN SATUR;SINGLE 53399 03/29/2018 [facility] Total hysterectomy with removal of both tubes and ovaries [id number] [facility] Vagotomy [id number] [facility] Total hysterectomy with removal of both tubes and ovaries [id number] [facility] [place] Vagotomy [id number] OPID [place] Total hysterectomy with removal of both tubes and ovaries [id number] [facility] Vagotomy [id number] [facility]
--- OUTSIDE RECORDS SUMMARY | 2019-05-11 11:33 | XMS REPORT | Clinical Summary ---
Author Author [facility] Organization [facility] Address Unknown Phone Unavailable Care Team Providers Care Stereo Compiler Name Role Phone Elo Dacosta PCP Allergies [...] esophagitis presence not specified 05/11/2018 Office Visit [facility] Toña Lemon MD Memory disorder; Numbness and tingling 05/11/2018 Orders Only [facility] Erin Krause 05/11/2018 Clinical Case Social Work Mgt Mary Jane Torres RN Other 04/21/2018 Telephone Cherry Bland RN Information Only 04/20/2018 Telephone [facility] Toña Lemon MD Type 2 diabetes mellitus with other specified complication, without long-term current use of insulin (Primary Dx); Essential hypertension; Pulmonary emphysema, unspecified emphysema type; Uncomplicated asthma, unspecified asthma severity, unspecified whether persistent; Abnormal hepatitis serology; Brain lesion; Anxiety disorder, unspecified type; Mood disorder; 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 B virus 04/07/2018 Office Visit [facility] Toña Lemon MD Anxiety disorder, unspecified type; Mood disorder 04/07/2018 Orders Only [facility] Richard Lehman MD Insomnia, unspecified type 04/02/2018 Refill Psychiatry Toña Lemon MD Abnormal hepatitis serology (Primary Dx) 03/31/2018 Orders Only [facility] Toña Coffman MD Essential hypertension; Skull lesion 03/30/2018 Ancillary Radiology Procedure Toña Lemon MD Abnormal CXR (Primary Dx); Pulmonary emphysema, unspecified emphysema type; Healthcare maintenance 03/30/2018 Orders Only [facility] Toña Coffman MD Healthcare maintenance (Primary Dx); Essential hypertension; Type 2 diabetes mellitus with other specified complication, without long-term current use of insulin; Pulmonary emphysema, unspecified emphysema type; Uncomplicated asthma, unspecified asthma severity, unspecified whether persistent; Dysphagia, unspecified type; Skull lesion; Back pain, unspecified back location, unspecified back pain laterality, unspecified chronicity; Allergic rhinitis, unspecified seasonality, unspecified trigger 03/29/2018 Office Visit [facility] Toña Lemon MD Type 2 diabetes mellitus with other specified complication, without long-term current use of insulin 03/29/2018 Orders Only [facility] Cherry Bland RN Essential hypertension 03/29/2018 Orders Only [facility] Richard Lehman MD Anxiety disorder, unspecified type; Insomnia, unspecified type 03/05/2018 Office Visit Psychiatry after 02/20/2018 Immunizations Name Dates Previously Given Next Due [...] 1:27 PM CDT unspecified emphysema type after 02/20/2018 Results * PULMONARY - 6 MINUTE WALK [...] At Retinal Study Result for DIOGENES PARNELL IRIS DIOGENES PARNELL, gibran 67 y/o, F (: 1950, ) presented to [facility] [...] signed by Frank Juan MD, , Taxonomy: [id number] on 05-11-2018 06:36:59 [facility] time. NOTE:Any pathology noted on this diabetic retinal evaluation should be confirmed by an appropriate ophthalmic examination. Performing Organization Address [facility] Phone Number IRIS * HEPATITIS B SURFACE AB (04/06/2018 4:18 PM CDT) HBsAb Negative NEG BT OUTPATIENT DRAW 2 HBsAb <0.01 BT OUTPATIENT Concentration Negative: <8.00 mIU/mL DRAW 2 Grayzone: > or=8.00 mIU/mL to <12.00 mIU/mL Positive: > or=12.00 mIU/mL Specimen Blood Performing Organization Address City/[facility] Phone Number MISYS BT OUTPATIENT DRAW 2 * HEP A VIRUS AB IGG (04/06/2018 4:18 PM CDT) Hep A Vir Ab Positive (A) NEG BT OUTPATIENT IgG DRAW 2 Performing Organization Address [facility] Phone Number MISYS BT OUTPATIENT DRAW 2 * AFP, TUMOR MARKER (04/06/2018 4:18 PM CDT) AFP Tumor Mrk 4.7 <9.0 ng/mL BT MAIN-STATION 1 Specimen Blood Performing Organization Address [facility] Phone Number MISYS BT MAIN-STATION 1 * HCV RNA QUANT, PCR (04/06/2018 4:18 PM CDT) HCV RNA QUANT, Not detected IU/mL BT MOLECULAR PCR Comment: PATHOLOGY This test utilizes FDA cleared EILEEN AmpliPrep/EILEEN TaqMan HCV test, v2.0 from [employer] which allows detection of viral loads between [...] HCV infection. Specimen Blood Performing Organization Address [facility] Phone Number MISYS BT MOLECULAR PATHOLOGY * PT/INR/PTT (04/06/2018 4:18 PM CDT) PT 12.4 11.8 - 15.0 Seconds BT MAIN-STATION 3 INR 0.9 BT MAIN-STATION SUGGESTED THERAPEUTIC RANGES: 3 INR 2.0-3.0 for MODERATE INTENSITY ANTICOAGULATION INR 2.5-3.5 for HIGH INTENSITY ANTICOAGULATION PTT 33.3 23.6 - 36.4 Seconds BT MAIN-STATION 3 Specimen Blood Performing Organization Address [facility] Phone Number MISYS BT MAIN-STATION 3 * [...] spine plate and screw fixation. Procedure Note [facility] In - 03/30/2018 1:48 PM CDT [...] MD, 03/30/2018 10:42 AM Performing Organization Address [facility] Phone Number SMS * OCCULT BLOOD ICT (03/30/2018 9:46 AM CDT) Occult Blood Negative NEG [facility] ICT Specimen Stool Performing Organization Address [facility] Phone Number [facility]YS [facility] * H. PYLORI STOOL AG (03/30/2018 9:46 AM CDT) H pylori Ag Negative LABORATORY Stool Reference range: Negative [facility] [employer] Specimen Stool Performing Organization Address [facility] Phone Number [facility] [place] [address] AURELIO 145 * VIT D, 25-HYDROXY (03/30/2018 9:40 AM CDT) Vit D, 54.8 30 - 100 ng/mL BT DIAGNOSTIC 25-Hydroxy Comment: IMMUNOLOGY Vitamin D deficiency has been defined by the [place] of [employer] and Endocrine Society guideline as a level of serum 25-OH Vitamin D less than 20 ng/mL. The Endocrine Society further defines Vitamin D insufficiency as a level between 21 and 29 ng/mL and sufficiency as a level between 30 and 100 ng/mL. Performing Organization Address [facility] Phone Number MISYS BT DIAGNOSTIC IMMUNOLOGY * MICROALBUM, URINE (03/30/2018 [...] a week is recommended. Performing Organization Address [facility] Phone Number MISYS BT MAIN-STATION 3 * HEMOGLOBIN A1C (03/30/2018 9:40 AM CDT) Hemoglobin A1c 5.7 4.3 - 6.1 % BT DIAGNOSTIC IMMUNOLOGY Est Average 116.9 mg/dL BT DIAGNOSTIC Gluc IMMUNOLOGY Specimen Blood Performing Organization Address [facility] Phone Number MISYS BT DIAGNOSTIC IMMUNOLOGY * TSH (03/30/2018 9:40 AM CDT) TSH 0.71 0.45 - 5.33 uIU/mL BT MAIN-STATION 4 Specimen Blood Performing Organization Address [facility] Phone Number MISYS BT MAIN-STATION 4 * UA CHEMISTRIES (03/30/2018 9:40 AM CDT) Color Yellow BT MAIN-STATION 3 Clarity Cloudy BT MAIN-STATION 3 Spec [place] 1.017 1.001 - 1.035 BT MAIN-STATION 3 [...] MAIN-STATION 3 Specimen Urine Performing Organization Address [facility] Phone Number MISYS BT MAIN-STATION 3 * [...] MAIN-STATION 4 Specimen Blood Performing Organization Address [facility] Phone Number MISYS BT MAIN-STATION 4 * LIPID PROFILE (03/30/2018 9:40 AM CDT) Cholesterol 191 mg/dL BT MAIN-STATION Comment: 4 REFERENCE RANGE: Desirable: <200 mg/dL Borderline: 200-240 mg/dL High Risk: >240 mg/dL Triglyceride 60 <150 mg/dL BT MAIN-STATION Comment: 4 REFERENCE RANGE: Normal: <150 mg/dL Borderline High: 150-199 mg/dL High: 200-499 mg/dL Very High: >vp=280 mg/dL HDL 76 mg/dL BT MAIN-STATION Comment: 4 Increased CHD risk: <40 mg/dL Decreased CHD risk: >60 mg/dL LDL 103 mg/dL BT MAIN-STATION Comment: 4 REFERENCE RANGE: Optimal: <100 mg/dL Near Optimal: 100-129 mg/dL Borderline High: 130-159 mg/dL High: 160-189 mg/dL Very High: >fs=721 mg/dL Specimen Blood Performing Organization Address [facility] Phone Number [facility] BT MAIN-STATION 4 * HIV-1/HIV-2 DIAGNOSTIC/SYMPTOMATIC (03/30/2018 9:40 AM CDT) HIV-1/HIV-2 Negative NEG BT MAIN-STATION 3 Specimen Blood Performing Organization Address [facility] Phone Number [facility]USwireLawyer MAIN-STATION 3 * HEPATITIS PANEL (03/30/2018 9:40 AM CDT) HCV IgG Positive (A) NEG BT MAIN-STATION 3 HBsAg Negative NEG BT MAIN-STATION 3 HAV, IgM Negative NEG BT MAIN-STATION 3 HBcAb, IgM Negative NEG BT MAIN-STATION 3 Specimen Blood Performing Organization Address [facility] Phone Number [facility]US[facility] MAIN-STATION 3 * URINE CULTURE (03/30/2018 9:40 AM CDT) Spec Urine [facility] Description Order Comments None [facility] Culture Skin marie organisms present, BT MICROBIOLOGY suggests contamination; please recollect Report Status Final 04/01/2018 BT MICROBIOLOGY Specimen Urine - URINE Performing Organization Address [facility] Phone Number [employer] [facility] BT MICROBIOLOGY * CBC/DIFF (03/30/2018 [...] BASIC METABOLIC PANEL (03/30/2018 9:40 AM CDT) CO2 28 21 - 31 mmol/L BT [...] Afr-Am 4 Specimen Blood Performing Organization Address City/[facility] Phone Number MISYS BT MAIN-STATION 4 * 12 LEAD EKG (03/29/2018 1:30 PM CDT) 12 LEAD EKG FOR [facility] Test Date:2018-03-29 Pat Name: DIOGENES PARNELL Department: Room: Gender: F Facsimile Operator: :[id number] Requested By: Order Number: Victorina brady MD: Geovany Carrillo Measurements Intervals [place] Rate: 75 P:-10 WA: 145 QRS: 86 QRSD: 80 T:127 QT: 381 QTc:428 Interpretive Statements SINUS RHYTHM Electronically Signed On 03-29-18 15:45:35 CDT by Geovany Carrillo Performing Organization Address City/State/[facility] Phone Number SMS * DIABETIC FOOT EXAM (03/29/2018 1:29 PM CDT) Narrative Performed At Toña Lemon MD 03/29/20181:54 PM Diabetic Foot Exam was performed at 03/29/2018 1:29 PM.Right foot sensation is normal, right foot pulses are normal, right foot appearance is normal.Left foot sensation is normal,left foot pulses are normal, left foot appearance is normal. after 02/20/2018 Insurance Type Payer Benefit Subscriber ID Effective Phone Address Plan / Dates Group [facility] xxxxxxxxx 2017-P [phone] [address] [place]ICARE resent [id number] [place] [address] [facility] xxxxxxxxx 2017-P [phone] COMM[employer]ITY resent [id number] [employer] [facility] [id number] [facility] xxxxxxxxx 2017-P [phone] [address] BEHAVIOR resent [id number] [facility] [address] [facility] xxxxxxxxx 2017-P [phone] [employer] COMMUNITY resent [id number] [place] [address]
--- OUTSIDE RECORDS SUMMARY | 2019-05-11 11:34 | XMS REPORT ---
Author Author [facility] Address Unknown Phone Unavailable Care Team Providers Care Fabric Coating Supervisor Name Role Phone MARGARET COWAN Unavailable Unavailable SCOTT LLOYD Unavailable Unavailable Payers Payer Name Policy Type Policy Number Effective Date Expiration Date Problems This patient has no known problems. Allergies, Adverse Reactions, Alerts Allergy Name Allergy Type Status Severity Reaction(s) Onset Date Inactive Date Treating Clinician Comments aspirin DA Active SV 2017-05-09 00:00:00 Medications This patient has no known medications. Encounters Start Date/Time End Date/Time Encounter Type Admission Type Attending [facility] Facility Care Department Encounter ID 2018-10-26 00:00:00 2018-10-26 00:00:00 Outpatient [facility] [id number] 2018-10-08 00:00:00 2018-10-08 00:00:00 Outpatient [facility] [id number] 2018-09-10 00:00:00 2018-09-10 00:00:00 Outpatient [facility] [id number] 2018-08-20 00:00:00 2018-08-20 00:00:00 Outpatient [facility] [id number] 2018-08-19 00:00:00 2018-08-19 00:00:00 Outpatient [facility] [id number] 2018-08-13 00:00:00 2018-08-13 00:00:00 Outpatient [facility] [id number] 2018-08-09 00:00:00 2018-08-09 00:00:00 Outpatient [facility] [id number] 2018-06-25 00:00:00 2018-06-25 00:00:00 Outpatient [facility] [id number] 2018-06-24 00:00:00 2018-06-24 00:00:00 Outpatient [facility] [id number] 2018-05-28 15:27:26 2018-05-28 15:27:26 Outpatient [facility] [id number] 2018-05-18 13:14:32 2018-05-18 13:14:32 Outpatient [facility] [id number] 2018-05-11 13:22:13 2018-05-11 13:22:13 Outpatient [facility] [id number] 2018-05-11 13:01:41 2018-05-11 13:01:41 Outpatient [facility] [id number] 2018-05-11 00:00:00 2018-05-11 00:00:00 Outpatient [facility] [id number] 2018-04-30 00:00:00 2018-04-30 00:00:00 Outpatient [facility] [id number] 2018-04-22 00:00:00 2018-04-22 00:00:00 Outpatient [facility] [id number] 2018-04-21 00:00:00 2018-04-21 00:00:00 Outpatient [facility] [id number] 2018-04-07 11:11:37 2018-04-07 11:11:37 Outpatient [facility] [id number] 2018-04-06 16:22:42 2018-04-06 16:22:42 Outpatient [facility] [id number] 2018-04-05 00:00:00 2018-04-05 00:00:00 Outpatient [facility] [id number] 2018-03-30 10:14:58 2018-03-30 10:14:58 Outpatient [facility] [id number] 2018-03-30 09:43:09 2018-03-30 09:43:09 Outpatient [facility] [id number] 2018-03-29 12:20:23 2018-03-29 12:20:23 Outpatient [facility] [id number] 2018-03-05 14:49:41 2018-03-05 14:49:41 Outpatient [facility] [id number] 2018-02-05 00:00:00 2018-02-05 00:00:00 Outpatient [facility] [id number] 2017-11-17 10:07:25 2017-11-17 10:07:25 Outpatient [facility] [id number] 2017-11-13 00:00:00 2017-11-13 00:00:00 Outpatient [facility] [id number] 2017-07-24 00:00:00 2017-07-24 00:00:00 Outpatient [facility] [id number] 2017-05-01 14:40:56 2017-05-01 14:40:56 Outpatient [facility] [id number] Results Test Description Test Time Test Comments Text Results Atomic Results Result Comments MRI BRAIN WO 2019-02-10 14:09:00 [facility] [address] [address] Patient Name: DIOGENES PARNELL MR #: [id number] : 1950 Age/Sex: 68/F Req #: [id number] Adm Physician: MARGARET COWAN MD Ordered by: MARGARET COWAN MD Report #: [id number] Location: MED/SURG Room/Bed: [facility] Procedure: [id number] MRI/MRI BRAIN WO Exam Date: 02/10/19 Exam Time: 1310 REPORT STATUS: Signed MRI BRAIN WO HISTORY: Syncope COMPARISON: Report from head CT dated 05/23/2017 (images not available) TECHNIQUE: Sagittal T2, axial T2, axial T1, axial T2/FLAIR, axial gradient echo (or susceptibility weighted), coronal T2/FLAIR, and axial diffusion weighted MR images of the brain were obtained without contrast. DISCUSSION: Scalp/bone marrow: Unremarkable. Brain sulci: Mildly prominent. Ventricles: Compensatory dilatation. Extra-axial spaces: Subtle 1 cm T2/FLAIR hyperintense dural lesion along the anterior left cerebellum may be a small meningioma; there is no significant mass effect. No additional masses or fluid collections. Parenchyma: Scattered T2/FLAIR hyperintense foci throughout the supratentorial white matter are likely chronic microvascular ischemic changes. Otherwise, no mass, hemorrhage, or acute vascular insults. Vessels: Normal flow voids in major arteries and veins. Sellar/Suprasellar region: Partially empty sella. Craniocervical junction: No abnormalities. Incidental findings: Both ocular lenses are thinned. IMPRESSION: 1. No acute intracranial abnormalities. 2. Mild supratentorial chronic microvascular ischemic change. 3. Mild generalized cerebral volume loss. 4. Subtle 1 cm T2/FLAIR hyperintense dural lesion along the anterior left cerebellum may be a small meningioma. No significant mass effect. Signed by: Dr. Robbin Vasquez M.D. on 02/10/2019 2:13 PM Dictated By: ROBBIN VASQUEZ MD 141 Transcribed By: ROSLYN on 02/10/191412 COPY TO: MARGARET COWAN MD CHEST SINGLE (PORTABLE) 2019-02-09 16:19:00 [address] [place] [address] Patient Name: DIOGENES PARNELL MR #: [id number] : 1950 Age/Sex: 68/F Req #: [id number] Adm Physician: Ordered by: MATTI LABOY MD Report #: [id number] Location: ER Room/Bed: Procedure: [id number] DX/CHEST SINGLE (PORTABLE) Exam Date: 02/09/19 Exam Time: 1510 REPORT STATUS: Signed EXAM: CHEST SINGLE (PORTABLE) DATE: 02/09/2019 2:56 PM INDICATION: Shortness of breath COMPARISON: Chest x-ray, 06/07/2017 FINDINGS: Lines and tubes: None Heart size normal. No focal pulmonary opacity, pleural effusion or pneumothorax. Upper abdomen unremarkable. No acute bony abnormality. There are degenerative changes in the thoracic spine. Cervical spine fusion hardware again partially visualized. IMPRESSION: No evidence for acute disease. Signed by: Dr. Matti Esparza M.D. on 02/09/2019 4:21 PM Dictated By: MATTI ESPARZA MD 20 Transcribed By: ROSLYN on 02/09/191620 COPY TO: MATTI LABOY MD CT CHEST WO [place] [address] Patient Name: DIOGENES PARNELL MR #: [id number] : 1950 Age/Sex: 66/F Req #: [id number] Adm Physician: Ordered by: SCOTT LLOYD MD Report #: [id number] Location: CT Room/Bed: Procedure: [id number] CT/CT CHEST WO Exam Date: 09/16/17 Exam [...] LLOYD MD CT SOFT TISSUE NECK WO [place] [address] Patient Name: DIOGENES PARNELL MR #: [id number] : 1950 Age/Sex: 66/F Req #: [id number] Adm Physician: Ordered by: SCOTT LLOYD MD Report #: [id number] Location: CT Room/Bed: Procedure: [id number] CT/CT SOFT TISSUE NECK WO Exam Date: 09/16/17 Exam Time: 1358 REPORT STATUS: Signed History: Can't speak, smoker [...] spine as described above. Signed by: DR Hortencia Brantley M.D. on 09/17/2017 7:40 AM Dictated By: HORTENCIA PEREZ MD 9 Transcribed By: ROSLYN on 09/17/17739 COPY TO: SCOTT LLOYD MD
[2019-05-11 13:08] LABS: BASOPHILS % 0.6 % (0.0-1.0); EOSINOPHILS # (AUTO) 0.1 (0.0-0.4); EOSINOPHILS % 1.8 % (0.0-6.0); HEMATOCRIT 35.9 % (34.2-44.1); HEMOGLOBIN 11.3 g/dL (12.0-16.0); LYMPHOCYTES # (AUTO) 2.8 (1.0-3.2); LYMPHOCYTES % 41.9 % (18.0-39.1); MEAN CORPUSCULAR HEMOGLOBIN 29.4 pg (28-32); MEAN CORPUSCULAR HGB CONC 31.5 g/dL (31-35); MEAN CORPUSCULAR VOLUME 93.5 fL (81-99); MONOCYTES # (AUTO) 0.5 (0.2-0.8); MONOCYTES % 7.4 % (4.4-11.3); NEUTROPHILS # (AUTO) 3.3 (2.1-6.9); NEUTROPHILS % 48.2 % (38.7-80.0); PLATELET COUNT 220 x10e3/uL (140-360); RED BLOOD COUNT 3.84 x10e6/uL (3.6-5.1); RED CELL DISTRIBUTION WIDTH 12.8 % (11.7-14.4)
[2019-05-11 13:18] LABS: BILIRUBIN,URINE NEGATIVE (NEGATIVE); CLARITY,URINE CLEAR (CLEAR); COLOR,URINE YELLOW (YELLOW); KETONES,URINE NEGATIVE (NEGATIVE); LEUKOCYTE ESTERASE ,URINE TRACE (NEGATIVE); NITRITE,URINE NEGATIVE (NEGATIVE); PROTEIN,URINE DIPSTICK TRACE (NEGATIVE); URINE UROBILINOGEN 0.2 mg/dL (0.2 - 1)
[2019-05-11 13:19] LABS: INR 0.81; PROTHROMBIN TIME 11.6 seconds (11.9-14.5)
[2019-05-11 13:20] LABS: PARTIAL THROMBOPLASTIN TIME 31.5 seconds (23.8-35.5)
[2019-05-11 13:27] LABS: ALANINE AMINOTRANSFERASE 15 IU/L (0-55); ALBUMIN 4.1 g/dL (3.5-5.0); ALBUMIN/GLOBULIN RATIO 1.2 (0.8-2.0); ALKALINE PHOSPHATASE 75 IU/L (40-150); ANION GAP 8.5 mmol/L (8-16); BLOOD UREA NITROGEN 22 mg/dL (7-26); BUN/CREATININE RATIO 28 (6-25); CALCIUM 10.2 mg/dL (8.4-10.2); CARBON DIOXIDE 30 mmol/L (22-29); CHLORIDE 101 mmol/L (98-107); CREATINE KINASE 57 IU/L (29-168); CREATININE, SERUM 0.79 mg/dL (0.57-1.11); EST GLOMERULAR FILTRATION RATE > 60 ML/MIN (60-); GLUCOSE 71 mg/dL (74-118); MAGNESIUM 1.7 MG/DL (1.3-2.1); POTASSIUM 3.5 mmol/L (3.5-5.1); SODIUM 136 mmol/L (136-145)
[2019-05-11 13:28] LABS: AMPHETAMINES SCREEN,URINE NEGATIVE (NEGATIVE); BENZODIAZEPINES SCREEN,URINE NEGATIVE (NEGATIVE); PHENCYCLIDINE SCREEN,URINE NEGATIVE (NEGATIVE)
[2019-05-11 13:33] LABS: BACTERIA,URINE FEW /HPF; CALCIUM OXALATE CRYSTALS,UR MANY (FEW); RBC,URINE 0-5 /HPF (0-5); WBC,URINE (MAN) 0-5 /HPF (0-5)
--- NOTE | 2019-05-11 13:47 | Diagnostic Imaging Report ---
CT BRAIN WO HISTORY: Fainting COMPARISON: MRI of the brain 02/10/2019 Technique: Noncontrast axial scans were obtained from skull base to the vertex. Coronal and sagittal reconstructions obtained from the axial data. One or more of the following dose reduction techniques were used: Automated exposure control, adjustment of the mA and/or kV according to patient size, and/or utilization of iterative reconstruction technique. Beam hardening artifacts obscure some details. DISCUSSION: Scalp/Skull: Unremarkable. Brain sulci: Mildly prominent. Ventricles: Compensatory dilatation. Extra-axial spaces: No definite masses or fluid collections. Carotid siphon calcifications are present. Parenchyma: Mild bilateral deep white matter hypodensity is likely chronic microvascular ischemic change. Mild symmetric globi pallidi calcifications are likely physiologic. Otherwise, no masses, hemorrhage, or large vascular territory acute infarct. Dural sinuses: No abnormal densities. Sellar/Suprasellar region: Enlarged empty sella. Skull base: Intact. Incidental findings: None. IMPRESSION: 1. No acute intracranial abnormalities. 2. Mild supratentorial chronic microvascular ischemic change. Mild generalized cerebral volume loss. Signed by: Dr. Robbin Vasquez M.D. on 05/11/2019 1:44 PM
--- NOTE | 2019-05-11 14:08 | Diagnostic Imaging Report ---
EXAM: CHEST SINGLE (PORTABLE), AP Portable DATE: 05/11/2019 Time stamp on exam: 1:10 PM INDICATION: Syncope COMPARISON: None FINDINGS: LINES/TUBES: None LUNGS: The lungs are hyperexpanded. No consolidations or edema. PLEURA: No effusions or pneumothorax. HEART AND MEDIASTINUM: Normal size and contour. BONES AND SOFT TISSUES: No acute findings. Orthopedic hardware overlies the lower cervical spine. IMPRESSION: No acute thoracic abnormality. Signed by: Dr. Laz Frazier DO on 05/11/2019 2:04 PM
--- NOTE | 2019-05-11 14:16 | NUR ---
Pt provided with a sandwich, juice, crackers and juice.
[2019-05-11 14:20] VITALS: BP 130/83
--- NOTE | 2019-05-11 14:50 | NUR ---
need to recheck blood sugar prior to discharge
== END 2019-05-11 15:02 | disposition home or self-care (01) ==
LOC: ER 11:29
DX: R55 Syncope and collapse (principal); I10 Essential (primary) hypertension; J44.9 Chronic obstructive pulmonary disease, unspecified; I48.91 Unspecified atrial fibrillation; M54.9 Dorsalgia, unspecified; M19.90 Unspecified osteoarthritis, unspecified site; F03.90 Unspecified dementia, unspecified severity, without behavioral disturbance, psychotic disturbance, mood disturbance, and anxiety; E11.649 Type 2 diabetes mellitus with hypoglycemia without coma; Z95.5 Presence of coronary angioplasty implant and graft; Z87.891 Personal history of nicotine dependence; Z72.89 Other problems related to lifestyle; Z88.8 Allergy status to other drugs, medicaments and biological substances; Z79.84 Long term (current) use of oral hypoglycemic drugs
CPT/HCPCS: 36415; 70450; 71045; 80053; 80307; 81001; 82550; 82553; 82948; 83735; 83880; 84484; 85025; 85610; 85730; 93005; 99284

== ENCOUNTER 2020-06-23 19:56 | Emergency (ER) | payer MEDICARE, OTHER ==
[~2020-06-23] VITALS: Ht 157.5 cm; Wt 65.8 kg
--- NOTE | 2020-06-23 20:22 | Emergency Department Note ---
History of Present Illnes History of Present Illness Chief Complaint: Respiratory History of Present Illness This is a 69 year old female arrived to the ED with complaints of cough and fever. Historian: Patient, Family Member, Records Custodian/EMS Arrival Mode: So. [facility] Onset (how long ago): hour(s) Onset quality: gradual Duration (how long): day(s) Timing of current episode: intermittent Chronicity: new Associated symptoms: Reports denies other symptoms Past Medical/Family History Physician Review I have reviewed the patient's past medical and family history. Any updates have been documented here. Past Medical History Recent Fever: Yes Clinical Suspicion of Infectio: Yes New/Unexplained Change in Ment: No Past Medical History: Hypertension, Diabetes, COPD, A-Fib, Chronic Back Pain, Osteoarthritis Other Medical History: Brain tumor and dementia Past Surgical History: Hysterectomy Other Surgery: HEART STENT CARTOID STENT VAGOTOMY ULCER SX HERNIA Social History Smoking Cessation: Never Smoker Counseling Performed: No Alcohol Use: None Any Illegal Drug Use: No Other Last Tetanus: UNK Any Pre-Existing Lines (PICC,: No Review of Systems Review of Systems Constitutional: Reports no symptoms, Reports as per HPI, Reports fever EENTM: Reports no symptoms Cardiovascular: Reports no symptoms Respiratory: Reports as per HPI, Reports cough Gastrointestinal: Reports no symptoms Genitourinary: Reports no symptoms Musculoskeletal: Reports no symptoms Integumentary: Reports no symptoms Neurological: Reports no symptoms Psychological: Reports no symptoms Endocrine: Reports no symptoms Hematological/Lymphatic: Reports no symptoms Review of other systems: All other systems negative Physical Exam Related Data Allergies: Coded Allergies: aspirin (Verified Allergy, Unknown, ACID REFLUX AND ULCERS, 02/09/19) DUE TO ACID REFLUX AND ULCERS Triage Vital Signs Vital Signs Date Time Temp Pulse Resp B/P (MAP) Pulse Ox O2 Delivery O2 Flow Rate FiO2 06/23/20 20:08 100.4 79 19 110/86 100 Room Air Vital signs reviewed: Yes Physical Exam CONSTITUTIONAL Constitutional: Present well-developed, Present well-nourished HENT HENT: Present normocephalic, Present atraumatic, Present oropharynx clear/moist, Present nose normal HENT L/R: Present left ext ear normal, Present right ext ear normal EYES Eyes: Reports PERRL, Reports conjunctivae normal NECK Neck: Present ROM normal PULMONARY Pulmonary: Present effort normal, Present breath sounds normal CARDIOVASCULAR Cardiovascular: Present regular rhythm, Present heart sounds normal, Present capillary refill normal, Present normal rate GASTROINTESTINAL Abdominal: Present soft, Present nontender, Present bowel sounds normal GENITOURINARY Genitourinary: Present exam deferred SKIN Skin: Present warm, Present dry MUSCULOSKELETAL Musculoskeletal: Present ROM normal NEUROLOGICAL Neurological: Present alert, Present oriented x 3, Present no gross motor or sensory deficits PSYCHOLOGICAL Psychological: Present mood/affect normal, Present judgement normal Assessment & Plan Medical Decision Making MDM 69-year-old well-appearing female arrives to the ED with complaints of cough fever loss of taste and smell. Patient is clinically presenting with signs and symptoms consistent with Covid 19. Patient informed she is positive until proven otherwise. Patient's oxygen saturation remained 99% even on exertion, no evidence of tachypnea or dyspnea noted in the ED. Spoke present length about the importance of sleeping on her stomach and rotating from side to side. Z-Brennon given, signs and symptoms for return discussed. In the light of the Covid pandemic, disaster medicine care was given- patient understands why he was not tested for Covid 19 in the ED, no indications for a chest x-ray at this time given normal oxygen saturation and respiratory status. Pt understands she is at high risk of morbidity and mortality given his age and co-morbidities. Pt understands he is welcome to return to the ED at anytime for worsening symptoms. Assessment & Plan Final Impression: (1) COVID-19 Depart Disposition: HOME, SELF-CARE Last Vital Signs Date Time Temp Pulse Resp B/P (MAP) Pulse Ox O2 Delivery O2 Flow Rate FiO2 06/23/20 20:08 100.4 79 19 110/86 100 Room Air Home Meds Active Scripts Hydralazine Hcl (HYDRALAZINE HCL) 25 Mg Tab, 25 MG PO TID for 14 Days, TAB Prov:ANTONIETTA ARREDONDO [employer] 06/10/17 Reported Medications [Antioxidant C&E] No Conflict Check, 1 EACH PO DAILY 02/10/19 Calcium Carbonate (TUMS) 300 Mg Tab.chew, 750 MG PO PRN 02/10/19 Multivitamin (ONE DAILY MULTIVITAMIN) 1 Each Tablet, 1 EA PO DAILY 02/10/19 Lubiprostone (AMITIZA) 24 Mcg Capsule, 24 MCG PO BID, #60 CAP 02/10/19 Irbesartan (IRBESARTAN) 150 Mg Tablet, 150 MG PO DAILY, #30 TAB 02/10/19 Ipratropium/Albuterol Sulfate (COMBIVENT RESPIMAT INHAL SPRAY) 4 Gm Aer.w.adap, 4 GM IH PRN PRN for SHORTNESS OF BREATH, INH 10/04/18 [place]-3 Fatty Acids/Fish Oil (FISH OIL 1,000 MG CAPSULE) 1 Each Capsule 10/04/18 Hydrocodone Bit/Acetaminophen (NORCO 10-325 TABLET) 1 Each Tablet, Q8H PRN for PAIN 10/04/18 Amlodipine Besylate (AMLODIPINE BESYLATE) 10 Mg Tablet, 10 MG PO DAILY, #30 TAB 10/04/18 Atorvastatin Calcium (ATORVASTATIN CALCIUM) 10 Mg Tablet, 10 MG PO 2100, #30 TAB 10/04/18 Trazodone Hcl (TRAZODONE HCL) 50 Mg Tablet, 100 MG PO DAILY, #30 TAB 05/24/17 Metformin Hcl (METFORMIN HCL) 500 Mg Tablet, 500 MG PO BID, #60 TAB 05/24/17 Tizanidine Hcl (TIZANIDINE HCL) 4 Mg Tablet, 4 MG PO TID, TAB 05/24/17 Sertraline Hcl (SERTRALINE HCL) 100 Mg Tablet, 200 MG PO QAM, TAB 05/24/17 Clopidogrel Bisulfate* (PLAVIX) 75 Mg Tablet, 75 MG PO DAILY, #30 TAB 05/24/17 Famotidine (FAMOTIDINE) 20 Mg Tab, 20 MG PO DAILY, #30 TAB 05/24/17 NO MARTINEZ, DO Jun 23, 2020 20:22
== END 2020-06-23 21:19 | disposition home or self-care (01) ==
LOC: ER 20:09
DX: R05 Cough (principal); R50.9 Fever, unspecified; R43.8 Other disturbances of smell and taste; I10 Essential (primary) hypertension; E11.9 Type 2 diabetes mellitus without complications; I48.91 Unspecified atrial fibrillation; J44.9 Chronic obstructive pulmonary disease, unspecified; Z95.5 Presence of coronary angioplasty implant and graft; F03.90 Unspecified dementia, unspecified severity, without behavioral disturbance, psychotic disturbance, mood disturbance, and anxiety
CPT/HCPCS: 99282